=== PATIENT | male | born 1955 | race African-American/Black ===

== ENCOUNTER 2017-03-01 10:58 | Emergency (ER) | payer OTHER ==
[~2017-03-01] VITALS: Ht 185.4 cm; Wt 85.0 kg
[~2017-03-01 10:58] MED LIST: AMIT25 PO; ANAP550T PO; CEPH500C3 PO; HYDR-3533 PO; IBUP800T23 PO; INDO50CA PO; LANTUSP SQ; METF1000 PO; METH750T2 PO; NEUR600T PO; PRIN10TA PO; SIMV20TA PO; TRIA.1%T TOP
--- NOTE | 2017-03-01 11:48 | PD ---
HPI Chief Complaint: Psychiatric Symptoms Time Seen by Provider: 11:45 Travel History International Travel<30 days: No Contact w/Intl Traveler<30days: No History of Present Illness HPI 61-year-old male presents the emergency department via police for Butler act evaluation. Butler act states that patient has not been taking his medication for an extended amount of time. Patient states that he feels like he wants to hurt himself or someone else. Patient has no specific plan. Patient is a insulin dependent diabetic, and states he has not been taking his insulin today. He denies any other medical problems or issues at this time. He denies use of alcohol, but states he has used some illicit drugs. He has no known drug allergies. [facility] Past Medical History Cardiovascular Problems: Yes (htn) High Cholesterol: Yes Diabetes: Yes Diminished Hearing: No Hepatitis: No Hypertension: Yes Immunizations Current: Yes Past Surgical History Appendectomy: Yes Social History Alcohol Use: No Tobacco Use: No Substance Use: No Allergies-Medications (Allergen,Severity, Reaction): Coded Allergies: No Known Allergies (Verified , 03/01/17) Reported Meds & Prescriptions Reported Meds & Active Scripts Active Reported Zocor (Simvastatin) 20 Mg Tab 20 Mg PO HS Metformin (Metformin HCl) 1,000 Mg Tab 1,000 Mg PO BID With meals Lisinopril 20 Mg Tab 20 Mg PO HS Amlodipine (Amlodipine Besylate) 5 Mg Tab 5 Mg PO DAILY Aspir-81 (Aspirin) 81 Mg Tabdr 81 Mg PO DAILY Lantus Inj (Insulin Glargine) 1,000 Unit/10 Ml Vial 48 Units SQ HS Amitriptyline (Amitriptyline HCl) 25 Mg Tab 25 Mg PO HS Review of Systems ROS Limitations: Poor Historian Except as stated in HPI: all other systems reviewed are Neg General / Constitutional: No: Fever Eyes: No: Visual changes HENT: No: Headaches Cardiovascular: No: Chest Pain or Discomfort Respiratory: No: Shortness of Breath Gastrointestinal: No: Abdominal Pain Genitourinary: No: Dysuria Musculoskeletal: No: Pain Skin: No Rash Neurologic: No: Weakness Psychiatric: No: Depression Endocrine: No: Polydipsia Hematologic/Lymphatic: No: Easy Bruising Physical Exam Exam Limitations: Poor Historian Narrative GENERAL: Patient appears in no acute distress. SKIN: Warm and dry. Normal color. Normal turgor. HEAD: Atraumatic. Normocephalic. EYES: Pupils equal and round. No scleral icterus. No injection or drainage. ENT: No nasal bleeding or discharge. Mucous membranes pink and moist. Pharynx is clear. Airway is patent. NECK: Trachea midline. Supple nontender. CARDIOVASCULAR: Regular rate and rhythm. RESPIRATORY: No accessory muscle use. Clear to auscultation. Breath sounds equal bilaterally. MUSCULOSKELETAL: Extremities without clubbing, cyanosis, or edema. No obvious deformities. NEUROLOGICAL: Awake and alert. No obvious cranial nerve deficits. Motor grossly within normal limits. Five out of 5 muscle strength in the arms and legs. Normal speech. PSYCHIATRIC: Appropriate mood and affect; insight and judgment normal. Data Data Last Documented VS Vital Signs Date Time Temp Pulse Resp B/P Pulse Ox O2 Delivery O2 Flow Rate FiO2 03/01/17 12:14 98.3 56 16 142/79 97 Orders Complete Blood Count With Diff (03/01/17 11:43) Comprehensive Metabolic Panel (03/01/17 11:43) Psych Screen (03/01/17 11:43) Drug Screen, Random Urine (03/01/17 11:43) Diet Regular Basic (03/01/17 Dinner) Labs Laboratory Tests Test 03/01/17 03/01/17 11:50 13:30 White Blood Count 6.0 TH/MM3 Red Blood Count 4.02 MIL/MM3 Hemoglobin 12.8 GM/DL Hematocrit 37.2 % Mean Corpuscular Volume 92.5 FL Mean Corpuscular Hemoglobin 31.9 PG Mean Corpuscular Hemoglobin 34.4 % Concent Red Cell Distribution Width 13.0 % Platelet Count 244 TH/MM3 Mean Platelet Volume 8.6 FL Neutrophils (%) (Auto) 54.2 % Lymphocytes (%) (Auto) 36.9 % Monocytes (%) (Auto) 8.2 % Eosinophils (%) (Auto) 0.1 % Basophils (%) (Auto) 0.6 % Neutrophils # (Auto) 3.3 TH/MM3 Lymphocytes # (Auto) 2.2 TH/MM3 Monocytes # (Auto) 0.5 TH/MM3 Eosinophils # (Auto) 0.0 TH/MM3 Basophils # (Auto) 0.0 TH/MM3 CBC Comment DIFF FINAL Differential Comment Sodium Level 138 MEQ/L Potassium Level 4.0 MEQ/L Chloride Level 101 MEQ/L Carbon Dioxide Level 30.5 MEQ/L Anion Gap 7 MEQ/L Blood Urea Nitrogen 20 MG/DL Creatinine 1.34 MG/DL Estimat Glomerular Filtration 65 ML/MIN Rate Random Glucose 129 MG/DL Calcium Level 9.2 MG/DL Total Bilirubin 0.5 MG/DL Aspartate Amino Transf 26 U/L (AST/SGOT) Alanine Aminotransferase 22 U/L (ALT/SGPT) Alkaline Phosphatase 51 U/L Total Protein 8.8 GM/DL Albumin 4.3 GM/DL Urine Opiates Screen NEG Urine Barbiturates Screen NEG Urine Amphetamines Screen NEG Urine Benzodiazepines Screen NEG Urine Cocaine Screen POS Urine Cannabinoids Screen POS MDM Medical Decision Making Medical Screen Exam Complete: Yes Emergency Medical Condition: Yes Differential Diagnosis Butler act. Suicidal ideation. Homicidal ideation. Narrative Course Patient appears medically stable at time of exam. Psychiatric labs ordered per protocol. Glucose fingerstick is 130. CBC shows mild anemia, but no other acute findings. CMP shows slightly increased creatinine at 1.34. Urinalysis is pending. Patient is medically cleared. Diagnosis Primary Impression: Suicidal ideations Additional Impression: Medical clearance for psychiatric admission Condition: Stable Henry Sierra Mar 01, 2017 11:48
[2017-03-01 12:08] LABS: AUTOMATED NEUTROPHIL # 3.3 TH/MM3 (1.8-7.7); BASOPHIL % 0.6 % (0.0-2.0); EOSINOPHIL % 0.1 % (0.0-4.0); HEMATOCRIT 37.2 % (39.0-51.0); HEMO FLAGS DIFF FINAL; LYMPH % 36.9 % (9.0-44.0); LYMPHOCYTE # 2.2 TH/MM3 (1.0-4.8); MEAN CELL VOLUME 92.5 FL (80.0-100.0); MEAN CORPUSCULAR HEMOGLOBIN 31.9 PG (27.0-34.0); MEAN CORPUSCULAR HGB CONC 34.4 % (32.0-36.0); MONO % 8.2 % (0.0-8.0); NEUT % 54.2 % (16.0-70.0); PLATELET COUNT 244 TH/MM3 (150-450); RED BLOOD COUNT 4.02 MIL/MM3 (4.50-5.90)
[2017-03-01 12:14] VITALS: BP 142/79; PULSE 56; RESP 16; TEMP 98.3; O2SAT 97
[2017-03-01 12:33] LABS: ALT (GPT) 22 U/L (12-78); ANION GAP 7 MEQ/L (5-15); AST (GOT) 26 U/L (15-37); BICARBONATE 30.5 MEQ/L (21.0-32.0); BLOOD UREA NITROGEN 20 MG/DL (7-18); CHLORIDE 101 MEQ/L (98-107); GLOMERULAR FILTRATION RATE 65 ML/MIN (>89); SODIUM (NA) 138 MEQ/L (136-145)
[2017-03-01 12:35] LABS: ALKALINE PHOSPHATASE 51 U/L (45-117); TOTAL BILIRUBIN ADULT 0.5 MG/DL (0.2-1.0)
[2017-03-01 15:11] LABS: AMPHETAMINE, URINE NEG (NEG); BARBITURATES, URINE NEG (NEG); COCAINE, URINE POS (NEG)
[2017-03-01] MEDS ORDERED: AMIT25TA9 PO (17:14)
[2017-03-01] MEDS ORDERED: ASPI81TA81 PO (17:14)
[2017-03-01] MEDS ORDERED: METF1000 PO (17:14)
[2017-03-01] MEDS ORDERED: AMLO5TAB2 PO (17:14)
[2017-03-01] MEDS ORDERED: ZOCO20TA PO (17:14)
[2017-03-01] MEDS ORDERED: LISI-515 PO (17:14)
[2017-03-01] MEDS ORDERED: LANTUS2P SQ (17:14)
[2017-03-01] MEDS: metFORMIN HCL 500 MG TAB PO SCH (18:03)
[2017-03-01] MEDS: LISINOPRIL 20 MG TAB PO SCH (18:03)
[2017-03-01] MEDS: amLODIPine BESYLATE 5 MG TAB PO SCH (18:03)
[2017-03-01 18:30] VITALS: BP 128/68; PULSE 53; RESP 16; O2SAT 98
[2017-03-01] MEDS ORDERED: AMITRIPTYLINE HCL 25 MG TAB PO SCH (21:00)
[2017-03-01] MEDS: INSULIN NovoLIN REGULAR SUPPLEMENTAL SCALE SQ SCH (21:55)
[2017-03-01 22:00] VITALS: BP 119/70; PULSE 49; RESP 16; TEMP 96.9; O2SAT 100
[2017-03-02 02:00] VITALS: BP 133/68; PULSE 46; RESP 16; TEMP 98.5; O2SAT 100
[2017-03-02 06:02] VITALS: BP 148/75; PULSE 56; RESP 16; TEMP 98.7; O2SAT 100
[2017-03-02] MEDS: INSULIN NovoLIN REGULAR SUPPLEMENTAL SCALE SQ SCH (07:30)
[2017-03-02] MEDS: amLODIPine BESYLATE 5 MG TAB PO SCH (08:52)
[2017-03-02] MEDS: LISINOPRIL 20 MG TAB PO SCH (08:52)
[2017-03-02] MEDS: metFORMIN HCL 500 MG TAB PO SCH (08:53)
[2017-03-02 10:03] VITALS: BP 148/75; PULSE 56; RESP 16; O2SAT 100
--- NOTE | 2017-03-02 10:07 | PD ---
History of Present Illness Chief Complaint: Suicide Ideation/Attempt Time Seen by Provider: 09:30 Travel History International Travel<30 Days: No Contact w/Intl Traveler<30days: No Known affected area: No Legal Status Legal Status: Butler Act Butler Act Signed By: Mariana Hayden History of Present Illness: History of Present Illness HPI 61-year-old male with no previous psychiatric history and history of cocaine use presents the emergency department via police under a Butler act. As per the report states that patient" has not been taking his medication for an extended amount of time. Patient states that he feels like he wants to hurt himself or someone else. Patient has no specific plan." EMR is reviewed. No prior contact with [facility] psychiatry dept. The patient was seen on February in ED for complaints of foot pain. At that time he did not present any suicidal ideation. Current toxicology is positive for cocaine as well as cannabinoids. Patient monitored in J pod as well as in main ED with no behavioral concerns and no suicidality. Patient is alert and oriented male who appears older than stated age. he is dressed in [facility]. He is maintaining hygiene. Patient is calm. Speech is of low tone but it is clear and logical. No psychosis and no jennifer are observed . He remains vague regarding past psychiatric history and finally states that he has never received psychiatric care. It appears that the medication he was talking about was his insulin and not psychiatric medication. He admits to being in a park when he was placed under a BA having been using cocaine prior to BA . He also states " it was all a misunderstanding " when asked why he was in the hospital. He states that he would like to have treatment for his substance use but that ": I don't know how to do it on my own". Does not present any suicidal or homicidal ideation, intent or plan at this time. he is also requesting help with identifying resources for treatment of substance abuse. PFSH Past Medical History Cardiovascular Problems: Yes (htn) High Cholesterol: Yes Diabetes: Yes Patient Takes Glucophage: Yes (02-28-2017) Diminished Hearing: No Hepatitis: No Hypertension: Yes Immunizations Current: Yes Tetanus Vaccination: Unknown Past Surgical History Appendectomy: Yes Psychiatric History Psychiatric History Hx Psychiatric Treatment: DENIES any . Sheri is prescribed low doese of Elavil by his PCP History of Inpatient Treatment: No Guns or firearms in home: No Social History Single male. Live sin a boarding home. On disability for medical issues including diabetes Hx Alcohol Use: No Hx Tobacco Use: No Hx Substance Use: Yes (crack this am) Substance Use Type: Marijuana, Cocaine Hx of Substance Use Treatment: No Family Psychiatric History None reported Allergies-Medications (Allergen,Severity, Reaction): Coded Allergies: No Known Allergies (Verified , 03/01/17) Reported Meds & Prescriptions Reported Meds & Active Scripts Active Reported Zocor (Simvastatin) 20 Mg Tab 20 Mg PO HS Metformin (Metformin HCl) 1,000 Mg Tab 1,000 Mg PO BID With meals Lisinopril 20 Mg Tab 20 Mg PO HS Amlodipine (Amlodipine Besylate) 5 Mg Tab 5 Mg PO DAILY Aspir-81 (Aspirin) 81 Mg Tabdr 81 Mg PO DAILY Lantus Inj (Insulin Glargine) 1,000 Unit/10 Ml Vial 48 Units SQ HS Amitriptyline (Amitriptyline HCl) 25 Mg Tab 25 Mg PO HS Review of Systems Constitutional: DENIES: Diaphoretic episodes, Fatigue, Fever, Weight gain, Weight loss, Chills, Dizziness, Change in appetite, Night Sweats Endocrine: DENIES: Heat/cold intolerance, Polydipsia, Polyuria, Polyphagia Eyes: DENIES: Blurred vision, Diplopia, Eye inflammation, Eye pain, Vision loss , Photosensitivity, Double Vision Ears, nose, mouth, throat: DENIES: Tinnitus, Hearing loss, Vertigo, Nasal discharge, Oral lesions, Throat pain, Hoarseness, Ear Pain, Running Nose, Epistaxis, Sinus Pain, Toothache, Odynophagia Respiratory: DENIES: Apneas, Cough, Snoring, Wheezing, Hemoptysis, Sputum production, Shortness of breath Cardiovascular: DENIES: Chest pain, Palpitations, Syncope, Dyspnea on Exertion , PND, Lower Extremity Edema, Orthopnea, Claudication Gastrointestinal: DENIES: Abdominal pain, Black stools, Bloody stools, Constipation, Diarrhea, Nausea, Vomiting, Difficulty Swallowing, Anorexia Musculoskeletal: COMPLAINS OF: Joint pain Integumentary: DENIES: Abnormal pigmentation, Nail changes, Pruritus, Rash Hematologic/lymphatic: DENIES: Bruising, Lymphadenopathy Immunologic/allergic: DENIES: Eczema, Urticaria Neurologic: DENIES: Abnormal gait, Headache, Localized weakness, Paresthesias, Seizures, Speech Problems, Tremor, Poor Balance Psychiatric: DENIES: Anxiety, Confusion, Mood changes, Depression, Hallucinations, Agitation, Suicidal Ideation, Homicidal Ideation, Delusions Exam Alert: Yes Sawyer: Person (ox4) Mood: Calm Affect: Appropriate Speech: Clear Eye Contact: Indirect Memory Intact: Comment (not t etsed) Hallucinations: Other (negative) Delusions: No Suicidal: Ideation (Negative) Homicidal: Ideation (Negative) Insight/Judgement poor. not impaired. MDM Medical Decision Making Medical Record Reviewed: Yes Assessment/Plan 61 year old male with no hx of psychiatric treatment but hx of substance use disorder, mainly cocaine as well as marijuana, who presents under a BA. The patient at the time of BA positive for above substances. He was monitored in safe environment and presented no behavioral concerns and no suicidality. This morning he is denying any suicidal or homicidal ideation, intent or plan,. He is is willing to accept referrals as well as asking for such therefor implying that he is future oriented. At this time, patient is requesting treatment for his continued and chronic use of cocaine. he will be provided with resources in the community. Will lift BA. Discharge to follow up with outpatient treatment. Orders Complete Blood Count With Diff (03/01/17 11:43) Comprehensive Metabolic Panel (03/01/17 11:43) Psych Screen (03/01/17 11:43) Drug Screen, Random Urine (03/01/17 11:43) Diet Regular Basic (03/01/17 Dinner) Metformin (Glucophage) (03/01/17 18:03) Lisinopril (Prinivil) (03/01/17 18:03) Amlodipine (Norvasc) (03/01/17 18:03) Amitriptyline (Elavil) (03/01/17 21:00) Insulin Human Reg Supp Scale (Novolin R (03/01/17 21:00) Diet Diabetic (03/02/17 Breakfast) Diet Regular Basic (03/02/17 Lunch) Results Vital Signs Date Time Temp Pulse Resp B/P Pulse Ox O2 Delivery O2 Flow Rate FiO2 03/02/17 06:02 98.7 56 16 148/75 100 Room Air 03/02/17 02:00 98.5 46 16 133/68 100 Room Air 03/01/17 22:00 96.9 49 16 119/70 100 Room Air 03/01/17 18:30 53 16 128/68 98 Room Air 03/01/17 12:14 98.3 56 16 142/79 97 Laboratory Tests Test 03/01/17 03/01/17 11:50 13:30 White Blood Count 6.0 Red Blood Count 4.02 Hemoglobin 12.8 Hematocrit 37.2 Mean Corpuscular Volume 92.5 Mean Corpuscular Hemoglobin 31.9 Mean Corpuscular Hemoglobin 34.4 Concent Red Cell Distribution Width 13.0 Platelet Count 244 Mean Platelet Volume 8.6 Neutrophils (%) (Auto) 54.2 Lymphocytes (%) (Auto) 36.9 Monocytes (%) (Auto) 8.2 Eosinophils (%) (Auto) 0.1 Basophils (%) (Auto) 0.6 Neutrophils # (Auto) 3.3 Lymphocytes # (Auto) 2.2 Monocytes # (Auto) 0.5 Eosinophils # (Auto) 0.0 Basophils # (Auto) 0.0 CBC Comment DIFF FINAL Differential Comment Sodium Level 138 Potassium Level 4.0 Chloride Level 101 Carbon Dioxide Level 30.5 Anion Gap 7 Blood Urea Nitrogen 20 Creatinine 1.34 Estimat Glomerular Filtration 65 Rate Random Glucose 129 Calcium Level 9.2 Total Bilirubin 0.5 Aspartate Amino Transf 26 (AST/SGOT) Alanine Aminotransferase 22 (ALT/SGPT) Alkaline Phosphatase 51 Total Protein 8.8 Albumin 4.3 Urine Opiates Screen NEG Urine Barbiturates Screen NEG Urine Amphetamines Screen NEG Urine Benzodiazepines Screen NEG Urine Cocaine Screen POS Urine Cannabinoids Screen POS Diagnosis Primary Impression: Cocaine abuse Additional Impression: Substance induced mood disorder Ruled Out: Suicidal ideations Psychiatrically Cleared: Yes Med/ Other Pt Specific Info: No Change to Meds Disposition: 01 DISCHARGE HOME Condition: Stable Problem Qualifiers Antonia Jarquin Mar 02, 2017 10:07
== END 2017-03-02 10:49 | disposition home or self-care (01) ==
LOC: NEPD 10:58 → NEPJ 03-02 10:49
DX: F19.94 Other psychoactive substance use, unspecified with psychoactive substance-induced mood disorder (principal); E78.00 Pure hypercholesterolemia, unspecified; I10 Essential (primary) hypertension; E11.9 Type 2 diabetes mellitus without complications; Z79.4 Long term (current) use of insulin; F14.10 Cocaine abuse, uncomplicated
CPT/HCPCS: 80053; 80307; 85025; 99283

== ENCOUNTER 2017-03-10 13:54 | Inpatient (IN) | payer OTHER ==
[~2017-03-10] VITALS: Ht 188 cm; Wt 72.5 kg
[~2017-03-10 13:54] MED LIST changes: -AMIT25 PO; +AMIT25TA9 PO; +AMLO5TAB2 PO; -ANAP550T PO; +ASPI81TA81 PO; -CEPH500C3 PO; -HYDR-3533 PO; -IBUP800T23 PO; -INDO50CA PO; +LANTUS2P SQ; -LANTUSP SQ; +LISI-515 PO; -METH750T2 PO; -NEUR600T PO; -PRIN10TA PO; -SIMV20TA PO; -TRIA.1%T TOP; +ZOCO20TA PO
[2017-03-10 14:25] VITALS: BP 164/84; PULSE 50; RESP 20; TEMP 97.7; O2SAT 99
--- NOTE | 2017-03-10 14:42 | PD ---
HPI Chief Complaint: OD/ Ingestion Time Seen by Provider: 14:42 Travel History International Travel<30 days: No Contact w/Intl Traveler<30days: No Traveled to known affect area: No History of Present Illness HPI 61-year-old male presents to the ED via EMS under Butler act after intentional overdose. Patient states he took 500 mg acetaminophen 15 at approximately 10 AM in an attempt to end his life today. He states that he is "having a lot of stressors" but declines to enumerate them. He complains of chest discomfort but denies other physical complaints. Requests a meal. PFSH Past Medical History Cardiovascular Problems: Yes (htn) High Cholesterol: Yes Diabetes: Yes Patient Takes Glucophage: Yes (2 days ago) Diminished Hearing: No Hepatitis: No Hypertension: Yes Immunizations Current: Yes Past Surgical History Appendectomy: Yes Social History Alcohol Use: No Tobacco Use: No Substance Use: Yes (crack 2 days ago) Allergies-Medications (Allergen,Severity, Reaction): Coded Allergies: No Known Allergies (Verified , 03/01/17) Reported Meds & Prescriptions Reported Meds & Active Scripts Active Reported Zocor (Simvastatin) 20 Mg Tab 20 Mg PO HS Metformin (Metformin HCl) 1,000 Mg Tab 1,000 Mg PO BID With meals Lisinopril 20 Mg Tab 20 Mg PO HS Amlodipine (Amlodipine Besylate) 5 Mg Tab 5 Mg PO DAILY Aspir-81 (Aspirin) 81 Mg Tabdr 81 Mg PO DAILY Lantus Inj (Insulin Glargine) 1,000 Unit/10 Ml Vial 48 Units SQ HS Amitriptyline (Amitriptyline HCl) 25 Mg Tab 25 Mg PO HS Review of Systems Except as stated in HPI: all other systems reviewed are Neg Physical Exam Narrative GENERAL: Well-nourished, well-developed black male in no acute distress. SKIN: Focused skin assessment warm/dry. HEAD: Normocephalic. EYES: No scleral icterus. No injection or drainage. NECK: Supple, trachea midline. No JVD or lymphadenopathy. CARDIOVASCULAR: Regular rate and rhythm without murmurs, gallops, or rubs. RESPIRATORY: Breath sounds equal bilaterally. No accessory muscle use. GASTROINTESTINAL: Abdomen soft, non-tender, nondistended. MUSCULOSKELETAL: No cyanosis, or edema. BACK: Nontender without obvious deformity. No CVA tenderness. Data Data Last Documented VS Vital Signs Date Time Temp Pulse Resp B/P Pulse Ox O2 Delivery O2 Flow Rate FiO2 03/10/17 20:05 48 18 162/94 98 Room Air 03/10/17 14:25 97.7 Orders Complete Blood Count With Diff (03/10/17 14:42) Comprehensive Metabolic Panel (03/10/17 14:42) Psych Screen (03/10/17 14:42) Drug Screen, Random Urine (03/10/17 14:42) Alcohol (Ethanol) (03/10/17 14:42) Salicylates (Aspirin) (03/10/17 14:42) Tylenol (Acetaminophen) (03/10/17 14:42) Electrocardiogram (03/10/17 16:06) Tylenol (Acetaminophen) (03/10/17 18:45) Coag Profile (03/10/17 17:15) Lactic Acid (03/10/17 17:36) Hepatic Functional Panel (03/10/17 17:55) Diet Heart Healthy (03/11/17 Breakfast) Electrocardiogram (03/10/17 14:43) Labs Laboratory Tests Test 03/10/17 03/10/17 14:45 17:55 White Blood Count 5.7 TH/MM3 Red Blood Count 4.08 MIL/MM3 Hemoglobin 12.5 GM/DL Hematocrit 37.9 % Mean Corpuscular Volume 92.8 FL Mean Corpuscular Hemoglobin 30.6 PG Mean Corpuscular Hemoglobin 33.0 % Concent Red Cell Distribution Width 12.8 % Platelet Count 210 TH/MM3 Mean Platelet Volume 8.6 FL Neutrophils (%) (Auto) 49.6 % Lymphocytes (%) (Auto) 41.2 % Monocytes (%) (Auto) 8.8 % Eosinophils (%) (Auto) 0.1 % Basophils (%) (Auto) 0.3 % Neutrophils # (Auto) 2.8 TH/MM3 Lymphocytes # (Auto) 2.3 TH/MM3 Monocytes # (Auto) 0.5 TH/MM3 Eosinophils # (Auto) 0.0 TH/MM3 Basophils # (Auto) 0.0 TH/MM3 CBC Comment DIFF FINAL Differential Comment Sodium Level 140 MEQ/L Potassium Level 3.2 MEQ/L Chloride Level 105 MEQ/L Carbon Dioxide Level 27.4 MEQ/L Anion Gap 8 MEQ/L Blood Urea Nitrogen 13 MG/DL Creatinine 1.17 MG/DL Estimat Glomerular Filtration 77 ML/MIN Rate Random Glucose 122 MG/DL Calcium Level 9.0 MG/DL Total Bilirubin 0.4 MG/DL 0.5 MG/DL Aspartate Amino Transf 15 U/L 14 U/L (AST/SGOT) Alanine Aminotransferase 16 U/L 14 U/L (ALT/SGPT) Alkaline Phosphatase 54 U/L 52 U/L Total Protein 7.8 GM/DL 7.3 GM/DL Albumin 3.9 GM/DL 3.7 GM/DL Salicylates Level LESS THAN 1.7 MG/DL Urine Opiates Screen NEG Acetaminophen Level 54.7 MCG/ML 31.0 MCG/ML Urine Barbiturates Screen NEG Urine Amphetamines Screen NEG Urine Benzodiazepines Screen NEG Urine Cocaine Screen POS Urine Cannabinoids Screen POS Ethyl Alcohol Level LESS THAN 3 MG/DL Prothrombin Time 12.1 SEC Prothromb Time International 1.1 RATIO Ratio Activated Partial 25.8 SEC Thromboplast Time Lactic Acid Level 0.9 mmol/L Direct Bilirubin 0.1 MG/DL Indirect Bilirubin 0.4 MG/DL MDM Medical Decision Making Medical Screen Exam Complete: Yes Emergency Medical Condition: Yes Differential Diagnosis Intentional overdose versus arrhythmia versus Tylenol toxicity versus liver failure versus other Narrative Course 61-year-old male presents to the ED via EMS under Butler act after intentional overdose. Patient states he took 500 mg acetaminophen 15 at approximately 10 AM in an attempt to end his life today. He states that he is "having a lot of stressors" but declines to enumerate them. He complains of chest discomfort but denies other physical complaints. Requests a meal. Vitals reviewed. Heart rate in the low 50s mid 40s. BP 164/84. Physical exam unremarkable. 1500 I spoke with poison control who recommends supportive care at this time, repeat EKG in 1 hour. They said the amount of Tylenol was "just below the toxic level" but even one pill difference could require treatment with N- acetylcysteine. 1730 I spoke with poison control a second time and reported the results. They recommend recheck of the LFTs and drawing a lactic acid. 1443 EKG rate 47, sinus rhythm. Normal intervals. Normal axis. No ST elevations. Reviewed by Dr. Ca. 1705 EKG: Rate 46, sinus bradycardia, NJ interval 163, QRS 93, QT 479, QTc 439 ms[address] Normal axis. No ST changes. CBC: WBC 5.7, hemoglobin 12.5. CMP potassium 3.2, glucose 122. LFTs within normal limits INR 1.1. Lactic acid 0.9 Tox screen: Acetaminophen 54.7. Positive for cocaine and cannabinoids Redraw of the LFTs unremarkable. Redraw the acetaminophen 31.0. Patient is below toxicity levels according to the Amanuel Goodwin nomogram. Patient is medically cleared for psychiatric evaluation. Please see segments for disposition. Diagnosis Primary Impression: Intentional acetaminophen overdose Qualified Code: T39.1X2A - Intentional acetaminophen overdose, initial encounter Additional Impression: Medical clearance for psychiatric admission Linda Herrera Mar 10, 2017 14:42
[2017-03-10 15:32] VITALS: PULSE 46; RESP 16; O2SAT 98
[2017-03-10 15:45] LABS: AUTOMATED NEUTROPHIL # 2.8 TH/MM3 (1.8-7.7); BASOPHIL % 0.3 % (0.0-2.0); EOSINOPHIL % 0.1 % (0.0-4.0); HEMATOCRIT 37.9 % (39.0-51.0); HEMO FLAGS DIFF FINAL; LYMPH % 41.2 % (9.0-44.0); LYMPHOCYTE # 2.3 TH/MM3 (1.0-4.8); MEAN CELL VOLUME 92.8 FL (80.0-100.0); MEAN CORPUSCULAR HEMOGLOBIN 30.6 PG (27.0-34.0); MONO % 8.8 % (0.0-8.0); NEUT % 49.6 % (16.0-70.0); PLATELET COUNT 210 TH/MM3 (150-450); RED BLOOD COUNT 4.08 MIL/MM3 (4.50-5.90); RED CELL DISTRIBUTION WIDTH 12.8 % (11.6-17.2); WHITE BLOOD COUNT 5.7 TH/MM3 (4.0-11.0)
[2017-03-10 15:49] LABS: AMPHETAMINE, URINE NEG (NEG); BARBITURATES, URINE NEG (NEG); COCAINE, URINE POS (NEG)
[2017-03-10 16:01] LABS: ANION GAP 8 MEQ/L (5-15); AST (GOT) 15 U/L (15-37); BICARBONATE 27.4 MEQ/L (21.0-32.0); BLOOD UREA NITROGEN 13 MG/DL (7-18); CHLORIDE 105 MEQ/L (98-107); GLOMERULAR FILTRATION RATE 77 ML/MIN (>89); POTASSIUM 3.2 MEQ/L (3.5-5.1); SODIUM (NA) 140 MEQ/L (136-145)
[2017-03-10 16:02] LABS: ACETAMINOPHEN 54.7 MCG/ML (10.0-30.0); ALT (GPT) 16 U/L (12-78)
[2017-03-10 16:04] LABS: ALKALINE PHOSPHATASE 54 U/L (45-117); TOTAL BILIRUBIN ADULT 0.4 MG/DL (0.2-1.0)
[2017-03-10 18:36] LABS: APTT (PATIENT) 25.8 SEC (24.3-30.1); INTERNATIONAL NORMALIZED RATIO 1.1 RATIO; PROTHROMBIN TIME - PATIENT 12.1 SEC (9.8-11.6)
[2017-03-10 18:43] VITALS: PULSE 44; RESP 18; O2SAT 98
[2017-03-10 18:48] LABS: INDIRECT BILIRUBIN 0.4 MG/DL (0.0-0.8); TOTAL BILIRUBIN ADULT 0.5 MG/DL (0.2-1.0)
[2017-03-10 20:05] VITALS: BP 162/94; PULSE 48; RESP 18; O2SAT 98
[2017-03-10 22:18] VITALS: BP 160/77; PULSE 41; RESP 16; O2SAT 98
[2017-03-11 00:15] VITALS: BP 176/84; PULSE 47; RESP 18; TEMP 97.7; O2SAT 100
[2017-03-11 01:54] VITALS: BP 137/69; PULSE 54; RESP 18; TEMP 98.6; O2SAT 99
[2017-03-11 06:10] VITALS: BP 162/79; PULSE 50; RESP 18; O2SAT 99
[2017-03-11 14:38] VITALS: BP 167/77; PULSE 53; RESP 18; TEMP 98.1; O2SAT 100
--- NOTE | 2017-03-11 17:44 | EKG ---
Date Performed: 03/10/2017 Time Performed: 14:43:42 PTAGE: 61 years EKG: SINUS BRADYCARDIA BORDERLINE ECG NO PREVIOUS TRACING DOCTOR: Татьяна Bland Interpretating Date/Time 03/11/2017 17:37:40
[2017-03-11 17:56] VITALS: BP 160/83; PULSE 55; RESP 17; TEMP 98.5; O2SAT 100
[2017-03-11] MEDS ORDERED: metFORMIN HCL 500 MG TAB PO SCH (18:00)
[2017-03-11] MEDS: amLODIPine BESYLATE 5 MG TAB PO SCH (18:17)
--- NOTE | 2017-03-11 18:23 | EKG ---
Date Performed: 03/10/2017 Time Performed: 17:05:15 PTAGE: 61 years EKG: SINUS BRADYCARDIA BORDERLINE ECG PREVIOUS TRACING : 03/10/2017 14.43 Compared to prior tracing no significant change DOCTOR: Татьяна Bland Interpretating Date/Time 03/11/2017 18:22:19
[2017-03-11] MEDS ORDERED: diphenhydrAMINE HCL 50 MG CAP PO PRN (18:45)
[2017-03-11] MEDS ORDERED: ALUMINUM/MAGNESIUM/SIMETH 30 ML CUP PO PRN (18:45)
[2017-03-11] MEDS ORDERED: ACETAMINOPHEN 325 MG TAB PO PRN (18:45)
[2017-03-11] MEDS ORDERED: diphenhydrAMINE HCL 50 MG/ML VIAL IM PRN (18:45)
[2017-03-11] MEDS ORDERED: MAGNESIUM HYDROXIDE SUSP 30 ML CUP PO PRN (18:45)
[2017-03-11] MEDS ORDERED: diphenhydrAMINE HCL 50 MG CAP - HS PRN PO (18:45)
[2017-03-11] MEDS ORDERED: diphenhydrAMINE HCL 50 MG/ML VIAL - HS PRN IM (18:45)
[2017-03-11] MEDS: hydrOXYzine HCL 50 MG TAB PO PRN (18:48)
[2017-03-11] MEDS ORDERED: INSULIN DETEMIR 100 UNITS/ML VIAL SQ SCH (21:00)
[2017-03-11] MEDS: PRAVASTATIN SOD 40 MG TAB PO SCH (21:53)
[2017-03-12] MEDS ORDERED: DEXTROSE 50% IN WATER 50 ML VIAL(D50) IV PRN (03:45)
[2017-03-12] MEDS ORDERED: GLUCAGON 1 MG/ML VIAL OTHER PRN (03:45)
[2017-03-12 03:59] LABS: AUTOMATED NEUTROPHIL # 2.5 TH/MM3 (1.8-7.7); BASOPHIL % 0.3 % (0.0-2.0); EOSINOPHIL % 0.7 % (0.0-4.0); HEMATOCRIT 39.3 % (39.0-51.0); HEMO FLAGS DIFF FINAL; LYMPHOCYTE # 3.7 TH/MM3 (1.0-4.8); MEAN CELL VOLUME 92.7 FL (80.0-100.0); MEAN CORPUSCULAR HEMOGLOBIN 30.9 PG (27.0-34.0); MEAN CORPUSCULAR HGB CONC 33.4 % (32.0-36.0); MONO % 9.6 % (0.0-8.0); NEUT % 36.4 % (16.0-70.0); PLATELET COUNT 223 TH/MM3 (150-450); RED BLOOD COUNT 4.24 MIL/MM3 (4.50-5.90); RED CELL DISTRIBUTION WIDTH 12.7 % (11.6-17.2); WHITE BLOOD COUNT 6.9 TH/MM3 (4.0-11.0)
[2017-03-12 04:17] LABS: CREATINE KINASE 129 U/L (39-308)
[2017-03-12] MEDS ORDERED: POTASSIUM CHLORIDE 10 MEQ CONTROLLED RELEASE TAB PO ONE ×2 (05:00→14:00)
--- NOTE | 2017-03-12 05:01 | PD.CONS ---
[facility] Request[facility] By Dr. Ivey Reason for Consult Diabetes Primary Care Physician Vincent Arreguin MD Diagnoses: History of Present Illness Written by FRANCOIS Petit acting as scribe for [Petros] on 03/12/17 at 03: 19. 61 y/o male with a history of HTN, Hep C, and DM admitted to the psychiatry department for depression and intentional overdose. [facility] was consulted for medical management. Patient seen and examined while laying in bed. States he tried to hurt himself by taking multiple tylenol tablets, his then began to have abdominal pain and called evac. Patient states he has been having chest pain off and on for the past week, he does use cocaine and the last use was 2 days ago. He denies any sob, fever or chills. While examining patient he does seem to grimace a lot and states he has all over pain due to arthritis and sciatic nerve pain. Review of Systems Constitutional: DENIES: Fever, Chills Respiratory: DENIES: Cough, Shortness of breath Cardiovascular: COMPLAINS OF: Chest pain, DENIES: Lower Extremity Edema Gastrointestinal: DENIES: Nausea, Vomiting Genitourinary: DENIES: Hematuria, Dysuria Musculoskeletal: COMPLAINS OF: Back pain, DENIES: Neck pain Integumentary: DENIES: Rash Hematologic/lymphatic: DENIES: Lymphadenopathy Immunologic/allergic: DENIES: Urticaria Neurologic: DENIES: Headache Past Family Social History Allergies: Coded Allergies: No Known Allergies (Verified , 03/01/17) Past Medical History HTN DM Hep C Past Surgical History Appendectomy Hand surgery Reported Medications Reported Meds & Active Scripts Active Reported Zocor (Simvastatin) 20 Mg Tab 20 Mg PO HS Metformin (Metformin HCl) 1,000 Mg Tab 1,000 Mg PO BID With meals Lisinopril 20 Mg Tab 20 Mg PO HS Amlodipine (Amlodipine Besylate) 5 Mg Tab 5 Mg PO DAILY Aspir-81 (Aspirin) 81 Mg Tabdr 81 Mg PO DAILY Lantus Inj (Insulin Glargine) 1,000 Unit/10 Ml Vial 48 Units SQ HS Amitriptyline (Amitriptyline HCl) 25 Mg Tab 25 Mg PO HS Active Ordered Medications Current Medications Medications (Trade) Dose Ordered Sig/Fabi Route Start Time Stop Time Status Last Admin (Norvasc) 5 mg DAILY PO 03/11/17 16:15 03/11/17 18:17 (Glucophage) 1,000 mg BIDPC PO 03/11/17 18:00 Hold 03/11/17 18:17 (Ecotrin Ec) 81 mg DAILY PO 03/12/17 09:00 (Levemir Inj) 48 units HS SQ 03/11/17 21:00 Hold 03/11/17 22:08 (Pravachol) 40 mg HS PO 03/11/17 21:00 03/11/17 21:53 (Atarax) 50 mg Q6H PRN PO 03/11/17 18:45 03/11/17 18:48 (Benadryl) 50 mg Q6H PRN PO 03/11/17 18:45 03/11/17 21:53 (Benadryl Inj) 50 mg Q6H PRN IM 03/11/17 18:45 (Benadryl) 50 mg HS PRN PO 03/11/17 18:45 (Benadryl Inj) 50 mg HS PRN IM 03/11/17 18:45 (Tylenol) 650 mg Q4H PRN PO 03/11/17 18:45 (Milk Of Magnesia Liq) 30 ml DAILY PRN PO 03/11/17 18:45 (Mag-Al Plus Susp Liq) 30 ml Q6H PRN PO 03/11/17 18:45 (D50w (Vial) Inj) 50 ml UNSCH PRN IV 03/12/17 03:45 (Glucagon Inj) 1 mg UNSCH PRN OTHER 03/12/17 03:45 Family History Patient denies any family history Social History Tobacco use: Denies Alcohol use: Denies Illicit drug use: cocaine and marijuana Physical Exam Vital Signs Vital Signs Date Time Temp Pulse Resp B/P Pulse Ox O2 Delivery O2 Flow Rate FiO2 03/11/17 17:56 98.5 55 17 160/83 100 03/11/17 14:38 98.1 53 18 167/77 100 Room Air 03/11/17 06:10 50 18 162/79 99 Room Air Physical Exam GENERAL: This is a well-nourished, well-developed patient, who is grimacing at times. SKIN: No rashes, ecchymoses or lesions. Cool and dry. HEAD: Atraumatic. Normocephalic. EYES: Pupils equal round and reactive. Extraocular motions intact. ENT: Nose without bleeding, purulent drainage or septal hematoma. NECK: Trachea midline. No JVD or lymphadenopathy.. CARDIOVASCULAR: Regular rate and rhythm without murmurs, gallops, or rubs. RESPIRATORY: Clear to auscultation. Breath sounds equal bilaterally. No wheezes , rales, or rhonchi. GASTROINTESTINAL: Abdomen soft, non-tender, nondistended. No hepato-splenomegaly , or palpable masses. No guarding. MUSCULOSKELETAL: Extremities without clubbing, cyanosis, or edema. Lower back tenderness. No calf tenderness NEUROLOGICAL: Awake and alert. Motor and sensory grossly within normal limits Normal speech. Laboratory Laboratory Tests Test 03/12/17 03:54 White Blood Count 6.9 Red Blood Count 4.24 Hemoglobin 13.1 Hematocrit 39.3 Mean Corpuscular Volume 92.7 Mean Corpuscular Hemoglobin 30.9 Mean Corpuscular Hemoglobin 33.4 Concent Red Cell Distribution Width 12.7 Platelet Count 223 Mean Platelet Volume 8.2 Neutrophils (%) (Auto) 36.4 Lymphocytes (%) (Auto) 53.0 Monocytes (%) (Auto) 9.6 Eosinophils (%) (Auto) 0.7 Basophils (%) (Auto) 0.3 Neutrophils # (Auto) 2.5 Lymphocytes # (Auto) 3.7 Monocytes # (Auto) 0.7 Eosinophils # (Auto) 0.0 Basophils # (Auto) 0.0 CBC Comment DIFF FINAL Differential Comment Total Creatine Kinase 129 Troponin I LESS THAN 0.02 Result Diagram: 03/12/17 0354 03/10/17 1445 Assessment and Plan Problem List: (1) Depressive disorder ICD Code: F32.9 Status: Acute (2) HTN (hypertension) ICD Code: I10 Status: Acute (3) DM (diabetes mellitus) ICD Code: E11.9 Status: Acute (4) Illicit drug use ICD Code: F19.90 Status: Acute Assessment and Plan 61 y/o male with a history of HTN, Hep C, and DM admitted to the psychiatry department for depression and intentional overdose. [facility] was consulted for medical management. Depressive disorder, patient admitted for an intentional overdose with Tylenol, cleared by poison control -managed by psych Chest pain, likely due to cocaine use Troponin < .02 -Serial troponin and EKG HTN, chronic -Cont home medication Norvasc DM, chronic -hold Levemir, and metformin until patient is eating well -Accu checks with SSI Hypokalemia, potassium 3.2 -Supplement ordered -Check Mag and BMP in AM DVT prophylaxis: Encourage ambulation This note was transcribed by catinaibnohelia [Angelica Luu]. I, Dr. Shweta Morrell personally performed the history, physical exam, and medical decision making; and confirmed the accuracy of the information in the transcribed note. Authenticated by Dr. Shweta Morrell on 03/12/17 at 03:19. Discussed Condition With patient, his nurse Angelica Luu Mar 12, 2017 05:01 Shweta Morrell MD Mar 12, 2017 07:54
[2017-03-12 06:47] VITALS: BP 130/70; PULSE 51; RESP 16; TEMP 98.3; O2SAT 98
[2017-03-12] MEDS: INSULIN ASPART SUPPLEMENTAL SCALE SQ SCH ×4 (07:00→21:00)
[2017-03-12] MEDS: amLODIPine BESYLATE 5 MG TAB PO SCH (08:30)
[2017-03-12] MEDS: ASPIRIN EC 81 MG TABEC PO SCH (08:30)
[2017-03-12 10:05] LABS: ANION GAP 10 MEQ/L (5-15); BICARBONATE 28.3 MEQ/L (21.0-32.0); BLOOD UREA NITROGEN 14 MG/DL (7-18); CHLORIDE 105 MEQ/L (98-107); GLOMERULAR FILTRATION RATE 92 ML/MIN (>89); POTASSIUM 3.3 MEQ/L (3.5-5.1); SODIUM (NA) 143 MEQ/L (136-145)
[2017-03-12 10:08] LABS: HDL CHOLESTEROL 46.5 MG/DL (40.0-60.0); LDL CHOLESTEROL 101 MG/DL (0-99)
[2017-03-12 11:50] LABS: CREATINE KINASE 120 U/L (39-308)
--- NOTE | 2017-03-12 11:58 | HHI.PR ---
Subjective Remarks resting with no acute distress. has some epigastric pain. no chest pain or sob. noted hypoglycemic episode earlier today. d/w the RN and no other acute issues over night. Objective Vitals Vital Signs Date Time Temp Pulse Resp B/P Pulse Ox O2 Delivery O2 Flow Rate FiO2 03/12/17 06:47 98.3 51 16 130/70 98 03/11/17 17:56 98.5 55 17 160/83 100 03/11/17 14:38 98.1 53 18 167/77 100 Room Air Result Diagram: 03/12/17 0354 03/12/17 0721 Objective Remarks GENERAL: This is a well-nourished, well-developed patient, in no apparent distress. CARDIOVASCULAR: Regular rate and regular rhythm without murmurs, gallops, or rubs. RESPIRATORY: Clear to auscultation. Breath sounds equal bilaterally. No wheezes , rales, or rhonchi. GASTROINTESTINAL: Abdomen soft, non-tender, nondistended. Normal, active bowel sounds MUSCULOSKELETAL: Extremities without clubbing, cyanosis, or edema. NEURO: Alert & Oriented x4 to person, place, time, situation. Moves all ext x4 Medications and IVs Current Medications Amlodipine Besylate (Norvasc) 5 mg DAILY PO Last administered on 03/12/17 08:30 ; Start 03/11/17 at 16:15 Metformin HCl (Glucophage) 1,000 mg BIDPC PO Last administered on 03/11/17 18: 17; Start 03/11/17 at 18:00; Status Hold Aspirin (Ecotrin Ec) 81 mg DAILY PO Last administered on 03/12/17 08:30; Start 03/12/17 at 09:00 Insulin Detemir (Levemir Inj) 48 units HS SQ Last administered on 03/11/17 22: 08; Start 03/11/17 at 21:00; Status Hold Pravastatin Sodium (Pravachol) 40 mg HS PO CM Last administered on 03/11/17 21: 53; Start 03/11/17 at 21:00 Hydroxyzine HCl (Atarax) 50 mg Q6H PRN PO ANXIETY Last administered on 18:48; Start 03/11/17 at 18:45 Diphenhydramine HCl (Benadryl) 50 mg Q6H PRN PO MILD ANXIETY, EPS Last administered on 03/11/17 21:53; Start 03/11/17 at 18:45 Diphenhydramine HCl (Benadryl Inj) 50 mg Q6H PRN IM MILD ANXIETY, EPS; Start at 18:45 Diphenhydramine HCl (Benadryl) 50 mg HS PRN PO INSOMNIA; Start 03/11/17 at 18:45 Diphenhydramine HCl (Benadryl Inj) 50 mg HS PRN IM INSOMNIA; Start 03/11/17 at 18:45 Acetaminophen (Tylenol) 650 mg Q4H PRN PO Pain 1-5 or Temp >101F; Start at 18:45 Magnesium Hydroxide (Milk Of Magnesia Liq) 30 ml DAILY PRN PO CONSTIPATION; Start 03/11/17 at 18:45 Al Hydrox/Mg Hydrox/Simethicone (Mag-Al Plus Susp Liq) 30 ml Q6H PRN PO DYSPEPSIA; Start 03/11/17 at 18:45 Dextrose (D50w (Vial) Inj) 50 ml UNSCH PRN IV HYPOGLYCEMIA-SEE COMMENTS; Start 03/12/17 at 03:45 Glucagon (Glucagon Inj) 1 mg UNSCH PRN OTHER HYPOGLYCEMIA-SEE COMMENTS; Start 03/12/17 at 03:45 Insulin Aspart (NovoLOG SUPPLEMENTAL SCALE) 1 ACHS SLIDING SCALE SQ ; Start 03/12/17 at 07:00 Potassium Chloride (KCl) 30 meq ONCE ONCE PO Last administered on 03/12/17 05: 09; Start 03/12/17 at 05:00; Stop 03/12/17 at 05:01; Status DC A/P Assessment and Plan A/P Depressive disorder, patient admitted for an intentional overdose with Tylenol, cleared by poison control -managed by psych Chest pain, likely due to cocaine use serial troponins negative and no acute ST-T changes on EKG's. HTN, chronic -Cont home medication Norvasc DM, chronic with hypoglycemic episode this morning. -hold Levemir, and metformin until patient is eating well -Accu checks with SSI Hypokalemia -will replace. DVT prophylaxis: Encourage ambulation Herson Osman MD Mar 12, 2017 11:58
[2017-03-12] MEDS ORDERED: MAGNESIUM HYDROXIDE SUSP 30 ML CUP PO PRN (13:00)
[2017-03-12] MEDS ORDERED: ALUMINUM/MAGNESIUM/SIMETH 30 ML CUP PO PRN (13:00)
[2017-03-12] MEDS ORDERED: ACETAMINOPHEN 325 MG TAB PO PRN (13:00)
--- NOTE | 2017-03-12 13:17 | HHI.HP ---
Provisional Diagnosis Admission Date Mar 11, 2017 at 16:43 [place] I. Major depression single episode severe without psychotic features cocaine abuse , Tylenol overdose Certification of Person's Competence To Provide Express and Informed Consent I have personally examined Jose Luis Manley , a person being served at [facility] [place] on, Mar 12, 2017 13:03. Express and informed consent means consent voluntarily given in writing, by a competent person, after sufficient explanation and disclosure of the subject matter involved to enable the person to make a knowing and willful decision without any element of force, fraud, deceit, duress, or other form of constraint or coercion. This person is 18 years of age or older, is not now known to be incompetent to consent to treatment with a guardian advocate, and does not have a health care surrogate or proxy currently making medical treatment decisions. I have found this person to be one of the following: [] Competent to provide express and informed consent, as defined above, for voluntary admission to this facility and is competent to provide express and informed consent for treatment. He/she has the consistent capacity to make well reasoned, willful, and knowing decisions concerning his or her medical or mental health treatment. The person fully and consistently understands the purpose of the admission for examination/placement and is fully capable of personally exercising all rights assured [place] [] Incompetent to provide express and informed consent to voluntary admission, and this is incompetent to provide express and informed consent to treatment. The person must be transferred to involuntary status and a petition for a guardian advocate filed with the Circuit Court. []xxx Refusing to provide express and informed consent to voluntary admission but is competent to provide express and informed consent for treatment. The person must be discharged or transferred to involuntary status. Form shall be completed within 24 hours of a person's arrival at the receiving facility and filed in the clinical record of each person: 1. Admitted on a voluntary basis 2. Permitted to provide express and informed consent to his/her own treatment 3. Allowed to transfer from involuntary to voluntary status 4. Prior to permitting a person to consent to his or her own treatment after having been previously found incompetent to consent to treatment. History of Present Illness Capacity: Lacks Capacity (patient was capacity to sign for admission, has capacity sign for medication) HPI Patient is 61-year-old Afro-[place]ib[place] male who comes here under [place] act by the [place] [employer] dated 03/10/17 at 9:50 PM that document reviewed and essentially states Septra call 911 said he took 15 acetaminophen 500 mg in attempt to end his life cooperative but won't say why patient seen screened in the ED urine toxicology positive for cocaine and marijuana was elevated acetaminophen levels was treated by the emergency department staff medically cleared and transferred to the unit. At the present time patient laying f quietly in his bed. Laying very still flat on his back. Making no eye contact initially refusing to speak with me though after some coaxing states he is hopeless and helpless that nothing works for many morning as well be . He states he would take the suicide pill if offered to him. He does acknowledge a multiple year cocaine addiction, this led to multiple incarcerations both feel and in correction. He stating most of his adult life has been spent in correction or correction. He denies any prior psychiatric contact though he has been seen here also on March 01 of this year at bedtime positive for cocaine and marijuana in his urine. He says he is estranged from all his family though counselor appears with talk to the daughter of his. There is marked decreased range intensity was affect is quite blunted. At this time patient does meet criteria for inpatient psychiatric hospitalization under the [place] act. I'll do first opinion request second opinion I feel does have capacity to sign for his medication. If hospice consult willingness to rest medical issues his cardiac issues and diabetes some of which may be aggravated by his cocaine use. Will start the patient on Zoloft 25 mg daily. Will refrain from any benzodiazepines or opiates. We'll attempt to reach patient's daughter. Further information about this gentleman about possible placement issues Review of Systems Except as stated in HPI: all other systems reviewed are Neg Past Psych History Psychological trauma history Patient denies physical or sexual abuse though I question his accuracy Violence risk - others (6 mos) Low Violence risk - self (6 mos) Patient states would take suicide pill if offered Substance Abuse History Drugs/Alcohol past 12 months Patient asked for cocaine and marijuana abuser Past Family Social History Coded Allergies: No Known Allergies (Verified , 03/01/17) Past Medical History She hypertension cardiac disease diabetes Reported Medications Simvastatin (Zocor)20 Mg Tab20 Mg PO HS #30 TAB Ref 0 03/01/17 Metformin 1,000 Mg Tab1,000 Mg PO BID #60 TAB Ref 0 With meals 03/01/17 Lisinopril 20 Mg Tab20 Mg PO HS #30 TAB Ref 0 03/01/17 Amlodipine 5 Mg Tab5 Mg PO DAILY #30 TAB Ref 0 03/01/[address] (Aspir-81)81 Mg Tabdr81 Mg PO DAILY 03/01/17 Insulin Glargine Inj (Lantus Inj)1,000 Unit/10 Ml Vial48 Units SQ HS Ref 0 03/01/17 Amitriptyline 25 Mg Tab25 Mg PO HS 03/01/17 Current Medications Medications (Trade) Dose Ordered Sig/Fabi Route Start Time Stop Time Status Last Admin (Norvasc) 5 mg DAILY PO 03/11/17 16:15 03/12/17 08:30 (Glucophage) 1,000 mg BIDPC PO 03/11/17 18:00 Hold 03/11/17 18:17 (Ecotrin Ec) 81 mg DAILY PO 03/12/17 09:00 03/12/17 08:30 (Levemir Inj) 48 units HS SQ 03/11/17 21:00 Hold 03/11/17 22:08 (Pravachol) 40 mg HS PO 03/11/17 21:00 03/11/17 21:53 (Atarax) 50 mg Q6H PRN PO 03/11/17 18:45 03/11/17 18:48 (Benadryl) 50 mg Q6H PRN PO 03/11/17 18:45 03/11/17 21:53 (Benadryl Inj) 50 mg Q6H PRN IM 03/11/17 18:45 (Benadryl) 50 mg HS PRN PO 03/11/17 18:45 (Benadryl Inj) 50 mg HS PRN IM 03/11/17 18:45 (Tylenol) 650 mg Q4H PRN PO 03/11/17 18:45 (Milk Of Magnesia Liq) 30 ml DAILY PRN PO 03/11/17 18:45 (Mag-Al Plus Susp Liq) 30 ml Q6H PRN PO 03/11/17 18:45 (D50w (Vial) Inj) 50 ml UNSCH PRN IV 03/12/17 03:45 (Glucagon Inj) 1 mg UNSCH PRN OTHER 03/12/17 03:45 (KCl) 30 meq ONCE ONCE PO 03/12/17 12:00 03/12/17 12:01 UNV (Mag-Ox) 400 mg Q12HR PO 03/12/17 12:00 03/14/17 08:00 UNV Family History Patient denies mental illness or addictions and family Social History Patient states estranged from family has no support groups Patient's Strengths (min. 2) Patient verbal labile access healthcare Physical Exam Patient seen screened in ED exam reviewed and agreed with patient lying quite still in bed without movement. He is in no acute distress, no respiratory distress. Vital Signs Vital Signs Date Time Temp Pulse Resp B/P Pulse Ox O2 Delivery O2 Flow Rate FiO2 03/12/17 06:47 98.3 51 16 130/70 98 03/11/17 14:38 Room Air Mental Status Examination Patient alert Afro-D[place]ib[place] male laying quite still responses are brief slow and somewhat reluctant with very poor eye contact Appearance Somewhat disheveled Speech: Hesitant, Slow, Tangential, Other (somewhat disorganized and tangential ) Orientation: Person, Place, Time Memory: Unremarkable (fair) Thought Process: Linear Thought Content: Unremarkable, Depersonal (somewhat) Language Poor Fund of Knowledge Poor Hallucination Type: None (denies) Attention and Concentration: Other (poor) Suicidal Ideation: Yes (patient intake suicide pill) Previous Suicide Attempts: No (unknown at this time) Homicidal Ideation: No Previous Homicide Attempts: No Insight: Poor Judgment: Poor Affect: Other (decreased range and intensity) Mood: Sad, Other (restricted) Motor Activity: Normal gait (patient laying in bed in the to fully ascertain) Assessment & Plan Problem List: (1) Tylenol overdose ICD Code: T39.1X1A (2) Cocaine abuse ICD Code: F14.10 (3) Severe major depression, single episode, without psychotic features ICD Code: F32.2 Assessment & Plan Estimated LOS 7: days patient does meet criteria for involuntary psychiatric hospitalization I'll do first opinion request second opinion. He has multiple medical issues OBS addressed by the hospitalist. Will refrain from any benzodiazepines or opiates. Will offer Zoloft 25 mg in the a.m. The need to work with his daughter to talk well placement issues Discharge Planning To be determined Request HC Surrog/Guard Advoc?: No Esteban Ivey MD Mar 12, 2017 13:17
--- NOTE | 2017-03-12 13:37 | EKG ---
Date Performed: 03/12/2017 Time Performed: 08:38:40 PTAGE: 61 years EKG: SINUS BRADYCARDIA NONSPECIFIC ST ELEVATION BORDERLINE ECG Compared to prior tracing no sign ificant change PREVIOUS TRACING : 03/10/2017 17.05 DOCTOR: Gallito Middleton Interpretating Date/Time 03/12/2017 13:33:22
[2017-03-12] MEDS: MAGNESIUM OXIDE 400 MG TAB PO SCH ×2 (13:43→21:01)
[2017-03-12] MEDS: SERTRALINE HCL 50 MG TAB PO SCH (13:43)
[2017-03-12 15:02] LABS: HEMOGLOBIN A1a 0.9 %; HEMOGLOBIN A1b 1.5 %; HEMOGLOBIN Ao 85.9 %; HEMOGLOBIN LA1C 1.4 %; HEMOGLOBIN P3 3.2 %
[2017-03-12 17:41] VITALS: BP 132/62; PULSE 68; RESP 16; TEMP 98.2; O2SAT 95
[2017-03-12 18:35] LABS: CREATINE KINASE 116 U/L (39-308)
[2017-03-12] MEDS: hydrOXYzine HCL 50 MG TAB PO PRN (21:01)
[2017-03-12] MEDS: metFORMIN HCL 500 MG TAB PO SCH (21:01)
[2017-03-12] MEDS: PRAVASTATIN SOD 40 MG TAB PO SCH (21:01)
[2017-03-12] MEDS: LISINOPRIL 20 MG TAB PO SCH (21:01)
[2017-03-13] MEDS: hydrOXYzine HCL 50 MG TAB PO PRN ×2 (06:33→21:54)
[2017-03-13] MEDS: INSULIN ASPART SUPPLEMENTAL SCALE SQ SCH ×4 (06:33→21:00)
[2017-03-13 06:54] VITALS: BP 115/57; PULSE 47; RESP 16; TEMP 98; O2SAT 95
[2017-03-13] MEDS: metFORMIN HCL 500 MG TAB PO SCH ×2 (09:20→21:00)
[2017-03-13] MEDS: MAGNESIUM OXIDE 400 MG TAB PO SCH ×2 (09:20→21:55)
[2017-03-13] MEDS: ASPIRIN EC 81 MG TABEC PO SCH (09:20)
[2017-03-13] MEDS: SERTRALINE HCL 50 MG TAB PO SCH (09:21)
[2017-03-13] MEDS: amLODIPine BESYLATE 5 MG TAB PO SCH (09:21)
--- NOTE | 2017-03-13 11:15 | HHI.PR ---
Subjective Remarks resting comfortably with no distress. denies chest pain or sob. still with suicidal thoughts. d/w the RN and no acute issues over night. Objective Vitals Vital Signs Date Time Temp Pulse Resp B/P Pulse Ox O2 Delivery O2 Flow Rate FiO2 03/13/17 06:54 98.0 47 16 115/57 95 03/12/17 17:41 98.2 68 16 132/62 95 I/O 03/12/17 03/12/17 03/12/17 03/13/17 03/13/17 03/13/17 07:00 15:00 23:00 07:00 15:00 23:00 Intake Total 240 ml Balance 240 ml Intake Oral 240 ml Result Diagram: 03/12/17 0354 03/12/17 0721 Objective Remarks GENERAL: This is a well-nourished, well-developed patient, in no apparent distress. CARDIOVASCULAR: Regular rate and regular rhythm without murmurs, gallops, or rubs. RESPIRATORY: Clear to auscultation. Breath sounds equal bilaterally. No wheezes , rales, or rhonchi. GASTROINTESTINAL: Abdomen soft, non-tender, nondistended. Normal, active bowel sounds MUSCULOSKELETAL: Extremities without clubbing, cyanosis, or edema. NEURO: Alert & Oriented x4 to person, place, time, situation. Moves all ext x4 Medications and IVs Current Medications Amlodipine Besylate (Norvasc) 5 mg DAILY PO Last administered on 03/12/17 08:30 ; Start 03/11/17 at 16:15; Stop 03/12/17 at 13:21; Status DC Metformin HCl (Glucophage) 1,000 mg BIDPC PO Last administered on 03/11/17 18: 17; Start 03/11/17 at 18:00; Status Hold Aspirin (Ecotrin Ec) 81 mg DAILY PO Last administered on 03/13/17 09:20; Start 03/12/17 at 09:00 Insulin Detemir (Levemir Inj) 48 units HS SQ Last administered on 03/11/17 22: 08; Start 03/11/17 at 21:00; Status Hold Pravastatin Sodium (Pravachol) 40 mg HS PO CM Last administered on 03/12/17 21: 01; Start 03/11/17 at 21:00 Hydroxyzine HCl (Atarax) 50 mg Q6H PRN PO ANXIETY Last administered on 06:33; Start 03/11/17 at 18:45 Diphenhydramine HCl (Benadryl) 50 mg Q6H PRN PO MILD ANXIETY, EPS Last administered on 03/11/17 21:53; Start 03/11/17 at 18:45; Stop 03/12/17 at 13:04; Status DC Diphenhydramine HCl (Benadryl Inj) 50 mg Q6H PRN IM MILD ANXIETY, EPS; Start at 18:45; Stop 03/12/17 at 13:04; Status DC Diphenhydramine HCl (Benadryl) 50 mg HS PRN PO INSOMNIA; Start 03/11/17 at 18:45 ; Stop 03/12/17 at 13:04; Status DC Diphenhydramine HCl (Benadryl Inj) 50 mg HS PRN IM INSOMNIA; Start 03/11/17 at 18:45; Stop 03/12/17 at 13:04; Status DC Acetaminophen (Tylenol) 650 mg Q4H PRN PO Pain 1-5 or Temp >101F; Start at 18:45 Magnesium Hydroxide (Milk Of Magnesia Liq) 30 ml DAILY PRN PO CONSTIPATION; Start 03/11/17 at 18:45; Stop 03/12/17 at 13:24; Status DC Al Hydrox/Mg Hydrox/Simethicone (Mag-Al Plus Susp Liq) 30 ml Q6H PRN PO DYSPEPSIA; Start 03/11/17 at 18:45 Dextrose (D50w (Vial) Inj) 50 ml UNSCH PRN IV HYPOGLYCEMIA-SEE COMMENTS; Start 03/12/17 at 03:45 Glucagon (Glucagon Inj) 1 mg UNSCH PRN OTHER HYPOGLYCEMIA-SEE COMMENTS; Start 03/12/17 at 03:45 Insulin Aspart (NovoLOG SUPPLEMENTAL SCALE) 1 ACHS SLIDING SCALE SQ ; Start 03/12/17 at 07:00 Potassium Chloride (KCl) 30 meq ONCE ONCE PO Last administered on 03/12/17 05: 09; Start 03/12/17 at 05:00; Stop 03/12/17 at 05:01; Status DC Potassium Chloride (KCl) 30 meq ONCE ONCE PO Last administered on 03/12/17 13: 43; Start 03/12/17 at 14:00; Stop 03/12/17 at 14:01; Status DC Magnesium Oxide (Mag-Ox) 400 mg Q12HR PO Last administered on 03/13/17 09:20; Start 03/12/17 at 14:00; Stop 03/14/17 at 13:59 Sertraline HCl (Zoloft) 25 mg DAILY PO Last administered on 03/13/17 09:21; Start 03/12/17 at 14:00 Acetaminophen (Tylenol) 650 mg Q4H PRN PO Pain 1-5 or Temp >101F; Start at 13:00; Stop 03/12/17 at 13:20; Status DC Magnesium Hydroxide (Milk Of Magnesia Liq) 30 ml DAILY PRN PO MILD - MODERATE CONSTIPATION; Start 03/12/17 at 13:00 Al Hydrox/Mg Hydrox/Simethicone (Mag-Al Plus Susp Liq) 30 ml Q6H PRN PO DYSPEPSIA; Start 03/12/17 at 13:00; Stop 03/12/17 at 13:21; Status DC Amlodipine Besylate (Norvasc) 5 mg DAILY PO Last administered on 03/13/17 09:21 ; Start 03/13/17 at 09:00 Lisinopril (Prinivil) 20 mg HS PO Last administered on 03/12/17 21:01; Start at 21:00 Metformin HCl (Glucophage) 1,000 mg BID PO Last administered on 03/13/17 09:20 ; Start 03/12/17 at 21:00 A/P Assessment and Plan A/P Depressive disorder, patient admitted for an intentional overdose with Tylenol, cleared by poison control -managed by psych Chest pain, likely due to cocaine use- has resolved. serial troponins negative and no acute ST-T changes on EKG's. HTN, chronic -Cont home medication Norvasc DM, chronic with hypoglycemic episode -however with no recurrence. -continue metformin -hold long-acting insulin for now -Accu checks with SSI Hypokalemia -replaced. DVT prophylaxis: Encourage ambulation [facility] will sign off and see him as needed. d/w the Herson Christianson MD Mar 13, 2017 11:15
--- NOTE | 2017-03-13 15:55 | HHI.PYPN ---
Subjective Remarks Pt seen and discussed with staff. He remains severely depressed and hopeless.He continues to endorse SI. He remains isolative to his room. No HI. Objective Alert: Yes [place]: Person, Place, Date Mood: Depressed Affect: Blunted Memory Intact: Immediate, Recent, Remote Hallucinations: Other (none) Delusions: No Delusion Type: Other (none) Suicidal: Ideation Homicidal: Ideation (denies) Insight/Judgment poor Labs Test 03/12/17 17:37 Total Creatine Kinase 116 U/L Troponin I LESS THAN 0.02 NG/ML Vitals/IOs Vital Signs Date Time Temp Pulse Resp B/P Pulse Ox O2 Delivery O2 Flow Rate FiO2 03/13/17 06:54 98.0 47 16 115/57 95 03/11/17 14:38 Room Air Intake and Output 03/12/17 03/12/17 03/13/17 08:00 16:00 00:00 Intake Total 240 ml Balance 240 ml Assessment & Plan Problem List: (1) Severe major depression, single episode, without psychotic features ICD Code: F32.2 (2) Cocaine abuse ICD Code: F14.10 (3) Tylenol overdose ICD Code: T39.1X1A Assessment & Plan Continue current tx plan. Estimated LOS: days Justification for Cont. Inpt. impairments in safety Request HC Surrog/Guard Advoc?: No Sadie Thorne MD Mar 13, 2017 15:55
--- NOTE | 2017-03-13 16:43 | EKG ---
Date Performed: 03/12/2017 Time Performed: 14:43:38 PTAGE: 61 years EKG: SINUS BRADYCARDIA BORDERLINE ECG PREVIOUS TRACING : 03/12/2017 08.38 Compared to prior tracing no significant change DOCTOR: Reji Portillo Interpretating Date/Time 03/13/2017 16:41:37
[2017-03-13 18:00] VITALS: BP 120/79; PULSE 53; RESP 16; TEMP 98.4; O2SAT 97
[2017-03-13] MEDS: PRAVASTATIN SOD 40 MG TAB PO SCH (21:54)
[2017-03-13] MEDS: LISINOPRIL 20 MG TAB PO SCH (22:15)
[2017-03-14] MEDS: INSULIN ASPART SUPPLEMENTAL SCALE SQ SCH ×4 (05:53→21:00)
[2017-03-14 06:47] VITALS: BP 126/70; PULSE 50; RESP 18; TEMP 96.1; O2SAT 96
[2017-03-14] MEDS: MAGNESIUM OXIDE 400 MG TAB PO SCH (09:18)
[2017-03-14] MEDS: SERTRALINE HCL 50 MG TAB PO SCH (09:18)
[2017-03-14] MEDS: metFORMIN HCL 500 MG TAB PO SCH ×2 (09:18→21:00)
[2017-03-14] MEDS: amLODIPine BESYLATE 5 MG TAB PO SCH (09:18)
[2017-03-14] MEDS: ASPIRIN EC 81 MG TABEC PO SCH (09:19)
--- NOTE | 2017-03-14 16:37 | HHI.PYPN ---
Subjective Remarks Pt seen and discussed with staff. He is depressed and has not been eating. He has spent all day in his room, laying on bed crying. He reports SI with plan to overdose. He is irritable and difficult to engage. Objective Alert: Yes [place]: Person, Place, Date Mood: Depressed Affect: Tearful Memory Intact: Immediate, Recent, Remote Hallucinations: Other (none) Delusions: No Delusion Type: Other (none) Suicidal: Ideation Homicidal: Ideation (denies) Insight/Judgment poor Vitals/IOs Vital Signs Date Time Temp Pulse Resp B/P Pulse Ox O2 Delivery O2 Flow Rate FiO2 03/14/17 06:47 96.1 50 18 126/70 96 03/11/17 14:38 Room Air Assessment & Plan Problem List: (1) Severe major depression, single episode, without psychotic features ICD Code: F32.2 (2) Cocaine abuse ICD Code: F14.10 (3) Tylenol overdose ICD Code: T39.1X1A Assessment & Plan Titrate Sertraline. Continue hospitalization for safety Estimated LOS: days Justification for Cont. Inpt. impairments in safety Request HC Surrog/Guard Advoc?: Sadie Teixeira MD Mar 14, 2017 16:37
[2017-03-14 17:55] VITALS: BP 114/57; PULSE 50; RESP 18; TEMP 97.3; O2SAT 96
--- NOTE | 2017-03-14 19:51 | PD.PSY.CON ---
Provisional Diagnosis Admission Date Mar 11, 2017 at 16:43 [place]. Major depression single episode severe without psychotic features cocaine abuse , Tylenol overdose History of Present Illness Service Psychiatry Consult Requested By Psychiatry Reason for Consult 2nd opinion Primary Care Physician Vincent Arreguin MD HPI This consult note is for documentation of 2nd opinion. Pt is a 61 YOAAM admited to [facility] under a BA taken out by [employer] alleging that pt took 15 tylenol tablets in a suicide attempt. UDS was positive for cannabis and cocaine. Pt remains very depressed and appetite is very poor. He is isolative to his room and is not participating in ADLs. He continues to endorse suicidal ideations wth a plan to overdose again. Review of Systems Psychiatric: COMPLAINS OF: Depression Past Family Social History Coded Allergies: No Known Allergies (Verified , 03/01/17) Reported Medications Simvastatin (Zocor)20 Mg Tab20 Mg PO HS #30 TAB Ref 0 03/01/17 Metformin 1,000 Mg Tab1,000 Mg PO BID #60 TAB Ref 0 With meals 03/01/17 Lisinopril 20 Mg Tab20 Mg PO HS #30 TAB Ref 0 03/01/17 Amlodipine 5 Mg Tab5 Mg PO DAILY #30 TAB Ref 0 03/01/[address] (Aspir-81)81 Mg Tabdr81 Mg PO DAILY 03/01/17 Insulin Glargine Inj (Lantus Inj)1,000 Unit/10 Ml Vial48 Units SQ HS Ref 0 03/01/17 Amitriptyline 25 Mg Tab25 Mg PO HS 03/01/17 Current Medications Medications (Trade) Dose Ordered Sig/Fabi Route Start Time Stop Time Status Last Admin (Glucophage) 1,000 mg BIDPC PO 03/11/17 18:00 Hold 03/11/17 18:17 (Ecotrin Ec) 81 mg DAILY PO 03/12/17 09:00 03/14/17 09:19 (Levemir Inj) 48 units HS SQ 03/11/17 21:00 Hold 03/11/17 22:08 (Pravachol) 40 mg HS PO 03/11/17 21:00 03/13/17 21:54 (Atarax) 50 mg Q6H PRN PO 03/11/17 18:45 03/13/17 21:54 (Tylenol) 650 mg Q4H PRN PO 03/11/17 18:45 (Mag-Al Plus Susp Liq) 30 ml Q6H PRN PO 03/11/17 18:45 (D50w (Vial) Inj) 50 ml UNSCH PRN IV 03/12/17 03:45 (Glucagon Inj) 1 mg UNSCH PRN OTHER 03/12/17 03:45 (Milk Of Magnesia Liq) 30 ml DAILY PRN PO 03/12/17 13:00 (Norvasc) 5 mg DAILY PO 03/13/17 09:00 03/14/17 09:18 (Prinivil) 20 mg HS PO 03/12/17 21:00 03/13/17 22:15 (Glucophage) 1,000 mg BID PO 03/12/17 21:00 03/14/17 09:18 (Zoloft) 50 mg DAILY PO 03/15/17 09:00 Family History estranged from family Social History Hx of incarceration due to long time drug addiction. One adult daughter Patient's Strengths (min. 2) Patient verbal, has access healthcare Physical Exam Vital Signs Vital Signs Date Time Temp Pulse Resp B/P Pulse Ox O2 Delivery O2 Flow Rate FiO2 03/14/17 17:55 97.3 50 18 114/57 96 03/11/17 14:38 Room Air Mental Status Examination Speech: Hesitant, Slow Orientation: Person, Place, Time Memory: Unremarkable (fair) Thought Process: Linear Thought Content: Unremarkable Hallucination Type: None (denies) Attention and Concentration: Other (poor) Suicidal Ideation: Yes (plan to overdose) Previous Suicide Attempts: Yes Homicidal Ideation: No Previous Homicide Attempts: No Insight: Poor Judgment: Poor Affect: Other (tearful) Mood: Sad (dysphoric) Motor Activity: Normal gait (patient laying in bed in the to fully ascertain) Assessment & Plan Problem List: (1) Severe major depression, single episode, without psychotic features ICD Code: F32.2 (2) Cocaine abuse ICD Code: F14.10 (3) Tylenol overdose ICD Code: T39.1X1A Assessment & Plan I agree with involuntary hospitalization order. 2nd opinon paper work completedEstimated LOS: days Request HC Surrog/Guard Advoc?: Sadie Teixeira MD Mar 14, 2017 19:51
[2017-03-14] MEDS: LISINOPRIL 20 MG TAB PO SCH (22:27)
[2017-03-14] MEDS: PRAVASTATIN SOD 40 MG TAB PO SCH (22:27)
[2017-03-15 05:42] VITALS: BP 112/62; PULSE 56; RESP 19; TEMP 98.1; O2SAT 99
[2017-03-15] MEDS: INSULIN ASPART SUPPLEMENTAL SCALE SQ SCH ×4 (06:55→21:00)
[2017-03-15] MEDS: amLODIPine BESYLATE 5 MG TAB PO SCH (08:58)
[2017-03-15] MEDS: SERTRALINE HCL 50 MG TAB PO SCH (08:59)
[2017-03-15] MEDS: ASPIRIN EC 81 MG TABEC PO SCH (08:59)
[2017-03-15] MEDS: metFORMIN HCL 500 MG TAB PO SCH ×2 (09:00→21:28)
--- NOTE | 2017-03-15 12:25 | HHI.PYPN ---
Subjective Remarks He should discussed with treatment team. Patient seen in his room with nurse Toshia, chart review, patient compliant medications. Patient continues to isolate he did tell the staff earlier today that he thinks that he "smells" that is why he isolates. There is a delusional flavor to this. He continues to make very poor eye contact responses are slow and somewhat mumbled. For now will and Abilify 10 mg at at bedtime Review of Systems Except as stated in HPI: all other systems reviewed are Neg Objective Alert: Yes [place]: Person, Place, Date Mood: Depressed Affect: Tearful Memory Intact: Immediate, Recent, Remote Hallucinations: Other (none) Delusions: No Delusion Type: Other (none) Suicidal: Ideation Homicidal: Ideation (denies) Insight/Judgment Very poor Vitals/IOs Vital Signs Date Time Temp Pulse Resp B/P Pulse Ox O2 Delivery O2 Flow Rate FiO2 03/15/17 05:42 98.1 56 19 112/62 99 03/11/17 14:38 Room Air Assessment & Plan Problem List: (1) Severe major depression, single episode, without psychotic features ICD Code: F32.2 (2) Cocaine abuse ICD Code: F14.10 (3) Tylenol overdose ICD Code: T39.1X1A Assessment & Plan Estimated LOS: days patient continues depressed and isolating not appears to be showing some mild psychotic flavor to his presentation will add Abilify 10 mg at at bedtime Justification for Cont. Inpt. At this time patient will decompensate then placed in a lower level of care Discharge Planning To be determined Request HC Surrog/Guard Advoc?: No Esteban Ivey MD Mar 15, 2017 12:25
[2017-03-15 17:14] VITALS: BP 112/60; PULSE 62; RESP 18; TEMP 98.7; O2SAT 98
[2017-03-15] MEDS: PRAVASTATIN SOD 40 MG TAB PO SCH (21:27)
[2017-03-15] MEDS: ARIPiprazole 10 MG TAB PO SCH (21:27)
[2017-03-15] MEDS: LISINOPRIL 20 MG TAB PO SCH (21:27)
[2017-03-16 05:27] VITALS: BP 119/60; PULSE 50; RESP 18; TEMP 98.3; O2SAT 96
[2017-03-16] MEDS: INSULIN ASPART SUPPLEMENTAL SCALE SQ SCH ×4 (06:17→20:55)
[2017-03-16 06:33] VITALS: BP 119/60; PULSE 50; RESP 18; TEMP 98.3; O2SAT 96
[2017-03-16] MEDS: SERTRALINE HCL 50 MG TAB PO SCH (08:46)
[2017-03-16] MEDS: amLODIPine BESYLATE 5 MG TAB PO SCH (08:46)
[2017-03-16] MEDS: ASPIRIN EC 81 MG TABEC PO SCH (08:47)
[2017-03-16] MEDS: metFORMIN HCL 500 MG TAB PO SCH ×2 (08:56→21:51)
--- NOTE | 2017-03-16 12:24 | HHI.PYPN ---
Subjective Remarks Patient seen today in his room with nurse Toshia, chart reviewed, patient compliant medication. Patient still isolating, with poor eye contact, though we were able today to discuss several factors in this hospitalization, one may be his living arrangement that he hates feels is quite dangerous and there there is criminals and drug abusers present. We did discuss safe sober houses such as solutions by the [employer]. He appears willing to do this. At this time also feel patient has the capacity to sign voluntary thus I will lift the Butler act allow the patient to sign voluntary and continuous treatment Review of Systems Except as stated in HPI: all other systems reviewed are Neg Objective Alert: Yes [place]: Person, Place, Date Mood: Depressed Affect: Tearful Memory Intact: Immediate, Recent, Remote Hallucinations: Other (none) Delusions: No Delusion Type: Other (none) Suicidal: Ideation Homicidal: Ideation (denies) Insight/Judgment Poor Vitals/IOs Vital Signs Date Time Temp Pulse Resp B/P Pulse Ox O2 Delivery O2 Flow Rate FiO2 03/16/17 06:33 98.3 50 18 119/60 96 Assessment & Plan Problem List: (1) Severe major depression, single episode, without psychotic features ICD Code: F32.2 (2) Cocaine abuse ICD Code: F14.10 (3) Tylenol overdose ICD Code: T39.1X1A Assessment & Plan Estimated LOS: days patient continues depressed and isolating, the chair this is concerned spheres and anxiety about living situation and his finances once he is discharged. Continue medication no change at this time allow the patient sign voluntary will lift the Butler act Justification for Cont. Inpt. At this time patient will decompensate then placed in a lower level of care Discharge Planning To be determined Request HC Surrog/Guard Advoc?: Esteban Andrea MD Mar 16, 2017 12:24
[2017-03-16 15:37] VITALS: BP 104/55; PULSE 53; RESP 18; TEMP 97.7; O2SAT 96
[2017-03-16] MEDS: LISINOPRIL 20 MG TAB PO SCH (21:51)
[2017-03-16] MEDS: ARIPiprazole 10 MG TAB PO SCH (21:51)
[2017-03-16] MEDS: PRAVASTATIN SOD 40 MG TAB PO SCH (21:51)
[2017-03-17 05:49] VITALS: BP 113/67; PULSE 53; RESP 17; TEMP 98.1; O2SAT 96
[2017-03-17] MEDS: INSULIN ASPART SUPPLEMENTAL SCALE SQ SCH ×4 (06:12→21:00)
[2017-03-17] MEDS: SERTRALINE HCL 50 MG TAB PO SCH (08:51)
[2017-03-17] MEDS: ASPIRIN EC 81 MG TABEC PO SCH (08:52)
[2017-03-17] MEDS: amLODIPine BESYLATE 5 MG TAB PO SCH (08:52)
[2017-03-17] MEDS: metFORMIN HCL 500 MG TAB PO SCH ×2 (08:52→20:32)
--- NOTE | 2017-03-17 13:14 | HHI.PYPN ---
Subjective Remarks Patient seen in his room the floor staff, chart reviewed, patient compliant medications he also continues to isolate appearing depressed with little motivation. He does deny voices at the present time and denies suicidality. For now continue treatment Review of Systems Except as stated in HPI: all other systems reviewed are Neg Objective Alert: Yes [place]: Person, Place, Date Mood: Depressed Affect: Tearful Memory Intact: Immediate, Recent, Remote Hallucinations: Other (none) Delusions: No Delusion Type: Other (none) Suicidal: Ideation Homicidal: Ideation (denies) Insight/Judgment Poor Vitals/IOs Vital Signs Date Time Temp Pulse Resp B/P Pulse Ox O2 Delivery O2 Flow Rate FiO2 03/17/17 05:49 98.1 53 17 113/67 96 Assessment & Plan Problem List: (1) Severe major depression, single episode, without psychotic features ICD Code: F32.2 (2) Cocaine abuse ICD Code: F14.10 (3) Tylenol overdose ICD Code: T39.1X1A Assessment & Plan Estimated LOS: days patient continues depressed isolating the question the may be some degree of manipulation related to this we'll continue to work with placement issues at this time Justification for Cont. Inpt. At this time patient will decompensate if not placed an appropriate level of care Discharge Planning To be determined Request HC Surrog/Guard Advoc?: No Esteban Ivey MD Mar 17, 2017 13:14
[2017-03-17 18:17] VITALS: BP 112/62; PULSE 89; RESP 18; TEMP 98; O2SAT 97
[2017-03-17] MEDS: PRAVASTATIN SOD 40 MG TAB PO SCH (20:31)
[2017-03-17] MEDS: LISINOPRIL 20 MG TAB PO SCH (20:31)
[2017-03-17] MEDS: ARIPiprazole 10 MG TAB PO SCH (20:31)
[2017-03-17] MEDS: hydrOXYzine HCL 50 MG TAB PO PRN (20:38)
[2017-03-18 05:34] VITALS: BP 119/60; PULSE 51; RESP 18; TEMP 97.9; O2SAT 97
[2017-03-18] MEDS: INSULIN ASPART SUPPLEMENTAL SCALE SQ SCH ×2 (06:22→11:00)
[2017-03-18] MEDS: metFORMIN HCL 500 MG TAB PO SCH ×2 (09:00→21:29)
[2017-03-18] MEDS: ASPIRIN EC 81 MG TABEC PO SCH (09:00)
[2017-03-18] MEDS: amLODIPine BESYLATE 5 MG TAB PO SCH (09:00)
[2017-03-18] MEDS: SERTRALINE HCL 50 MG TAB PO SCH (09:00)
--- NOTE | 2017-03-18 11:38 | HHI.PYPN ---
Subjective Remarks Patient seen in his room with nurse Serge, chart reviewed, patient continues to isolate in his room no significant effort to work with staff related to placement brother issues there is grieve entitlement with them and perhaps manipulation. Today patient denies suicidality homicidality voices or visions. At this time consider discharge tomorrow Review of Systems Except as stated in HPI: all other systems reviewed are Neg Objective Alert: Yes [place]: Person, Place, Date Mood: Depressed Affect: Tearful Memory Intact: Immediate, Recent, Remote Hallucinations: Other (none) Delusions: No Delusion Type: Other (none) Suicidal: Ideation Homicidal: Ideation (denies) Insight/Judgment Poor Vitals/IOs Vital Signs Date Time Temp Pulse Resp B/P Pulse Ox O2 Delivery O2 Flow Rate FiO2 03/18/17 05:34 97.9 51 18 119/60 97 Assessment & Plan Problem List: (1) Severe major depression, single episode, without psychotic features ICD Code: F32.2 (2) Cocaine abuse ICD Code: F14.10 (3) Tylenol overdose ICD Code: T39.1X1A Assessment & Plan Patient appears to be reaching baseline still showing little effort request related to placement issues. Consider discharge tomorrow Justification for Cont. Inpt. At this time patient will possibly decompensate if not placed in appropriate level of care Discharge Planning To be determined Request HC Surrog/Guard Advoc?: No Esteban Ivey MD Mar 18, 2017 11:38
[2017-03-18 18:00] VITALS: BP 122/58; PULSE 51; RESP 19; TEMP 98.4; O2SAT 98
[2017-03-18] MEDS: PRAVASTATIN SOD 40 MG TAB PO SCH (21:29)
[2017-03-18] MEDS: hydrOXYzine HCL 50 MG TAB PO PRN (21:29)
[2017-03-18] MEDS: LISINOPRIL 20 MG TAB PO SCH (21:29)
[2017-03-18] MEDS: ARIPiprazole 10 MG TAB PO SCH (21:29)
[2017-03-19 05:41] VITALS: BP 105/56; PULSE 55; RESP 16; TEMP 99; O2SAT 98
[2017-03-19] MEDS ORDERED: INSULIN ASPART SUPPLEMENTAL SCALE SQ SCH (06:00)
[2017-03-19] MEDS ORDERED: PRAV40TA PO (08:34)
[2017-03-19] MEDS ORDERED: ZOLO50TA PO (08:34)
[2017-03-19] MEDS ORDERED: AMLO5 PO (08:34)
[2017-03-19] MEDS ORDERED: LISI-515 PO (08:34)
[2017-03-19] MEDS ORDERED: LEVEMIR SQ (08:34)
[2017-03-19] MEDS ORDERED: METF500 PO (08:34)
[2017-03-19] MEDS ORDERED: ASPI-99 PO (08:34)
[2017-03-19] MEDS ORDERED: ARIP1TAB12 PO (08:34)
--- NOTE | 2017-03-19 08:49 | HHI.DS ---
Psychiatry Discharge Summary Inpatient Psychiatric care?: Yes Advance Directive: No Reason Not Provided: patient wants to think about it Mental Health AdvanceDirective: No Health Care Proxy: No Admission Admission Date Mar 11, 2017 at 16:43 Admission Diagnosis: (1) Severe major depression, single episode, without psychotic features ICD Code: F32.2 (2) Cocaine abuse ICD Code: F14.10 (3) Marijuana abuse ICD Code: F12.10 (4) Tylenol overdose ICD Code: T39.1X1A Brief History This consult note is for documentation of 2nd opinion. Pt is a 61 YOAAM admited to [facility] under a BA taken out by [facility] alleging that pt took 15 tylenol tablets in a suicide attempt. UDS was positive for cannabis and cocaine. Pt remains very depressed and appetite is very poor. He is isolative to his room and is not participating in ADLs. He continues to endorse suicidal ideations wth a plan to overdose again. Tobacco Use In Past 30 Days: No Tobacco Past 30 Days Alcohol Use: Never Hospital Course Patient's hospital course was eventful it is much as patient showed very little initiative into working with staff related to his mood boys need for placement. He showed essentially no participation of the milieu or groups. Multiple efforts by the treatment team as part to engage him further. He also showed no insight into addressing his substance abuse issues related to his use of cocaine and marijuana while he did overdose on Tylenol levels did not reach significance he did not need specific treatment for the Tylenol overdose He had minimal response to that. Is some I feel he has met maximum benefit of this hospitalization. There appears to be a degree of manipulation with him. Thus patient will be discharged today Rx 2 weeks referral to [facility], also referral to [facility], mary Farris, and we'll see if we can assist with getting an ID. of interest is also effort to find this patient placement he was accepted at [facility]. He refused to go there stating he would rather be on the streets Results Blood Pressure 105 / 56 Vital Signs Date Time Temp Pulse Resp B/P Pulse Ox O2 Delivery O2 Flow Rate FiO2 03/19/17 05:41 99.0 55 16 105/56 98 Urine toxicology positive for cocaine and marijuana Summary of Procedures None done Pending results at discharge: No Medications # of Antipsychotic meds at D/C: 1 Approp Antipsych med options 1 - Minimum of three failed multiple trials of monotherapy. 2 - Documented plan to taper to monotherapy due to previous use of multiple meds OR cross-taper in progress at D/C. 3 - Documentation of augmentation of Clozapine. 4 - Justification other than those listed in allowable values 1-3, document here : Discharge Discharge Date: Mar 19, 2017 Discharge Diagnosis: (1) Marijuana abuse Diagnosis: Secondary ICD Code: F12.10 (2) Tylenol overdose Diagnosis: Secondary ICD Code: T39.1X1A (3) Cocaine abuse Diagnosis: Secondary ICD Code: F14.10 (4) Severe major depression, single episode, without psychotic features Diagnosis: Principal ICD Code: F32.2 Mental Status Exam at Disch Alert oriented call slender Afro-Northern [place] male somewhat irritable and uncooperative, he is normal active, his mood is euthymic to somewhat restricted , and irritable, affect should decreased range intensity speech rate and rhythm are slow goal oriented though no formal thought disorders, no auditory or visual hallucinations, no delusions, insight and judgment is poor, cognition grossly intact Pt Condition on Discharge: Stable Discharge Disposition: Discharge Home Discharge Instructions Diet Instructions: As Tolerated, No Restrictions Activities you can perform: Regular-No Restrictions Scheduled Appointment: Lee [facility]ney Discharge Time > 30 minutes (refer also to NA) Discharge/Advance Care Plan Health Problems: (1) Severe major depression, single episode, without psychotic features (2) Cocaine abuse (3) Tylenol overdose Goals to promote your health * To prevent worsening of your condition and complications * To maintain your health at the optimal level Directions to meet your goals Take your medications as prescribed Follow your dietary instruction Follow activity as directed Keep your appointments as scheduled Take your immunizations and boosters as scheduled If your symptoms worsen call your PCP, if no PCP go to Urgent Care Center or Emergency Room For 24/ questions related to your inpatient stay or results of tests pending at discharge, please contact Dr. Esteban Ivey at Smoking is Dangerous to Your Health. Avoid second hand smoking Esteban Ivey MD Mar 19, 2017 08:49
[2017-03-19] MEDS: metFORMIN HCL 500 MG TAB PO SCH (09:00)
[2017-03-19] MEDS: ASPIRIN EC 81 MG TABEC PO SCH (09:00)
[2017-03-19] MEDS: SERTRALINE HCL 50 MG TAB PO SCH (09:00)
[2017-03-19] MEDS: amLODIPine BESYLATE 5 MG TAB PO SCH (09:00)
== END 2017-03-19 12:30 | disposition home or self-care (01) | DRG 885 ==
LOC: NEPE 13:54 → NEDA 03-11 16:43 → H260 03-11 17:00
PROVIDERS: ADMIT Psychiatry & Neurology Psychiatry; ATTEND Psychiatry & Neurology Psychiatry
DX: F32.3 Major depressive disorder, single episode, severe with psychotic features (principal); E11.649 Type 2 diabetes mellitus with hypoglycemia without coma; T39.1X2A Poisoning by 4-Aminophenol derivatives, intentional self-harm, initial encounter; I10 Essential (primary) hypertension; F12.10 Cannabis abuse, uncomplicated; F14.10 Cocaine abuse, uncomplicated; M19.90 Unspecified osteoarthritis, unspecified site; E87.6 Hypokalemia; E78.00 Pure hypercholesterolemia, unspecified; R07.9 Chest pain, unspecified; Z79.4 Long term (current) use of insulin; Z79.84 Long term (current) use of oral hypoglycemic drugs; Z59.0 Homelessness
CPT/HCPCS: 80048; 80053; 80061; 80076; 80307; 82550; 82948; 83036; 83605; 83735; 84484; 85025; 85610; 85730; 93005; J1815; Q0163

== ENCOUNTER 2017-05-20 18:34 | Emergency (ER) | payer OTHER ==
[~2017-05-20] VITALS: Ht 188 cm; Wt 80.0 kg
[~2017-05-20 18:34] MED LIST changes: +AMLO5 PO; -AMLO5TAB2 PO; +ARIP1TAB12 PO; +ASPI-99 PO; -ASPI81TA81 PO; -LANTUS2P SQ; +LEVEMIR SQ; +METF500 PO; +PRAV40TA PO; -ZOCO20TA PO; +ZOLO50TA PO
[2017-05-20 18:42] VITALS: BP 142/80; PULSE 78; RESP 20; TEMP 97.7; O2SAT 100
== END 2017-05-20 19:35 | disposition left against medical advice (07) ==
LOC: NETRI 18:34
DX: R10.9 Unspecified abdominal pain (principal); Z53.21 Procedure and treatment not carried out due to patient leaving prior to being seen by health care provider
CPT/HCPCS: 99281

== ENCOUNTER 2017-05-23 11:38 | Inpatient (IN) | payer OTHER ==
[2017-05-23] VITALS (8 sets, daily range): BP systolic 122–150; BP diastolic 72–78; PULSE 44–69; RESP 16–20; TEMP 97.1–98.4; O2SAT 96–99
[~2017-05-23] VITALS: Ht 188 cm; Wt 73.0 kg
[2017-05-23] MEDS ORDERED: SODIUM CHLORIDE 0.9% FLUSH 10 ML FLUSH IVF PRN (12:15)
--- NOTE | 2017-05-23 12:23 | PD ---
HPI Chief Complaint: Psychiatric Symptoms Time Seen by Provider: 11:58 Travel History International Travel<30 days: No Contact w/Intl Traveler<30days: No Traveled to known affect area: No History of Present Illness HPI 61-year-old male presents to the emergency Department voluntarily for psychiatric evaluation, midsternal chest pain. Patient states he has been feeling depressed and suicidal for the past 2-3 days. The patient states that he is "tired" and "wants to end alcohol. Patient will not tell me a plan. He is tearful my exam. Patient does report being homeless. He denies any alcohol , tobacco, illicit drug use to me. Patient states that he has history of hypertension, type 2 diabetes, depression, but is not currently taking any medications. He cannot tell me last time he took his medications. Patient denies any attempt at this time to hurt himself. He states the last time he overdosed on Tylenol, but states he did not have access to Tylenol this time. The patient does also report some midsternal chest pain. He states it is intermittent in and started recently. He does state that he has had this pain before. However, he has never been evaluated for it. Patient denies ever having a stress test or cardiac catheterization. He denies any nausea, vomiting , diarrhea. No fevers or chills. Patient denies a recent surgery or travel. No history DVT or PE. No hemoptysis. No leg edema on exam. PFSH Past Medical History Arthritis: No Asthma: No Cancer: No Cardiovascular Problems: No High Cholesterol: Yes Chemotherapy: No COPD: No Cerebrovascular Accident: No Diabetes: Yes Diminished Hearing: No GERD: No Genitourinary: No Hepatitis: No Hiatal Hernia: No Hypertension: Yes Kidney Stones: No Musculoskeletal: No Neurologic: No Psychiatric: No Respiratory: No Immunizations Current: Yes Migraines: No Radiation Therapy: No Renal Failure: No Seizures: No Sickle Cell Disease: No Sleep Apnea: No Ulcer: No Past Surgical History Abdominal Surgery: No AICD: No Appendectomy: Yes Arteriovenous Shunt: No Cardiac Surgery: No Ear Surgery: No Endocrine Surgery: No Eye Surgery: No Genitourinary Surgery: No Gynecologic Surgery: No Insulin Pump: No Joint Replacement: No Oral Surgery: No Pacemaker: No Thoracic Surgery: No Social History Alcohol Use: No Tobacco Use: No Substance Use: Yes (cocaine and marijuana) Allergies-Medications (Allergen,Severity, Reaction): Coded Allergies: No Known Allergies (Verified , 03/01/17) Reported Meds & Prescriptions Reported Meds & Active Scripts Active Review of Systems Except as stated in HPI: all other systems reviewed are Neg Physical Exam Narrative GENERAL: Well-nourished, well-developed male patient, afebrile. SKIN: Focused skin assessment warm/dry. HEAD: Normocephalic. Atraumatic. EYES: No scleral icterus. No injection or drainage. NECK: Supple, trachea midline. No JVD or lymphadenopathy. CARDIOVASCULAR: Regular rate and rhythm without murmurs, gallops, or rubs. RESPIRATORY: Breath sounds equal bilaterally. No accessory muscle use. Lungs sounds are clear to auscultation. GASTROINTESTINAL: Abdomen soft, non-tender, nondistended. MUSCULOSKELETAL: No cyanosis, or edema. Midsternal chest pain is able to be reproduced with palpation. BACK: Nontender without obvious deformity. No CVA tenderness. Data Data Last Documented VS Vital Signs Date Time Temp Pulse Resp B/P (MAP) Pulse Ox O2 Delivery O2 Flow Rate FiO2 05/23/17 13:05 18 05/23/17 12:24 97 Nasal Cannula 2.00 05/23/17 12:24 05/23/17 11:41 97.8 60 Orders Orders Complete Blood Count With Diff (05/23/17 12:10) Comprehensive Metabolic Panel (05/23/17 12:10) Electrocardiogram (05/23/17 12:10) Oximetry (05/23/17 12:10) Iv Access Insert/Monitor (05/23/17 12:10) Ecg Monitoring (05/23/17 12:10) Oxygen Administration (05/23/17 12:10) Psych Screen (05/23/17 12:10) Drug Screen, Random Urine (05/23/17 12:10) Alcohol (Ethanol) (05/23/17 12:10) Salicylates (Aspirin) (05/23/17 12:10) Tylenol (Acetaminophen) (05/23/17 12:10) Ckmb (Isoenzyme) Profile (05/23/17 12:10) Magnesium (Mg) (05/23/17 12:10) Troponin I (05/23/17 12:10) Chest, Single Ap (05/23/17 12:10) Bilateral Bp Monitoring (05/23/17 12:10) Sodium Chloride 0.9% Flush (Ns Flush) (05/23/17 12:15) Aspirin Chew (Aspirin Chew) (05/23/17 13:30) Diet Heart Healthy (05/23/17 Lunch) CKMB (05/23/17 12:35) CKMB% (05/23/17 12:35) Admit Order (Ed Use Only) (05/23/17 14:00) Labs Laboratory Tests Test 05/23/17 12:35 White Blood Count 7.2 TH/MM3 Red Blood Count 4.02 MIL/MM3 Hemoglobin 12.2 GM/DL Hematocrit 37.1 % Mean Corpuscular Volume 92.2 FL Mean Corpuscular Hemoglobin 30.3 PG Mean Corpuscular Hemoglobin Concent 32.8 % Red Cell Distribution Width 13.3 % Platelet Count 271 TH/MM3 Mean Platelet Volume 8.0 FL Neutrophils (%) (Auto) 57.6 % Lymphocytes (%) (Auto) 30.3 % Monocytes (%) (Auto) 10.5 % Eosinophils (%) (Auto) 1.2 % Basophils (%) (Auto) 0.4 % Neutrophils # (Auto) 4.2 TH/MM3 Lymphocytes # (Auto) 2.2 TH/MM3 Monocytes # (Auto) 0.8 TH/MM3 Eosinophils # (Auto) 0.1 TH/MM3 Basophils # (Auto) 0.0 TH/MM3 CBC Comment DIFF FINAL Differential Comment Blood Urea Nitrogen 16 MG/DL Creatinine 1.08 MG/DL Random Glucose 126 MG/DL Total Protein 7.7 GM/DL Albumin 3.6 GM/DL Calcium Level 9.0 MG/DL Magnesium Level 1.7 MG/DL Alkaline Phosphatase 67 U/L Aspartate Amino Transf (AST/SGOT) 16 U/L Alanine Aminotransferase (ALT/SGPT) 18 U/L Total Bilirubin 0.4 MG/DL Sodium Level 138 MEQ/L Potassium Level 3.6 MEQ/L Chloride Level 104 MEQ/L Carbon Dioxide Level 26.7 MEQ/L Anion Gap 7 MEQ/L Estimat Glomerular Filtration Rate 84 ML/MIN Total Creatine Kinase 157 U/L Creatine Kinase MB 2.1 NG/ML Troponin I LESS THAN 0.02 NG/ML Salicylates Level LESS THAN 1.7 MG/DL Acetaminophen Level LESS THAN 2.0 MCG/ML Ethyl Alcohol Level LESS THAN 3 MG/DL MDM Medical Decision Making Medical Screen Exam Complete: Yes Emergency Medical Condition: Yes Medical Record Reviewed: Yes Interpretation(s) chest x-ray = CONCLUSION: 1. Metallic density projecting over the medial right lower chest. 2. The lungs are clear. Differential Diagnosis depression versus anxiety versus substance abuse versus psychosis versus suicidal ideation versus ACS versus chest wall pain versus pneumonia versus pneumothorax Narrative Course 61-year-old male presents to the emergency department voluntarily for psychiatric evaluation as well as midsternal chest pain. The patient was admitted back in March for Tylenol overdose, as suicide attempt. He denies any attempt at this time to hurt himself. He also complains of midsternal chest pain that he has never been evaluated for in the past. EKG, CBC, CMP, CK, troponin, magnesium, salicylate level, Tylenol level, urine drug screen, alcohol level are ordered and pending. EKG shows sinus bradycardia, HR 48, no acute ST changes. CBC shows no acute abnormality. CMP shows no acute abnormality. CK is 157. Troponin is less than 0.02. Magnesium is 1.7. Salicylate level is less than 1.7. Tylenol level is less than 2.0. UDS is pending. Alcohol level is less than 3. Chest x -ray shows Metallic density projecting over the medial right lower chest; 2. The lungs are clear. Patient is given aspirin 162 mg by mouth for chest pain. The patient will be admitted for observation for repeat cardiac enzymes, psychiatric consult. Dr. Lopez, resident, accepted admission. Diagnosis Primary Impression: Chest pain Qualified Codes: R07.9 - Chest pain, unspecified Additional Impression: Severe major depression, single episode, without psychotic features Admitting Information Admitting Physician Requests: Observation Samantha Wells May 23, 2017 12:23
[2017-05-23 12:53] LABS: AUTOMATED NEUTROPHIL # 4.2 TH/MM3 (1.8-7.7); BASOPHIL % 0.4 % (0.0-2.0); EOSINOPHIL # 0.1 TH/MM3 (0-0.4); EOSINOPHIL % 1.2 % (0.0-4.0); HEMATOCRIT 37.1 % (39.0-51.0); HEMO FLAGS DIFF FINAL; LYMPH % 30.3 % (9.0-44.0); LYMPHOCYTE # 2.2 TH/MM3 (1.0-4.8); MEAN CELL VOLUME 92.2 FL (80.0-100.0); MEAN CORPUSCULAR HEMOGLOBIN 30.3 PG (27.0-34.0); MEAN CORPUSCULAR HGB CONC 32.8 % (32.0-36.0); MONO % 10.5 % (0.0-8.0); NEUT % 57.6 % (16.0-70.0); PLATELET COUNT 271 TH/MM3 (150-450); RED BLOOD COUNT 4.02 MIL/MM3 (4.50-5.90); RED CELL DISTRIBUTION WIDTH 13.3 % (11.6-17.2); WHITE BLOOD COUNT 7.2 TH/MM3 (4.0-11.0)
--- NOTE | 2017-05-23 13:11 | RADRPT ---
EXAM DATE/TIME: 05/23/2017 12:38 [facility] COMPARISON: No previous studies available for comparison. INDICATIONS : Chest pain. MEDICAL HISTORY : None. SURGICAL HISTORY : None. ENCOUNTER: Initial ACUITY: 1 day PAIN SCORE: 6/10 LOCATION: Bilateral chest FINDINGS: The heart size is normal. The lungs are clear. No effusion is seen. There is a 1.0 x 0.6 cm metallic density projecting over the medial right lower chest. CONCLUSION: 1. Metallic density projecting over the medial right lower chest. 2. The lungs are clear. Esteban Lazaro MD on May 23, 2017 at 13:09 Board Certified Radiologist. This report was verified electronically.
[2017-05-23 13:19] LABS: ALT (GPT) 18 U/L (12-78); ANION GAP 7 MEQ/L (5-15); AST (GOT) 16 U/L (15-37); BICARBONATE 26.7 MEQ/L (21.0-32.0); BLOOD UREA NITROGEN 16 MG/DL (7-18); CHLORIDE 104 MEQ/L (98-107); GLOMERULAR FILTRATION RATE 84 ML/MIN (>89); MAGNESIUM 1.7 MG/DL (1.5-2.5); POTASSIUM 3.6 MEQ/L (3.5-5.1); SODIUM (NA) 138 MEQ/L (136-145)
[2017-05-23 13:22] LABS: ALKALINE PHOSPHATASE 67 U/L (45-117); CREATINE KINASE 157 U/L (39-308); TOTAL BILIRUBIN ADULT 0.4 MG/DL (0.2-1.0)
[2017-05-23 13:28] LABS: ALCOHOL LESS THAN 3 MG/DL (0-5)
[2017-05-23 13:29] LABS: ACETAMINOPHEN LESS THAN 2.0 MCG/ML (10.0-30.0)
[2017-05-23] MEDS ORDERED: ASPIRIN 81 MG CHEW TAB CHEW ONE (13:30)
[2017-05-23 13:40] LABS: CKMB 2.1 NG/ML (0.5-3.6)
[2017-05-23] MEDS ORDERED: SODIUM CHLORIDE 0.9% FLUSH 10 ML FLUSH IV FLUSH PRN (14:15)
[2017-05-23] MEDS ORDERED: ACETAMINOPHEN 325 MG TAB PO PRN ×2 (14:15→20:15)
[2017-05-23] MEDS ORDERED: NITROGLYCERIN 0.4 MG SL 25 TABS/BTL SL PRN (14:15)
[2017-05-23] MEDS ORDERED: ALPRAZolam 0.25 MG TAB PO PRN (14:15)
[2017-05-23] MEDS ORDERED: MORPHINE SULFATE 4 MG/ML INJ IV PUSH PRN ×2 (14:15→20:15)
[2017-05-23] MEDS ORDERED: DOCUSATE SODIUM 100 MG CAP PO PRN (14:15)
[2017-05-23] MEDS ORDERED: ONDANSETRON HCL 4 MG/2 ML VIAL IV PUSH PRN (14:15)
[2017-05-23] MEDS: ENOXAPARIN SODIUM 40 MG/0.4 ML SYRINGE SQ SCH (14:54)
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
--- NOTE | 2017-05-23 19:17 | EKG ---
Date Performed: 05/23/2017 Time Performed: 12:26:45 PTAGE: 61 years EKG: SINUS BRADYCARDIA BORDERLINE ECG PREVIOUS TRACING : 03/12/2017 14.43 No significant change from previous tracing noted. DOCTOR: Justin Ching Interpretating Date/Time 05/23/2017 19:16:47
[2017-05-23] MEDS: SODIUM CHLOR 0.9% 1000 ML INJ 1,000 ML IV SCH (20:00)
[2017-05-23] MEDS ORDERED: ACETAMINOPHEN/HYDROcodone 325 MG/10 MG TAB PO PRN (20:15)
[2017-05-23] MEDS ORDERED: ACETAMINOPHEN/HYDROcodone 325 MG/5 MG TAB PO PRN (20:15)
[2017-05-23] MEDS ORDERED: NALOXONE HCL 0.4 MG/ML AMP IV PUSH PRN (20:15)
[2017-05-23] MEDS: SODIUM CHLORIDE 0.9% FLUSH 10 ML FLUSH IV FLUSH SCH (21:00)
--- NOTE | 2017-05-23 21:44 | EKG ---
Date Performed: 05/23/2017 Time Performed: 18:30:00 PTAGE: 61 years EKG: SINUS BRADYCARDIA BORDERLINE ECG PREVIOUS TRACING : 05/23/2017 12.26 No significant change from previous tracing noted. DOCTOR: Justin Ching Interpretating Date/Time 05/23/2017 21:42:45
[2017-05-24] VITALS (7 sets, daily range): BP systolic 126–153; BP diastolic 62–81; PULSE 47–56; RESP 16–18; TEMP 96.7–98.7; O2SAT 97–100
[2017-05-24] MEDS: SODIUM CHLOR 0.9% 1000 ML INJ 1,000 ML IV SCH ×3 (04:48→17:57)
[2017-05-24 08:48] LABS: AUTOMATED NEUTROPHIL # 2.5 TH/MM3 (1.8-7.7); BASOPHIL % 0.5 % (0.0-2.0); EOSINOPHIL # 0.1 TH/MM3 (0-0.4); EOSINOPHIL % 1.9 % (0.0-4.0); HEMATOCRIT 34.6 % (39.0-51.0); HEMO FLAGS DIFF FINAL; LYMPH % 35.1 % (9.0-44.0); LYMPHOCYTE # 1.8 TH/MM3 (1.0-4.8); MEAN CELL VOLUME 91.1 FL (80.0-100.0); MEAN CORPUSCULAR HEMOGLOBIN 30.5 PG (27.0-34.0); MEAN CORPUSCULAR HGB CONC 33.5 % (32.0-36.0); MONO % 12.7 % (0.0-8.0); NEUT % 49.8 % (16.0-70.0); PLATELET COUNT 250 TH/MM3 (150-450); RED CELL DISTRIBUTION WIDTH 13.6 % (11.6-17.2)
[2017-05-24] MEDS: SODIUM CHLORIDE 0.9% FLUSH 10 ML FLUSH IV FLUSH SCH ×2 (09:00→21:00)
[2017-05-24 09:18] LABS: ANION GAP 7 MEQ/L (5-15); BICARBONATE 26.8 MEQ/L (21.0-32.0); BLOOD UREA NITROGEN 14 MG/DL (7-18); CHLORIDE 106 MEQ/L (98-107); GLOMERULAR FILTRATION RATE 96 ML/MIN (>89); POTASSIUM 3.7 MEQ/L (3.5-5.1); SODIUM (NA) 140 MEQ/L (136-145)
[2017-05-24] MEDS ORDERED: CARBIDOPA/LEVODOPA 10 MG/100 MG TAB PO ONE (11:45)
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
--- NOTE | 2017-05-24 14:19 | EKG ---
Date Performed: 05/24/2017 Time Performed: 01:51:32 PTAGE: 61 years EKG: Sinus bradycardia Short WV interval Borderline ECG NO PREVIOUS TRACING DOCTOR: Justin Ching Interpretating Date/Time 05/24/2017 14:18:05
[2017-05-24] MEDS: CARBIDOPA/LEVODOPA 10 MG/100 MG TAB PO SCH ×2 (14:46→21:30)
--- NOTE | 2017-05-24 14:55 | PD.PSY.CON ---
Provisional Diagnosis Admission Date May 23, 2017 at 14:07 [place] I. Major depressive disorder, recurrent, [place] II. Deferred History of Present Illness Service Psychiatry Consult Requested By Reason for Consult Depression and suicidal ideation Primary Care Physician No Primary Care Physician HPI The patient is a 61-year-old man, homeless, unemployed, single, with psychiatric history of depression, cocaine use disorder, recently hospitalizing [facility] under the care of Dr. Ivey after a suicidal attempt by overdosing with Tylenol, medical history of a history of diabetes, hypertension, who presented with chest pain and suicidal ideation.He reports that his chest pain is located substernally but behind the inferior part of his sternum. His chest pain is exacerbated by walking and breathing. He has tried nothing to help this chest pain. He reports that the chest pain comes and goes. He describes the pain as achy and sharp, nonradiating, 8-9 out of 10 severity. He reports that he has felt pain like this before. He reports that it feels like gas pain. He also complains of cold symptoms including runny nose and sinus pressure. He reports that he stopped taking his diabetes and hypertension medications days to weeks ago.Patient has been Bulter Acted for suicidal ideation in the emergency department. He reports that he has tried to kill himself multiple times in the past. He reports that he has tried to kill himself by taking a lot of Tylenol (and was seen here at [facility] for that during his last admission). At the present time patient laying quietly in his bed in medical floor. Laying very still flat on his back. Making no eye contact initially refusing to speak with me though after some coaxing states he is hopeless and helpless that nothing works for many morning as well be . He states he would take the suicide pill if offered to him or he would jump in front of a train. As per previous Dr. Ivey's note, patient has history of a multiple year cocaine addiction, this led to multiple incarcerations both feel and in custodial. He stating most of his adult life has been spent in retirement or custodial. He denies any prior psychiatric contact though he has been seen here also on March 01 of this year at bedtime positive for cocaine and marijuana in his urine. He says he is estranged from all his family though counselor appears with talk to the daughter of his. There is marked decreased range intensity was affect is quite blunted. Review of Systems Constitutional: DENIES: Diaphoretic episodes, Fatigue, Fever, Weight gain, Weight loss, Chills, Dizziness, Change in appetite, Night Sweats Endocrine: DENIES: Heat/cold intolerance, Polydipsia, Polyuria, Polyphagia Eyes: DENIES: Blurred vision, Diplopia, Eye inflammation, Eye pain, Vision loss , Photosensitivity, Double Vision Ears, nose, mouth, throat: DENIES: Tinnitus, Hearing loss, Vertigo, Nasal discharge, Oral lesions, Throat pain, Hoarseness, Ear Pain, Running Nose, Epistaxis, Sinus Pain, Toothache, Odynophagia Respiratory: DENIES: Apneas, Cough, Snoring, Wheezing, Hemoptysis, Sputum production, Shortness of breath Cardiovascular: DENIES: Chest pain, Palpitations, Syncope, Dyspnea on Exertion , PND, Lower Extremity Edema, Orthopnea, Claudication Gastrointestinal: DENIES: Abdominal pain, Black stools, Bloody stools, Constipation, Diarrhea, Nausea, Vomiting, Difficulty Swallowing, Anorexia Musculoskeletal: DENIES: Joint pain, Muscle aches, Stiffness, Joint Swelling, Back pain, Neck pain Integumentary: DENIES: Abnormal pigmentation, Nail changes, Pruritus, Rash Hematologic/lymphatic: DENIES: Bruising, Lymphadenopathy Immunologic/allergic: DENIES: Eczema, Urticaria Neurologic: DENIES: Abnormal gait, Headache, Localized weakness, Paresthesias, Seizures, Speech Problems, Tremor, Poor Balance Psychiatric: COMPLAINS OF: Depression, Suicidal Ideation Past Family Social History Coded Allergies: No Known Allergies (Verified , 03/01/17) Discontinued Reported Medications Metformin (Metformin) 1,000 Mg Tab, 1000 MG PO BID for Blood Sugar Management, # 60 TAB 0 Refills With meals 03/01/17 Amitriptyline (Amitriptyline) 25 Mg Tab, 25 MG PO HS, TAB 03/01/17 Discontinued Scripts Sertraline (Zoloft) 50 Mg Tab, 50 MG PO DAILY for health, #15 TAB 0 Refills Prov:Esteban Ivey MD 03/19/17 Pravastatin (Pravachol) 40 Mg Tab, 40 MG PO HS for health, #15 TAB 0 Refills Prov:Esteban Ivey MD 03/19/17 Metformin (Glucophage) 500 Mg Tab, 1000 MG PO BIDPC for health, #60 TAB 0 Refills Prov:Esteban Ivey MD 03/19/17 Lisinopril (Lisinopril) 20 Mg Tab, 20 MG PO HS for health, #15 TAB 0 Refills Prov:Esteban Ivey MD 03/19/17 Insulin Detemir Inj (Levemir Inj) 1,000 unit/ 10 ML Vial, 48 UNITS SQ HS for health, #1 VIAL 0 Refills Prov:Esteban Ivey MD 03/19/[address] (Adult Aspirin EC Low Strength) 81 Mg Tabec, 81 MG PO DAILY for health, #15 TAB 0 Refills Prov:Esteban Ivey MD 03/19/17 Aripiprazole (Aripiprazole) 10 Mg Tab, 10 MG PO HS for health, #15 TAB 0 Refills Prov:Esteban Ivey MD 03/19/17 Amlodipine (Norvasc) 5 Mg Tab, 5 MG PO DAILY for health, #15 TAB 0 Refills Prov:Esteban Ivey MD 03/19/17 Current Medications Medications (Trade) Dose Ordered Sig/Fabi Route Start Time Stop Time Status Last Admin (NS Flush) 2 ml BID IV FLUSH 05/23/17 21:00 05/23/17 21:00 (NS Flush) 2 ml UNSCH PRN IV FLUSH 05/23/17 14:15 (Nitrostat Sl) 0.4 mg Q5M PRN SL 05/23/17 14:15 (Morphine Inj) 2 mg Q30M PRN IV PUSH 05/23/17 14:15 (Tylenol) 650 mg Q6H PRN PO 05/23/17 14:15 (Colace) 100 mg BID PRN PO 05/23/17 14:15 (Xanax) 0.25 mg Q8H PRN PO 05/23/17 14:15 (Zofran Inj) 4 mg Q6H PRN IV PUSH 05/23/17 14:15 (Lovenox Inj) 40 mg Q24H SQ 05/23/17 15:00 05/23/17 14:54 Sodium Chloride 1,000 ml @ 125 mls/hr Q8H IV 05/23/17 20:00 05/24/17 04:48 (Tylenol) 650 mg Q6H PRN PO 05/23/17 20:15 (Nulato 5-325 Mg) 1 tab Q4H PRN PO 05/23/17 20:15 (Nulato 10-325 Mg) 1 tab Q4H PRN PO 05/23/17 20:15 (Morphine Inj) 4 mg Q3H PRN IV PUSH 05/23/17 20:15 (Narcan Inj) 0.4 mg UNSCH PRN IV PUSH 05/23/17 20:15 (Sinemet 10-100 Mg) 1 tab Q8HR PO 05/24/17 14:00 Physical Exam Patient has active psychomotor retardation, with mild hand tremors, no pupillaries changes, no gait disturbances Vital Signs Vital Signs Date Time Temp Pulse Resp B/P (MAP) Pulse Ox O2 Delivery O2 Flow Rate FiO2 05/24/17 08:00 98.7 50 18 136/72 (93) 99 05/24/17 04:00 Room Air 05/23/17 17:11 2.00 I/O 05/24/17 05/24/17 05/25/17 08:00 16:00 00:00 Intake Total 913 ml Balance 913 ml Lab Results Test 05/23/17 18:34 05/23/17 23:38 05/24/17 08:17 Troponin I LESS THAN 0.02 NG/ML LESS THAN 0.02 NG/ML LESS THAN 0.02 NG/ML White Blood Count 5.0 TH/MM3 Red Blood Count 3.80 MIL/MM3 Hemoglobin 11.6 GM/DL Hematocrit 34.6 % Mean Corpuscular Volume 91.1 FL Mean Corpuscular Hemoglobin 30.5 PG Mean Corpuscular Hemoglobin Concent 33.5 % Red Cell Distribution Width 13.6 % Platelet Count 250 TH/MM3 Mean Platelet Volume 8.2 FL Neutrophils (%) (Auto) 49.8 % Lymphocytes (%) (Auto) 35.1 % Monocytes (%) (Auto) 12.7 % Eosinophils (%) (Auto) 1.9 % Basophils (%) (Auto) 0.5 % Neutrophils # (Auto) 2.5 TH/MM3 Lymphocytes # (Auto) 1.8 TH/MM3 Monocytes # (Auto) 0.6 TH/MM3 Eosinophils # (Auto) 0.1 TH/MM3 Basophils # (Auto) 0.0 TH/MM3 CBC Comment DIFF FINAL Differential Comment Blood Urea Nitrogen 14 MG/DL Creatinine 0.96 MG/DL Random Glucose 108 MG/DL Calcium Level 8.3 MG/DL Sodium Level 140 MEQ/L Potassium Level 3.7 MEQ/L Chloride Level 106 MEQ/L Carbon Dioxide Level 26.8 MEQ/L Anion Gap 7 MEQ/L Estimat Glomerular Filtration Rate 96 ML/MIN Mental Status Examination Appearance man, [facility], poorly cooperative, with marked psychomotor retardation Speech: Hesitant Orientation: Person Memory: Unremarkable Thought Process: Thought Blocking Thought Content: Unremarkable Hallucination Type: None Previous Suicide Attempts: Yes Homicidal Ideation: Yes Previous Homicide Attempts: Yes Judgment: Poor Affect: Sad Affect if Inappropriate: Flat Mood: Sad Motor Activity: Normal gait Assessment & Plan Problem List: (1) Major depressive disorder, recurrent ICD Codes: F33.9 - Major depressive disorder, recurrent, unspecified Assessment & Plan: On psychiatric evaluation today the patient presents with symptoms of depression, active suicidal ideation, no plan. Patient is electively mute, just answering a few questions, however he seems to be fragile , vulnerable, distant, hypoactive, with marked psychomotor retardation. He does not express the circumstances and stressors of his depression, but he does repeatedly say that he wants to and there is no reason for him to be in this world. Patient reports suicidal ideation, no specific plan. Does not contract for safety in the hospital. Patient should remained with a sitter in the medical floor. He needs psychiatric admission for stabilization. He could be a good candidate for med psych unit. We'll start Zoloft 25 mg daily for depression. We'll follow-up. Assessment & Plan Estimated LOS: Oscar Arambula MD May 24, 2017 14:55
[2017-05-24] MEDS ORDERED: PILL SPLITTER OTHER PRN (15:00)
[2017-05-24] MEDS: ENOXAPARIN SODIUM 40 MG/0.4 ML SYRINGE SQ SCH (15:06)
[2017-05-25] VITALS: BP 130/69; PULSE 51; RESP 19; TEMP 98.3; O2SAT 99
[2017-05-25] MEDS: SODIUM CHLOR 0.9% 1000 ML INJ 1,000 ML IV SCH (03:29)
[2017-05-25 04:00] VITALS: BP 135/73; PULSE 49; RESP 16; TEMP 97.9; O2SAT 99
[2017-05-25] MEDS: CARBIDOPA/LEVODOPA 10 MG/100 MG TAB PO SCH (06:00)
[2017-05-25 08:00] VITALS: BP 143/77; PULSE 47; RESP 18; TEMP 98.3; O2SAT 100
[2017-05-25] MEDS: GABAPENTIN 300 MG CAP PO SCH ×2 (08:55→11:37)
[2017-05-25] MEDS ORDERED: SERTRALINE HCL 50 MG TAB PO SCH (09:00)
[2017-05-25] MEDS: SODIUM CHLORIDE 0.9% FLUSH 10 ML FLUSH IV FLUSH SCH (09:00)
[2017-05-25] MEDS ORDERED: metFORMIN HCL 500 MG TAB PO SCH (09:00)
[2017-05-25] MEDS ORDERED: FAMOTIDINE 20 MG TAB PO PRN (11:45)
[2017-05-25 12:00] VITALS: BP 129/64; PULSE 50; RESP 18; TEMP 98.6; O2SAT 98
[2017-05-25] MEDS ORDERED: METF500 PO (12:23)
[2017-05-25] MEDS ORDERED: SINE10100 PO (12:23)
[2017-05-25] MEDS ORDERED: NEUR300C PO (12:23)
[2017-05-25] MEDS ORDERED: ALPR.25 PO (12:23)
[2017-05-25] MEDS ORDERED: FAMO20TA2 PO (12:23)
[2017-05-25] MEDS ORDERED: ZOLO50TA PO (12:23)
--- NOTE | 2017-05-25 12:24 | HHI.DS ---
Discharge Summary Admission Date May 23, 2017 at 14:07 Admitting Diagnosis chest pain, depression, suicidal ideation (1) Chest pain Diagnosis: Secondary Plan: -Admit -ACS rule out with every 6 hours EKG and troponin -BMP, CBC -Maintenance IV fluids -Patient received aspirin in emergency department -Pain and anxiety medications as needed including morphine and nitroglycerin as needed for chest pain -Medications as needed for constipation -Oxygen as needed -monitoring tech/telemetry -Monitor vital signs -Smoking cessation counseling can discuss again with pt if he has typical or atypical chest pain. He was so depressed he would not answer questions easily or readily. ICD Codes: R07.9 - Chest pain, unspecified Status: Acute (2) Suicidal ideations Diagnosis: Principal Plan: -Butler act in emergency department -Admit to inpatient -Psychiatry consult -Sitter ICD Codes: R45.851 - Suicidal ideations Status: Acute (3) Homeless Diagnosis: Principal Plan: -Case management consult pt agrees to mobile sales consultant care facility so hopefully his Insurance can be converted so he can have this. he is 61 years old and having more and more medical problems so he could use a mobile sales consultant stable environment whether this could happen soon or if he gets this changed, he could hopefully have this in the future ICD Codes: Z59.0 - Homelessness (4) No contraindication to deep vein thrombosis (DVT) prophylaxis Diagnosis: Secondary Plan: -Lovenox daily ICD Codes: Z78.9 - Other specified health status (5) Nutrition, metabolism, and development symptoms Diagnosis: Principal Plan: Fluids: Maintenance IV fluids with normal saline IV at 125 mL per hour for now, can heplock if he eats well Electrolytes: Monitor and replete Nutrition: Heart healthy diet ICD Codes: R63.8 - Other symptoms and signs concerning food and fluid intake Brief History Mr Manley is a 61-year-old man with a history of diabetes, hypertension, depression, suicide attempts who presented with chest pain and suicidal ideation. He reports that his chest pain is located substernally but behind the inferior part of his sternum. His chest pain is exacerbated by walking and breathing. He has tried nothing to help this chest pain. He reports that the chest pain comes and goes. He describes the pain as achy and sharp, nonradiating, 8-9 out of 10 severity. He reports that he has felt pain like this before. He reports that it feels like gas pain. He also complains of cold symptoms including runny nose and sinus pressure. He reports that he stopped taking his diabetes and hypertension medications days to weeks ago. Patient has been Butler Acted for suicidal ideation in the emergency department. He reports that he has tried to kill himself multiple times in the past. He reports that he has tried to kill himself by taking a lot of Tylenol (and was seen here at [facility] for that during his last admission). He denies any homicidal ideation. He is homeless. He is unwilling to tell us what has happened recently. He is unwilling to talk about any plans he may have to hurt himself. He was asked if he would agree with go to a SNF for mobile sales consultant care. He agreed to that. He will be seen by Psychiatry and he may need Psychiatric hospitalization CBC/BMP: 05/24/17 0817 05/24/17 0817 Significant Findings Laboratory Tests Test 05/23/17 12:35 05/23/17 14:38 05/23/17 18:34 05/23/17 23:38 Red Blood Count 4.02 MIL/MM3 (4.50-5.90) Hemoglobin 12.2 GM/DL (13.0-17.0) Hematocrit 37.1 % (39.0-51.0) Monocytes (%) (Auto) 10.5 % (0.0-8.0) Random Glucose 126 MG/DL (74-106) Estimat Glomerular Filtration Rate 84 ML/MIN (>89) Troponin I LESS THAN 0.02 NG/ML LESS THAN 0.02 NG/ML LESS THAN 0.02 NG/ML Salicylates Level LESS THAN 1.7 MG/DL Acetaminophen Level LESS THAN 2.0 MCG/ML Test 05/24/17 08:17 Red Blood Count 3.80 MIL/MM3 (4.50-5.90) Hemoglobin 11.6 GM/DL (13.0-17.0) Hematocrit 34.6 % (39.0-51.0) Monocytes (%) (Auto) 12.7 % (0.0-8.0) Random Glucose 108 MG/DL (74-106) Calcium Level 8.3 MG/DL (8.5-10.1) Troponin I LESS THAN 0.02 NG/ML Pt Condition on Discharge: Stable Discharge Disposition: Disc to Psych Care Fac Discharge Instructions DIET: Follow Instructions for: As Tolerated, No Restrictions Additional Diet Instructions: double portions with boost supplement Activities you can perform: Regular-No Restrictions Other Activity Instructions: per PT with sitter due to suicidal ideation Dutch Diaz MD R1 May 25, 2017 12:24
--- NOTE | 2017-05-25 12:25 | HHI.DCPOC ---
Discharge Care Plan Diagnosis: (1) Chest pain (2) Suicidal ideations Goals to Promote Your Health * To prevent worsening of your condition and complications take medications as prescribed * To maintain your health at the optimal level do not try to harm yourself Directions to Meet Your Goals Take your medications as prescribed Follow your dietary instruction Follow activity as directed Keep your appointments as scheduled Take your immunizations and boosters as scheduled If your symptoms worsen call your PCP, if no PCP go to Urgent Care Center or Emergency Room Smoking is Dangerous to Your Health. Avoid second hand smoke Call the 24-hour hour crisis hotline for domestic abuse at Dutch Diaz MD R1 May 25, 2017 12:25
--- NOTE | 2017-05-25 15:49 | HHI.FPPN ---
Subjective Remarks Mr Manley had no acute events overnight. Patient still with some suicidal ideation however does not appear to have a plan. Patient seems acutely depressed and sad over losing all of his belongings. Patient appears to have a good appetite and states he had some diarrhea this morning. Denies CP, SOB, N/V , and DVT pain, but complains his feet are "as cold as ice." (Dutch Diaz MD R1) Objective Vitals Vital Signs Date Time Temp Pulse Resp B/P (MAP) Pulse Ox O2 Delivery O2 Flow Rate FiO2 05/25/17 12:00 98.6 50 18 129/64 (85) 98 05/25/17 08:00 98.3 47 18 143/77 (99) 100 05/25/17 08:00 Room Air 2.00 05/25/17 04:00 Room Air 05/25/17 04:00 97.9 49 16 135/73 (93) 99 05/25/17 00:00 98.3 51 19 130/69 (89) 99 05/25/17 00:00 Room Air 05/24/17 20:22 47 05/24/17 20:00 Room Air 05/24/17 20:00 98.2 48 16 129/62 (84) 100 05/24/17 16:00 96.7 56 17 126/66 (86) 98 I/O 05/24/17 05/24/17 05/24/17 05/25/17 05/25/17 05/25/17 06:59 14:59 22:59 06:59 14:59 22:59 Intake Total 913 ml 720 ml 120 ml 1736 ml Output Total 400 ml Balance 913 ml 720 ml 120 ml 1736 ml -400 ml Intake Oral 720 ml 120 ml 240 ml IV Total 913 ml 1496 ml Output Urine Total 400 ml # Voids 3 1 2 # Bowel Movements 1 0 0 (Dutch Diaz MD R1) Result Diagram: 05/24/17 0817 05/24/17 0817 Imaging Last Impressions Chest X-Ray 05/23/17 1210 Signed Impressions: Service Date/Time: Tuesday, May 23, 2017 12:38 - CONCLUSION: 1. Metallic density projecting over the medial right lower chest. 2. The lungs are clear. Esteban Lazaro MD Objective Remarks GENERAL: This is a thin, elderly, malnourished male, in no apparent distress. Lying in bed and sad, left hand tremor still mildly present. SKIN: No rashes, ecchymoses or lesions. Cool and dry. HEAD: Atraumatic. Normocephalic. EYES: Pupils equal round and reactive. Extraocular motions intact. No scleral icterus. No injection or drainage. ENT: Nose without bleeding, purulent drainage or septal hematoma. Dry MM. Airway patent. NECK: Trachea midline. No lymphadenopathy. Supple, nontender, no meningeal signs. CARDIOVASCULAR: Regular rate and rhythm without murmurs, gallops, or rubs. RESPIRATORY: Clear to auscultation. Breath sounds equal bilaterally. No wheezes , rales, or rhonchi. GASTROINTESTINAL: Abdomen soft, non-tender, nondistended. No hepato-splenomegaly , or palpable masses. No guarding. MUSCULOSKELETAL: Extremities without clubbing, cyanosis, or edema. No joint tenderness, effusion, or edema noted. No calf tenderness. NEUROLOGICAL: Awake and alert. Cranial nerves II through XII grossly intact. Motor and sensory grossly within normal limits. Normal speech. PSYCH: Flat affect. Withdrawn. Word sparing. Medications and IVs Reported Meds & Active Scripts Active Glucophage (Metformin HCl) 500 Mg Tab 500 Mg PO BIDPC 30 Days Famotidine 20 Mg Tab 20 Mg PO DAILY PRN 30 Days Sinemet (Carbidopa/Levodopa) 10-100 Mg Tab 1 Tab PO Q8HR 30 Days Zoloft (Sertraline HCl) 50 Mg Tab 25 Mg PO DAILY 30 Days Neurontin (Gabapentin) 300 Mg Cap 300 Mg PO TID 30 Days (Dutch Diaz MD R1) Urinary Catheter: No (Dutch Diaz MD R1) Vascular Central Line Catheter: No (Dutch Diaz MD R1) A/P Assessment and Plan Patient is a 61-year-old man with a history of diabetes, hypertension, depression, acid reflux and previous suicide attempts who presents with chest pain and suicidal ideation. DM type 2 with A1C 6.6 on 03/12/17 (Dutch Diaz MD R1) Attending Attestation Patient seen and examined. Case reviewed and discussed with the resident team. Agree with plan of care as discussed with me and documented in the resident note. Mr Manley is very depressed. appreciate Psychiatry (Angelica Oconnell MD) Problem List: (1) Suicidal ideations ICD Codes: R45.851 - Suicidal ideations Status: Acute Plan: -Butler act in emergency department; still has SI thoughts but no plan -Transfer to med-psych -Psychiatry consult -Sitter (2) Major depressive disorder, recurrent ICD Codes: F33.9 - Major depressive disorder, recurrent, unspecified Status: Chronic Plan: Admitted with depression and SI with previous suicidal attempts -Psych consult and transfer to med-psych inpatient -Started Sertraline 25 mg/day -Started Xanax 0.25 mg PO q8h PRN for anxiety (3) DM (diabetes mellitus) ICD Codes: E11.9 - Type 2 diabetes mellitus without complications Status: Acute Plan: Past Hx DM with A1C on 03/12/17 of 6.6; plus, pt's feet feel "cold as ice" ; Pt states he has been noncompliant with medications for some time -Start Metformin 500 mg BID -Start gabapentin 300 mg TID (4) Parkinsonian features ICD Codes: R25.9 - Unspecified abnormal involuntary movements Status: Acute Plan: Pt with noted tremors in bed, some rigidity noted on exam on 05/24, sitter reports shuffling gait -Start trial of Sinemet 10-100 mg PO q8h (5) Acid reflux ICD Codes: K21.9 - Gastro-esophageal reflux disease without esophagitis Status: Chronic Plan: Pt reports having a Hx of acid reflux -Pepcid 20 mg daily PRN (6) Homeless ICD Codes: Z59.0 - Homelessness Status: Chronic Plan: -Case management consult pt agrees to [facility] facility so hopefully his Insurance can be converted so he can have this. he is 61 years old and having more and more medical problems so he could use a [facility] stable environment whether this could happen soon or if he gets this changed, he could hopefully have this in the future (7) HTN (hypertension) ICD Codes: I10 - Essential (primary) hypertension Status: Chronic Plan: Takes no HTN medications and BP is normotensive -Monitor (8) Chest pain ICD Codes: R07.9 - Chest pain, unspecified Status: Resolved Plan: -Admit -ACS rule out with every 6 hours EKG and troponin -BMP, CBC -Maintenance IV fluids -Patient received aspirin in emergency department -Pain and anxiety medications as needed including morphine and nitroglycerin as needed for chest pain -Medications as needed for constipation -Oxygen as needed -nurse monitoring/telemetry -Monitor vital signs -Smoking cessation counseling can discuss again with pt if he has typical or atypical chest pain. He was so depressed he would not answer questions easily or readily. Serial troponins: <0.02 EKG: Bradycardia and borderline ECG (9) No contraindication to deep vein thrombosis (DVT) prophylaxis ICD Codes: Z78.9 - Other specified health status Plan: -Lovenox daily (10) Nutrition, metabolism, and development symptoms ICD Codes: R63.8 - Other symptoms and signs concerning food and fluid intake Plan: Fluids: D/c IVF Electrolytes: Monitor and replete PRN Nutrition: Regular diet with extra portions and boost supplement PPx: Lovenox as above (Dutch Diaz MD R1) Problem Qualifiers (1) HTN (hypertension): Qualified Codes: I10 - Essential (primary) hypertension (2) Chest pain: Qualified Codes: R07.9 - Chest pain, unspecified Dutch Diaz MD R1 May 25, 2017 15:49 Angelica Oconnell MD May 28, 2017 13:53
== END 2017-05-25 14:00 | DRG 313 ==
LOC: NEPC 11:38 → NEDH 14:01 → OBSVTOIN 14:07 → N04B 19:00
PROVIDERS: ADMIT Family Medicine; ATTEND Family Medicine
DX: R07.89 Other chest pain (principal); R45.851 Suicidal ideations; F33.9 Major depressive disorder, recurrent, unspecified; I10 Essential (primary) hypertension; E11.9 Type 2 diabetes mellitus without complications; K21.9 Gastro-esophageal reflux disease without esophagitis; R25.9 Unspecified abnormal involuntary movements; Z59.0 Homelessness
CPT/HCPCS: 71010; 80048; 80053; 80307; 82550; 82552; 82948; 83735; 84484; 85025; 93005; 99285; J1650; J7030

== ENCOUNTER 2017-05-25 13:53 | Inpatient (IN) | payer OTHER ==
[~2017-05-25 13:53] MED LIST changes: +ALPR.25 PO; -AMIT25TA9 PO; -AMLO5 PO; -ARIP1TAB12 PO; -ASPI-99 PO; +FAMO20TA2 PO; -LEVEMIR SQ; -LISI-515 PO; -METF1000 PO; +NEUR300C PO; -PRAV40TA PO; +SINE10100 PO
[2017-05-25] MEDS ORDERED: MAGNESIUM HYDROXIDE SUSP 30 ML CUP PO PRN (14:30)
[2017-05-25] MEDS ORDERED: FAMOTIDINE 20 MG TAB PO PRN (14:30)
[2017-05-25] MEDS ORDERED: LORazepam 2 MG/ML VIAL IM PRN ×2 (14:30)
[2017-05-25] MEDS ORDERED: LORazepam 0.5 MG TAB PO PRN (14:30)
[2017-05-25] MEDS ORDERED: ALUMINUM/MAGNESIUM/SIMETH 30 ML CUP PO PRN (14:30)
[2017-05-25] MEDS ORDERED: NICOTINE 21 MG/24 HR PATCH T-DERMAL SCH (14:30)
[2017-05-25] MEDS ORDERED: LORazepam 1 MG TAB PO PRN (14:30)
[2017-05-25] MEDS ORDERED: ACETAMINOPHEN 325 MG TAB PO PRN (14:30)
[2017-05-25] MEDS ORDERED: SERTRALINE HCL 50 MG TAB PO SCH (15:00)
[2017-05-25 15:12] VITALS: BP 124/62; PULSE 50; RESP 17; TEMP 98.8; O2SAT 98
[2017-05-25] MEDS: GABAPENTIN 300 MG CAP PO SCH (17:26)
[2017-05-25] MEDS: CARBIDOPA/LEVODOPA 10 MG/100 MG TAB PO SCH ×2 (17:26→20:20)
[2017-05-25] MEDS: metFORMIN HCL 500 MG TAB PO SCH (17:28)
[2017-05-25] MEDS ORDERED: GLUCAGON 1 MG/ML VIAL OTHER PRN (18:00)
[2017-05-25] MEDS ORDERED: DEXTROSE 50% IN WATER 50 ML VIAL(D50) IV PUSH PRN (18:00)
[2017-05-25 18:32] VITALS: BP 122/62; PULSE 49; RESP 17; TEMP 98.7; O2SAT 100
[2017-05-25] MEDS: LOW DOSE INSULIN NOVOLOG SUPPLEMENTAL SCALE SQ SCH (21:00)
[2017-05-26 05:11] VITALS: BP 111/55; PULSE 61; RESP 17; O2SAT 95
[2017-05-26] MEDS: CARBIDOPA/LEVODOPA 10 MG/100 MG TAB PO SCH ×3 (05:38→21:28)
[2017-05-26] MEDS: LOW DOSE INSULIN NOVOLOG SUPPLEMENTAL SCALE SQ SCH ×4 (07:34→21:00)
[2017-05-26 08:36] LABS: ANION GAP 6 MEQ/L (5-15); BICARBONATE 28.5 MEQ/L (21.0-32.0); BLOOD UREA NITROGEN 11 MG/DL (7-18); CHLORIDE 106 MEQ/L (98-107); GLOMERULAR FILTRATION RATE 101 ML/MIN (>89); POTASSIUM 3.4 MEQ/L (3.5-5.1); SODIUM (NA) 140 MEQ/L (136-145)
[2017-05-26 08:38] LABS: HDL CHOLESTEROL 41.9 MG/DL (40.0-60.0); LDL CHOLESTEROL 90 MG/DL (0-99)
[2017-05-26] MEDS ORDERED: SERTRALINE HCL 50 MG TAB PO SCH (09:00)
[2017-05-26] MEDS: metFORMIN HCL 500 MG TAB PO SCH ×2 (09:51→18:00)
[2017-05-26] MEDS: GABAPENTIN 300 MG CAP PO SCH ×3 (09:51→18:00)
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
--- NOTE | 2017-05-26 11:59 | HHI.HP ---
Provisional Diagnosis Admission Date May 25, 2017 at 14:09 [place]ge[place] I. Major depressive disorder, recurrent, severe with psychotic features Mcgehee II. Deferred Certification of Person's Competence To Provide Express and Informed Consent I have personally examined Jose Luis Manley , a person being served at [facility] on, May 26, 2017 11:47. Express and informed consent means consent voluntarily given in writing, by a competent person, after sufficient explanation and disclosure of the subject matter involved to enable the person to make a knowing and willful decision without any element of force, fraud, deceit, duress, or other form of constraint or coercion. This person is 18 years of age or older, is not now known to be incompetent to consent to treatment with a guardian advocate, and does not have a health care surrogate or proxy currently making medical treatment decisions. I have found this person to be one of the following: [] Competent to provide express and informed consent, as defined above, for voluntary admission to this facility and is competent to provide express and informed consent for treatment. He/she has the consistent capacity to make well reasoned, willful, and knowing decisions concerning his or her medical or mental health treatment. The person fully and consistently understands the purpose of the admission for examination/placement and is fully capable of personally exercising all rights assured [place] [] Incompetent to provide express and informed consent to voluntary admission, and this is incompetent to provide express and informed consent to treatment. The person must be transferred to involuntary status and a petition for a guardian advocate filed with the Circuit Court. [X] Refusing to provide express and informed consent to voluntary admission but is competent to provide express and informed consent for treatment. The person must be discharged or transferred to involuntary status. Form shall be completed within 24 hours of a person's arrival at the receiving facility and filed in the clinical record of each person: 1. Admitted on a voluntary basis 2. Permitted to provide express and informed consent to his/her own treatment 3. Allowed to transfer from involuntary to voluntary status 4. Prior to permitting a person to consent to his or her own treatment after having been previously found incompetent to consent to treatment. History of Present Illness Capacity: Has Capacity HPI As per my initial assessment in the medical floor : The patient is a 61-year- old man, homeless, unemployed, single, with psychiatric history of depression, cocaine use disorder, recently hospitalizing [place] under the care of Dr. Ivey after a suicidal attempt by overdosing with Tylenol, medical history of a history of diabetes, hypertension, who presented with chest pain and suicidal ideation. He reports that his chest pain is located substernally but behind the inferior part of his sternum. His chest pain is exacerbated by walking and breathing. He has tried nothing to help this chest pain. He reports that the chest pain comes and goes. He describes the pain as achy and sharp, non -radiating, 8-9 out of 10 severity. He reports that he has felt pain like this before. He reports that it feels like gas pain. He also complains of cold symptoms including runny nose and sinus pressure. He reports that he stopped taking his diabetes and hypertension medications days to weeks ago.Patient has been Butler Acted for suicidal ideation in the emergency department. He reports that he has tried to kill himself multiple times in the past. He reports that he has tried to kill himself by taking a lot of Tylenol (and was seen here at [place] [facility] for that during his last admission). At the present time patient laying quietly in his bed in medical floor. Laying very still flat on his back. Making no eye contact initially refusing to speak with me though after some coaxing states he is hopeless and helpless that nothing works for many morning as well be . He states he would take the suicide pill if offered to him or he would jump in front of a train. As per previous Dr. Ivey's note, patient has history of a multiple year cocaine addiction, this led to multiple incarcerations both feel and in shelter. He stating most of his adult life has been spent in longterm or shelter. He denies any prior psychiatric contact though he has been seen here also on March 01 of this year at bedtime positive for cocaine and marijuana in his urine. He says he is estranged from all his family though counselor appears with talk to the daughter of his. There is marked decreased range intensity was affect is quite blunted. On psychiatric evaluation today in the med psych unit, patient remains isolated , poorly cooperative, guarded, avoidant with very poor eye contact. He repeatedly says that nobody would be able to help him. He says to giving a pill to kill himself. Patient says that he doesn't want to live anymore, there is no reason for him to continue in this life. Patient refused to provide information about the circumstances of his emotions. He does say that he was just released from longterm and "I am done". As per nurse report patient has not been getting up his bed, but he has been taking his medications and eating. No agitation or aggressive behavior reported. Review of Systems Constitutional: DENIES: Diaphoretic episodes, Fatigue, Fever, Weight gain, Weight loss, Chills, Dizziness, Change in appetite, Night Sweats Eyes: DENIES: Blurred vision, Diplopia, Eye inflammation, Eye pain, Vision loss , Photosensitivity, Double Vision Ears, nose, mouth, throat: DENIES: Tinnitus, Hearing loss, Vertigo, Nasal discharge, Oral lesions, Throat pain, Hoarseness, Ear Pain, Running Nose, Epistaxis, Sinus Pain, Toothache, Odynophagia Respiratory: DENIES: Apneas, Cough, Snoring, Wheezing, Hemoptysis, Sputum production, Shortness of breath Cardiovascular: DENIES: Chest pain, Palpitations, Syncope, Dyspnea on Exertion , PND, Lower Extremity Edema, Orthopnea, Claudication Musculoskeletal: DENIES: Joint pain, Muscle aches, Stiffness, Joint Swelling, Back pain, Neck pain Integumentary: DENIES: Abnormal pigmentation, Nail changes, Pruritus, Rash Hematologic/lymphatic: DENIES: Bruising, Lymphadenopathy Immunologic/allergic: DENIES: Eczema, Urticaria Neurologic: DENIES: Abnormal gait, Headache, Localized weakness, Paresthesias, Seizures, Speech Problems, Tremor, Poor Balance Psychiatric: COMPLAINS OF: Depression, Suicidal Ideation Past Psych History Violence risk - self (6 mos) Increased Past Family Social History Coded Allergies: No Known Allergies (Verified , 03/01/17) Active Scripts Metformin (Glucophage) 500 Mg Tab, 500 MG PO BIDPC for 30 Days, TAB Prov:Dutch Diaz MD R1 05/25/17 Famotidine (Famotidine) 20 Mg Tab, 20 MG PO DAILY Y for REFLUX for 30 Days, #30 TAB Prov:Dutch Diaz MD R1 05/25/17 Carbidopa-Levodopa (Sinemet) 10-100 Mg Tab, 1 TAB PO Q8HR for 30 Days, TAB Prov:Dutch Diaz MD R1 05/25/17 Sertraline (Zoloft) 50 Mg Tab, 25 MG PO DAILY for 30 Days, #15 TAB Prov:Dutch Diaz MD R1 05/25/17 Gabapentin (Neurontin) 300 Mg Cap, 300 MG PO TID for 30 Days, CAP Prov:Dutch Diaz MD R1 05/25/17 Discontinued Reported Medications Metformin (Metformin) 1,000 Mg Tab, 1000 MG PO BID for Blood Sugar Management, # 60 TAB 0 Refills With meals 03/01/17 Amitriptyline (Amitriptyline) 25 Mg Tab, 25 MG PO HS, TAB 03/01/17 Discontinued Scripts Sertraline (Zoloft) 50 Mg Tab, 50 MG PO DAILY for health, #15 TAB 0 Refills Prov:Esteban Ivey MD 03/19/17 Pravastatin (Pravachol) 40 Mg Tab, 40 MG PO HS for health, #15 TAB 0 Refills Prov:Esteban Ivey MD 03/19/17 Metformin (Glucophage) 500 Mg Tab, 1000 MG PO BIDPC for health, #60 TAB 0 Refills Prov:Esteban Ivey MD 03/19/17 Lisinopril (Lisinopril) 20 Mg Tab, 20 MG PO HS for health, #15 TAB 0 Refills Prov:Esteban Ivey MD 03/19/17 Insulin Detemir Inj (Levemir Inj) 1,000 unit/ 10 ML Vial, 48 UNITS SQ HS for health, #1 VIAL 0 Refills Prov:Esteban Ivey MD 03/19/[address] (Adult Aspirin EC Low Strength) 81 Mg Tabec, 81 MG PO DAILY for health, #15 TAB 0 Refills Prov:Esteban Ivey MD 03/19/17 Aripiprazole (Aripiprazole) 10 Mg Tab, 10 MG PO HS for health, #15 TAB 0 Refills Prov:Esteban Ivey MD 03/19/17 Amlodipine (Norvasc) 5 Mg Tab, 5 MG PO DAILY for health, #15 TAB 0 Refills Prov:Esteban Ivey MD 03/19/17 Current Medications Medications (Trade) Dose Ordered Sig/Fabi Route Start Time Stop Time Status Last Admin (Ativan) 1 mg Q6H PRN PO 05/25/17 14:30 (Ativan Inj) 1 mg Q6H PRN IM 05/25/17 14:30 (Tylenol) 650 mg Q4H PRN PO 05/25/17 14:30 (Milk Of Magnesia Liq) 30 ml DAILY PRN PO 05/25/17 14:30 (Mag-Al Plus Susp Liq) 30 ml Q6H PRN PO 05/25/17 14:30 (Sinemet 10-100 Mg) 1 tab Q8HR PO 05/25/17 14:30 05/26/17 05:38 (Pepcid) 20 mg DAILY PRN PO 05/25/17 14:30 (Neurontin) 300 mg TID PO 05/25/17 18:00 05/26/17 09:51 (Glucophage) 500 mg BIDPC PO 05/25/17 18:00 05/26/17 09:51 (D50w (Vial) Inj) 50 ml UNSCH PRN IV PUSH 05/25/17 18:00 (Glucagon Inj) 1 mg UNSCH PRN OTHER 05/25/17 18:00 (NovoLOG SUPPLEMENTAL SCALE) 1 ACHS SLIDING SCALE SQ 05/25/17 21:00 05/25/17 21:00 (Zoloft) 50 mg DAILY PO 05/27/17 09:00 UNV (Abilify) 2 mg DAILY PO 05/27/17 09:00 UNV Physical Exam Vital Signs Vital Signs Date Time Temp Pulse Resp B/P (MAP) Pulse Ox O2 Delivery O2 Flow Rate FiO2 05/26/17 05:11 61 17 111/55 (73) 95 05/25/17 18:32 98.7 I/O 05/26/17 05/26/17 05/27/17 08:00 16:00 00:00 Intake Total 120 ml Balance 120 ml Lab Results Test 05/26/17 07:58 Blood Urea Nitrogen 11 MG/DL Creatinine 0.92 MG/DL Random Glucose 98 MG/DL Calcium Level 8.3 MG/DL Sodium Level 140 MEQ/L Potassium Level 3.4 MEQ/L Chloride Level 106 MEQ/L Carbon Dioxide Level 28.5 MEQ/L Anion Gap 6 MEQ/L Estimat Glomerular Filtration Rate 101 ML/MIN Triglycerides Level 39 MG/DL Cholesterol Level 140 MG/DL LDL Cholesterol 90 MG/DL HDL Cholesterol 41.9 MG/DL Cholesterol/HDL Ratio 3.34 RATIO Mental Status Examination Appearance man, fair hygiene, no cooperative, oppositional, irritable, poor eye contact Speech: Hesitant Orientation: x3 Memory: Unremarkable Thought Process: Logical Thought Content: Unremarkable Hallucination Type: None Suicidal Ideation: Yes (no specific plan) Previous Suicide Attempts: Yes Previous Homicide Attempts: Yes Insight: Poor Judgment: Poor Affect: Irritable, Sad Motor Activity: Normal gait Assessment & Plan Problem List: (1) Major depressive disorder, recurrent ICD Codes: F33.9 - Major depressive disorder, recurrent, unspecified Status: Chronic Assessment & Plan: On psychiatric evaluation today the patient presents with symptoms of depression, active suicidal ideation, no plan. Patient is electively mute, just answering a few questions, however he seems to be fragile , vulnerable, distant, hypoactive, with marked psychomotor retardation. He does not express the circumstances and stressors of his depression, but he does repeatedly say that he wants to and there is no reason for him to be in this world. Patient reports suicidal ideation, no specific plan. Does not contract for safety in the hospital. Patient should remained with a sitter in the medical floor. He needs psychiatric admission for stabilization. We'll increase Zoloft to 50 mg daily for depression. Will add Abilify 2 mg daily for potential underlying psychotic delusions and to help with mood. Will consult psychiatry for second opinion. Would consider hospitalist to continue medical care. trailhead maintenance worker intervention for psychosocial assessment, collateral information, individual and group therapy, to coordinating a safe discharge plan. Extensive support, motivation psycho education provided. Assessment & Plan Estimated LOS: Oscar Arambula MD May 26, 2017 11:59
--- NOTE | 2017-05-26 16:10 | HHI.PYPN ---
Subjective Remarks Evaluation for second opinion: Patient is a 61 y/o man, single, unemployed, homeless, with a past psychiatric history of depression, cocaine use disorder, previous psychiatric hospitalization here at [place], previous suicide attempt via overdose, was put under Butler act for suicidal ideations during his medical admission for evaluation of chest pain. Patient is seen today for evaluation for second opinion. Patient found lying in hospital bed, noted to be selectively mute, guarded, superficially cooperative with poor eye contact. Patient was later able to engage minimally and provide short answers. Patient was able to express having had suicidal ideation stating Im going to make it and when asked to elaborate just continue to stay the same. Patient states that he was hospitalized previously here at [place] for recent suicide attempt couple of months ago via overdose. Patient states that during this admission he does not try to kill himself but was having suicidal ideations. Patient states that he has no social support at this time and admits to being homeless. Patient states that one of his current stressors include homelessness was unable to continue to elaborate. Patient at this time continues to endorse wanting to end his life with no specific plan or method at this time. Patient endorses multiple depressive symptoms such as decreased sleep, energy, appetite , feeling helpless and hopeless and having suicidal ideations actively. Patient refused to continue to engage in further interview. Review of Systems Except as stated in HPI: all other systems reviewed are Neg Objective Alert: Yes [place]: Person Mood: Depressed Affect: Restricted Memory Intact: Comment (intact) Hallucinations: Other (denies) Delusions: No Delusion Type: Other (denies) Suicidal: Ideation (currently endorses but with no method, plan or intent at this time) Homicidal: Ideation (denies) Insight/Judgment Poor insight, limited impulse control, poor judgment Labs Labs reviewed. Test 05/26/17 07:58 Blood Urea Nitrogen 11 MG/DL Creatinine 0.92 MG/DL Random Glucose 98 MG/DL Calcium Level 8.3 MG/DL Sodium Level 140 MEQ/L Potassium Level 3.4 MEQ/L Chloride Level 106 MEQ/L Carbon Dioxide Level 28.5 MEQ/L Anion Gap 6 MEQ/L Estimat Glomerular Filtration Rate 101 ML/MIN Triglycerides Level 39 MG/DL Cholesterol Level 140 MG/DL LDL Cholesterol 90 MG/DL HDL Cholesterol 41.9 MG/DL Cholesterol/HDL Ratio 3.34 RATIO Vitals/IOs Vital Signs Date Time Temp Pulse Resp B/P (MAP) Pulse Ox O2 Delivery O2 Flow Rate FiO2 05/26/17 05:11 61 17 111/55 (73) 95 05/25/17 18:32 98.7 Intake and Output 05/26/17 05/26/17 05/27/17 08:00 16:00 00:00 Intake Total 120 ml 120 ml Balance 120 ml 120 ml Assessment & Plan Problem List: (1) Major depressive disorder, recurrent ICD Codes: F33.9 - Major depressive disorder, recurrent, unspecified Status: Chronic Assessment & Plan I have seen and examined this patient, reviewed the documentation, discussed personally with Dr. Bueno, and I agree and concur with his assessment and plan. Justification for Cont. Inpt. Patient at risk for further decompensation if at a lower level of care Jose Valle MD May 26, 2017 16:10
[2017-05-26 16:26] LABS: HEMOGLOBIN A1b 1.6 %; HEMOGLOBIN LA1C 1.8 %; HEMOGLOBIN P3 3.5 %
[2017-05-26 18:00] VITALS: BP 116/62; PULSE 51; RESP 16; TEMP 98.5; O2SAT 96
[2017-05-27 05:40] VITALS: BP 133/79; PULSE 46; RESP 16; TEMP 98; O2SAT 99
[2017-05-27] MEDS: CARBIDOPA/LEVODOPA 10 MG/100 MG TAB PO SCH ×3 (06:09→21:58)
[2017-05-27] MEDS: LOW DOSE INSULIN NOVOLOG SUPPLEMENTAL SCALE SQ SCH ×4 (08:00→21:00)
[2017-05-27] MEDS ORDERED: SERTRALINE HCL 50 MG TAB PO SCH (09:00)
[2017-05-27] MEDS: GABAPENTIN 300 MG CAP PO SCH (10:08)
[2017-05-27] MEDS: metFORMIN HCL 500 MG TAB PO SCH ×2 (10:08→17:18)
[2017-05-27] MEDS: ARIPiprazole 2 MG TAB PO SCH (10:09)
--- NOTE | 2017-05-27 11:09 | HHI.FPPN ---
Subjective Remarks No acute events overnight. Afebrile and vital signs stable overnight. Blood glucose stable overnight. Patient reports that his depression and suicidal ideation or baseline. He otherwise denies any medical complaints including chest pain, shortness of breath. He nods his head to say that he is eating, drinking, going to the bathroom, ambulating without difficulty. He does continue to report that his feet feel cold and numb. Discussed plan to increase gabapentin. Per nurse report, patient did not eat much today. She is trying to convince him to go outside, but he has declined so far. (Luis Daniel Lopez MD R2) Objective Vitals Vital Signs Date Time Temp Pulse Resp B/P (MAP) Pulse Ox O2 Delivery O2 Flow Rate FiO2 05/27/17 05:40 98.0 46 16 133/79 (97) 99 05/26/17 18:00 98.5 51 16 116/62 (80) 96 I/O 05/26/17 05/26/17 05/26/17 05/27/17 05/27/17 05/27/17 07:00 15:00 23:00 07:00 15:00 23:00 Intake Total 0 ml 240 ml 120 ml 60 ml Balance 0 ml 240 ml 120 ml 60 ml Intake Oral 0 ml 240 ml 120 ml 60 ml # Voids 0 1 0 1 (Luis Daniel Lopez MD R2) Result Diagram: 05/26/17 0758 Objective Remarks GENERAL: Well-nourished, well-developed patient lying in bed with his eyes closed. He nods or shakes his head in response to my questions, using limited words only when necessary. SKIN: Warm and dry. HEAD: Normocephalic. EYES: No scleral icterus. No injection or drainage. NECK: Supple, trachea midline. No JVD or lymphadenopathy. CARDIOVASCULAR: Regular rate and rhythm without murmurs, gallops, or rubs. RESPIRATORY: Breath sounds equal bilaterally. No accessory muscle use. GASTROINTESTINAL: Abdomen soft, non-tender, nondistended. EXTREMITIES: No cyanosis, or edema. NEUROLOGICAL: Awake, alert, and oriented x 3. Non-focal. No tremor on exam today. PSYCH: Flat affect. Withdrawn. Word sparing. (Luis Daniel Lopez MD R2) A/P Assessment and Plan Patient is a 61-year-old man with a history of diabetes, hypertension, depression, and previous suicide attempts who presented with chest pain and suicidal ideation. Chest pain work up negative for ACS. Patient transferred to med psych unit for psychiatric care. Discharge Planning Patient will likely be discharged to a care facility upon discharge from psychiatry (Luis Daniel Lopez MD R2) Attending Attestation Patient seen and examined. Case reviewed and discussed with the resident team. Agree with plan of care as discussed with me and documented in the resident note. he was so miserable yesterday and was literally beating his own legs with his fists. He was very lethargic today (Angelica Oconnell MD) Problem List: (1) Suicidal ideations ICD Codes: R45.851 - Suicidal ideations Status: Acute Plan: Butler act in emergency department; still has SI thoughts but no plan -Per Psychiatry (2) Depressive disorder ICD Codes: F32.9 - Major depressive disorder, single episode, unspecified Status: Acute Plan: Admitted with depression and SI with previous suicidal attempts -Per Psychiatry -Sertraline increased to 50 mg/day -Added Abilify 2 mg daily for potential underlying psychotic delusions and to help with mood. -Ativan PRN for anxiety (3) Diabetic neuropathy ICD Codes: E11.40 - Type 2 diabetes mellitus with diabetic neuropathy, unspecified Plan: Patient continues to complain that his feet feel numb and cold. -Gabapentin increased from 3 mg by mouth 3 times a day to 400 mg by mouth 3 times a day (4) DM (diabetes mellitus) ICD Codes: E11.9 - Type 2 diabetes mellitus without complications Status: Acute Plan: Past Hx DM with A1C on 03/12/17 of 6.6. Pt states he has been noncompliant with medications for some time. -Metformin 500 mg BID (5) Parkinsonian features ICD Codes: R25.9 - Unspecified abnormal involuntary movements Status: Acute Plan: Pt with noted tremors in bed, some rigidity noted on exam on 05/24, sitter reported shuffling gait. No tremor on exam today (05/27). -Trial of Sinemet 10-100 mg PO [id number] metformin 500 mg by mouth twice a day (6) Homeless ICD Codes: Z59.0 - Homelessness Status: Chronic Plan: -Case management consult Pt agreed to rat exterminator care facility so hopefully his insurance can be converted so he can have this. He is 61 years old and having more and more medical problems, so he could use a rat exterminator stable environment. Whether this could happen soon or if he gets this changed, he could hopefully have this in the future. (7) Acid reflux ICD Codes: K21.9 - Gastro-esophageal reflux disease without esophagitis Status: Chronic Plan: Pt reports having a Hx of acid reflux -Pepcid 20 mg daily PRN (8) HTN (hypertension) ICD Codes: I10 - Essential (primary) hypertension Status: Chronic Plan: Takes no HTN medications and BP is normotensive -Continue to Monitor (9) Hypokalemia ICD Codes: E87.6 - Hypokalemia Plan: Patient with hypokalemia of 3.4. -40 mEq potassium by mouth 1 -Repeat potassium lab tomorrow (10) No contraindication to deep vein thrombosis (DVT) prophylaxis ICD Codes: Z78.9 - Other specified health status Plan: -Lovenox daily (11) Nutrition, metabolism, and development symptoms ICD Codes: R63.8 - Other symptoms and signs concerning food and fluid intake Plan: Fluids: Will consider adding IV fluids patient continues not to tolerate by mouth Electrolytes: Monitor and replete PRN Nutrition: Regular diet with extra portions and boost supplement DVT PPx: Lovenox as above GI ppx: pepcid as above (Luis Daniel Lopez MD R2) Luis Daniel Lopez MD R2 May 27, 2017 10:48 Angelica Oconnell MD May 28, 2017 13:56
[2017-05-27] MEDS: GABAPENTIN 400 MG CAP PO SCH ×2 (13:39→17:18)
--- NOTE | 2017-05-27 16:05 | HHI.PYPN ---
Subjective Remarks Patient is seen today for psychiatric reevaluation, patient continues to be minimally responsive, oppositional, resistant and guarded. Patient has remained in his bed, isolated, no interacting with peers or staff. He looks objectively depressed, with low energy, melancholic. Patient says that he is depressed, but he doesn't want to live anymore, he says that there is no reason for him to live anymore, continuously is states that he wants a pill to . Patient has been taking his medications, eating his food partially. Review of Systems Other No somatic complaints Objective Alert: Yes [place]: Person Mood: Depressed Affect: Restricted Memory Intact: Comment (intact) Hallucinations: Other (denies) Delusions: No Delusion Type: Other (denies) Suicidal: Ideation (currently endorses but with no method, plan or intent at this time) Homicidal: Ideation (denies) Insight/Judgment Poor Vitals/IOs Vital Signs Date Time Temp Pulse Resp B/P (MAP) Pulse Ox O2 Delivery O2 Flow Rate FiO2 05/27/17 05:40 98.0 46 16 133/79 (97) 99 Intake and Output 05/27/17 05/27/17 05/28/17 08:00 16:00 00:00 Intake Total 60 ml Balance 60 ml Assessment & Plan Problem List: (1) Major depressive disorder, recurrent ICD Codes: F33.9 - Major depressive disorder, recurrent, unspecified Status: Chronic Assessment & Plan: We will increase Zoloft to 100 mg daily for depression. Brief supportive psychotherapy, psychoeducation provided. Assessment & Plan Estimated LOS: days Justification for Cont. Inpt. Patient is acutely depressed, with suicidal ideation, needs to continue psychiatric hospitalization for stabilization. Oscar Bueno MD May 27, 2017 16:05
[2017-05-27 18:38] VITALS: BP_SYST 119; BP_SYST 97; BP_DIAS 54; BP_DIAS 65; PULSE 52; RESP 16; TEMP 98.7; O2SAT 97
[2017-05-27] MEDS ORDERED: POTASSIUM CHLORIDE 10 MEQ CONTROLLED RELEASE TAB PO ONE (19:30)
[2017-05-28] MEDS: CARBIDOPA/LEVODOPA 10 MG/100 MG TAB PO SCH ×3 (06:00→20:54)
[2017-05-28 06:19] VITALS: BP 145/69; PULSE 52; RESP 16; TEMP 97.8; O2SAT 98
[2017-05-28] MEDS: LOW DOSE INSULIN NOVOLOG SUPPLEMENTAL SCALE SQ SCH ×4 (08:00→20:55)
[2017-05-28] MEDS: SERTRALINE HCL 50 MG TAB PO SCH (08:14)
[2017-05-28] MEDS: GABAPENTIN 400 MG CAP PO SCH ×3 (08:14→16:58)
[2017-05-28] MEDS: ARIPiprazole 2 MG TAB PO SCH (08:14)
[2017-05-28] MEDS: metFORMIN HCL 500 MG TAB PO SCH ×2 (08:14→16:58)
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
--- NOTE | 2017-05-28 15:20 | HHI.PYPN ---
Subjective Remarks Patient seen today for psychiatric reevaluation along with nursing charge, home health care social worker and medical student Rehana. Patient today shows a brighter affect, he is finally communicative, even smiling at times, he reports feeling better today, patient says that he has been having a very difficult rough times in the last weeks. He had been wanting to , but today feels better. Patient ate his breakfast completely. He is fully oriented 3, no attention deficit or fluctuation of consciousness present. Patient is compliant with his medications, no significant side effects. Review of Systems Other No somatic complaints Objective Alert: Yes [place]: Person Mood: Depressed Affect: Appropriate Memory Intact: Immediate, Recent, Comment (intact) Hallucinations: Other (denies) Delusions: No Delusion Type: Other (denies) Suicidal: Ideation (patient denies HI) Homicidal: Ideation (denies) Insight/Judgment fair Labs Test 05/28/17 07:37 Potassium Level 3.8 MEQ/L Vitals/IOs Vital Signs Date Time Temp Pulse Resp B/P (MAP) Pulse Ox O2 Delivery O2 Flow Rate FiO2 05/28/17 06:19 97.8 52 16 145/69 (94) 98 Intake and Output 05/28/17 05/28/17 05/29/17 08:00 16:00 00:00 Intake Total 160 ml 720 ml Balance 160 ml 720 ml Assessment & Plan Problem List: (1) Major depressive disorder, recurrent ICD Codes: F33.9 - Major depressive disorder, recurrent, unspecified Status: Chronic Assessment & Plan: Patient seems to be responding appropriately to psychotropics and individual supportive psychotherapy and group activities. We' ll continue current psychotropics today. Extensive support, motivation and psychoeducation provided. Assessment & Plan Estimated LOS: days Justification for Cont. Inpt. Patient has an elevated risk to decompensate at a lower level of care. Oscar Bueno MD May 28, 2017 15:20
[2017-05-28 19:08] VITALS: BP 116/57; PULSE 53; RESP 16; TEMP 98.7; O2SAT 97
[2017-05-28] MEDS: ENOXAPARIN SODIUM 40 MG/0.4 ML SYRINGE SQ SCH (20:56)
[2017-05-29 05:52] VITALS: BP 140/79; PULSE 50; RESP 20; TEMP 98.2; O2SAT 98
[2017-05-29] MEDS: CARBIDOPA/LEVODOPA 10 MG/100 MG TAB PO SCH ×3 (06:00→22:00)
[2017-05-29] MEDS: LOW DOSE INSULIN NOVOLOG SUPPLEMENTAL SCALE SQ SCH ×4 (08:00→21:00)
[2017-05-29] MEDS: metFORMIN HCL 500 MG TAB PO SCH ×2 (08:31→17:48)
[2017-05-29] MEDS: GABAPENTIN 400 MG CAP PO SCH ×3 (08:31→17:48)
[2017-05-29] MEDS: SERTRALINE HCL 50 MG TAB PO SCH (08:31)
[2017-05-29] MEDS: ARIPiprazole 2 MG TAB PO SCH (08:31)
[2017-05-29 10:13] LABS: BICARBONATE 31.7 MEQ/L (21.0-32.0); POTASSIUM 3.6 MEQ/L (3.5-5.1)
--- NOTE | 2017-05-29 12:01 | HHI.FPPN ---
Subjective Remarks No acute events overnight. Afebrile and vital signs stable overnight. Patient is lying in bed with his eyes closed. He briefly opens them when we entered the room. He answers her questions with nods and few words. Patient reports persistently cold and numb feet. Otherwise, patient denies any complaints. (Luis Daniel Lopez MD R2) Objective Vitals Vital Signs Date Time Temp Pulse Resp B/P (MAP) Pulse Ox O2 Delivery O2 Flow Rate FiO2 05/29/17 05:52 98.2 50 20 140/79 (99) 98 05/28/17 19:08 98.7 53 16 116/57 (76) 97 I/O 05/28/17 05/28/17 05/28/17 05/29/17 05/29/17 05/29/17 07:00 15:00 23:00 07:00 15:00 23:00 Intake Total 160 ml 720 ml 240 ml 600 ml 120 ml Balance 160 ml 720 ml 240 ml 600 ml 120 ml Intake Oral 160 ml 720 ml 240 ml 600 ml 120 ml # Voids 1 2 3 (Luis Daniel Lopez MD R2) Result Diagram: 05/29/17 0933 Objective Remarks GENERAL: Well-nourished, well-developed patient lying in bed with his eyes closed. He nods or shakes his head in response to my questions, using limited words only when necessary. SKIN: Warm and dry NECK: Supple, trachea midline. No JVD or lymphadenopathy. CARDIOVASCULAR: Regular rate and rhythm without murmurs. Normal peripheral perfusion. No LE edema RESPIRATORY: Breath sounds equal bilaterally. No accessory muscle use. GASTROINTESTINAL: Abdomen soft, non-tender, nondistended. EXTREMITIES: Gait/ROM not assessed. NEUROLOGICAL: Awake, alert, and oriented x 3. Grossly normal CN; grossly normal peripheral motor/sensory function. Some muscle fasciculation of the muscles of the hand; unclear if tremor on exam today because patient is uncooperative and keeps his hands in his axillae. PSYCH: Flat affect, withdrawn, few words (Luis Daniel Lopez MD R2) A/P Assessment and Plan Patient is a 61-year-old man with a history of diabetes, hypertension, depression, and previous suicide attempts who presented with chest pain and suicidal ideation. Chest pain work up negative for ACS. Patient transferred to [facility] psych unit for psychiatric care. Our team is medical consult. Discharge Planning Patient will likely be discharged to a care facility upon discharge from psychiatry (Luis Daniel Lopez MD R2) Attending Attestation Patient seen and examined. Case reviewed and discussed with the resident team. Agree with plan of care as discussed with me and documented in the resident note. spoke to case management yesterday and hope for getting his debit card back and hopefully to a SNF (Angelica Oconnell MD) Problem List: (1) Suicidal ideations ICD Codes: R45.851 - Suicidal ideations Status: Acute Plan: Butler act in emergency department; still has SI thoughts but no plan -Per Psychiatry -Zoloft increased to 100mg daily -Brief psychotherapy, psychoeducation provided (2) Depressive disorder ICD Codes: F32.9 - Major depressive disorder, single episode, unspecified Status: Acute Plan: Admitted with depression and SI with previous suicidal attempts -Per Psychiatry -Zoloft increased to 100 mg/day -Continue Abilify 2 mg daily for potential underlying psychotic delusions and to help with mood. -Ativan PRN for anxiety (3) Diabetic neuropathy ICD Codes: E11.40 - Type 2 diabetes mellitus with diabetic neuropathy, unspecified Plan: Patient continues to complain that his feet feel numb and cold. -Gabapentin 400 mg by mouth 3 times a day (4) DM (diabetes mellitus) ICD Codes: E11.9 - Type 2 diabetes mellitus without complications Status: Acute Plan: Past Hx DM with A1C on 03/12/17 of 6.6. Pt states he has been noncompliant with medications for some time. -Metformin 500 mg BID (5) Parkinsonian features ICD Codes: R25.9 - Unspecified abnormal involuntary movements Status: Acute Plan: Pt with noted tremors in bed, some rigidity noted on exam on 05/24, sitter reported shuffling gait. No tremor on exam today (05/27). -Trial of Sinemet 10-100 mg PO q8h (6) Homeless ICD Codes: Z59.0 - Homelessness Status: Chronic Plan: Impression: Pt agreed to [facility] care facility so hopefully his insurance can be converted so he can have this. He is 61 years old and having more and more medical problems, so he could use a retirement stable environment. Whether this could happen soon or if he gets this changed, he could hopefully have this in the future -Case management consult (7) Acid reflux ICD Codes: K21.9 - Gastro-esophageal reflux disease without esophagitis Status: Chronic Plan: Pt reports having a Hx of acid reflux -Pepcid 20 mg daily PRN (8) HTN (hypertension) ICD Codes: I10 - Essential (primary) hypertension Status: Chronic Plan: Takes no HTN medications and BP is normotensive -Continue to Monitor (9) Hypokalemia ICD Codes: E87.6 - Hypokalemia Status: Resolved Plan: Hypokalemia; K 3.4 05/26. S/P 40mEq KCL 05/28 -normal on 05/28, and again on 05/29 (10) No contraindication to deep vein thrombosis (DVT) prophylaxis ICD Codes: Z78.9 - Other specified health status Plan: -Lovenox daily (11) Nutrition, metabolism, and development symptoms ICD Codes: R63.8 - Other symptoms and signs concerning food and fluid intake Plan: Fluids: Will consider adding IV fluids patient does not to tolerate by mouth Electrolytes: Monitor and replete PRN Nutrition: Regular diet with extra portions and boost supplement DVT PPx: Lovenox as above GI ppx: pepcid as above (Luis Daniel Lopez MD R2) Luis Daniel Lopez MD R2 May 29, 2017 12:01 Angelica Oconnell MD May 29, 2017 13:37
--- NOTE | 2017-05-29 12:37 | HHI.PYPN ---
Subjective Remarks Patient seen and case discussed with nurse. Patient remains depressed with minimal verbal output. Lack of energy and motivation. Review of Systems Except as stated in HPI: all other systems reviewed are Neg Objective Alert: Yes [place]: Person Mood: Depressed Affect: Appropriate Memory Intact: Immediate, Recent, Comment (intact) Hallucinations: Other (denies) Delusions: No Delusion Type: Other (denies) Suicidal: Ideation (patient denies HI) Homicidal: Ideation (denies) Insight/Judgment Impaired Labs Test 05/29/17 09:33 Blood Urea Nitrogen 13 MG/DL Creatinine 0.94 MG/DL Random Glucose 124 MG/DL Calcium Level 8.4 MG/DL Sodium Level 139 MEQ/L Potassium Level 3.6 MEQ/L Chloride Level 103 MEQ/L Carbon Dioxide Level 31.7 MEQ/L Anion Gap 4 MEQ/L Estimat Glomerular Filtration Rate 99 ML/MIN Vitals/IOs Vital Signs Date Time Temp Pulse Resp B/P (MAP) Pulse Ox O2 Delivery O2 Flow Rate FiO2 05/29/17 05:52 98.2 50 20 140/79 (99) 98 Intake and Output 05/29/17 05/29/17 05/30/17 08:00 16:00 00:00 Intake Total 720 ml Balance 720 ml Assessment & Plan Problem List: (1) Major depressive disorder, recurrent ICD Codes: F33.9 - Major depressive disorder, recurrent, unspecified Status: Chronic Assessment & Plan Estimated LOS: days continue current antidepressant regimen and evaluate for efficacy and tolerability. Justification for Cont. Inpt. Likely to decompensate at lower level of care. Ru Ruano MD May 29, 2017 12:37
[2017-05-29 19:44] VITALS: BP 122/66; PULSE 48; RESP 16; TEMP 98.4; O2SAT 99
[2017-05-29] MEDS: ENOXAPARIN SODIUM 40 MG/0.4 ML SYRINGE SQ SCH (21:00)
[2017-05-30] MEDS: CARBIDOPA/LEVODOPA 10 MG/100 MG TAB PO SCH ×3 (05:59→20:06)
[2017-05-30 06:22] VITALS: BP 140/74; PULSE 47; RESP 16; TEMP 97.8; O2SAT 98
[2017-05-30] MEDS: LOW DOSE INSULIN NOVOLOG SUPPLEMENTAL SCALE SQ SCH ×3 (07:43→16:38)
[2017-05-30] MEDS: SERTRALINE HCL 50 MG TAB PO SCH (08:05)
[2017-05-30] MEDS: ARIPiprazole 2 MG TAB PO SCH (08:05)
[2017-05-30] MEDS: metFORMIN HCL 500 MG TAB PO SCH ×2 (08:05→17:08)
[2017-05-30] MEDS: GABAPENTIN 400 MG CAP PO SCH ×3 (08:05→17:08)
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
[2017-05-30 17:50] VITALS: BP 105/55; PULSE 54; RESP 18; TEMP 98.3; O2SAT 98
--- NOTE | 2017-05-30 18:40 | HHI.PYPN ---
Subjective Remarks Patient seen, chart reviewed and case discussed with nurse. Patient remains significantly depressed. Remains reclusive and mostly nonverbal. Review of Systems Except as stated in HPI: all other systems reviewed are Neg Objective Alert: Yes [place]: Person Mood: Depressed Affect: Appropriate Memory Intact: Immediate, Recent, Comment (intact) Hallucinations: Other (denies) Delusions: No Delusion Type: Other (denies) Suicidal: Ideation (patient denies HI) Homicidal: Ideation (denies) Insight/Judgment Impaired Vitals/IOs Vital Signs Date Time Temp Pulse Resp B/P (MAP) Pulse Ox O2 Delivery O2 Flow Rate FiO2 05/30/17 17:50 98.3 54 18 105/55 (72) 98 Intake and Output 05/30/17 05/30/17 05/31/17 08:00 16:00 00:00 Intake Total 960 ml 360 ml Output Total 2 ml Balance 958 ml 360 ml Assessment & Plan Problem List: (1) Major depressive disorder, recurrent ICD Codes: F33.9 - Major depressive disorder, recurrent, unspecified Status: Chronic Assessment & Plan Estimated LOS: days continue current treatment plan. Justification for Cont. Inpt. Likely to decompensate at lower level of care. Ru Ruano MD May 30, 2017 18:40
[2017-05-30] MEDS: ENOXAPARIN SODIUM 40 MG/0.4 ML SYRINGE SQ SCH (21:00)
[2017-05-31 06:23] VITALS: BP 108/58; PULSE 47; RESP 16; TEMP 97.1; O2SAT 97
[2017-05-31] MEDS: ARIPiprazole 2 MG TAB PO SCH (08:59)
[2017-05-31] MEDS: GABAPENTIN 400 MG CAP PO SCH ×3 (09:00→17:11)
[2017-05-31] MEDS: CARBIDOPA/LEVODOPA 10 MG/100 MG TAB PO SCH ×3 (09:00→21:20)
[2017-05-31] MEDS: SERTRALINE HCL 50 MG TAB PO SCH (09:00)
[2017-05-31] MEDS: metFORMIN HCL 500 MG TAB PO SCH ×2 (09:00→17:12)
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
--- NOTE | 2017-05-31 09:31 | HHI.PYPN ---
Subjective Remarks Patient was seen today for psychiatric reevaluation along with nurse in charge Elena. Patient was found sitting in his bed, he was calm, cooperative, smiling sometimes. Patient says that he feels better today, but minimally verbal, with poverty of speech and can of oppositional and resistant. However he reports that his kind of motivated to continue his medication and get better , at this moment patient was able to denying visual and auditory hallucinations , but patient refused to answer questions about suicidality. As per nursing report patient during the weekend was engageable on and off, he isolated in his bed, eating small portion of his food, notably depressed. In a few occasions patient expressed that he just wanted to . Review of Systems Other No somatic complaints Objective Alert: Yes [place]: Person Mood: Depressed Affect: Appropriate Memory Intact: Immediate, Recent, Comment (intact) Hallucinations: Other (denies) Delusions: No Delusion Type: Other (denies) Suicidal: Ideation (patient denies HI) Homicidal: Ideation (denies) Insight/Judgment Poor Vitals/IOs Vital Signs Date Time Temp Pulse Resp B/P (MAP) Pulse Ox O2 Delivery O2 Flow Rate FiO2 05/31/17 06:23 97.1 47 16 108/58 (75) 97 Intake and Output 05/31/17 05/31/17 06/01/17 08:00 16:00 00:00 Intake Total 120 ml Balance 120 ml Assessment & Plan Problem List: (1) Major depressive disorder, recurrent ICD Codes: F33.9 - Major depressive disorder, recurrent, unspecified Status: Chronic Assessment & Plan: Patient continues to be severely depressed, was a modest response to psychotropics, will increase Zoloft to 150 mg and also will increase Abilify to 5 mg for depression and mood stabilization. Extensive support, hope, motivation provided. Assessment & Plan Estimated LOS: days Justification for Cont. Inpt. Patient continues to be severely depressed, with suicidal ideation, needs to continue his hospitalization for stabilization. Oscar Bueno MD May 31, 2017 09:31
[2017-05-31 17:54] VITALS: BP 101/53; PULSE 54; RESP 15; TEMP 98.4; O2SAT 98
[2017-05-31] MEDS: ENOXAPARIN SODIUM 40 MG/0.4 ML SYRINGE SQ SCH (21:00)
[2017-06-01 05:05] VITALS: BP 120/60; PULSE 49; RESP 16; TEMP 97.7; O2SAT 99
[2017-06-01] MEDS: CARBIDOPA/LEVODOPA 10 MG/100 MG TAB PO SCH ×3 (06:23→20:26)
[2017-06-01] MEDS ORDERED: ARIPiprazole 2 MG TAB PO SCH (09:00)
[2017-06-01] MEDS: ARIPiprazole 5 MG TAB PO SCH (10:28)
[2017-06-01] MEDS: metFORMIN HCL 500 MG TAB PO SCH ×2 (10:28→17:20)
[2017-06-01] MEDS: GABAPENTIN 400 MG CAP PO SCH ×3 (10:28→17:19)
[2017-06-01] MEDS: SERTRALINE HCL 50 MG TAB PO SCH (10:29)
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
[2017-06-01] MEDS ORDERED: MAGNESIUM HYDROXIDE SUSP 30 ML CUP PO PRN (13:30)
[2017-06-01] MEDS ORDERED: LACTULOSE SYRUP 20 GM/30 ML CUP PO PRN (13:30)
[2017-06-01] MEDS ORDERED: BISACODYL 10 MG SUPP RECTAL PRN (13:30)
[2017-06-01] MEDS ORDERED: SENNOSIDES 8.6 MG TAB PO PRN (13:30)
[2017-06-01] MEDS: DOCUSATE SODIUM 50 MG/SENNA 8.6 MG TAB PO SCH ×2 (14:12→20:11)
--- NOTE | 2017-06-01 15:20 | HHI.PYPN ---
Subjective Remarks Patient is seen today for psychiatric reevaluation, patient is calm, superficially cooperative, more alert than just today. Patient reports improved mood, but still with low energy, poor concentration, no enjoying activities. She also reports suicidal thoughts, but he doesn't have any specific plan to commit suicide at this moment. He is oriented 3, compliant with his medications, nose and medical side effects. Patient hasn't present any agitation, aggressive behavior, hostility. As per nurses patient has been more active in the last 2 days. Review of Systems Other No somatic complaint Objective Alert: Yes [place]: Person Mood: Depressed Affect: Appropriate Memory Intact: Immediate, Recent, Comment (intact) Hallucinations: Other (denies) Delusions: No Delusion Type: Other (denies) Suicidal: Ideation (patient denies HI) Homicidal: Ideation (denies) Insight/Judgment Poor Vitals/IOs Vital Signs Date Time Temp Pulse Resp B/P (MAP) Pulse Ox O2 Delivery O2 Flow Rate FiO2 06/01/17 05:05 97.7 49 16 120/60 (80) 99 Intake and Output 06/01/17 06/01/17 06/01/17 07:59 15:59 23:59 Intake Total 720 ml Balance 720 ml Assessment & Plan Problem List: (1) Major depressive disorder, recurrent ICD Codes: F33.9 - Major depressive disorder, recurrent, unspecified Status: Chronic Assessment & Plan: Zoloft and Abilify for possible increased yesterday, today we'll observe and monitor mood and behavior. Support, hope, and psychoeducation provided Assessment & Plan Estimated LOS: days Justification for Cont. Inpt. Patient has an increased risk of suicidality and depression at a lower level of care. Oscar Bueno MD Jun 01, 2017 15:20
[2017-06-01 18:03] VITALS: BP 115/64; PULSE 55; RESP 16; TEMP 98.5; O2SAT 98
[2017-06-01] MEDS: ENOXAPARIN SODIUM 40 MG/0.4 ML SYRINGE SQ SCH (20:12)
[2017-06-02 06:17] VITALS: BP 128/75; PULSE 51; RESP 19; TEMP 97.6; O2SAT 99
[2017-06-02 09:46] LABS: HEMATOCRIT 35.8 % (39.0-51.0); MEAN CELL VOLUME 91.8 FL (80.0-100.0); MEAN CORPUSCULAR HEMOGLOBIN 30.9 PG (27.0-34.0); MEAN CORPUSCULAR HGB CONC 33.7 % (32.0-36.0); PLATELET COUNT 245 TH/MM3 (150-450); RED CELL DISTRIBUTION WIDTH 13.7 % (11.6-17.2); REVIEW FLAG FINAL; WHITE BLOOD COUNT 5.5 TH/MM3 (4.0-11.0)
[2017-06-02 10:40] LABS: BICARBONATE 27.1 MEQ/L (21.0-32.0); POTASSIUM 3.8 MEQ/L (3.5-5.1)
[2017-06-02] MEDS: CARBIDOPA/LEVODOPA 10 MG/100 MG TAB PO SCH ×2 (11:06→14:00)
[2017-06-02] MEDS: ARIPiprazole 5 MG TAB PO SCH (11:06)
[2017-06-02] MEDS: SERTRALINE HCL 50 MG TAB PO SCH (11:06)
[2017-06-02] MEDS: DOCUSATE SODIUM 50 MG/SENNA 8.6 MG TAB PO SCH (11:06)
[2017-06-02] MEDS: GABAPENTIN 400 MG CAP PO SCH ×2 (11:07→13:00)
[2017-06-02] MEDS: metFORMIN HCL 500 MG TAB PO SCH (11:07)
[2017-06-02] MEDS ORDERED: NEUR300C PO (14:09)
[2017-06-02] MEDS ORDERED: ZOLO50TA PO (14:09)
[2017-06-02] MEDS ORDERED: SINE10100 PO (14:09)
[2017-06-02] MEDS ORDERED: METF500 PO (14:09)
--- NOTE | 2017-06-02 14:10 | HHI.DS ---
Psychiatry Discharge Summary Inpatient Psychiatric care?: Yes Advance Directive: No Reason Not Provided: Due to Patient Condition Mental Health AdvanceDirective: Yes Health Care Proxy: No Admission Admission Date May 25, 2017 at 14:09 Admission Diagnosis: (1) Depressive disorder ICD Code: F32.9 - Major depressive disorder, single episode, unspecified Brief History As per my initial assessment in the medical floor : The patient is a 61-year- old man, homeless, unemployed, single, with psychiatric history of depression, cocaine use disorder, recently hospitalizing [facility] under the care of Dr. Ivey after a suicidal attempt by overdosing with Tylenol, medical history of a history of diabetes, hypertension, who presented with chest pain and suicidal ideation. He reports that his chest pain is located substernally but behind the inferior part of his sternum. His chest pain is exacerbated by walking and breathing. He has tried nothing to help this chest pain. He reports that the chest pain comes and goes. He describes the pain as achy and sharp, non -radiating, 8-9 out of 10 severity. He reports that he has felt pain like this before. He reports that it feels like gas pain. He also complains of cold symptoms including runny nose and sinus pressure. He reports that he stopped taking his diabetes and hypertension medications days to weeks ago.Patient has been Butler Acted for suicidal ideation in the emergency department. He reports that he has tried to kill himself multiple times in the past. He reports that he has tried to kill himself by taking a lot of Tylenol (and was seen here at [facility] for that during his last admission). At the present time patient laying quietly in his bed in medical floor. Laying very still flat on his back. Making no eye contact initially refusing to speak with me though after some coaxing states he is hopeless and helpless that nothing works for many morning as well be . He states he would take the suicide pill if offered to him or he would jump in front of a train. As per previous Dr. Ivey's note, patient has history of a multiple year cocaine addiction, this led to multiple incarcerations both feel and in detention. He stating most of his adult life has been spent in care home or detention. He denies any prior psychiatric contact though he has been seen here also on March 01 of this year at bedtime positive for cocaine and marijuana in his urine. He says he is estranged from all his family though counselor appears with talk to the daughter of his. There is marked decreased range intensity was affect is quite blunted. On psychiatric evaluation today in the [facility] psych unit, patient remains isolated , poorly cooperative, guarded, avoidant with very poor eye contact. He repeatedly says that nobody would be able to help him. He says to giving a pill to kill himself. Patient says that he doesn't want to live anymore, there is no reason for him to continue in this life. Patient refused to provide information about the circumstances of his emotions. He does say that he was just released from care home and "I am done". As per nurse report patient has not been getting up his bed, but he has been taking his medications and eating. No agitation or aggressive behavior reported. Tobacco Use In Past 30 Days: No Tobacco Past 30 Days Alcohol Use: Never Hospital Course Patient was admitted to the hospital due to suicidal ideation and depression. Safety measures taken. Psychosocial and psychiatric assessment performed. Patient was restarted in psychotropics for depression, he was also started in individual and group psychotherapy. Patient did not provide any information about collateral. Patient at the beginning was depressed, mute, not talking very oppositional. But, with the days became more open, showed good response psychotropics and therapy. As per longitudinal observation, nursing reports, and daily reevaluation, was noted that isolation and depressive symptoms of the patient had a strong behavioral component. Patient was offered to be discharged to an [facility], the patient refuses. He does not qualify for senior care. At the moment of discharge patient seems to be a baseline. Results Blood Pressure 128 / 75 Vital Signs Date Time Temp Pulse Resp B/P (MAP) Pulse Ox O2 Delivery O2 Flow Rate FiO2 06/02/17 06:17 97.6 51 19 128/75 (92) 99 Laboratory Tests Test 06/02/17 08:20 Red Blood Count 3.90 MIL/MM3 (4.50-5.90) Hemoglobin 12.1 GM/DL (13.0-17.0) Hematocrit 35.8 % (39.0-51.0) Random Glucose 127 MG/DL (74-106) Laboratory Results Test 05/26/17 07:58 Cholesterol Level 140 MG/DL (120-200) HDL Cholesterol 41.9 MG/DL (40.0-60.0) Hemoglobin A1c 6.6 % (4.3-6.0) LDL Cholesterol 90 MG/DL (0-99) Triglycerides Level 39 MG/DL (42-150) Summary of Procedures Procedures done Pending results at discharge: No Medications # of Antipsychotic meds at D/C: 1 Approp Antipsych med options 1 - Minimum of three failed multiple trials of monotherapy. 2 - Documented plan to taper to monotherapy due to previous use of multiple meds OR cross-taper in progress at D/C. 3 - Documentation of augmentation of Clozapine. 4 - Justification other than those listed in allowable values 1-3, document here : Discharge Discharge Date: Jun 02, 2017 Discharge Diagnosis: (1) Severe major depression, single episode, with psychotic features ICD Code: F32.3 - Major depressive disorder, single episode, severe with psychotic features Status: Acute Mental Status Exam at Disch man, age appearing, for hygiene, calm, cooperative. Mood is okay, affect is dysthymic. Speech is hesitant. No process logical and coherent. Thought content devoid of SI, HI, visual and auditory hallucinations. No paranoia, delusions, no obsessions present. Insight, impulse control, judgment are fair. Cognition is intact. Pt Condition on Discharge: Fair Discharge Disposition: Discharge Home Discharge Instructions Diet Instructions: Heart Healthy Diet Activities you can perform: Weight Bearing as Jaci Scheduled Appointment: [facility] Appointment Date: Jun 03, 2017 Appointment Time: 7:30 a.m. Discharge Time > 30 minutes Discharge/Advance Care Plan Health Problems: (1) Major depressive disorder, recurrent Goals to promote your health * To prevent worsening of your condition and complications * To maintain your health at the optimal level Directions to meet your goals Take your medications as prescribed Follow your dietary instruction Follow activity as directed Keep your appointments as scheduled Take your immunizations and boosters as scheduled If your symptoms worsen call your PCP, if no PCP go to Urgent Care Center or Emergency Room For 29/03 questions related to your inpatient stay or results of tests pending at discharge, please contact Dr. Oscar Bueno at Smoking is Dangerous to Your Health. Avoid second hand smoking Oscar Bueno MD Jun 02, 2017 14:10
[2017-06-02] MEDS ORDERED: ARIP1TAB11 PO (14:11)
== END 2017-06-02 17:35 | disposition home or self-care (01) | DRG 885 ==
LOC: H4EA 14:09 → H260 06-01 21:05
PROVIDERS: ADMIT Psychiatry & Neurology Psychiatry; ATTEND Psychiatry & Neurology Psychiatry
DX: F33.3 Major depressive disorder, recurrent, severe with psychotic symptoms (principal); E11.42 Type 2 diabetes mellitus with diabetic polyneuropathy; R45.851 Suicidal ideations; Z91.14 Patient's other noncompliance with medication regimen; I10 Essential (primary) hypertension; Z91.5 Personal history of self-harm; Z59.0 Homelessness; R07.9 Chest pain, unspecified; M54.9 Dorsalgia, unspecified; M54.30 Sciatica, unspecified side; Z63.8 Other specified problems related to primary support group; R25.9 Unspecified abnormal involuntary movements; K21.9 Gastro-esophageal reflux disease without esophagitis
CPT/HCPCS: 80048; 80061; 82948; 83036; 84132; 85027; J1815

== ENCOUNTER 2017-08-24 17:38 | Inpatient (IN) | payer OTHER ==
[~2017-08-24] VITALS: Ht 188 cm; Wt 86.5 kg
[~2017-08-24 17:38] MED LIST changes: -ALPR.25 PO; +ARIP1TAB11 PO
[2017-08-24 17:53] VITALS: BP 147/83; PULSE 58; RESP 18; TEMP 98.4; O2SAT 97
[2017-08-24] MEDS ORDERED: OLAN10TA PO (18:10)
[2017-08-24] MEDS ORDERED: FLUO40CA PO (18:10)
[2017-08-24] MEDS ORDERED: TRAZ1TAB14 PO (18:10)
[2017-08-24] MEDS ORDERED: GABA300C5 PO (18:10)
[2017-08-24 18:15] VITALS: O2SAT 96
[2017-08-24] MEDS ORDERED: SODIUM CHLORIDE 0.9% FLUSH 10 ML FLUSH IVF PRN (18:15)
[2017-08-24] MEDS ORDERED: ASPIRIN 325 MG TAB PO ONE (18:15)
[2017-08-24] MEDS ORDERED: NITROGLYCERIN 0.4 MG SL 25 TABS/BTL SL ONE (18:15)
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
[2017-08-24 18:36] LABS: AUTOMATED NEUTROPHIL # 2.8 TH/MM3 (1.8-7.7); BASOPHIL % 0.4 % (0.0-2.0); EOSINOPHIL # 0.1 TH/MM3 (0-0.4); HEMATOCRIT 35.3 % (39.0-51.0); HEMO FLAGS DIFF FINAL; LYMPH % 37.1 % (9.0-44.0); LYMPHOCYTE # 2.1 TH/MM3 (1.0-4.8); MEAN CELL VOLUME 91.1 FL (80.0-100.0); MEAN CORPUSCULAR HEMOGLOBIN 29.9 PG (27.0-34.0); MEAN CORPUSCULAR HGB CONC 32.8 % (32.0-36.0); MONO % 12.6 % (0.0-8.0); NEUT % 48.9 % (16.0-70.0); PLATELET COUNT 202 TH/MM3 (150-450); RED BLOOD COUNT 3.88 MIL/MM3 (4.50-5.90); RED CELL DISTRIBUTION WIDTH 13.1 % (11.6-17.2); WHITE BLOOD COUNT 5.7 TH/MM3 (4.0-11.0)
[2017-08-24 18:49] LABS: CHLORIDE 103 MEQ/L (98-107); POTASSIUM 3.7 MEQ/L (3.5-5.1); SODIUM (NA) 140 MEQ/L (136-145)
[2017-08-24 18:53] LABS: APTT (PATIENT) 23.8 SEC (24.3-30.1); PROTHROMBIN TIME - PATIENT 10.4 SEC (9.8-11.6)
[2017-08-24 18:53] LABS: BLOOD, URINE TRACE (NEG); GLUCOSE,URINE 100 mg/dL (NEG); KETONE, URINE NEG (NEG); NITRITE,URINE NEG (NEG)
[2017-08-24 18:55] LABS: ANION GAP 9 MEQ/L (5-15); BICARBONATE 28.3 MEQ/L (21.0-32.0); BLOOD UREA NITROGEN 13 MG/DL (7-18); MAGNESIUM 1.3 MG/DL (1.5-2.5)
[2017-08-24 18:58] LABS: ALT (GPT) 29 U/L (12-78); AST (GOT) 22 U/L (15-37); GLOMERULAR FILTRATION RATE 74 ML/MIN (>89)
[2017-08-24 19:00] LABS: TOTAL BILIRUBIN ADULT 0.2 MG/DL (0.2-1.0)
[2017-08-24 19:01] LABS: ALKALINE PHOSPHATASE 71 U/L (45-117); CREATINE KINASE 356 U/L (39-308)
[2017-08-24 19:07] VITALS: BP 132/74; PULSE 57; RESP 16; O2SAT 97
[2017-08-24 19:11] LABS: URINE COLOR YELLOW (YELLW/STRAW)
[2017-08-24 19:12] LABS: COMMENT (UR) CULTURE INDICATED; CULTURE IF INDICATED CULTURE INDICATED
[2017-08-24 19:13] LABS: CKMB 4.1 NG/ML (0.5-3.6)
--- NOTE | 2017-08-24 19:13 | PD ---
Physical Exam Date Seen by Provider: Aug 24, 2017 Time Seen by Provider: 19:12 Narrative Accepted in transfer of care from Dr. Bai Data Data Last Documented VS Vital Signs Date Time Temp Pulse Resp B/P (MAP) Pulse Ox O2 Delivery O2 Flow Rate FiO2 08/24/17 19:07 57 16 132/74 (93) 97 Room Air 08/24/17 17:53 98.4 Orders Orders Electrocardiogram (08/24/17 17:45) B-Type Natriuretic Peptide (08/24/17 18:12) Ckmb (Isoenzyme) Profile (08/24/17 18:12) Complete Blood Count With Diff (08/24/17 18:12) Comprehensive Metabolic Panel (08/24/17 18:12) Magnesium (Mg) (08/24/17 18:12) Prothrombin Time / Inr (Pt) (08/24/17 18:12) Act Partial Throm Time (Ptt) (08/24/17 18:12) Troponin I (08/24/17 18:12) Lipase (08/24/17 18:12) Chest, Single Ap (08/24/17 18:12) Ecg Monitoring (08/24/17 18:12) Bilateral Bp Monitoring (08/24/17 18:12) Iv Access Insert/Monitor (08/24/17 18:12) Oximetry (08/24/17 18:12) Aspirin (Aspirin) (08/24/17 18:15) Sodium Chloride 0.9% Flush (Ns Flush) (08/24/17 18:15) Nitroglycerin Sl (Nitrostat Sl) (08/24/17 18:15) Urinalysis - C+S If Indicated (08/24/17 18:12) Ct Abd/Pel W Iv Contrast(Rout) (08/24/17 ) Drug Screen, Random Urine (08/24/17 18:23) CKMB (08/24/17 18:02) CKMB% (08/24/17 18:02) Urine Culture (08/24/17 18:46) Iohexol 350 Inj (Omnipaque 350 Inj) (08/24/17 20:08) Ceftriaxone Inj (Rocephin Inj) (08/24/17 20:45) Ondansetron Inj (Zofran Inj) (08/24/17 20:45) Morphine Inj (Morphine Inj) (08/24/17 20:45) Labs Laboratory Tests Test 08/24/17 18:02 08/24/17 18:46 White Blood Count 5.7 TH/MM3 Red Blood Count 3.88 MIL/MM3 Hemoglobin 11.6 GM/DL Hematocrit 35.3 % Mean Corpuscular Volume 91.1 FL Mean Corpuscular Hemoglobin 29.9 PG Mean Corpuscular Hemoglobin Concent 32.8 % Red Cell Distribution Width 13.1 % Platelet Count 202 TH/MM3 Mean Platelet Volume 8.2 FL Neutrophils (%) (Auto) 48.9 % Lymphocytes (%) (Auto) 37.1 % Monocytes (%) (Auto) 12.6 % Eosinophils (%) (Auto) 1.0 % Basophils (%) (Auto) 0.4 % Neutrophils # (Auto) 2.8 TH/MM3 Lymphocytes # (Auto) 2.1 TH/MM3 Monocytes # (Auto) 0.7 TH/MM3 Eosinophils # (Auto) 0.1 TH/MM3 Basophils # (Auto) 0.0 TH/MM3 CBC Comment DIFF FINAL Differential Comment Prothrombin Time 10.4 SEC Prothromb Time International Ratio 1.0 RATIO Activated Partial Thromboplast Time 23.8 SEC Blood Urea Nitrogen 13 MG/DL Creatinine 1.20 MG/DL Random Glucose 227 MG/DL Total Protein 7.7 GM/DL Albumin 3.4 GM/DL Calcium Level 8.5 MG/DL Magnesium Level 1.3 MG/DL Alkaline Phosphatase 71 U/L Aspartate Amino Transf (AST/SGOT) 22 U/L Alanine Aminotransferase (ALT/SGPT) 29 U/L Total Bilirubin 0.2 MG/DL Sodium Level 140 MEQ/L Potassium Level 3.7 MEQ/L Chloride Level 103 MEQ/L Carbon Dioxide Level 28.3 MEQ/L Anion Gap 9 MEQ/L Estimat Glomerular Filtration Rate 74 ML/MIN Total Creatine Kinase 356 U/L Creatine Kinase MB 4.1 NG/ML Creatine Kinase MB % 1.2 % Troponin I LESS THAN 0.02 NG/ML B-Type Natriuretic Peptide 107 PG/ML Lipase 235 U/L Urine Color YELLOW Urine Turbidity CLEAR Urine pH 6.0 Urine Specific [place] 1.011 Urine Protein NEG mg/dL Urine Glucose (UA) 100 mg/dL Urine Ketones NEG mg/dL Urine Occult Blood TRACE Urine Nitrite NEG Urine Bilirubin NEG Urine Leukocyte Esterase SMALL Urine WBC 20-24 /hpf Urine WBC Clumps FEW Urine Squamous Epithelial Cells 6-8 /hpf Microscopic Urinalysis Comment CULTURE INDICATED Urine Opiates Screen NEG Urine Barbiturates Screen NEG Urine Amphetamines Screen NEG Urine Benzodiazepines Screen NEG Urine Cocaine Screen NEG Urine Cannabinoids Screen NEG MDM Medical Record Reviewed: Yes Supervised Visit with LORELEI: No Interpretation(s) CBC & BMP Diagram 08/24/17 18:02 Total Protein 7.7, Albumin 3.4, Calcium Level 8.5, Magnesium Level 1.3 L, Alkaline Phosphatase 71, Aspartate Amino Transf (AST/SGOT) 22, Alanine Aminotransferase (ALT/SGPT) 29, Total Bilirubin 0.2 Vital Signs Date Time Temp Pulse Resp B/P (MAP) Pulse Ox O2 Delivery O2 Flow Rate FiO2 08/24/17 19:07 57 16 132/74 (93) 97 Room Air 08/24/17 18:15 96 Room Air 08/24/17 17:57 58 08/24/17 17:53 98.4 58 18 147/83 (104) 97 Differential Diagnosis Accepted in transfer of care from Dr. Bai; please refer to her dictation Narrative Course Accepted in transfer of care from Dr. Bai; follow up pending diagnostics with plan for obs [facility] admission CP risk: male age 62 DM and HTN CT shows severe hydronephrosis of the right kidney and hydroureter due to a mid ureter obstructing 1.78 cm x 1 cm ureterolithiasis. Physician Communication Physician Communication discussed with Dr Laboy --complete cp w/u then consult to urology re: hydroureter and hydronephrosis; requests [facility] --discussed with [facility] service for OBS to [facility] service CP w/u and urology consult admit OBS to Dr Norwood to [facility] Diagnosis Primary Impression: Chest pain Additional Impression: Hydronephrosis due to obstruction of ureter Admitting Information Admitting Physician Requests: Observation Zabrina Kaplan MD Aug 24, 2017 19:13
--- NOTE | 2017-08-24 19:32 | RADRPT ---
EXAM DATE/TIME: 08/24/2017 18:54 [facility] COMPARISON: CHEST SINGLE AP, May 23, 2017, 12:38. INDICATIONS : Chest pain for several days. MEDICAL HISTORY : Hypertension. SURGICAL HISTORY : Hernia repair. ENCOUNTER: Initial ACUITY: 3 days PAIN SCORE: 4/10 LOCATION: Bilateral chest FINDINGS: A single view of the chest demonstrates the lungs to be symmetrically aerated without evidence of mas s, infiltrate or effusion. The cardiomediastinal contours are unremarkable. Osseous structures are intact. 6 mm metallic density projecting in the medial right chest, unchanged from prior chest x-ray . CONCLUSION: The lungs are clear. Rodríguez Sims MD on August 24, 2017 at 19:29 Board Certified Radiologist. This report was verified electronically.
[2017-08-24] MEDS ORDERED: IOHEXOL 350 MG/ML 10 ML VIAL (for RAD DIAG) IVCONTRAST ONE (20:08)
--- NOTE | 2017-08-24 20:29 | RADRPT ---
EXAM DATE/TIME: 08/24/2017 19:30 [facility] COMPARISON: No previous studies available for comparison. INDICATIONS : Upper quadrant pain. IV CONTRAST: 100 cc Omnipaque 350 (iohexol) IV ORAL CONTRAST: No oral contrast ingested. RADIATION DOSE: 15.65 CTDIvol (mGy) MEDICAL HISTORY : Hypertension. Diabetes. SURGICAL HISTORY : Appendectomy. Orthopedic surgery. ENCOUNTER: Initial ACUITY: 2 days PAIN SCALE: 5/10 LOCATION: upper quadrant TECHNIQUE: Volumetric scanning of the abdomen and pelvis was performed. Using automated exposure control and ad justment of the mA and/or kV according to patient size, radiation dose was kept as low as reasonably achievable to obtain optimal diagnostic quality images. DICOM format image data is available electro nically for review and comparison. FINDINGS: LOWER LUNGS: The visualized lower lungs are clear. LIVER: Homogeneous density without lesion. There is no dilation of the biliary tree. No calcified gallston es in a contracted gallbladder. SPLEEN: Normal size without lesion. PANCREAS: Within normal limits. KIDNEYS: Severe right-sided hydronephrosis and dilation of the proximal right ureter where there is a 1.7 x 1. 0 cm calcified stone causing obstruction. There is one other calcification in the lower pole collect ing system of the right kidney measuring 7 mm. No evidence of hydronephrosis on the left side and no calcified stones on the left side. ADRENAL GLANDS: Within normal limits. VASCULAR: There is no aortic aneurysm. BOWEL/MESENTERY: No dilated loops of small or large bowel. ABDOMINAL WALL: Within normal limits. RETROPERITONEUM: There is no lymphadenopathy. BLADDER: Mild diffuse bladder wall thickening. No calcifications within the lumen. REPRODUCTIVE: Within normal limits. INGUINAL: There is no lymphadenopathy or hernia. MUSCULOSKELETAL: Mild degenerative changes in the lower lumbar spine with vacuum phenomenon in the L4-5 and L5-S1 disc s. Oval sclerotic lesion in the posterior medial left ilium measuring 12 mm, possibly representing a bone island. CONCLUSION: 1. 12 mm mid right ureteric stone causing severe right hydronephrosis. 2. 12 mm sclerotic lesion in the medial left iliac bone. Rodríguez Sims MD on August 24, 2017 at 20:22 Board Certified Radiologist. This report was verified electronically.
[2017-08-24] MEDS ORDERED: cefTRIAXone INJ 1,000 MG in SODIUM CHLORIDE 0.9% INJ 100 ML IV ONE (20:45)
[2017-08-24] MEDS ORDERED: ONDANSETRON HCL 4 MG/2 ML VIAL IV PUSH ONE (20:45)
[2017-08-24] MEDS ORDERED: MORPHINE SULFATE 4 MG/ML INJ IV PUSH ONE (20:45)
--- NOTE | 2017-08-24 20:48 | EKG ---
Date Performed: 08/24/2017 Time Performed: 17:51:19 PTAGE: 62 years EKG: SINUS BRADYCARDIA BORDERLINE ECG Compared to prior electrocardiogram, rate has increased PREVIOUS TRACING : 05/24/2017 01.51 DOCTOR: Mariano Garcia Interpretating Date/Time 08/24/2017 20:46:09
[2017-08-24] MEDS ORDERED: ONDANSETRON HCL 4 MG/2 ML VIAL IVP PRN (21:15)
[2017-08-24] MEDS ORDERED: ACETAMINOPHEN 325 MG TAB PO PRN (21:15)
[2017-08-24] MEDS ORDERED: NALOXONE HCL 0.4 MG/ML AMP IV PUSH PRN (21:15)
[2017-08-24] MEDS ORDERED: SODIUM CHLORIDE 0.9% FLUSH 10 ML FLUSH IV FLUSH PRN (21:15)
[2017-08-24 21:45] VITALS: BP 140/84; PULSE 61; RESP 16; O2SAT 98
[2017-08-24 23:40] VITALS: BP 137/67; PULSE 59; RESP 18; TEMP 97.6; O2SAT 96
[2017-08-25] VITALS (11 sets, daily range): BP systolic 122–156; BP diastolic 68–84; PULSE 46–79; RESP 16–48; TEMP 94.4–98.2; O2SAT 96–98
[2017-08-25 01:26] LABS: CREATINE KINASE 297 U/L (39-308)
[2017-08-25] MEDS ORDERED: DEXTROSE 50% IN WATER 50 ML VIAL(D50) IV PUSH PRN (07:45)
[2017-08-25] MEDS ORDERED: GLUCAGON 1 MG/ML VIAL OTHER PRN (07:45)
--- NOTE | 2017-08-25 07:56 | HHI.HP ---
[facility] Service [facility] Primary Care Physician Ana Middleton MD Admission Diagnosis chest pain; severe hydronephrosis; h/o DM Diagnoses: (1) Chest pain Diagnosis: Principal (2) Hydronephrosis due to obstruction of ureter Diagnosis: Principal Chief Complaint: chest pain Travel History International Travel<30 Days: No Contact w/Intl Traveler <30 Da: No Traveled to Known Affected Are: No History of Present Illness patient is a 62 y/o male with history of hypertension and diabetes who presented to ER with chest pain. he says that the pain started two days ago. pain is midsternal with no radiation and no association with nausea, vomiting, sob or dizziness. he says that the pain is worse with inspiration. he denies any fever,chills, flank pain, dysuria or gross hematuria. he was pain free at the time of my evaluation.he says that he stopped taking his medications a while ago. Review of Systems Constitutional: DENIES: Fever, Weight loss, Chills, Night Sweats Eyes: DENIES: Blurred vision, Diplopia, Vision loss, Double Vision Ears, nose, mouth, throat: DENIES: Tinnitus, Vertigo, Throat pain, Epistaxis Respiratory: DENIES: Apneas, Cough, Snoring, Wheezing, Hemoptysis, Sputum production, Shortness of breath Cardiovascular: COMPLAINS OF: Chest pain, DENIES: Palpitations, Syncope, Dyspnea on Exertion, PND, Lower Extremity Edema, Orthopnea, Claudication Gastrointestinal: DENIES: Abdominal pain, Black stools, Bloody stools, Constipation, Diarrhea, Nausea, Vomiting, Difficulty Swallowing, Anorexia Genitourinary: DENIES: Urinary frequency, Urgency, Hematuria, Dysuria Musculoskeletal: DENIES: Joint pain, Muscle aches, Stiffness, Joint Swelling Integumentary: DENIES: Rash Neurologic: DENIES: Abnormal gait, Headache, Localized weakness, Paresthesias, Seizures, Speech Problems, Tremor, Poor Balance Psychiatric: DENIES: Anxiety, Confusion, Mood changes, Depression, Hallucinations, Agitation, Suicidal Ideation, Homicidal Ideation, Delusions Past Family Social History Past Medical History hypertension diabetes depression Past Surgical History none reported. Reported Medications Trazodone (Trazodone HCl) 150 Mg Tablet 150 Mg PO HS Fluoxetine (Fluoxetine HCl) 40 Mg Cap 40 Cap PO DAILY Gabapentin 300 Mg Cap 300 Mg PO HS Olanzapine 10 Mg Tab 10 Mg PO HS Allergies: Coded Allergies: No Known Allergies (Verified Allergy, Unknown, 08/24/17) Active Ordered Medications Inpatient Medications Acetaminophen (Tylenol) 650 mg Q4H PRN PO TEMP > 100.4; Start 08/24/17 at 21: 15 Aspirin (Aspirin) 325 mg ONCE ONCE PO Last administered on 08/24/17 18:19; Start 08/24/17 at 18:15; Stop 08/24/17 at 18:16; Status DC Ceftriaxone Sodium 1000 mg/ Sodium Chloride 100 ml @ 200 mls/hr ONCE ONCE IV Last administered on 08/24/17 21:33; Start 08/24/17 at 20:45; Stop 08/24/17 at 21:14; Status DC Morphine Sulfate (Morphine Inj) 2 mg ONCE ONCE IV PUSH Last administered on 21:33; Start 08/24/17 at 20:45; Stop 08/24/17 at 20:46; Status DC Naloxone HCl (Narcan Inj) 0.4 mg UNSCH PRN IV PUSH SEE LABEL COMMENTS; Start 08/24/17 at 21:15 Nitroglycerin (Nitrostat Sl) 0.4 mg ONCE ONCE SL Last administered on 18:20; Start 08/24/17 at 18:15; Stop 08/24/17 at 18:16; Status DC Ondansetron HCl (Zofran Inj) 4 mg Q6H PRN IVP NAUSEA OR VOMITING; Start at 21:15 Sodium Chloride (NS Flush) 2 ml BID IV FLUSH ; Start 08/25/17 at 09:00 Family History no history of heart disease in the family. Social History doesn't smoke cigarettes- doesn't drink. uses cocaine- last time was last month. Physical Exam Vital Signs Vital Signs Date Time Temp Pulse Resp B/P (MAP) Pulse Ox O2 Delivery O2 Flow Rate FiO2 08/25/17 04:00 47 08/25/17 03:48 97.8 46 16 135/74 (94) 96 08/24/17 23:40 97.6 59 18 137/67 (90) 96 08/24/17 21:45 61 16 140/84 (102) 98 Room Air 08/24/17 19:07 57 16 132/74 (93) 97 Room Air 08/24/17 18:15 96 Room Air 08/24/17 17:57 58 08/24/17 17:53 98.4 58 18 147/83 (104) 97 Physical Exam GENERAL: This is a well-nourished, well-developed patient, in no apparent distress. SKIN: No rashes, ecchymoses or lesions. Cool and dry. HEAD: Atraumatic. Normocephalic. No temporal or scalp tenderness. EYES: Pupils equal round and reactive. Extraocular motions intact. No scleral icterus. No injection or drainage. ENT: Nose without bleeding, purulent drainage or septal hematoma. Throat without erythema, tonsillar hypertrophy or exudate. Uvula midline. Airway patent. NECK: Trachea midline. No JVD or lymphadenopathy. Supple, nontender, no meningeal signs. CARDIOVASCULAR: Regular rate and rhythm without murmurs, gallops, or rubs. RESPIRATORY: Clear to auscultation. Breath sounds equal bilaterally. No wheezes , rales, or rhonchi. chest is tender to touch. GASTROINTESTINAL: Abdomen soft, non-tender, nondistended. No hepato-splenomegaly , or palpable masses. No guarding. MUSCULOSKELETAL: Extremities without clubbing, cyanosis, or edema. No joint tenderness, effusion, or edema noted. No calf tenderness. Negative Homans sign bilaterally. NEUROLOGICAL: Awake and alert. Cranial nerves II through XII intact. Motor and sensory grossly within normal limits. Five out of 5 muscle strength in all muscle groups. Normal speech. Laboratory Laboratory Tests Test 08/24/17 18:02 08/24/17 18:46 08/25/17 00:54 White Blood Count 5.7 Red Blood Count 3.88 Hemoglobin 11.6 Hematocrit 35.3 Mean Corpuscular Volume 91.1 Mean Corpuscular Hemoglobin 29.9 Mean Corpuscular Hemoglobin Concent 32.8 Red Cell Distribution Width 13.1 Platelet Count 202 Mean Platelet Volume 8.2 Neutrophils (%) (Auto) 48.9 Lymphocytes (%) (Auto) 37.1 Monocytes (%) (Auto) 12.6 Eosinophils (%) (Auto) 1.0 Basophils (%) (Auto) 0.4 Neutrophils # (Auto) 2.8 Lymphocytes # (Auto) 2.1 Monocytes # (Auto) 0.7 Eosinophils # (Auto) 0.1 Basophils # (Auto) 0.0 CBC Comment DIFF FINAL Differential Comment Prothrombin Time 10.4 Prothromb Time International Ratio 1.0 Activated Partial Thromboplast Time 23.8 Blood Urea Nitrogen 13 Creatinine 1.20 Random Glucose 227 Total Protein 7.7 Albumin 3.4 Calcium Level 8.5 Magnesium Level 1.3 Alkaline Phosphatase 71 Aspartate Amino Transf (AST/SGOT) 22 Alanine Aminotransferase (ALT/SGPT) 29 Total Bilirubin 0.2 Sodium Level 140 Potassium Level 3.7 Chloride Level 103 Carbon Dioxide Level 28.3 Anion Gap 9 Estimat Glomerular Filtration Rate 74 Total Creatine Kinase 356 297 Creatine Kinase MB 4.1 Creatine Kinase MB % 1.2 Troponin I LESS THAN 0.02 LESS THAN 0.02 B-Type Natriuretic Peptide 107 Lipase 235 Urine Color YELLOW Urine Turbidity CLEAR Urine pH 6.0 Urine Specific [place] 1.011 Urine Protein NEG Urine Glucose (UA) 100 Urine Ketones NEG Urine Occult Blood TRACE Urine Nitrite NEG Urine Bilirubin NEG Urine Leukocyte Esterase SMALL Urine WBC 20-24 Urine WBC Clumps FEW Urine Squamous Epithelial Cells 6-8 Microscopic Urinalysis Comment CULTURE INDICATED Urine Opiates Screen NEG Urine Barbiturates Screen NEG Urine Amphetamines Screen NEG Urine Benzodiazepines Screen NEG Urine Cocaine Screen NEG Urine Cannabinoids Screen NEG Date/Time Source Procedure Growth Status 08/24/17 18:46 Urine Clean Catch Urine Culture Pending Received Result Diagram: 08/24/17 1802 08/24/17 1802 Imaging Last Impressions Chest X-Ray 08/24/17 1812 Signed Impressions: Service Date/Time: Thursday, August 24, 2017 18:54 - CONCLUSION: The lungs are clear. Rodríguez Sims MD Abdomen/Pelvis CT 08/24/17 0000 Signed Impressions: Service Date/Time: Thursday, August 24, 2017 19:30 - CONCLUSION: 1. 12 mm mid right ureteric stone causing severe right hydronephrosis. 2. 12 mm sclerotic lesion in the medial left iliac bone. Rodríguez Sims MD EKG; sinus bradycardia with no acute ST-T changes. Caprini VTE Risk Assessment Caprini VTE Risk Assessment: Mod/High Risk (score >= 2) Caprini Risk Assessment Model Point Value = 1 Point Value = 2 Point Value = 3 Point Value = 5 Age 41-60 Minor surgery BMI > 25 kg/m2 Swollen legs Varicose veins or History of unexplained or recurrent spontaneous Oral contraceptives or hormone replacement Sepsis (< 1 month) Serious lung disease, including pneumonia (< 1 month) Abnormal pulmonary function Acute myocardial infarction Congestive heart failure (< 1 month) History of inflammatory bowel disease Medical patient at bed rest Age 61-74 Arthroscopic surgery Major open surgery (> 45 min) Laparoscopic surgery (> 45 min) Malignancy Confined to bed (> 72 hours) Immobilizing plaster cast Central venous access Age >= 75 History of VTE Family history of VTE Factor V Leiden Prothrombin [id number] Lupus anticoagulant Anticardiolipin antibodies Elevated serum homocysteine Heparin-induced thrombocytopenia Other congenital or acquired thrombophilia Stroke (< 1 month) Elective arthroplasty Hip, pelvis, or leg fracture Acute spinal cord injury (< 1 month) Prophylaxis Regimen Total Risk Factor Score Risk Level Prophylaxis Regimen 0-1 Low Early ambulation 2 Moderate Order ONE of the following: *Sequential Compression Device (SCD) *Heparin 5000 units SQ BID 3-4 Higher Order ONE of the following medications: *Heparin 5000 units SQ TID *Enoxaparin/Lovenox 40 mg SQ daily (WT < 150 kg, CrCl > 30 mL/min) *Enoxaparin/Lovenox 30 mg SQ daily (WT < 150 kg, CrCl > 10-29 mL/min) *Enoxaparin/Lovenox 30 mg SQ BID (WT < 150 kg, CrCl > 30 mL/min) AND/OR *Sequential Compression Device (SCD) 5 or more Highest Order ONE of the following medications: *Heparin 5000 units SQ TID (Preferred with Epidurals) *Enoxaparin/Lovenox 40 mg SQ daily (WT < 150 kg, CrCl > 30 mL/min) *Enoxaparin/Lovenox 30 mg SQ daily (WT < 150 kg, CrCl > 10-29 mL/min) *Enoxaparin/Lovenox 30 mg SQ BID (WT < 150 kg, CrCl > 30 mL/min) AND *Sequential Compression Device (SCD) Assessment and Plan Assessment and Plan A/P - chest pain- atypical received aspirin in ER- cardiac enzymes and EKG so far negative- continue to trend the cardiac enzymes. -right ureteral stone with severe right hydronephrosis with abnormal UA; possible UTI continue with IV antibiotic- follow the UC- urology consulted. -hypertension; non-compliant- BP controlled- vasotec prn for now -diabetes mellitus- noncompliant; A1c ( 05/23; 6.6)- accu-check with SSI -depression; resume home meds -DVT prophylaxis; pending urology evaluation Discussed Condition With the patient. Problem Qualifiers (1) Chest pain: Qualified Codes: R07.9 - Chest pain, unspecified Herson Osman MD Aug 25, 2017 07:56
[2017-08-25] MEDS: SODIUM CHLORIDE 0.9% FLUSH 10 ML FLUSH IV FLUSH SCH ×2 (08:08→20:53)
[2017-08-25] MEDS ORDERED: FLUoxetine HCL 20 MG CAP PO SCH (09:00)
[2017-08-25 09:07] LABS: AUTOMATED NEUTROPHIL # 2.7 TH/MM3 (1.8-7.7); BASOPHIL % 0.3 % (0.0-2.0); EOSINOPHIL # 0.1 TH/MM3 (0-0.4); EOSINOPHIL % 1.2 % (0.0-4.0); HEMATOCRIT 34.4 % (39.0-51.0); HEMO FLAGS DIFF FINAL; LYMPH % 35.8 % (9.0-44.0); LYMPHOCYTE # 1.9 TH/MM3 (1.0-4.8); MEAN CELL VOLUME 92.6 FL (80.0-100.0); MEAN CORPUSCULAR HEMOGLOBIN 31.7 PG (27.0-34.0); MEAN CORPUSCULAR HGB CONC 34.2 % (32.0-36.0); MONO % 12.3 % (0.0-8.0); NEUT % 50.4 % (16.0-70.0); PLATELET COUNT 190 TH/MM3 (150-450); RED BLOOD COUNT 3.72 MIL/MM3 (4.50-5.90); RED CELL DISTRIBUTION WIDTH 13.7 % (11.6-17.2); WHITE BLOOD COUNT 5.3 TH/MM3 (4.0-11.0)
[2017-08-25 09:39] LABS: ANION GAP 7 MEQ/L (5-15); BICARBONATE 31.1 MEQ/L (21.0-32.0); BLOOD UREA NITROGEN 15 MG/DL (7-18); CHLORIDE 101 MEQ/L (98-107); GLOMERULAR FILTRATION RATE 68 ML/MIN (>89); POTASSIUM 3.6 MEQ/L (3.5-5.1); SODIUM (NA) 139 MEQ/L (136-145)
[2017-08-25 09:44] LABS: CREATINE KINASE 288 U/L (39-308)
[2017-08-25] MEDS: INSULIN ASPART SUPPLEMENTAL SCALE SQ SCH ×4 (10:00→20:52)
[2017-08-25] MEDS: FLUoxetine HCL 20 MG CAP PO SCH (13:01)
--- NOTE | 2017-08-25 13:17 | PD.CONS ---
[facility] Service Urology Consult Requested By Dr. Ely Primary Care Physician Ana Middleton MD Diagnosis: (1) Chest pain ICD Code: R07.9 - Chest pain, unspecified (2) Hydronephrosis due to obstruction of ureter ICD Code: N13.2 - Hydronephrosis with renal and ureteral calculous obstruction History of Present Illness 62 year-old gentleman with no prior history urologic disease who presented to the emergency room with a 2 day history of chest pain as well as complaining of a a sensation involving his right flank. Preliminary workup in addition to his cardiac evaluation included a CT scan of the abdomen and pelvis that demonstrated a 12 mm right mid ureteral calculus with resultant right hydronephrosis. A urology consult was placed regarding these abnormal findings. Patient denies gross hematuria or dysuria. He denies a prior history of nephrolithiasis. Has been afebrile. I reviewed the actual CT scan images and concur with the radiologist impression. Review of Systems Constitutional: DENIES: Fever, Chills Cardiovascular: COMPLAINS OF: Chest pain Gastrointestinal: DENIES: Abdominal pain Musculoskeletal: COMPLAINS OF: Back pain (right flank) Except as stated in HPI: all other systems reviewed are Neg Past Family Social History Past Medical History Diabetes mellitus Hypertension Depression Past Surgical History Denies major surgery Reported Medications Refer to EMR Allergies: Coded Allergies: No Known Allergies (Verified Allergy, Unknown, 08/24/17) Active Ordered Medications Refer to EMR Family History Reviewed and noncontributory Social History Denies tobacco or alcohol use Uses cocaine Physical Exam Vital Signs Date Time Temp Pulse Resp B/P (MAP) Pulse Ox O2 Delivery O2 Flow Rate FiO2 08/25/17 08:00 98.1 48 48 135/70 (91) 98 08/25/17 04:00 47 08/25/17 03:48 97.8 46 16 135/74 (94) 96 08/24/17 23:40 97.6 59 18 137/67 (90) 96 08/24/17 21:45 61 16 140/84 (102) 98 Room Air 08/24/17 19:07 57 16 132/74 (93) 97 Room Air 08/24/17 18:15 96 Room Air 08/24/17 17:57 58 08/24/17 17:53 98.4 58 18 147/83 (104) 97 Physical Exam GENERAL: This is a well-nourished, well-developed patient, in no apparent distress. SKIN: No rashes, ecchymoses or lesions. Cool and dry. HEAD: Atraumatic. Normocephalic. No temporal or scalp tenderness. EYES: Pupils equal round and reactive. Extraocular motions intact. No scleral icterus. No injection or drainage. ENT: Nose without bleeding, purulent drainage or septal hematoma. Throat without erythema, tonsillar hypertrophy or exudate. Uvula midline. Airway patent. NECK: Trachea midline. No JVD or lymphadenopathy. Supple, nontender, no meningeal signs. CARDIOVASCULAR: Regular rate and rhythm without murmurs, gallops, or rubs. RESPIRATORY: Clear to auscultation. Breath sounds equal bilaterally. No wheezes , rales, or rhonchi. GASTROINTESTINAL: Abdomen soft, non-tender, nondistended. No hepato-splenomegaly , or palpable masses. No guarding. GENITOURINARY: MUSCULOSKELETAL: Extremities without clubbing, cyanosis, or edema. No joint tenderness, effusion, or edema noted. No calf tenderness. Negative Homans sign bilaterally. NEUROLOGICAL: Awake and alert. Cranial nerves II through XII intact. Motor and sensory grossly within normal limits. Five out of 5 muscle strength in all muscle groups. Normal speech. Lab results reviewed: Yes Laboratory Tests Test 08/24/17 18:02 08/24/17 18:46 08/25/17 00:54 08/25/17 08:04 White Blood Count 5.7 5.3 Red Blood Count 3.88 3.72 Hemoglobin 11.6 11.8 Hematocrit 35.3 34.4 Mean Corpuscular Volume 91.1 92.6 Mean Corpuscular Hemoglobin 29.9 31.7 Mean Corpuscular Hemoglobin Concent 32.8 34.2 Red Cell Distribution Width 13.1 13.7 Platelet Count 202 190 Mean Platelet Volume 8.2 8.4 Neutrophils (%) (Auto) 48.9 50.4 Lymphocytes (%) (Auto) 37.1 35.8 Monocytes (%) (Auto) 12.6 12.3 Eosinophils (%) (Auto) 1.0 1.2 Basophils (%) (Auto) 0.4 0.3 Neutrophils # (Auto) 2.8 2.7 Lymphocytes # (Auto) 2.1 1.9 Monocytes # (Auto) 0.7 0.7 Eosinophils # (Auto) 0.1 0.1 Basophils # (Auto) 0.0 0.0 CBC Comment DIFF FINAL DIFF FINAL Differential Comment Prothrombin Time 10.4 Prothromb Time International Ratio 1.0 Activated Partial Thromboplast Time 23.8 Blood Urea Nitrogen 13 15 Creatinine 1.20 1.29 Random Glucose 227 164 Total Protein 7.7 Albumin 3.4 Calcium Level 8.5 8.2 Magnesium Level 1.3 Alkaline Phosphatase 71 Aspartate Amino Transf (AST/SGOT) 22 Alanine Aminotransferase (ALT/SGPT) 29 Total Bilirubin 0.2 Sodium Level 140 139 Potassium Level 3.7 3.6 Chloride Level 103 101 Carbon Dioxide Level 28.3 31.1 Anion Gap 9 7 Estimat Glomerular Filtration Rate 74 68 Total Creatine Kinase 356 297 288 Creatine Kinase MB 4.1 Creatine Kinase MB % 1.2 Troponin I LESS THAN 0.02 LESS THAN 0.02 LESS THAN 0.02 B-Type Natriuretic Peptide 107 Lipase 235 Urine Color YELLOW Urine Turbidity CLEAR Urine pH 6.0 Urine Specific [place] 1.011 Urine Protein NEG Urine Glucose (UA) 100 Urine Ketones NEG Urine Occult Blood TRACE Urine Nitrite NEG Urine Bilirubin NEG Urine Leukocyte Esterase SMALL Urine WBC 20-24 Urine WBC Clumps FEW Urine Squamous Epithelial Cells 6-8 Microscopic Urinalysis Comment CULTURE INDICATED Urine Opiates Screen NEG Urine Barbiturates Screen NEG Urine Amphetamines Screen NEG Urine Benzodiazepines Screen NEG Urine Cocaine Screen NEG Urine Cannabinoids Screen NEG Date/Time Source Procedure Growth Status 08/24/17 18:46 Urine Clean Catch Urine Culture Pending Received Result Diagram: 08/25/17 0804 08/25/17 0804 Personally reviewed images: Yes Imaging Last Impressions Chest X-Ray 08/24/17 1812 Signed Impressions: Service Date/Time: Thursday, August 24, 2017 18:54 - CONCLUSION: The lungs are clear. Rodríguez Sims MD Abdomen/Pelvis CT 08/24/17 0000 Signed Impressions: Service Date/Time: Thursday, August 24, 2017 19:30 - CONCLUSION: 1. 12 mm mid right ureteric stone causing severe right hydronephrosis. 2. 12 mm sclerotic lesion in the medial left iliac bone. Rodríguez Sims MD Assessment and Plan Assessment and Plan Urologic impression: #1 right hydronephrosis #2 12 mm obstructing right midureteral calculus Recommendations: #1 analgesic support #2 will tentatively schedule the patient for cystoscopy, right retrograde pyelogram and right ureteral stent placement later this week after workup for chest pain completed and patient deemed medically stable. #3 risks and benefits discussed with patient Problem Qualifiers (1) Chest pain: Qualified Codes: R07.9 - Chest pain, unspecified ScagliaGopal MD Aug 25, 2017 13:17
--- NOTE | 2017-08-25 14:53 | EKG ---
Date Performed: 08/25/2017 Time Performed: 00:28:16 PTAGE: 62 years EKG: Sinus bradycardia Prolonged QT interval Borderline ECG No significant change from prior kimberly ctrocardiogram. PREVIOUS TRACING : 08/24/2017 17.51 DOCTOR: Mariano Garcia Interpretating Date/Time 08/25/2017 14:52:15
--- NOTE | 2017-08-25 14:53 | EKG ---
Date Performed: 08/25/2017 Time Performed: 05:46:10 PTAGE: 62 years EKG: Sinus bradycardia Short PA interval Prolonged QT interval Borderline ECG No significant rebel nge from prior electrocardiogram. PREVIOUS TRACING : 08/25/2017 00.28 DOCTOR: Mariano Garcia Interpretating Date/Time 08/25/2017 14:51:53
[2017-08-25] MEDS: OLANZapine 10 MG TAB PO SCH (20:53)
[2017-08-25] MEDS: cefTRIAXone INJ 1,000 MG in SODIUM CHLORIDE 0.9% INJ 100 ML IV SCH (20:53)
[2017-08-25] MEDS: traZODone HCL 50 MG TAB PO SCH (20:53)
[2017-08-25] MEDS ORDERED: GABAPENTIN 300 MG CAP PO SCH (21:00)
[2017-08-26] VITALS (9 sets, daily range): BP systolic 135–145; BP diastolic 63–78; PULSE 42–57; RESP 16–18; TEMP 97.6–98.3; O2SAT 96–98
[2017-08-26] MEDS: INSULIN ASPART SUPPLEMENTAL SCALE SQ SCH ×4 (08:00→20:42)
--- NOTE | 2017-08-26 09:39 | HHI.PR ---
Subjective Remarks in no acute distress. no chest pain today. complaining of his worsening neuropathy. Objective Vitals Vital Signs Date Time Temp Pulse Resp B/P (MAP) Pulse Ox O2 Delivery O2 Flow Rate FiO2 08/26/17 03:52 97.6 47 18 136/63 (87) 96 08/25/17 23:50 98.2 52 18 156/78 (104) 97 08/25/17 21:00 94.4 51 18 153/84 (107) 97 08/25/17 20:00 51 08/25/17 20:00 48 08/25/17 16:01 55 08/25/17 16:00 97.6 79 18 122/68 (86) 96 08/25/17 12:00 97.8 49 17 149/74 (99) 97 08/25/17 11:40 48 I/O 08/25/17 08/25/17 08/25/17 08/26/17 08/26/17 08/26/17 06:59 14:59 22:59 06:59 14:59 22:59 Intake Total 0 ml 820 ml 240 ml Output Total 450 ml 1100 ml 600 ml Balance -450 ml -280 ml -360 ml Intake Oral 0 ml 720 ml 240 ml IV Total 100 ml Output Urine Total 450 ml 1100 ml 600 ml # Bowel Movements 0 0 Result Diagram: 08/25/17 0804 08/25/17 0804 Imaging Last Impressions Chest X-Ray 08/24/17 1812 Signed Impressions: Service Date/Time: Thursday, August 24, 2017 18:54 - CONCLUSION: The lungs are clear. Rodríguez Sims MD Abdomen/Pelvis CT 08/24/17 0000 Signed Impressions: Service Date/Time: Thursday, August 24, 2017 19:30 - CONCLUSION: 1. 12 mm mid right ureteric stone causing severe right hydronephrosis. 2. 12 mm sclerotic lesion in the medial left iliac bone. Rodríguez Sims MD Objective Remarks GENERAL: This is a well-nourished, well-developed patient, in no apparent distress. CARDIOVASCULAR: Regular rate and regular rhythm without murmurs, gallops, or rubs. RESPIRATORY: Clear to auscultation. Breath sounds equal bilaterally. No wheezes , rales, or rhonchi. GASTROINTESTINAL: Abdomen soft, non-tender, nondistended. Normal, active bowel sounds MUSCULOSKELETAL: Extremities without clubbing, cyanosis, or edema. NEURO: Alert & Oriented x4 to person, place, time, situation. Moves all ext x4 Medications and IVs Inpatient Medications Acetaminophen (Tylenol) 650 mg Q4H PRN PO TEMP > 100.4; Start 08/24/17 at 21: 15 Aspirin (Aspirin) 325 mg ONCE ONCE PO Last administered on 08/24/17 18:19; Start 08/24/17 at 18:15; Stop 08/24/17 at 18:16; Status DC Ceftriaxone Sodium 1000 mg/ Sodium Chloride 100 ml @ 200 mls/hr Q24H IV Last administered on 08/25/17 20:53; Start 08/25/17 at 20:00 Dextrose (D50w (Vial) Inj) 50 ml UNSCH PRN IV PUSH HYPOGLYCEMIA-SEE COMMENTS; Start 08/25/17 at 07:45 Fluoxetine HCl (PROzac) 40 mg DAILY PO Last administered on 08/25/17 13:01; Start 08/25/17 at 11:45 Gabapentin (Neurontin) 300 mg HS PO Last administered on 08/25/17 20:52; Start 08/25/17 at 21:00 Glucagon (Glucagon Inj) 1 mg UNSCH PRN OTHER HYPOGLYCEMIA-SEE COMMENTS; Start 08/25/17 at 07:45 Insulin Aspart (NovoLOG SUPPLEMENTAL SCALE) 1 ACHS SLIDING SCALE SQ Last administered on 08/25/17 20:52; Start 08/25/17 at 08:00 Morphine Sulfate (Morphine Inj) 2 mg ONCE ONCE IV PUSH Last administered on 21:33; Start 08/24/17 at 20:45; Stop 08/24/17 at 20:46; Status DC Naloxone HCl (Narcan Inj) 0.4 mg UNSCH PRN IV PUSH SEE LABEL COMMENTS; Start 08/24/17 at 21:15 Nitroglycerin (Nitrostat Sl) 0.4 mg ONCE ONCE SL Last administered on 18:20; Start 08/24/17 at 18:15; Stop 08/24/17 at 18:16; Status DC Olanzapine (ZyPREXA) 10 mg HS PO Last administered on 08/25/17 20:53; Start 08/25/17 at 21:00 Ondansetron HCl (Zofran Inj) 4 mg Q6H PRN IVP NAUSEA OR VOMITING; Start at 21:15 Sodium Chloride (NS Flush) 2 ml BID IV FLUSH Last administered on 08/25/17 20 :53; Start 08/25/17 at 09:00 Trazodone HCl (Desyrel) 150 mg HS PO Last administered on 08/25/17 20:53; Start 08/25/17 at 21:00 A/P Problem List: (1) Chest pain ICD Code: R07.9 - Chest pain, unspecified Status: Acute (2) Hydronephrosis due to obstruction of ureter ICD Code: N13.2 - Hydronephrosis with renal and ureteral calculous obstruction Status: Acute Assessment and Plan - chest pain- atypical - cardiac enzymes and EKG negative- stress test today. -right ureteral stone with severe right hydronephrosis with abnormal UA; possible UTI continue with IV antibiotic- follow the UC- urology consult appreciated and plan for cystoscopy and stent placement. -hypertension; non-compliant- BP controlled- vasotec prn for now -diabetes mellitus- noncompliant; A1c ( 05/23; 6.6)- accu-check with SSI -depression; resumed home meds -neuropathy; will increase neurontin and continue to monitor. -DVT prophylaxis; pending urology intervention. Problem Qualifiers (1) Chest pain: Qualified Codes: R07.9 - Chest pain, unspecified Herson Osman MD Aug 26, 2017 09:39
[2017-08-26] MEDS: FLUoxetine HCL 20 MG CAP PO SCH (10:09)
[2017-08-26] MEDS: SODIUM CHLORIDE 0.9% FLUSH 10 ML FLUSH IV FLUSH SCH ×2 (10:09→20:41)
[2017-08-26] MEDS: GABAPENTIN 100 MG CAP PO SCH ×2 (13:13→18:10)
[2017-08-26] MEDS: cefTRIAXone INJ 1,000 MG in SODIUM CHLORIDE 0.9% INJ 100 ML IV SCH (20:41)
[2017-08-26] MEDS: OLANZapine 10 MG TAB PO SCH (20:41)
[2017-08-26] MEDS: traZODone HCL 50 MG TAB PO SCH (20:41)
[2017-08-27] VITALS (11 sets, daily range): BP systolic 119–144; BP diastolic 60–77; PULSE 48–66; RESP 18–20; TEMP 97.3–98.7; O2SAT 95–98
[2017-08-27] MEDS ORDERED: METOPROLOL TARTRATE 25 MG TAB PO PRN (07:30)
[2017-08-27] MEDS ORDERED: SODIUM CHLORID 0.9% 500 ML IV PRN (07:30)
[2017-08-27] MEDS ORDERED: CHLORHEXIDINE GLUCONATE 2 % 1 PACK (2 CLOTHS) TOPICAL PRN (07:30)
[2017-08-27] MEDS ORDERED: LACTATED RINGER'S 1000 ML IV PRN (07:30)
[2017-08-27] MEDS ORDERED: POVIDONE IODINE 5% (ANTISEPSIS KIT) 4 APPLICATIONS EACH NARE PRN (07:30)
[2017-08-27] MEDS: INSULIN ASPART SUPPLEMENTAL SCALE SQ SCH ×4 (08:00→20:00)
[2017-08-27] MEDS: FLUoxetine HCL 20 MG CAP PO SCH (08:46)
[2017-08-27] MEDS: GABAPENTIN 100 MG CAP PO SCH ×3 (08:46→17:49)
[2017-08-27] MEDS: SODIUM CHLORIDE 0.9% FLUSH 10 ML FLUSH IV FLUSH SCH ×2 (08:49→20:00)
[2017-08-27] MEDS ORDERED: REGADENOSON INJ 0.4 MG/5 ML SYR ONE (10:06)
--- NOTE | 2017-08-27 10:08 | HHI.PR ---
Subjective Remarks in no acute distress. no chest pain or sob. has some pain to both legs. Objective Vitals Vital Signs Date Time Temp Pulse Resp B/P (MAP) Pulse Ox O2 Delivery O2 Flow Rate FiO2 08/27/17 08:03 97.9 48 20 120/60 (80) 97 08/27/17 04:00 51 08/27/17 03:55 97.9 52 18 144/77 (99) 95 08/27/17 00:10 98.2 58 18 119/61 (80) 96 08/27/17 00:00 58 08/26/17 20:50 98.3 57 18 135/78 (97) 97 08/26/17 20:00 54 08/26/17 20:00 51 08/26/17 16:05 52 08/26/17 16:00 98.0 56 16 145/76 (99) 98 08/26/17 12:05 52 08/26/17 12:00 98.1 52 16 145/73 (97) 96 I/O 08/26/17 08/26/17 08/26/17 08/27/17 08/27/17 08/27/17 07:00 15:00 23:00 07:00 15:00 23:00 Intake Total 240 ml 640 ml 360 ml Output Total 600 ml 300 ml Balance -360 ml 340 ml 360 ml Intake Oral 240 ml 540 ml 360 ml IV Total 100 ml Output Urine Total 600 ml 300 ml # Voids 3 # Bowel Movements 0 1 0 Result Diagram: 08/25/17 0804 08/25/17 0804 Imaging Last Impressions Chest X-Ray 08/24/17 1812 Signed Impressions: Service Date/Time: Thursday, August 24, 2017 18:54 - CONCLUSION: The lungs are clear. Rodríguez Sims MD Abdomen/Pelvis CT 08/24/17 0000 Signed Impressions: Service Date/Time: Thursday, August 24, 2017 19:30 - CONCLUSION: 1. 12 mm mid right ureteric stone causing severe right hydronephrosis. 2. 12 mm sclerotic lesion in the medial left iliac bone. Rodríguez Sims MD Objective Remarks GENERAL: This is a well-nourished, well-developed patient, in no apparent distress. CARDIOVASCULAR: Regular rate and regular rhythm without murmurs, gallops, or rubs. RESPIRATORY: Clear to auscultation. Breath sounds equal bilaterally. No wheezes , rales, or rhonchi. GASTROINTESTINAL: Abdomen soft, non-tender, nondistended. Normal, active bowel sounds MUSCULOSKELETAL: Extremities without clubbing, cyanosis, or edema. NEURO: Alert & Oriented x4 to person, place, time, situation. Moves all ext x4 Medications and IVs Inpatient Medications Acetaminophen (Tylenol) 650 mg Q4H PRN PO TEMP > 100.4; Start 08/24/17 at 21: 15 Aspirin (Aspirin) 325 mg ONCE ONCE PO Last administered on 08/24/17 18:19; Start 08/24/17 at 18:15; Stop 08/24/17 at 18:16; Status DC Ceftriaxone Sodium 1000 mg/ Sodium Chloride 100 ml @ 200 mls/hr Q24H IV Last administered on 08/26/17 20:41; Start 08/25/17 at 20:00 Chlorhexidine Gluconate (Chlorhexidine 2% Cloth) 3 pack CARGO MATE PRN TOPICAL SEE LABEL COMMENTS; Start 08/27/17 at 07:30; Stop 08/30/17 at 07:29 Dextrose (D50w (Vial) Inj) 50 ml UNSCH PRN IV PUSH HYPOGLYCEMIA-SEE COMMENTS; Start 08/25/17 at 07:45 Fluoxetine HCl (PROzac) 40 mg DAILY PO Last administered on 08/27/17 08:46; Start 08/25/17 at 11:45 Gabapentin (Neurontin) 200 mg TID PO Last administered on 08/27/17 08:46; Start 08/26/17 at 13:00 Glucagon (Glucagon Inj) 1 mg UNSCH PRN OTHER HYPOGLYCEMIA-SEE COMMENTS; Start 08/25/17 at 07:45 Insulin Aspart (NovoLOG SUPPLEMENTAL SCALE) 1 ACHS SLIDING SCALE SQ Last administered on 08/26/17 20:42; Start 08/25/17 at 08:00 Lactated Ringer's 1,000 ml @ 30 mls/hr Q24H PRN IV SEE LABEL COMMENTS; Start 08/27/17 at 07:30; Stop 08/30/17 at 07:29 Metoprolol Tartrate (Lopressor) 25 mg CARGO MATE PRN PO SEE LABEL COMMENTS; Start 08/27/17 at 07:30; Stop 08/30/17 at 07:29 Morphine Sulfate (Morphine Inj) 2 mg ONCE ONCE IV PUSH Last administered on 21:33; Start 08/24/17 at 20:45; Stop 08/24/17 at 20:46; Status DC Naloxone HCl (Narcan Inj) 0.4 mg UNSCH PRN IV PUSH SEE LABEL COMMENTS; Start 08/24/17 at 21:15 Nitroglycerin (Nitrostat Sl) 0.4 mg ONCE ONCE SL Last administered on 18:20; Start 08/24/17 at 18:15; Stop 08/24/17 at 18:16; Status DC Olanzapine (ZyPREXA) 10 mg HS PO Last administered on 08/26/17 20:41; Start 08/25/17 at 21:00 Ondansetron HCl (Zofran Inj) 4 mg Q6H PRN IVP NAUSEA OR VOMITING; Start at 21:15 Povidone Iodine (Betadine 5% Antisepsis Kit) 1 applic CARGO MATE PRN EACH NARE SEE LABEL COMMENTS; Start 08/27/17 at 07:30; Stop 08/30/17 at 07:29 Sodium Chloride 500 ml @ 30 mls/hr [id number] PRN IV SEE LABEL COMMENTS; Start at 07:30; Stop 08/30/17 at 07:29 Sodium Chloride (NS Flush) 2 ml BID IV FLUSH Last administered on 08/27/17 08 :49; Start 08/25/17 at 09:00 Trazodone HCl (Desyrel) 150 mg HS PO Last administered on 08/26/17 20:41; Start 08/25/17 at 21:00 A/P Problem List: (1) Chest pain ICD Code: R07.9 - Chest pain, unspecified Status: Acute (2) Hydronephrosis due to obstruction of ureter ICD Code: N13.2 - Hydronephrosis with renal and ureteral calculous obstruction Status: Acute Assessment and Plan - chest pain- atypical - cardiac enzymes and EKG negative- stress test pending. -right ureteral stone with severe right hydronephrosis with abnormal UA; possible UTI continue with IV antibiotic- UC negative so far- urology consult appreciated and plan for cystoscopy and stent placement. -hypertension; non-compliant- BP controlled- vasotec prn for now -diabetes mellitus- noncompliant; A1c ( 05/23; 6.6)- accu-check with SSI -depression; resumed home meds -neuropathy; continue neurontin and continue to monitor. -DVT prophylaxis; pending urology intervention. Discharge Planning dc home - when cleared by urology- pending the stress test. Problem Qualifiers (1) Chest pain: Qualified Codes: R07.9 - Chest pain, unspecified Herson Osman MD Aug 27, 2017 10:08
--- NOTE | 2017-08-27 11:22 | RADRPT ---
EXAM DATE/TIME: 08/26/2017 13:46 [place] COMPARISON: No previous studies available for comparison. INDICATIONS : Chest pain. Angina. DOSE: 30.1 mCi Tc99m Myoview at stress. 30.1 mCi Tc99m Myoview at rest. 0.4 mg Lexiscan STRESS SYMPTOMS: Dyspnea. EJECTION FRACTION: 56% MEDICAL HISTORY : Hypertension. Diabetes mellitus type 2. SURGICAL HISTORY : None. ENCOUNTER: Initial ACUITY: 2 days PAIN SCALE: 3/10 LOCATION: Bilateral chest TECHNIQUE: The patient underwent pharmacologic stress with infusion of prescribed dose. Continuous ECG tracing was monitored during stress. Gated SPECT imaging was performed after stress and conventional SPECT i maging was performed at rest. The examination was performed on a SPECT/CT scanner, both attenuation and non-corrected datasets were reviewed. FINDINGS: The best perfused wall at stress is the septum. There is redistribution in the high anterior wall to wards the base. Gut activity does obscure the inferior wall. The ejection fraction is 56% with mild inferior wall hypokinesis. CONCLUSION: Stress-induced ischemia anterior inferior myocardium towards the base. RISK CATEGORY: Low Chele Yin MD FACR on August 27, 2017 at 11:16 Board Certified Radiologist. This report was verified electronically.
[2017-08-27] MEDS ORDERED: PROPOFOL 200 MG/20 ML AMP IV ONE (12:00)
[2017-08-27] MEDS ORDERED: LIDOCAINE HCL 1% PF 5 ML SYRINGE OTHER ONE (12:00)
[2017-08-27] MEDS ORDERED: ePHEDrine/NS 25 MG/5 ML SYRINGE IV ONE (12:00)
[2017-08-27] MEDS ORDERED: ONDANSETRON HCL 4 MG/2 ML VIAL IV PUSH ONE (12:00)
[2017-08-27] MEDS ORDERED: PHENYLEPH/NS 1000 MCG/10 ML SYR IV ONE (12:00)
--- NOTE | 2017-08-27 12:39 | HHI.PR ---
Subjective Patient symptoms today Denies complaints Objective Vital Signs Vital Signs Date Time Temp Pulse Resp B/P (MAP) Pulse Ox O2 Delivery O2 Flow Rate FiO2 08/27/17 11:15 97.0 50 20 147/81 (103) 99 08/27/17 08:03 97.9 48 20 120/60 (80) 97 08/27/17 08:00 49 08/27/17 04:00 51 08/27/17 03:55 97.9 52 18 144/77 (99) 95 08/27/17 00:10 98.2 58 18 119/61 (80) 96 08/27/17 00:00 58 08/26/17 20:50 98.3 57 18 135/78 (97) 97 08/26/17 20:00 54 08/26/17 20:00 51 08/26/17 16:05 52 08/26/17 16:00 98.0 56 16 145/76 (99) 98 Intake & Output 08/27/17 08/27/17 07:00 19:00 Intake Total 460 ml Balance 460 ml Intake Oral 360 ml IV Total 100 ml # Voids 3 # Bowel Movements 0 Result Diagram: 08/25/17 0804 08/25/17 0804 Objective Remarks No CVA tenderness. Abdomen soft, nondistended nontender Extremities well-perfused, nontender Medications and IVs Current Medications Medications (Trade) Dose Ordered Sig/Fabi Route Start Time Stop Time Status Last Admin (NS Flush) 2 ml UNSCH PRN IV FLUSH 08/24/17 21:15 (NS Flush) 2 ml BID IV FLUSH 08/25/17 09:00 08/27/17 08:49 (Tylenol) 650 mg Q4H PRN PO 08/24/17 21:15 (Zofran Inj) 4 mg Q6H PRN IVP 08/24/17 21:15 (Narcan Inj) 0.4 mg UNSCH PRN IV PUSH 08/24/17 21:15 (D50w (Vial) Inj) 50 ml UNSCH PRN IV PUSH 08/25/17 07:45 (Glucagon Inj) 1 mg UNSCH PRN OTHER 08/25/17 07:45 (NovoLOG SUPPLEMENTAL SCALE) 1 ACHS SLIDING SCALE SQ 08/25/17 08:00 08/26/17 20:42 Ceftriaxone Sodium 1000 mg/ Sodium Chloride 100 ml @ 200 mls/hr Q24H IV 08/25/17 20:00 08/26/17 20:41 (ZyPREXA) 10 mg HS PO 08/25/17 21:00 08/26/17 20:41 (Desyrel) 150 mg HS PO 08/25/17 21:00 08/26/17 20:41 (PROzac) 40 mg DAILY PO 08/25/17 11:45 08/27/17 08:46 (Neurontin) 200 mg TID PO 08/26/17 13:00 08/27/17 08:46 Lactated Ringer's 1,000 ml @ 30 mls/hr Q24H PRN IV 08/27/17 07:30 08/30/17 07:29 08/27/17 11:15 Sodium Chloride 500 ml @ 30 mls/hr [id number] PRN IV 08/27/17 07:30 08/30/17 07:29 (Lopressor) 25 mg MOBILE DEVELOPER PRN PO 08/27/17 07:30 08/30/17 07:29 (Betadine 5% Antisepsis Kit) 1 applic MOBILE DEVELOPER PRN EACH NARE 08/27/17 07:30 08/30/17 07:29 (Chlorhexidine 2% Cloth) 3 pack MOBILE DEVELOPER PRN TOPICAL 08/27/17 07:30 08/30/17 07:29 Assessment and Plan Assessment and Plan Urologic impression: #1 right hydronephrosis #2 12 mm obstructing right midureteral calculus Recommendations: #1 keep nothing by mouth #2 proceed with cystoscopy, right retrograde pyelogram and right ureteral stent placement today. #3 risks and benefits discussed with patient Gopal Laboy MD Aug 27, 2017 12:39
--- NOTE | 2017-08-27 12:45 | PD.OP ---
Operative Report Date of Surgery: Aug 27, 2017 Preoperative Diagnosis: (1) Ureteral calculus, right Postoperative Diagnosis: (1) Ureteral calculus, right Procedure: Cystoscopy, right retrograde pyelogram and right ureteral stent placement Surgeon: Gopal Laboy Billing And Insurance Coordinator(s): None Operation and Findings: Indication for procedure: Case of a pleasant 62-year-old gentleman who was recently discovered to have an obstructing right midureteral calculus measuring approximately 12 mm. Patient presents now for cystoscopy, right retrograde pyelogram and right ureteral stent placement. Operative procedure in detail: Patient was brought to the operating room suite and placed supine on the OR table. He was then placed under general anesthesia. He was then repositioned in the dorsal lithotomy position and prepped and draped in normal sterile fashion. After an appropriate timeout was undertaken I proceeded with cystoscopic evaluation utilizing the rigid cystoscope with the 30 lens and 20 [place]ian sheath. The urethra was patent without stricture formation. The prostatic urethra was nonobstructing. Further passive cystoscope within the urinary bladder revealed both right and left ureteral orifices to be in correct anatomic position. It was clear efflux noted from the left orifice and no efflux noted on the right. I then passed a sensor 0.035 wire up the patient's right ureter under fluoroscopic guidance and was able to advance the wire around the stone and further advance the wire into the right renal pelvis. I then advanced a 6 [place]ian open-ended catheter over the guidewire up to the point of the obstructing stone and gently try to manipulate the stone in a cephalad direction. The stone was quite impacted and would not move. I was unable to advance the open ended catheter beyond the stone. The guidewire was removed and a retrograde pyelogram study performed to outline the collecting system. The guidewire was then reintroduced and once again advanced into the right renal pelvis and the open-ended catheter was exchanged for a [place] 6 [place]ian 26 cm double-J stent. I was able to advance a stent beyond the stone with the proximal coil in the right renal pelvis and the distal coil confirmed cystoscopically in the urinary bladder. Once his that was improper position of the trailing string was removed along with the guidewire. A 16 [place]ian 5 cc [place] catheter was placed and connected to gravity drainage. The patient tolerated the procedures without complications and was transferred to the PACU in satisfactory condition. Gopal Laboy MD Aug 27, 2017 12:44
[2017-08-27] MEDS ORDERED: DO NOT ADM ANY ANTICOAGULANT DRUGS PRN (12:48)
--- NOTE | 2017-08-27 17:24 | MB ---
cc: ALISSA LU MD DATE OF CONSULTATION 08/27/17 HISTORY OF PRESENT ILLNESS A 61-year-old black male with history of hypertension, diabetes mellitus who presented with sharp substernal chest discomfort which is worse with inspiration. He has not had any nausea, vomiting, shortness of breath or dizziness. He was found to have right ureteral stone with severe hydronephrosis and is undergoing evaluation for this. His chest pain is now resolved. He underwent nuclear myocardial perfusion study which was abnormal but low risk. PAST MEDICAL HISTORY 1. Hypertension 2. Diabetes mellitus. 3. Depression MEDICATIONS 1. Olanzapine 2. Gabapentin 3. Fluoxetine 4. Trazodone The patient has been noncompliant with his medical therapy. ALLERGIES None. SOCIAL HISTORY The patient does not smoke, does not drink alcohol. He uses cocaine. FAMILY HISTORY Negative for heart disease. REVIEW OF SYSTEMS Otherwise negative. PHYSICAL EXAMINATION VITAL SIGNS: Blood pressure 144/81 pulse 50 and regular. HEENT: Negative. 2+ carotid upstrokes. No bruits. LUNGS: Clear. HEART: Regular with no murmur, gallop or rub. ABDOMEN: Soft. No bruits. EXTREMITIES: No edema. 2+ distal pulses NEUROLOGIC: Grossly nonfocal. CARDIOLOGY STUDIES EKG was reviewed and showed sinus bradycardia, normal axis and intervals, no acute changes. LABORATORY DATA Hemoglobin 11.8, potassium 3.6, creatinine 1.29, CK 356, 297, 288. Troponin negative x3. BNP 107 DIAGNOSES 1. Atypical chest pain. 2. Low risk nuclear myocardial perfusion study. 3. Right ureteral stone with severe right hydronephrosis 4. Mild renal insufficiency. 5. Hypertension 6. Diabetes mellitus. 7. Depression 8. Cocaine use. DISPOSITION Mr. Manley has not had any recurrent chest discomfort. His myocardial perfusion study was a low risk study. I recommend to continue medical therapy including aggressive modification of his cardiac risk factors including therapy for hypertension and diabetes mellitus. He can also benefit from lipid-lowering therapy with a statin. I also recommend to start baby aspirin when it is approved by urology. I will follow him for cardiology during his hospitalization. Alissa Lu MD [place]ia/ /1:48 PM /4:56 PM [place]
[2017-08-27] MEDS: cefTRIAXone INJ 1,000 MG in SODIUM CHLORIDE 0.9% INJ 100 ML IV SCH (19:59)
[2017-08-27] MEDS: traZODone HCL 50 MG TAB PO SCH (19:59)
[2017-08-27] MEDS: OLANZapine 10 MG TAB PO SCH (20:00)
[2017-08-28] VITALS: BP 124/73; PULSE 67; RESP 18; TEMP 98.6; O2SAT 96
[2017-08-28 04:00] VITALS: BP 133/81; PULSE 65; PULSE 67; RESP 16; TEMP 98.5; O2SAT 97
[2017-08-28 08:00] VITALS: PULSE 63
[2017-08-28 08:12] VITALS: BP 141/77; PULSE 63; RESP 20; TEMP 97.3; O2SAT 97
[2017-08-28] MEDS: INSULIN ASPART SUPPLEMENTAL SCALE SQ SCH ×2 (08:26→11:59)
[2017-08-28] MEDS: GABAPENTIN 100 MG CAP PO SCH ×2 (08:27→12:00)
[2017-08-28] MEDS: FLUoxetine HCL 20 MG CAP PO SCH (08:27)
[2017-08-28] MEDS: SODIUM CHLORIDE 0.9% FLUSH 10 ML FLUSH IV FLUSH SCH (08:28)
--- NOTE | 2017-08-28 09:01 | HHI.PR ---
Subjective Remarks in no acute distress. denies chest pain or sob. no fever. d/w the RN. Objective Vitals Vital Signs Date Time Temp Pulse Resp B/P (MAP) Pulse Ox O2 Delivery O2 Flow Rate FiO2 08/28/17 04:00 98.5 67 16 133/81 (98) 97 08/28/17 04:00 65 08/28/17 00:00 98.6 67 18 124/73 (90) 96 08/27/17 20:00 98.7 64 18 125/74 (91) 96 08/27/17 20:00 61 08/27/17 16:10 57 08/27/17 16:03 97.3 60 20 126/77 (93) 98 08/27/17 13:55 97.5 66 20 135/75 (95) 98 08/27/17 13:26 97.6 64 18 135/74 (94) 99 Room Air 08/27/17 13:15 66 15 128/72 (90) 98 Room Air 08/27/17 13:00 62 14 133/75 (94) 100 Nasal Cannula 2 08/27/17 12:49 98.0 68 13 128/69 (88) 100 Nasal Cannula 3 08/27/17 12:00 58 08/27/17 11:15 97.0 50 20 147/81 (103) 99 I/O 08/27/17 08/27/17 08/27/17 08/28/17 08/28/17 08/28/17 07:00 15:00 23:00 07:00 15:00 23:00 Intake Total 360 ml 800 ml 240 ml Output Total 205 ml 1025 ml 1400 ml Balance 360 ml 595 ml -785 ml -1400 ml Intake Oral 360 ml 0 ml 240 ml IV Total 0 ml Other 800 ml Output Urine Total 200 ml 1025 ml 1400 ml Estimated Blood Loss 5 ml # Voids 3 # Bowel Movements 0 0 Result Diagram: 08/25/17 0804 08/25/17 0804 Imaging Last Impressions Myocardial Perfusion Scan Nuc Med 08/26/17 0000 Signed Impressions: Service Date/Time: August 13:46 - CONCLUSION: Stress-induced ischemia anterior inferior myocardium towards the base. RISK CATEGORY: Low Chele Yin MD FACR Chest X-Ray 08/24/[id number] Signed Impressions: Service Date/Time: Thursday, August 24, 2017 18:54 - CONCLUSION: The lungs are clear. Rodríguez Sims MD Abdomen/Pelvis CT 08/24/17 0000 Signed Impressions: Service Date/Time: Thursday, August 24, 2017 19:30 - CONCLUSION: 1. 12 mm mid right ureteric stone causing severe right hydronephrosis. 2. 12 mm sclerotic lesion in the medial left iliac bone. Rodríguez Sims MD Objective Remarks GENERAL: This is a well-nourished, well-developed patient, in no apparent distress. CARDIOVASCULAR: Regular rate and regular rhythm without murmurs, gallops, or rubs. RESPIRATORY: Clear to auscultation. Breath sounds equal bilaterally. No wheezes , rales, or rhonchi. GASTROINTESTINAL: Abdomen soft, non-tender, nondistended. Normal, active bowel sounds MUSCULOSKELETAL: Extremities without clubbing, cyanosis, or edema. NEURO: Alert & Oriented x4 to person, place, time, situation. Moves all ext x4 Procedures Cystoscopy, right retrograde pyelogram and right ureteral stent placement Medications and IVs Inpatient Medications Acetaminophen (Tylenol) 650 mg Q4H PRN PO TEMP > 100.4 Last administered on 08:28; Start 08/24/17 at 21:15 Aspirin (Aspirin) 325 mg ONCE ONCE PO Last administered on 08/24/17 18:19; Start 08/24/17 at 18:15; Stop 08/24/17 at 18:16; Status DC Ceftriaxone Sodium 1000 mg/ Sodium Chloride 100 ml @ 200 mls/hr Q24H IV Last administered on 08/27/17 19:59; Start 08/25/17 at 20:00 Chlorhexidine Gluconate (Chlorhexidine 2% Cloth) 3 pack BUILDING CONSTRUCTION SUPERVISOR PRN TOPICAL SEE LABEL COMMENTS; Start 08/27/17 at 07:30; Stop 08/30/17 at 07:29 Dextrose (D50w (Vial) Inj) 50 ml UNSCH PRN IV PUSH HYPOGLYCEMIA-SEE COMMENTS; Start 08/25/17 at 07:45 Fluoxetine HCl (PROzac) 40 mg DAILY PO Last administered on 08/28/17 08:27; Start 08/25/17 at 11:45 Gabapentin (Neurontin) 200 mg TID PO Last administered on 08/28/17 08:27; Start 08/26/17 at 13:00 Glucagon (Glucagon Inj) 1 mg UNSCH PRN OTHER HYPOGLYCEMIA-SEE COMMENTS; Start 08/25/17 at 07:45 Insulin Aspart (NovoLOG SUPPLEMENTAL SCALE) 1 ACHS SLIDING SCALE SQ Last administered on 08/28/17 08:26; Start 08/25/17 at 08:00 Lactated Ringer's 1,000 ml @ 30 mls/hr Q24H PRN IV SEE LABEL COMMENTS Last administered on 08/27/17 11:15; Start 08/27/17 at 07:30; Stop 08/30/17 at 07 :29 Metoprolol Tartrate (Lopressor) 25 mg BUILDING CONSTRUCTION SUPERVISOR PRN PO SEE LABEL COMMENTS; Start 08/27/17 at 07:30; Stop 08/30/17 at 07:29 Miscellaneous Information ALL NURSING DEPARTME... UNSCH PRN .XX SEE LABEL COMMENTS; Start 08/27/17 at 12:48; Stop 08/28/17 at 12:47 Morphine Sulfate (Morphine Inj) 2 mg ONCE ONCE IV PUSH Last administered on 21:33; Start 08/24/17 at 20:45; Stop 08/24/17 at 20:46; Status DC Naloxone HCl (Narcan Inj) 0.4 mg UNSCH PRN IV PUSH SEE LABEL COMMENTS; Start 08/24/17 at 21:15 Nitroglycerin (Nitrostat Sl) 0.4 mg ONCE ONCE SL Last administered on 18:20; Start 08/24/17 at 18:15; Stop 08/24/17 at 18:16; Status DC Olanzapine (ZyPREXA) 10 mg HS PO Last administered on 08/27/17 20:00; Start 08/25/17 at 21:00 Ondansetron HCl (Zofran Inj) 4 mg Q6H PRN IVP NAUSEA OR VOMITING; Start at 21:15 Povidone Iodine (Betadine 5% Antisepsis Kit) 1 applic BUILDING CONSTRUCTION SUPERVISOR PRN EACH NARE SEE LABEL COMMENTS; Start 08/27/17 at 07:30; Stop 08/30/17 at 07:29 Sodium Chloride 500 ml @ 30 mls/hr [id number] PRN IV SEE LABEL COMMENTS; Start at 07:30; Stop 08/30/17 at 07:29 Sodium Chloride (NS Flush) 2 ml BID IV FLUSH Last administered on 08/28/17 08 :28; Start 08/25/17 at 09:00 Trazodone HCl (Desyrel) 150 mg HS PO Last administered on 08/27/17 19:59; Start 08/25/17 at 21:00 A/P Problem List: (1) Chest pain ICD Code: R07.9 - Chest pain, unspecified Status: Acute (2) Hydronephrosis due to obstruction of ureter ICD Code: N13.2 - Hydronephrosis with renal and ureteral calculous obstruction Status: Acute Assessment and Plan - chest pain- atypical cardiac enzymes and EKG negative- stress test with stress-induced ischemia in anterior inferior myocardium. cardiology consult appreciated and recommended medical treatment. -right ureteral stone with severe right hydronephrosis s/p Cystoscopy, right retrograde pyelogram and right ureteral stent placement awaiting urology f/u and recommendations. -hypertension; non-compliant- BP controlled- vasotec prn for now will resume lisinopril at his home dosage upon discharge. -diabetes mellitus- noncompliant; A1c ( 05/23; 6.6)- accu-check with SSI will resume his metformin upon discharge. -depression; resumed home meds -neuropathy; continue neurontin and continue to monitor. -DVT prophylaxis; pending urology intervention. Discharge Planning dc home - when cleared by urology. see med list. f/u; pcp,urology and cardiology. d/w the patient and RN. Problem Qualifiers (1) Chest pain: Qualified Codes: R07.9 - Chest pain, unspecified Herson Osman MD Aug 28, 2017 09:01
--- NOTE | 2017-08-28 09:08 | HHI.DS ---
Discharge Summary Admission Date Aug 27, 2017 at 12:42 Discharge Date: Aug 28, 2017 Admitting Diagnosis chest pain; severe hydronephrosis; h/o DM (1) Chest pain ICD Code: R07.9 - Chest pain, unspecified Diagnosis: Principal Status: Acute (2) Hydronephrosis due to obstruction of ureter ICD Code: N13.2 - Hydronephrosis with renal and ureteral calculous obstruction Diagnosis: Principal Status: Acute Procedures Cystoscopy, right retrograde pyelogram and right ureteral stent placement Brief History - From Admission patient is a 62 y/o male with history of hypertension and diabetes who presented to ER with chest pain. he says that the pain started two days ago. pain is midsternal with no radiation and no association with nausea, vomiting, sob or dizziness. he says that the pain is worse with inspiration. he denies any fever,chills, flank pain, dysuria or gross hematuria. he was pain free at the time of my evaluation.he says that he stopped taking his medications a while ago. CBC/BMP: 08/25/17 0804 08/25/17 0804 Imaging Last Impressions Myocardial Perfusion Scan Nuc Med 08/26/17 0000 Signed Impressions: Service Date/Time: August 13:46 - CONCLUSION: Stress-induced ischemia anterior inferior myocardium towards the base. RISK CATEGORY: Low Chele Yin MD FACR Chest X-Ray [id number]/24/[id number] Signed Impressions: Service Date/Time: Thursday, August 24, 2017 18:54 - CONCLUSION: The lungs are clear. Rodríguez Sims MD Abdomen/Pelvis CT 08/24/17 0000 Signed Impressions: Service Date/Time: Thursday, August 24, 2017 19:30 - CONCLUSION: 1. 12 mm mid right ureteric stone causing severe right hydronephrosis. 2. 12 mm sclerotic lesion in the medial left iliac bone. Rodríguez Sims MD PE at Discharge GENERAL: This is a well-nourished, well-developed patient, in no apparent distress. CARDIOVASCULAR: Regular rate and regular rhythm without murmurs, gallops, or rubs. RESPIRATORY: Clear to auscultation. Breath sounds equal bilaterally. No wheezes , rales, or rhonchi. GASTROINTESTINAL: Abdomen soft, non-tender, nondistended. Normal, active bowel sounds MUSCULOSKELETAL: Extremities without clubbing, cyanosis, or edema. NEURO: Alert & Oriented x4 to person, place, time, situation. Moves all ext x4 Hospital Course patient was admitted with right ureteral stone and hydronephrosis. urology was consulted and he underwent Cystoscopy, right retrograde pyelogram and right ureteral stent placement. he had stress test for his chest pain which showed stress-induced ischemia in anterior-inferior myocardium. cardiology was consulted and recommended medical treatment. Pt Condition on Discharge: Fair Discharge Disposition: Discharge Home Discharge Time: <= 30 minutes Discharge Instructions DIET: Follow Instructions for: Heart Healthy Diet Activities you can perform: Regular-No Restrictions Follow up Referrals: Cardiology PCP Follow-up Urology New Medications: Aspirin DR (Aspirin EC) 81 Mg Tabdr 81 MG PO DAILY for cad for 30 Days, #30 TAB 0 Refills Atorvastatin (Lipitor) 10 Mg Tab 10 MG PO HS for Cholesterol Management, #30 TAB 0 Refills Continued Medications: Fluoxetine (Fluoxetine) 40 Mg Cap 40 CAP PO DAILY, #30 CAP 0 Refills Gabapentin (Gabapentin) 300 Mg Cap 300 MG PO HS, #30 CAP 0 Refills Olanzapine (Olanzapine) 10 Mg Tab 10 MG PO HS, #30 TAB 0 Refills Trazodone (Trazodone) 150 Mg Tablet 150 MG PO HS for Control Depression, #30 TAB 0 Refills Herson Osman MD Aug 28, 2017 09:08
[2017-08-28] MEDS ORDERED: ASPI81TA23 PO (09:48)
[2017-08-28 11:01] LABS: HDL CHOLESTEROL 56.6 MG/DL (40.0-60.0)
[2017-08-28] MEDS ORDERED: LIPI10TA PO (11:36)
== END 2017-08-28 13:50 | disposition home or self-care (01) | DRG 694 ==
LOC: PHED 17:38 → PHEDA 21:04 → N04B 23:26 → OBSVTOIN 08-27 12:42
PROVIDERS: ADMIT Internal Medicine; ATTEND Internal Medicine
PROC: BT1D1ZZ Fluoroscopy of Right Kidney, Ureter and Bladder using Low Osmolar Contrast (ICD-10-PCS; 2017-08-27)
PROC: 0T768DZ Dilation of Right Ureter with Intraluminal Device, Via Natural or Artificial Opening Endoscopic (ICD-10-PCS; principal; 2017-08-27 11:41)
DX: N13.2 Hydronephrosis with renal and ureteral calculous obstruction (principal); E11.42 Type 2 diabetes mellitus with diabetic polyneuropathy; I10 Essential (primary) hypertension; R07.89 Other chest pain; F41.9 Anxiety disorder, unspecified; F32.9 Major depressive disorder, single episode, unspecified; Z91.14 Patient's other noncompliance with medication regimen
CPT/HCPCS: 71010; 74177; 78452; 80048; 80053; 80061; 80307; 81001; 82550; 82552; 82948; 83690; 83735; 83880; 84484; 85025; 85610; 85730; 87086; 93005; 93017; A9502; J0696; J1815; J2270; J2370; J2405; J2785; J7120; Q9967

== ENCOUNTER 2017-09-12 08:26 | Emergency (ER) | payer OTHER ==
[~2017-09-12] VITALS: Ht 188 cm; Wt 87.0 kg
[~2017-09-12 08:26] MED LIST changes: -ARIP1TAB11 PO; +ASPI81TA23 PO; +BLOOD GLUCOSE M1 KIT; +BLOOD GLUCOSE T1 TES; +BREX1TAB3 PO; +DOXE10CA PO; -FAMO20TA2 PO; +FLUO40CA PO; +GABA300C5 PO; +INSU-91; +LANCETS1 MI1; +LANTUS2P SQ; +LIPI10TA PO; +LISI-515 PO; +METF1000 PO; -METF500 PO; -NEUR300C PO; -SINE10100 PO; -ZOLO50TA PO
[2017-09-12 08:38] VITALS: TEMP 97.8
[2017-09-12 08:42] VITALS: BP 118/74; PULSE 57; RESP 17; TEMP 97.8; O2SAT 97
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
--- NOTE | 2017-09-12 08:51 | RADRPT ---
EXAM DATE/TIME: 09/12/2017 08:40 [facility] COMPARISON: CHEST SINGLE AP, August 24, 2017, 18:54. INDICATIONS : Chest pain MEDICAL HISTORY : Hypertension. Diabetes mellitus type 2. SURGICAL HISTORY : None. ENCOUNTER: Initial ACUITY: 1 day PAIN SCORE: 4/10 LOCATION: Bilateral chest FINDINGS: A single view of the chest demonstrates the lungs to be symmetrically aerated without evidence of mas s, infiltrate or effusion. The cardiomediastinal contours are unremarkable. Osseous structures are intact. CONCLUSION: No acute disease. Romulo Gerard MD on September 12, 2017 at 8:49 Board Certified Radiologist. This report was verified electronically.
[2017-09-12 09:04] LABS: AUTOMATED NEUTROPHIL # 3.9 TH/MM3 (1.8-7.7); BASOPHIL % 0.4 % (0.0-2.0); EOSINOPHIL # 0.1 TH/MM3 (0-0.4); HEMATOCRIT 34.5 % (39.0-51.0); HEMOGLOBIN 11.7 GM/DL (13.0-17.0); LYMPH % 35.4 % (9.0-44.0); LYMPHOCYTE # 2.6 TH/MM3 (1.0-4.8); MEAN CELL VOLUME 91.9 FL (80.0-100.0); MEAN CORPUSCULAR HEMOGLOBIN 31.2 PG (27.0-34.0); MONO % 9.4 % (0.0-8.0); MONOCYTE # 0.7 TH/MM3 (0-0.9); NEUT % 53.8 % (16.0-70.0); PLATELET COUNT 215 TH/MM3 (150-450); RED BLOOD COUNT 3.75 MIL/MM3 (4.50-5.90); RED CELL DISTRIBUTION WIDTH 13.5 % (11.6-17.2); WHITE BLOOD COUNT 7.3 TH/MM3 (4.0-11.0)
[2017-09-12 09:12] LABS: INTERNATIONAL NORMALIZED RATIO 1.1 RATIO; PROTHROMBIN TIME - PATIENT 10.7 SEC (9.8-11.6)
[2017-09-12 09:46] LABS: ALBUMIN 2.8 GM/DL (3.4-5.0); ALKALINE PHOSPHATASE 52 U/L (45-117); ALT (GPT) 15 U/L (12-78); AST (GOT) 13 U/L (15-37); BLOOD UREA NITROGEN 17 MG/DL (7-18); CALCIUM 6.9 MG/DL (8.5-10.1); CHLORIDE 111 MEQ/L (98-107); CREATININE 0.85 MG/DL (0.60-1.30); GLOMERULAR FILTRATION RATE 110 ML/MIN (>89); GLUCOSE,RANDOM 118 MG/DL (74-106); LIPASE 216 U/L (73-393); SODIUM (NA) 143 MEQ/L (136-145); TOTAL BILIRUBIN ADULT 0.3 MG/DL (0.2-1.0); TOTAL PROTEIN 6.2 GM/DL (6.4-8.2); TROPONIN I LESS THAN 0.02 NG/ML (0.02-0.05)
[2017-09-12 09:50] LABS: CALCIUM-PROTEIN CORRECTED 7.4 MG/DL (8.5-10.1)
[2017-09-12] MEDS ORDERED: CALCIUM GLUCONATE 10% 1 GM/10 ML VIAL IV PUSH ONE (10:45)
[2017-09-12] MEDS ORDERED: POTASSIUM CHLORIDE 20 MEQ CONTROLLED RELEASE TAB PO ONE (10:45)
[2017-09-12 11:04] VITALS: BP 125/80; PULSE 55; RESP 16; O2SAT 98
[2017-09-12 12:24] VITALS: BP 128/80
--- NOTE | 2017-09-12 14:07 | EKG ---
Date Performed: 09/12/2017 Time Performed: 08:40:01 PTAGE: 62 years EKG: SINUS BRADYCARDIA WITH SINUS ARRHYTHMIA BORDERLINE ECG Since PREVIOUS TRACING , no significant change noted PREVIOUS TRACIN08/25/2017 05.46 DOCTOR: Ru Naidu Interpretating Date/Time 09/12/2017 14:07:05
[2017-09-17] MEDS ORDERED: GABA600T PO (14:22)
[2017-09-17] MEDS ORDERED: TRIA40P I-ARTICULR (16:16)
[2017-09-21] MEDS ORDERED: LIPI10TA PO (12:27)
[2017-09-21] MEDS ORDERED: ASPI81TA23 PO (12:27)
== END 2017-09-12 12:35 | disposition home or self-care (01) ==
LOC: NEPE 08:26
DX: R07.89 Other chest pain (principal); E87.6 Hypokalemia; E83.51 Hypocalcemia; R00.1 Bradycardia, unspecified; I49.9 Cardiac arrhythmia, unspecified; I10 Essential (primary) hypertension; E11.9 Type 2 diabetes mellitus without complications; F32.9 Major depressive disorder, single episode, unspecified; F41.9 Anxiety disorder, unspecified
CPT/HCPCS: 71045; 80053; 82550; 82552; 83690; 84484; 85025; 85610; 85730; 93005; 96374; 99285; J0610

== ENCOUNTER → 2017-09-13 | Outpatient (CLI) | payer OTHER ==
[~2017-09-13] MED LIST changes: +GABA600T PO; +TRIA40P I-ARTICULR
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
== END ==
LOC: HRAD 14:07
PROVIDERS: ATTEND Family Medicine
DX: M25.511 Pain in right shoulder (principal)
CPT/HCPCS: 73030

== ENCOUNTER → 2017-10-20 | Day surgery (SDC) | payer OTHER ==
[~2017-10-20] VITALS: Ht 188 cm; Wt 95.7 kg
[~2017-10-20] MED LIST changes: -BREX1TAB3 PO; +BREX1TAB4 PO; +CHLORHEXIDINE GLUCONATE 2 % 1 PACK (2 CLOTHS) TOPICAL PRN; +DO NOT ADM ANY ANTICOAGULANT DRUGS PRN; -DOXE10CA PO; -GABA600T PO; +INSULIN HUMAN REGULAR 1,000 UNITS/10 ML VIAL ONE; +LACTATED RINGER'S 1000 ML IV PRN; +METOPROLOL TARTRATE 25 MG TAB PO PRN; +MIDAZOLAM HCL 2 MG/2 ML VIAL ONE; +ONDANSETRON HCL 4 MG/2 ML VIAL IV PUSH PRN; +PERC5TAB12 PO; +POVIDONE IODINE 5% (ANTISEPSIS KIT) 4 APPLICATIONS EACH NARE PRN; +SODIUM CHLORID 0.9% 500 ML IV PRN; +TRAZ50TA12 PO; -TRIA40P I-ARTICULR; +oxyCODONE/ACETAMINOPHEN 5 MG/325 MG TAB PO PRN
--- NOTE | 2017-10-20 07:45 | RADRPT ---
EXAM DATE/TIME: 10/20/2017 07:19 [facility] COMPARISON: CT ABDOMEN & PELVIS W CONTRAST, August 24, 2017, 19:30. INDICATIONS : Stones MEDICAL HISTORY : Stones SURGICAL HISTORY : Right side stent ENCOUNTER: Initial ACUITY: 1 day PAIN SCORE: 0/10 LOCATION: Abdomen FINDINGS: Interval placement of right double-J ureteral stents. There is a 1.7 cm proximal right ureteral calcu samira similar to prior CT exam. A 7 mm calyceal calcification in the inferior right renal pole is not w ell-demonstrated. No additional new calcifications are noted along the course of the kidneys and uret ers. There is a nonobstructive bowel gas pattern. Mild degenerative spondylosis of the lower lumbar s pine. CONCLUSION: 1. Right double-J ureteral stent with stable 1.7 cm proximal right ureteral calculus. 2. 7 mm calyceal calculus in the inferior pole of the right kidney is not well-demonstrated. 3. No additional new radiopaque renal calculi. Kendall Olivo MD on October 20, 2017 at 7:38 Board Certified Radiologist. This report was verified electronically.
[2017-10-20 08:10] LABS: AUTOMATED NEUTROPHIL # 2.8 TH/MM3 (1.8-7.7); BASOPHIL % 0.2 % (0.0-2.0); EOSINOPHIL % 0.6 % (0.0-4.0); HEMATOCRIT 34.2 % (39.0-51.0); HEMOGLOBIN 11.7 GM/DL (13.0-17.0); LYMPH % 38.8 % (9.0-44.0); LYMPHOCYTE # 2.3 TH/MM3 (1.0-4.8); MEAN CELL VOLUME 90.4 FL (80.0-100.0); MEAN CORPUSCULAR HGB CONC 34.3 % (32.0-36.0); MEAN PLATELET VOLUME 7.8 FL (7.0-11.0); MONO % 12.6 % (0.0-8.0); MONOCYTE # 0.7 TH/MM3 (0-0.9); NEUT % 47.8 % (16.0-70.0); PLATELET COUNT 226 TH/MM3 (150-450); RED BLOOD COUNT 3.78 MIL/MM3 (4.50-5.90); RED CELL DISTRIBUTION WIDTH 13.5 % (11.6-17.2); WHITE BLOOD COUNT 5.8 TH/MM3 (4.0-11.0)
--- NOTE | 2017-10-20 10:19 | PD.OP ---
Operative Report Date of Surgery: Oct 20, 2017 Preoperative Diagnosis: (1) Ureteral calculus, right Postoperative Diagnosis: (1) Ureteral calculus, right Procedure: Extracorporeal shockwave lithotripsy of right mid ureteral calculus Anesthesia: General Surgeon: Gopal Laboy Bobcat Driver/Labor(s): None Operation and Findings: Indication for procedure: Case of a pleasant 62-year-old gentleman with a history of a 12 mm obstructing right midureteral calculus status post right stent placement in August 2018. Patient presents today to undergo extracorporeal shockwave lithotripsy of this calculus. Operative procedure in detail: Patient was brought to the operating room suite and placed supine on the lithotripsy table. He was then placed under general anesthesia. After an appropriate timeout was undertaken I proceeded with localizing the patient's right mid ureteral calculus with fluoroscopy. He subsequently received extracorporeal shockwave lithotripsy utilizing the Dornier mobile lithotripsy device. The patient received a total of 3000 shocks with a maximum power level setting of 6. At the conclusion of the procedure the stone was significantly spread out and elongated consistent with fragmentation. He tolerated the procedure without complications and was transferred to the PACU in satisfactory condition. Gopal Laboy MD Oct 20, 2017 10:19
[2017-10-20 11:55] VITALS: BP 128/71; PULSE 59; RESP 16; TEMP 97.5; O2SAT 99
== END | disposition home or self-care (01) ==
LOC: HSDC 07:01
PROVIDERS: ATTEND Urology
DX: N20.1 Calculus of ureter (principal); I10 Essential (primary) hypertension; E11.9 Type 2 diabetes mellitus without complications; Z79.84 Long term (current) use of oral hypoglycemic drugs
CPT/HCPCS: 00873; 50590; 74018; 82948; 85025; J1815; J2250; J7120

== ENCOUNTER 2017-11-11 12:43 | Emergency (ER) | payer OTHER ==
[~2017-11-11 12:43] MED LIST changes: -CHLORHEXIDINE GLUCONATE 2 % 1 PACK (2 CLOTHS) TOPICAL PRN; -DO NOT ADM ANY ANTICOAGULANT DRUGS PRN; -INSULIN HUMAN REGULAR 1,000 UNITS/10 ML VIAL ONE; -LACTATED RINGER'S 1000 ML IV PRN; -METOPROLOL TARTRATE 25 MG TAB PO PRN; -MIDAZOLAM HCL 2 MG/2 ML VIAL ONE; -ONDANSETRON HCL 4 MG/2 ML VIAL IV PUSH PRN; -POVIDONE IODINE 5% (ANTISEPSIS KIT) 4 APPLICATIONS EACH NARE PRN; -SODIUM CHLORID 0.9% 500 ML IV PRN; -oxyCODONE/ACETAMINOPHEN 5 MG/325 MG TAB PO PRN
[2017-11-11 13:18] VITALS: BP 179/73; PULSE 72; RESP 16; O2SAT 100
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
[2017-11-11 15:39] LABS: AUTOMATED NEUTROPHIL # 3.8 TH/MM3 (1.8-7.7); BASOPHIL % 0.3 % (0.0-2.0); EOSINOPHIL % 0.1 % (0.0-4.0); HEMATOCRIT 35.9 % (39.0-51.0); HEMOGLOBIN 12.3 GM/DL (13.0-17.0); MEAN CELL VOLUME 91.6 FL (80.0-100.0); MEAN CORPUSCULAR HEMOGLOBIN 31.3 PG (27.0-34.0); MEAN CORPUSCULAR HGB CONC 34.2 % (32.0-36.0); MEAN PLATELET VOLUME 7.9 FL (7.0-11.0); MONO % 9.6 % (0.0-8.0); MONOCYTE # 0.6 TH/MM3 (0-0.9); PLATELET COUNT 270 TH/MM3 (150-450); RED BLOOD COUNT 3.93 MIL/MM3 (4.50-5.90); RED CELL DISTRIBUTION WIDTH 13.7 % (11.6-17.2); WHITE BLOOD COUNT 6.5 TH/MM3 (4.0-11.0)
[2017-11-11 15:50] LABS: ALBUMIN 3.8 GM/DL (3.4-5.0); ALT (GPT) 27 U/L (12-78); AST (GOT) 24 U/L (15-37); BICARBONATE 29.4 MEQ/L (21.0-32.0); BLOOD UREA NITROGEN 18 MG/DL (7-18); CALCIUM 8.6 MG/DL (8.5-10.1); CHLORIDE 101 MEQ/L (98-107); CREATININE 1.42 MG/DL (0.60-1.30); GLOMERULAR FILTRATION RATE 61 ML/MIN (>89); GLUCOSE,RANDOM 293 MG/DL (74-106); SODIUM (NA) 137 MEQ/L (136-145)
[2017-11-11 15:52] LABS: ALKALINE PHOSPHATASE 78 U/L (45-117); TOTAL BILIRUBIN ADULT 0.5 MG/DL (0.2-1.0); TOTAL PROTEIN 8.6 GM/DL (6.4-8.2)
[2017-11-11] MEDS ORDERED: INSULIN HUMAN REGULAR 1,000 UNITS/10 ML VIAL SQ ONE (16:00)
== END 2017-11-11 17:03 | disposition home or self-care (01) ==
LOC: NEPD 12:43
DX: E11.65 Type 2 diabetes mellitus with hyperglycemia (principal); F03.90 Unspecified dementia, unspecified severity, without behavioral disturbance, psychotic disturbance, mood disturbance, and anxiety; F41.9 Anxiety disorder, unspecified; F31.9 Bipolar disorder, unspecified; I10 Essential (primary) hypertension; G62.9 Polyneuropathy, unspecified; Z91.19 Patient's noncompliance with other medical treatment and regimen
CPT/HCPCS: 80053; 85025; 96372; 99283; J1815

== ENCOUNTER → 2017-11-16 | Outpatient (CLI) | payer OTHER ==
--- NOTE | 2017-11-16 10:47 | RADRPT ---
EXAM DATE/TIME: 11/16/2017 09:52 [facility] COMPARISON: ABDOMEN KUB ONLY, October 20, 2017, 7:19. INDICATIONS : Right renal calculi. MEDICAL HISTORY : Renal calculi. SURGICAL HISTORY : Right ureteral stent. ENCOUNTER: Subsequent ACUITY: 1 month PAIN SCORE: 3/10 LOCATION: Right abdomen FINDINGS: There is a 2.0 cm stone within the right proximal ureter adjacent to the internal ureteral stent. A 0 .6 cm stone is also within the right lower pole of the right kidney. Degenerative changes and scolios is of the thoracolumbar spine are noted. No bowel obstruction or ileus is noted. CONCLUSION: 1. 2.0 cm stone within the right proximal ureter adjacent to the internal ureteral stent and 0.6 cm s tone within the lower pole of the right kidney. 2. Degenerative changes and scoliosis of the thoracolumbar spine. Romulo Gerard MD on November 16, 2017 at 10:43 Board Certified Radiologist. This report was verified electronically.
== END ==
LOC: HRAD 09:31
PROVIDERS: ATTEND Urology
DX: N20.0 Calculus of kidney (principal)
CPT/HCPCS: 74018

== ENCOUNTER → 2017-12-22 | Day surgery (SDC) | payer OTHER ==
[~2017-12-22] VITALS: Ht 188 cm; Wt 94.2 kg
[~2017-12-22] MED LIST changes: +CHLORHEXIDINE GLUCONATE 2 % 1 PACK (2 CLOTHS) TOPICAL PRN; +LACTATED RINGER'S 1000 ML IV PRN; +LIDOCAINE HCL 1% PF 5 ML SYRINGE OTHER ONE; +METOPROLOL TARTRATE 25 MG TAB PO PRN; -PERC5TAB12 PO; +POVIDONE IODINE 5% (ANTISEPSIS KIT) 4 APPLICATIONS EACH NARE PRN; +PROPOFOL 200 MG/20 ML AMP IV ONE; +SODIUM CHLORID 0.9% 500 ML IV PRN; +ceFAZolin 1,000 MG/NS 100 ML IV SCH
--- NOTE | 2017-12-22 06:46 | RADRPT ---
EXAM DATE/TIME: 12/22/2017 06:22 [facility] COMPARISON: ABDOMEN KUB ONLY, November 16, 2017, 9:52. INDICATIONS : Pre op for lithotripsy. MEDICAL HISTORY : Renal calculi. SURGICAL HISTORY : Right ureteral stent. ENCOUNTER: Initial ACUITY: 1 day PAIN SCORE: 5/10 LOCATION: Right abdomen FINDINGS: Stone in the proximal right ureter at the level of L3 again noted and estimated at approximately 7 x 15 mm in size. A right ureteral stent is present and appears appropriately positioned. There is an ap proximately 8mm irregular marginated stone of the right lower pole. No perceptible stones on the left. Nonobstructive bowel gas pattern. CONCLUSION: 1. 7 x 15 mm stone in the proximal right ureter. 2. 8 mm stone of the right lower pole. 3. Right ureteral stent present. 4. No perceptible stone on the left. Esteban Briceno MD on December 22, 2017 at 6:43 Board Certified Radiologist. This report was verified electronically.
[2017-12-22 07:08] LABS: AUTOMATED NEUTROPHIL # 2.5 TH/MM3 (1.8-7.7); BASOPHIL # 0.1 TH/MM3 (0-0.2); EOSINOPHIL # 0.1 TH/MM3 (0-0.4); EOSINOPHIL % 2.4 % (0.0-4.0); HEMATOCRIT 32.7 % (39.0-51.0); HEMOGLOBIN 11.4 GM/DL (13.0-17.0); LYMPH % 38.7 % (9.0-44.0); LYMPHOCYTE # 2.1 TH/MM3 (1.0-4.8); MEAN CELL VOLUME 90.4 FL (80.0-100.0); MEAN CORPUSCULAR HEMOGLOBIN 31.5 PG (27.0-34.0); MEAN CORPUSCULAR HGB CONC 34.8 % (32.0-36.0); MEAN PLATELET VOLUME 8.7 FL (7.0-11.0); MONO % 11.2 % (0.0-8.0); MONOCYTE # 0.6 TH/MM3 (0-0.9); NEUT % 46.7 % (16.0-70.0); PLATELET COUNT 227 TH/MM3 (150-450); RED BLOOD COUNT 3.61 MIL/MM3 (4.50-5.90); RED CELL DISTRIBUTION WIDTH 14.2 % (11.6-17.2); WHITE BLOOD COUNT 5.4 TH/MM3 (4.0-11.0)
--- NOTE | 2017-12-22 08:34 | PD.OP ---
Operative Report Date of Surgery: Dec 22, 2017 Preoperative Diagnosis: 1 cm right ureteral calculus Postoperative Diagnosis: Same Procedure: Right extracorporeal shockwave lithotripsy Anesthesia: MAC Surgeon: Salomon Arreguin Genetics Nurse(s): None Resident Surgeon: None Operation and Findings: 62-year-old male presents with a history of a 1 cm right ureteral calculus. Patient underwent cystoscopy/right double-J stent insertion followed by right extracorporeal shockwave lithotripsy in the past. The stone did not completely fragment on the first treatment and has here today to undergo repeat right extracorporeal shockwave lithotripsy. Risk and benefits were discussed preoperatively and the patient was willing to proceed. Patient was brought to the operating room and identified by myself is Jose Luis Manley. He was placed on the operating table in supine position, received preprocedure antibiotics and MAC anesthesia was administered. Under fluoroscopic imaging guidance the stone was visualized in the proximal right ureter along the stent. ESWL wall therapy then commenced with the patient receiving a total of 3000 shocks with good fragmentation of the stone visualized on fluoroscopic imaging. He tolerated the procedure well and was awoken and transferred recovery in stable condition. He will follow-up in the office in 2 weeks and obtain a KUB x-ray prior to determine if his stone burden has resolved. Salomon Arreguin DO Dec 22, 2017 08:33
[2017-12-22 09:00] VITALS: BP 120/73; PULSE 50; RESP 20; TEMP 98; O2SAT 100
== END | disposition home or self-care (01) ==
LOC: HSDC 05:25
PROVIDERS: ATTEND Urology
DX: N20.1 Calculus of ureter (principal)
CPT/HCPCS: 00873; 50590; 74018; 85025; J0690; J7120

== ENCOUNTER → 2018-01-04 | Outpatient (CLI) | payer OTHER ==
[~2018-01-04] MED LIST changes: -CHLORHEXIDINE GLUCONATE 2 % 1 PACK (2 CLOTHS) TOPICAL PRN; -LACTATED RINGER'S 1000 ML IV PRN; -LIDOCAINE HCL 1% PF 5 ML SYRINGE OTHER ONE; -METOPROLOL TARTRATE 25 MG TAB PO PRN; -POVIDONE IODINE 5% (ANTISEPSIS KIT) 4 APPLICATIONS EACH NARE PRN; -PROPOFOL 200 MG/20 ML AMP IV ONE; -SODIUM CHLORID 0.9% 500 ML IV PRN; -ceFAZolin 1,000 MG/NS 100 ML IV SCH
--- NOTE | 2018-01-04 08:43 | RADRPT ---
EXAM DATE/TIME: 01/04/2018 08:29 [facility] COMPARISON: ABDOMEN KUB ONLY, December 22, 2017, 6:22. INDICATIONS : Post op ESWL. Evaluate right side renal calculi. MEDICAL HISTORY : Renal calculi. SURGICAL HISTORY : Right ureteral stent. ENCOUNTER: Initial ACUITY: 1 day PAIN SCORE: 6/10 LOCATION: Right Abdomen FINDINGS: Supine view of the abdomen was performed. There is a right ureteral stent in place. There is a 1.8 c m stone seen at the proximal right ureter adjacent to the stent. There is a calcification seen over t he inferior right collecting system. The abdominal bowel gas pattern is normal. No abnormal masses o r organomegaly is seen. There is degenerative change in the lumbar spine. CONCLUSION: Right ureteral stent with a 1.8 cm calcification at the proximal right ureter adjacent to the stent a nd stones seen over the inferior right collecting system. Esteban Lazaro MD on January 04, 2018 at 8:40 Board Certified Radiologist. This report was verified electronically.
== END ==
LOC: HRAD 08:12
PROVIDERS: ATTEND Urology
DX: N20.0 Calculus of kidney (principal)
CPT/HCPCS: 74018

== ENCOUNTER → 2018-01-21 | Outpatient (CLI) | DX: N20.0 Calculus of kidney (principal) ==

== ENCOUNTER 2018-02-23 12:57 | Observation (INO) | payer OTHER ==
[~2018-02-23] VITALS: Ht 188 cm; Wt 97.0 kg
[2018-02-23] VITALS (9 sets, daily range): BP systolic 109–133; BP diastolic 66–85; PULSE 51–68; RESP 16–18; TEMP 97.9–98.8; O2SAT 95–100
[~2018-02-23 12:57] MED LIST changes: -ASPI81TA23 PO; -BLOOD GLUCOSE M1 KIT; -BLOOD GLUCOSE T1 TES; -INSU-91; -LANCETS1 MI1
[2018-02-23] MEDS ORDERED: IOHEXOL 350 MG/ML 10 ML VIAL (for RAD DIAG) IVCONTRAST ONE (12:58)
[2018-02-23] MEDS ORDERED: SODIUM CHLORIDE 0.9% FLUSH 10 ML FLUSH IVF PRN (13:30)
[2018-02-23] MEDS ORDERED: ASPIRIN 325 MG TAB PO ONE (13:30)
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
[2018-02-23 13:52] LABS: AUTOMATED NEUTROPHIL # 4.9 TH/MM3 (1.8-7.7); BASOPHIL % 0.2 % (0.0-2.0); EOSINOPHIL # 0.1 TH/MM3 (0-0.4); HEMATOCRIT 34.7 % (39.0-51.0); HEMOGLOBIN 11.5 GM/DL (13.0-17.0); LYMPHOCYTE # 2.2 TH/MM3 (1.0-4.8); MEAN CELL VOLUME 93.2 FL (80.0-100.0); MEAN CORPUSCULAR HEMOGLOBIN 30.9 PG (27.0-34.0); MEAN CORPUSCULAR HGB CONC 33.1 % (32.0-36.0); MEAN PLATELET VOLUME 8.2 FL (7.0-11.0); MONO % 7.5 % (0.0-8.0); MONOCYTE # 0.6 TH/MM3 (0-0.9); NEUT % 63.3 % (16.0-70.0); PLATELET COUNT 185 TH/MM3 (150-450); RED BLOOD COUNT 3.72 MIL/MM3 (4.50-5.90); RED CELL DISTRIBUTION WIDTH 12.9 % (11.6-17.2); WHITE BLOOD COUNT 7.7 TH/MM3 (4.0-11.0)
[2018-02-23 14:04] LABS: INTERNATIONAL NORMALIZED RATIO 1.1 RATIO; PROTHROMBIN TIME - PATIENT 10.9 SEC (9.8-11.6)
[2018-02-23 14:05] LABS: D-DIMER 0.73 MG/L FEU (0.00-0.50)
[2018-02-23 14:06] LABS: ALBUMIN 3.3 GM/DL (3.4-5.0); ALT (GPT) 17 U/L (12-78); AST (GOT) 18 U/L (15-37); BICARBONATE 25.4 MEQ/L (21.0-32.0); BLOOD UREA NITROGEN 15 MG/DL (7-18); CALCIUM 7.9 MG/DL (8.5-10.1); CHLORIDE 106 MEQ/L (98-107); CREATININE 1.27 MG/DL (0.60-1.30); GLOMERULAR FILTRATION RATE 69 ML/MIN (>89); GLUCOSE,RANDOM 171 MG/DL (74-106); MAGNESIUM 1.3 MG/DL (1.5-2.5); SODIUM (NA) 142 MEQ/L (136-145)
[2018-02-23 14:10] LABS: ALKALINE PHOSPHATASE 57 U/L (45-117); TOTAL BILIRUBIN ADULT 0.2 MG/DL (0.2-1.0); TROPONIN I LESS THAN 0.02 NG/ML (0.02-0.05)
[2018-02-23] MEDS ORDERED: SODIUM CHLOR 0.9% 250 ML INJ 250 ML IV ONE (14:15)
--- NOTE | 2018-02-23 14:16 | RADRPT ---
EXAM DATE: 02/23/2018 2:01 PM EDT AGE/SEX: 62 years / Male INDICATIONS: Chest pain today. CLINICAL DATA: This is the patient's initial encounter. Patient reports that signs and symptoms have been present for 1 day and indicates a pain score of 6/10. MEDICAL/SURGICAL HISTORY: Hypertension. Diabetes. Appendectomy. COMPARISON: [facility] [place], CHEST SINGLE AP, 09/12/2017. . FINDINGS: A single AP view of the chest demonstrates the lungs to be symmetrically aerated without evidence of mass, infiltrate or effusion. The cardiomediastinal contours are unremarkable. Osseous structures a re intact. CONCLUSION: No acute cardiopulmonary process. Electronically signed by: Esteban Lazaro MD 02/23/2018 2:14 PM EDT
[2018-02-23] MEDS ORDERED: GABA400C5 PO (14:19)
[2018-02-23] MEDS ORDERED: ASPI-516 CHEW (14:19)
[2018-02-23] MEDS ORDERED: BENZ0.5T PO (14:19)
[2018-02-23] MEDS ORDERED: MAGNESIUM SULFATE 1 GM PREMIX 100 ML IV ONE ×2 (14:30)
[2018-02-23] MEDS ORDERED: MORPHINE SULFATE 2 MG/ML SYRINGE IV PUSH ONE ×2 (14:30→15:30)
[2018-02-23] MEDS ORDERED: MORPHINE SULFATE 4 MG/ML INJ IV PUSH ONE ×2 (14:45→15:30)
--- NOTE | 2018-02-23 15:25 | ECHRPT ---
Indication: chest pain CONCLUSIONS The left ventricular systolic function is hyperdynamic with an estimated ejection fraction in the ra nge of 65- 70%. Normal left ventricular size. Wall thickness is measured at the upper limits of normal. No regional wall motion abnormalities are present. Trace mitral valve regurgitation. Aortic valve sclerosis is present. There is trace tricuspid valve regurgitation. The estimated pulmonary arterial pressure is 27 mmHg. BP: / HR: Rhythm: Sinus MEASUREMENTS (Male / Female) Normal Values Technical Quality:Fair 2D ECHO LV Diastolic Diameter PLAX 4.6 cm 4.2 - 5.9 / 3.9 - 5.3 cm LV Systolic Diameter PLAX 3.1 cm IVS Diastolic Thickness 1.2 cm 0.6 - 1.0 / 0.6 - 0.9 cm LVPW Diastolic Thickness 1.2 cm 0.6 - 1.0 / 0.6 - 0.9 cm LV Relative Wall Thickness 0.5 RV Internal Dim ED PLAX 2.8 cm LVOT Diameter 2.0 cm M-MODE Aortic Root Diameter MM 1.9 cm LA Systolic Diameter MM 3.3 cm LA Ao Ratio MM 1.7 AV Cusp Separation MM 2.0 cm DOPPLER AV Peak Velocity 160.0 cm/s AV Peak Gradient 10.2 mmHg AV Mean Gradient 5.0 mmHg AV Velocity Time Integral 34.1 cm LVOT Peak Velocity 81.2 cm/s LVOT Peak Gradient 2.6 mmHg LVOT Velocity Time Integral 18.3 cm AV Area Cont Eq vti 1.7 cm AV Area Cont Eq pk 1.6 cm MV Area PHT 3.4 cm Mitral E Point Velocity 67.1 cm/s Mitral A Point Velocity 72.6 cm/s Mitral E to A Ratio 0.9 LV E' Lateral Velocity 9.3 cm/s Mitral E to LV E' Lateral Ratio 7.2 LV E' Septal Velocity 5.3 cm/s Mitral E to LV E' Septal Ratio 12.5 TR Peak Velocity 204.0 cm/s TR Peak Gradient 16.6 mmHg Right Atrial Pressure 10.0 mmHg Pulmonary Artery Systolic Pressu 26.6 mmHg Right Ventricular Systolic Press 26.6 mmHg PV Peak Velocity 90.9 cm/s PV Peak Gradient 3.3 mmHg FINDINGS LEFT VENTRICLE The left ventricular systolic function is hyperdynamic with an estimated ejection fraction in the ra nge of 65- 70%. Normal left ventricular size. Wall thickness is measured at the upper limits of normal. No regional wall motion abnormalities are present. RIGHT VENTRICLE Normal right ventricular size and systolic function. LEFT ATRIUM The left atrial size is normal. RIGHT ATRIUM The right atrial size is normal. ATRIAL SEPTUM Normal atrial septal thickness without atrial level shunting by limited color doppler interrogation. AORTA The aortic root and proximal ascending aorta are normal in size on limited imaging. MITRAL VALVE Structurally normal mitral valve. Trace mitral valve regurgitation. AORTIC VALVE Trileaflet aortic valve. Aortic valve sclerosis is present. TRICUSPID VALVE Structurally normal tricuspid valve. There is trace tricuspid valve regurgitation. The estimated pulmonary arterial pressure is 26.6 mmHg. PULMONARY VALVE No pulmonary valve regurgitation or stenosis. VESSELS The inferior vena cava was not well visualized. PERICARDIUM No pericardial effusion. Alissa Caraballo MD, FACC (Electronically Signed) Final Date:23 February 2018 15:24
--- NOTE | 2018-02-23 15:42 | RADRPT ---
EXAM DATE: 02/23/2018 3:25 PM EDT AGE/SEX: 62 years / Male INDICATIONS: RIGHT SIDE CHEST PAIN CLINICAL DATA: This is the patient's initial encounter. Patient reports that signs and symptoms have been present for 1 day and indicates a pain score of 5/10. MEDICAL/SURGICAL HISTORY: Hypertension. Diabetes. Appendectomy. RADIATION DOSE: 23.58 CTDI (mGy) [place] [facility] [place]AST[place]/23/2018. . TECHNIQUE: Volumetric scanning was performed using a multi-row detector CT scanner during bolus infu michelle of 70 ml Omnipaque 350 (iohexol) nonionic water-soluble contrast as a single exam dose. The marshall a was post processed with a variety of visualization algorithms including full volume maximum intensi ty projection and sliding thin slab reformation. Using automated exposure control and adjustment of the mA and/or kV according to patient size, radiation dose was kept as low as reasonably achievable t o obtain optimal diagnostic quality images. DICOM format image data is available electronically for review and comparison. FINDINGS: The examination is of good diagnostic quality. No pulmonary embolus is identified. The heart is normal in size. There is no significant hilar or mediastinal adenopathy evident. No axil ben adenopathy is identified. The pulmonary parenchyma is clear. There are mild degenerative changes throughout the thoracic spine. The limited portions of upper abdomen visualized demonstrate hydronephrotic changes within the right kidney only the upper pole the right kidney is visualized. CONCLUSION: 1. No pulmonary embolus identified. 2. Mild hydronephrotic changes of the right kidney. Electronically signed by: Akbar Yin MD 02/23/2018 3:41 PM EDT
--- NOTE | 2018-02-23 15:50 | RADRPT ---
EXAM DATE: 02/23/2018 3:14 PM EDT AGE/SEX: 62 years / Male INDICATIONS: HISTORY OF STONES CLINICAL DATA: This is the patient's initial encounter. Patient reports that signs and symptoms have been present for 1 day and indicates a pain score of 5/10. MEDICAL/SURGICAL HISTORY: Hypertension. Diabetes. Appendectomy. RADIATION DOSE: 12.48 CTDI (mGy) COMPARISON: No prior exams available for comparison. TECHNIQUE: Multiple contiguous axial images were obtained through the abdomen. Images were obtained using multiple row detector helical technique. Using automated exposure control and adjustment of the mA and/or kV according to patient size, radiation dose was kept as low as reasonably achievable to o btain optimal diagnostic quality images. DICOM format image data is available electronically for rev iew and comparison. FINDINGS: The examination demonstrates COPD changes through the lung bases. The appearance of the liver, spleen, pancreas and adrenal glands is within normal limits. The examination demonstrates mild hydronephrotic changes in the right kidney. There is a ureteral joann nt in place. The examination does demonstrate a 9 mm stone in the proximal right ureter and a [address] one within the lower aspect of the right ureter. The left kidney is normal in appearance. No free air free fluid is seen. The visualized loops of small and large bowel demonstrate a moderate amount of stool within the colon suggesting constipation. The anterior abdominal wall is intact. There is no free fluid within the pelvis. No iliac or inguinal adenopathy is present. The visualized bony structures demonstrate degenerative changes in the spine but are otherwise intact . CONCLUSION: 1. Ureteral stent in place on the right. There are 2 stones evident in the right ureter. The first m easures 9 mm. The second is somewhat more distal and measures 3 mm. There are mild hydronephrotic rebel nges in the right kidney. 2. Moderate amount of stool within the colon suggesting possible constipation. Electronically signed by: Akbar Yin MD 02/23/2018 3:48 PM EDT
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
[2018-02-23 16:16] LABS: BACTERIA, URINE RARE /hpf; BILIRUBIN, URINE NEG (NEG); BLOOD, URINE NEG (NEG); GLUCOSE,URINE NEG (NEG); KETONE, URINE NEG (NEG); NITRITE,URINE NEG (NEG); URINE COLOR YELLOW (YELLW/STRAW); URINE LEUKOCYTE ESTERASE SMALL (NEG)
--- NOTE | 2018-02-23 16:41 | HHI.HP ---
[facility] Service Family Medicine Primary Care Physician Ana Middleton MD Admission Diagnosis chest pain, hypomagnesemia Diagnoses: International Travel<30 Days: No Contact w/Intl Traveler<30days: No Known Affected Area: No History of Present Illness Patient is a 62 year old male who presents to the [facility] ED for evaluation of chest pain. He reports sudden onset sharp pain over left side of chest, which started at 6 a.m. this morning. He further describes the pain as constant, non- radiating. He has experienced some lightheadedness but denies diaphoresis, shortness of breath, nausea and vomiting. He reports increased pain when walking /moving around and with deep breaths. Laying still alleviates some pain. He denies a fall or trauma to the chest. He does report walking a lot more than usual yesterday. He denies fever, chills. He denies cough. He denies lower extremity edema. Of note, patient was brought in by EMS. He had one nitroglycerin spray and his blood pressure dropped from 122/70 to 100/60. He refused aspirin by EMS; he has surgery to remove kidney stones scheduled for March 13 and was told to stop aspirin. He did receive aspirin 325mg x1 in ED. (Claudia Vazquez MD R1) Review of Systems Constitutional: COMPLAINS OF: Fatigue, Weight gain, Dizziness, Change in appetite (decreased ), DENIES: Diaphoretic episodes, Fever, Chills Eyes: DENIES: Blurred vision, Diplopia, Vision loss, Double Vision Ears, nose, mouth, throat: DENIES: Tinnitus, Nasal discharge, Throat pain, Ear Pain, Running Nose, Sinus Pain Respiratory: DENIES: Cough, Sputum production, Shortness of breath Cardiovascular: COMPLAINS OF: Chest pain, DENIES: Palpitations, Syncope, Lower Extremity Edema Gastrointestinal: COMPLAINS OF: Constipation, DENIES: Abdominal pain, Black stools, Bloody stools, Diarrhea, Nausea, Vomiting Genitourinary: COMPLAINS OF: Urinary incontinence, DENIES: Hematuria Musculoskeletal: COMPLAINS OF: Back pain (baseline ) Integumentary: DENIES: Rash Neurologic: DENIES: Abnormal gait, Headache, Localized weakness Psychiatric: COMPLAINS OF: Depression, DENIES: Anxiety, Confusion, Suicidal Ideation, Homicidal Ideation (Claudia Vazquez MD R1) Past Family Social History Past Medical History Anxiety Chronic low back pain Depression DM Type II HTN Kidney stones Neuropathy (feet) Suicide attempts - last attempt: 8-9 months, pills. Past Surgical History Appendectomy Hand surgery Reported Medications Metformin (Metformin HCl) 1,000 Mg Tab 1,000 Mg PO BIDPC Lisinopril 20 Mg Tab 20 Mg PO DAILY Lipitor (Atorvastatin Calcium) 10 Mg Tab 10 Mg PO HS Aspirin 81 Mg Chew 81 Mg CHEW DAILY Benztropine (Benztropine Mesylate) 0.5 Mg Tab 1 Mg PO BID Gabapentin 400 Mg Cap 400 Cap PO TID Lantus Inj (Insulin Glargine) 1,000 Unit/10 Ml Vial 12 Units SQ HS Trazodone (Trazodone HCl) 150 Mg Tab 150 Mg PO HS Rexulti (Brexpiprazole) 2 Mg Tab 2 Mg PO HS Fluoxetine (Fluoxetine HCl) 40 Mg Cap 40 Cap PO DAILY (LaBelClaudia daily MD R1) Allergies: Coded Allergies: No Known Allergies (Verified Allergy, Unknown, 12/21/17) Active Ordered Medications Current Medications Medications (Trade) Dose Ordered Sig/Fabi Route Start Time Stop Time Status Last Admin (NS Flush) 2 ml UNSCH PRN IVF 02/23/18 13:30 (Narcan Inj) 0.4 mg UNSCH PRN IV PUSH 02/23/18 16:45 (Heidy-Colace) 1 tab BID PO 02/23/18 21:00 (Milk Of Magnesia Liq) 30 ml Q12H PRN PO 02/23/18 16:45 (Senokot) 17.2 mg Q12H PRN PO 02/23/18 16:45 (Lipitor) 10 mg HS PO 02/23/18 21:00 (Cogentin) 1 mg BID PO 02/23/18 21:00 (PROzac) 40 mg DAILY PO 02/23/18 17:00 02/23/18 18:08 (Neurontin) 400 mg TID PO 02/23/18 18:00 02/23/18 18:08 (Levemir Inj) 12 units HS SQ 02/23/18 21:00 (Prinivil) 20 mg DAILY PO 02/24/18 09:00 (Desyrel) 50 mg HS PO 02/23/18 21:00 Patient Own Medication PT OWN MED: (Brexpiprazole (Rexulti... HS PO 02/23/18 21:00 Future Hold (Zofran Inj) 4 mg Q6H PRN IVP 02/23/18 18:45 UNV (Nitroglycerin 2% Oint) 0.5 inch Q6HR PRN TOP 02/23/18 18:45 UNV (Morphine Inj) 2 mg Q30M PRN IV PUSH 02/23/18 18:45 UNV (Tylenol) 650 mg Q6H PRN PO 02/23/18 18:45 UNV (NovoLOG SUPPLEMENTAL SCALE) 1 ACHS SLIDING SCALE SQ 02/23/18 21:00 UNV Family History No cardiac family history. Social History Lives in a long-term. Alcohol: denies. Tobacco: denies. Substance use: denies. History of cocaine, marijuana. (Claudia Vazquez MD R1) Physical Exam Vital Signs Vital Signs Date Time Temp Pulse Resp B/P (MAP) Pulse Ox O2 Delivery O2 Flow Rate FiO2 02/23/18 15:24 55 18 129/73 (91) 100 Room Air 02/23/18 14:52 18 02/23/18 14:22 59 18 129/73 (91) 99 Room Air 02/23/18 13:52 18 95 Room Air 02/23/18 13:14 97.9 65 18 109/66 (80) 96 Room Air 02/23/18 13:14 64 18 95 Room Air 02/23/18 13:09 97.9 68 18 109/66 (80) 95 Physical Exam GENERAL: This is a well-nourished, well-developed patient, in some distress. SKIN: No rashes, ecchymoses or lesions. Cool and dry. HEAD: Atraumatic. Normocephalic. No temporal or scalp tenderness. EYES: Pupils equal round and reactive. Extraocular motions intact. No scleral icterus. No injection or drainage. ENT: Nose without bleeding, purulent drainage or septal hematoma. Throat without erythema, tonsillar hypertrophy or exudate. Uvula midline. Airway patent. NECK: Trachea midline. No JVD or lymphadenopathy. Supple, nontender, no meningeal signs. CARDIOVASCULAR: Regular rate and rhythm without murmurs, gallops, or rubs. CHEST: No tenderness upon palpation. RESPIRATORY: Clear to auscultation. Breath sounds equal bilaterally. No wheezes , rales, or rhonchi. GASTROINTESTINAL: Abdomen soft, non-tender, nondistended. No hepato-splenomegaly , or palpable masses. No guarding. MUSCULOSKELETAL: Extremities without clubbing, cyanosis, or edema. No joint tenderness, effusion, or edema noted. No calf tenderness. NEUROLOGICAL: Awake and alert. Cranial nerves II through XII intact. Motor and sensory grossly within normal limits. Five out of 5 muscle strength in all muscle groups. Normal speech. Laboratory Laboratory Tests Test 02/23/18 13:30 02/23/18 15:57 White Blood Count 7.7 Red Blood Count 3.72 Hemoglobin 11.5 Hematocrit 34.7 Mean Corpuscular Volume 93.2 Mean Corpuscular Hemoglobin 30.9 Mean Corpuscular Hemoglobin Concent 33.1 Red Cell Distribution Width 12.9 Platelet Count 185 Mean Platelet Volume 8.2 Neutrophils (%) (Auto) 63.3 Lymphocytes (%) (Auto) 28.0 Monocytes (%) (Auto) 7.5 Eosinophils (%) (Auto) 1.0 Basophils (%) (Auto) 0.2 Neutrophils # (Auto) 4.9 Lymphocytes # (Auto) 2.2 Monocytes # (Auto) 0.6 Eosinophils # (Auto) 0.1 Basophils # (Auto) 0.0 CBC Comment DIFF FINAL Differential Comment Prothrombin Time 10.9 Prothromb Time International Ratio 1.1 Activated Partial Thromboplast Time 24.0 D-Dimer Quantitative (PE/DVT) 0.73 Blood Urea Nitrogen 15 Creatinine 1.27 Random Glucose 171 Total Protein 7.0 Albumin 3.3 Calcium Level 7.9 Magnesium Level 1.3 Alkaline Phosphatase 57 Aspartate Amino Transf (AST/SGOT) 18 Alanine Aminotransferase (ALT/SGPT) 17 Total Bilirubin 0.2 Sodium Level 142 Potassium Level 4.0 Chloride Level 106 Carbon Dioxide Level 25.4 Anion Gap 11 Estimat Glomerular Filtration Rate 69 Total Creatine Kinase 344 Creatine Kinase MB 5.2 Creatine Kinase MB % 1.5 Troponin I LESS THAN 0.02 B-Type Natriuretic Peptide 36 Urine Color YELLOW Urine Turbidity CLEAR Urine pH 7.0 Urine Specific [place] 1.016 Urine Protein NEG Urine Glucose (UA) NEG Urine Ketones NEG Urine Occult Blood NEG Urine Nitrite NEG Urine Bilirubin NEG Urine Urobilinogen 2.0 Urine Leukocyte Esterase SMALL Urine RBC 1 Urine WBC 4 Urine Bacteria RARE Microscopic Urinalysis Comment CULT NOT INDICATED (Claudia Vazquez MD R1) Result Diagram: 6/20/18 1330 02/23/18 1330 Imaging Last Impressions Abdomen/Pelvis CT 02/23/18 1500 Signed Impressions: CONCLUSION: 1. Ureteral stent in place on the right. There are 2 stones evident in the rig ht ureter. The first measures 9 mm. The second is somewhat more distal and dominique ures 3 mm. There are mild hydronephrotic changes in the right kidney. 2. Moderate amount of stool within the colon suggesting possible constipation. CT Angiography 02/23/18 1407 Signed Impressions: CONCLUSION: 1. No pulmonary embolus identified. 2. Mild hydronephrotic changes of the right kidney. Chest X-Ray 02/23/18 1325 Signed Impressions: CONCLUSION: No acute cardiopulmonary process. (Claudia Vazquez MD R1) Caprini VTE Risk Assessment Caprini VTE Risk Assessment: Mod/High Risk (score >= 2) VTE Pharm Contraindication: Possible procedure Caprini Risk Assessment Model Point Value = 1 Point Value = 2 Point Value = 3 Point Value = 5 Age 41-60 Minor surgery BMI > 25 kg/m2 Swollen legs Varicose veins or History of unexplained or recurrent spontaneous Oral contraceptives or hormone replacement Sepsis (< 1 month) Serious lung disease, including pneumonia (< 1 month) Abnormal pulmonary function Acute myocardial infarction Congestive heart failure (< 1 month) History of inflammatory bowel disease Medical patient at bed rest Age 61-74 Arthroscopic surgery Major open surgery (> 45 min) Laparoscopic surgery (> 45 min) Malignancy Confined to bed (> 72 hours) Immobilizing plaster cast Central venous access Age >= 75 History of VTE Family history of VTE Factor V Leiden Prothrombin [id number] Lupus anticoagulant Anticardiolipin antibodies Elevated serum homocysteine Heparin-induced thrombocytopenia Other congenital or acquired thrombophilia Stroke (< 1 month) Elective arthroplasty Hip, pelvis, or leg fracture Acute spinal cord injury (< 1 month) Prophylaxis Regimen Total Risk Factor Score Risk Level Prophylaxis Regimen 0-1 Low Early ambulation 2 Moderate Order ONE of the following: *Sequential Compression Device (SCD) *Heparin 5000 units SQ BID 3-4 Higher Order ONE of the following medications: *Heparin 5000 units SQ TID *Enoxaparin/Lovenox 40 mg SQ daily (WT < 150 kg, CrCl > 30 mL/min) *Enoxaparin/Lovenox 30 mg SQ daily (WT < 150 kg, CrCl > 10-29 mL/min) *Enoxaparin/Lovenox 30 mg SQ BID (WT < 150 kg, CrCl > 30 mL/min) AND/OR *Sequential Compression Device (SCD) 5 or more Highest Order ONE of the following medications: *Heparin 5000 units SQ TID (Preferred with Epidurals) *Enoxaparin/Lovenox 40 mg SQ daily (WT < 150 kg, CrCl > 30 mL/min) *Enoxaparin/Lovenox 30 mg SQ daily (WT < 150 kg, CrCl > 10-29 mL/min) *Enoxaparin/Lovenox 30 mg SQ BID (WT < 150 kg, CrCl > 30 mL/min) AND *Sequential Compression Device (SCD) (Claudia Vazquez MD R1) Assessment and Plan Assessment and Plan Patient is a 62 year old male who presents to the [facility] ED for evaluation of chest pain. Code Status Full code. Discussed Condition With Dr. Lagos, ED physician. Drs. Snider and Lit. (Claudia Vazquez MD R1) Problem List: (1) Chest pain ICD Codes: R07.9 - Chest pain, unspecified Status: Acute Plan: Patient with chest pain x1 day. Pain described as sudden onset, constant , sharp, left-sided chest pain. Patient reports worsening pain with positional changes/movement and deep breaths. Pain alleviated when laying still. Patient reports lightheadedness. Patient denies cough, shortness of breath, diaphoresis. Patient denies fever, chills. Patient with history of cocaine use. Admission Labs: * WBC 7.7, Hgb 11.6, Hct 34.7, Plt Count 185. * Na 142, K 4, Cl 106, Mg 1.3, Cr 1.27, BUN 15. * Glucose 171. * CK, total 344. * CK-MB 5.2. Serial CK-MB q6hrs. * Troponin x2 negative. Serial Troponin q6hrs. * BNP 36. * D-dimer 0.73. * Lipase pending. * Lipid profile pending. * UDS pending. * Tylenol level. Imaging: * CXR 02/23: No acute cardiopulmonary process. * CT Angiogram 02/23: No pulmonary embolus identified. Mild hydronephrotic changes of the right kidney. Studies: * EKG: EKG was reviewed by Dr. Caraballo, cardiology, and showed normal sinus rhythm and mild diffuse ST elevation with no reciprocal changes. * ECHO: The left ventricular systolic function is hyperdynamic with an estimated ejection fraction in the range of 65-70%. Normal left ventricular size. Wall thickness is measured at the upper limits of normal. No regional wall motion abnormalities are present. Trace mitral valve regurgitation. Aortic valve sclerosis is present. There is trace tricuspid valve regurgitation. The estimated pulmonary arterial pressure is 27 mmHg. Consults: * Cardiology: Mr. Manley presented with atypical chest discomfort of pleuritic character. He will be monitored on telemetry with serial enzymes and EKGs. I recommend to control his pain with analgesics. We will obtain echocardiogram to evaluate his LV function and also for evidence of pericarditis including pericardial effusion. We will obtain adenosine myocardial perfusion study tomorrow to evaluate for ischemia. I will follow him for Cardiology during his hospitalization. * PT/OT Request for Service. Awaiting recommendations. Orders: * Telemetry. Medications: * Morphine 2mg IV Push q30min PRN Chest Pain. * Nitroglycerin 2% Ointment 0.5in top q6hr PRN Chest Pain. * Zofran 4mg IV q6hr PRN Nausea and Vomiting. (2) DM (diabetes mellitus) ICD Codes: E11.9 - Type 2 diabetes mellitus without complications Status: Chronic Plan: Patient with history of DM Type II. On Metformin 1,000mg PO BIDPC and Lantus 12 units SQ HS at home. Hemoglobin A1c as of 09/14/17: 8.6 On admission: * Glucose: 171. Medications: * Levemir 12 units SQ HS. * NovoLOG Low Supplemental Scale. (3) Kidney stone on right side ICD Codes: N20.0 - Calculus of kidney Status: Chronic Plan: Patient with kidney stone on right. Recent stent placement and surgery to remove stones scheduled for March 13. Patient without CVA tenderness on admission. Patient denies hematuria on admission. Imaging: * CT Abdomen/Pelvis 02/23: Ureteral stent in place on the right. There are 2 stones evident in the right ureter. The first measures 9 mm. The second is somewhat more distal and measures 3 mm. There are mild hydronephrotic changes in the right kidney. Moderate amount of stool within the colon suggesting possible constipation. (4) Constipation ICD Codes: K59.00 - Constipation, unspecified Status: Chronic Plan: Patient with history of constipation. Imaging: * CT Abdomen/Pelvis 02/23: Ureteral stent in place on the right. There are 2 stones evident in the right ureter. The first measures 9 mm. The second is somewhat more distal and measures 3 mm. There are mild hydronephrotic changes in the right kidney. Moderate amount of stool within the colon suggesting possible constipation. Medications: * Constipation protocol. (5) Anemia ICD Codes: D64.9 - Anemia, unspecified Status: Chronic Plan: Patient with chronic anemia. On admission: * Hgb 11.5. On chart review, patient anemic since 2017 with baseline hemoglobin between 11- 12. (6) HTN (hypertension) ICD Codes: I10 - Essential (primary) hypertension Status: Chronic Plan: Patient with history of hypertension. Medications: * Continue home lisinopril. (7) Depressive disorder ICD Codes: F32.9 - Major depressive disorder, single episode, unspecified Status: Chronic Plan: Patient with history of depressive disorder. Patient with suicide attempt 8-9 months ago. Patient denies suicidal and homicidal ideations on admission. Medications: * Continue home fluoxetine and trazodone. * Continue home benztropine. * Brexpiprazole is not on hospital formulary. Patient is unable to supply own medication. Pharmacy contacted. Pharmacy to order medication. Medication to be available tomorrow. Half-life of brexpiprazole 91 hours; withdrawal after one missed dose less likely. (8) Diabetic neuropathy ICD Codes: E11.40 - Type 2 diabetes mellitus with diabetic neuropathy, unspecified Status: Chronic Plan: Patient with history of diabetic neuropathy. Medications: * Continue home gabapentin. (9) Fluid, Electrolyte, Nutrition, and Prophylaxis Status: Acute Plan: Fluid: * Tolerates PO. Electrolyte: * Monitor and replete as necessary. Nutrition: * Diet Heart Healthy for dinner. * NPO after midnight for breakfast in anticipation of adenosine myocardial perfusion study tomorrow. Prophylaxis: * SCDs. (Claudia Vazquez MD R1) Problem List: (1) Chest pain ICD Codes: R07.9 - Chest pain, unspecified Status: Acute Plan: Patient with chest pain x1 day. Pain described as sudden onset, constant , sharp, left-sided chest pain. Patient reports worsening pain with positional changes/movement and deep breaths. Pain alleviated when laying still. Patient reports lightheadedness. Patient denies cough, shortness of breath, diaphoresis. Patient denies fever, chills. Patient with history of cocaine use. Admission Labs: * WBC 7.7, Hgb 11.6, Hct 34.7, Plt Count 185. * Na 142, K 4, Cl 106, Mg 1.3, Cr 1.27, BUN 15. * Glucose 171. * CK, total 344. * CK-MB 5.2. Serial CK-MB q6hrs. * Troponin x2 negative. Serial Troponin q6hrs. * BNP 36. * D-dimer 0.73. * Lipase pending. * Lipid profile pending. * UDS pending. * Tylenol level. Imaging: * CXR 02/23: No acute cardiopulmonary process. * CT Angiogram 02/23: No pulmonary embolus identified. Mild hydronephrotic changes of the right kidney. Studies: * EKG: EKG was reviewed by Dr. Caraballo, cardiology, and showed normal sinus rhythm and mild diffuse ST elevation with no reciprocal changes. * ECHO: The left ventricular systolic function is hyperdynamic with an estimated ejection fraction in the range of 65-70%. Normal left ventricular size. Wall thickness is measured at the upper limits of normal. No regional wall motion abnormalities are present. Trace mitral valve regurgitation. Aortic valve sclerosis is present. There is trace tricuspid valve regurgitation. The estimated pulmonary arterial pressure is 27 mmHg. Consults: * Cardiology: Mr. Manley presented with atypical chest discomfort of pleuritic character. He will be monitored on telemetry with serial enzymes and EKGs. I recommend to control his pain with analgesics. We will obtain echocardiogram to evaluate his LV function and also for evidence of pericarditis including pericardial effusion. We will obtain adenosine myocardial perfusion study tomorrow to evaluate for ischemia. I will follow him for Cardiology during his hospitalization. * PT/OT Request for Service. Awaiting recommendations. Orders: * Telemetry. Medications: * Morphine 2mg IV Push q30min PRN Chest Pain. * Nitroglycerin 2% Ointment 0.5in top q6hr PRN Chest Pain. * Zofran 4mg IV q6hr PRN Nausea and Vomiting. (2) DM (diabetes mellitus) ICD Codes: E11.9 - Type 2 diabetes mellitus without complications Status: Chronic Plan: Patient with history of DM Type II. On Metformin 1,000mg PO BIDPC and Lantus 12 units SQ HS at home. Hemoglobin A1c as of 09/14/17: 8.6 On admission: * Glucose: 171. Medications: * Levemir 12 units SQ HS. * NovoLOG Low Supplemental Scale. (3) Kidney stone on right side ICD Codes: N20.0 - Calculus of kidney Status: Chronic Plan: Patient with kidney stone on right. Recent stent placement and surgery to remove stones scheduled for March 13. Patient without CVA tenderness on admission. Patient denies hematuria on admission. Imaging: * CT Abdomen/Pelvis 02/23: Ureteral stent in place on the right. There are 2 stones evident in the right ureter. The first measures 9 mm. The second is somewhat more distal and measures 3 mm. There are mild hydronephrotic changes in the right kidney. Moderate amount of stool within the colon suggesting possible constipation. (4) Constipation ICD Codes: K59.00 - Constipation, unspecified Status: Chronic Plan: Patient with history of constipation. Imaging: * CT Abdomen/Pelvis 02/23: Ureteral stent in place on the right. There are 2 stones evident in the right ureter. The first measures 9 mm. The second is somewhat more distal and measures 3 mm. There are mild hydronephrotic changes in the right kidney. Moderate amount of stool within the colon suggesting possible constipation. Medications: * Constipation protocol. (5) Anemia ICD Codes: D64.9 - Anemia, unspecified Status: Chronic Plan: Patient with chronic anemia. On admission: * Hgb 11.5. On chart review, patient anemic since 2017 with baseline hemoglobin between 11- 12. (6) HTN (hypertension) ICD Codes: I10 - Essential (primary) hypertension Status: Chronic Plan: Patient with history of hypertension. Medications: * Continue home lisinopril. (7) Depressive disorder ICD Codes: F32.9 - Major depressive disorder, single episode, unspecified Status: Chronic Plan: Patient with history of depressive disorder. Patient with suicide attempt 8-9 months ago. Patient denies suicidal and homicidal ideations on admission. Medications: * Continue home fluoxetine and trazodone. * Continue home benztropine. * Brexpiprazole is not on hospital formulary. Patient is unable to supply own medication. Pharmacy contacted. Pharmacy to order medication. Medication to be available tomorrow. Half-life of brexpiprazole 91 hours; withdrawal after one missed dose less likely. (8) Diabetic neuropathy ICD Codes: E11.40 - Type 2 diabetes mellitus with diabetic neuropathy, unspecified Status: Chronic Plan: Patient with history of diabetic neuropathy. Medications: * Continue home gabapentin. (9) Fluid, Electrolyte, Nutrition, and Prophylaxis Status: Acute Plan: Fluid: * Tolerates PO. Electrolyte: * Monitor and replete as necessary. Nutrition: * Diet Heart Healthy for dinner. * NPO after midnight for breakfast in anticipation of adenosine myocardial perfusion study tomorrow. Prophylaxis: * SCDs. * See the residents documentation for details. I saw and evaluated the patient regarding the bahena portions of this evaluation and agree with the residents findings and plans as written. Parts of this note were created using [employer] voice recognition software program. While efforts were made to correct any mistakes made by this software, some mistakes, errors, and omissions may remain in the final note that were not caught when the note was originally created. Plan of care was discussed and agreed upon with the patient as specifically documented in the above note. An opportunity to ask questions with explanation was provided. Patient voiced understanding on all information reviewed and discussed. (Faustino Snider MD) Problem Qualifiers (1) Chest pain: Qualified Codes: R07.9 - Chest pain, unspecified Claudia Vazquez MD R1 Feb 23, 2018 16:41 Faustino Snider MD Feb 24, 2018 10:46
[2018-02-23] MEDS ORDERED: NALOXONE HCL 0.4 MG/ML AMP IV PUSH PRN (16:45)
[2018-02-23] MEDS ORDERED: MAGNESIUM HYDROXIDE SUSP 30 ML CUP PO PRN (16:45)
[2018-02-23] MEDS ORDERED: SENNOSIDES 8.6 MG TAB PO PRN (16:45)
[2018-02-23] MEDS: FLUoxetine HCL 20 MG CAP PO SCH (18:08)
[2018-02-23] MEDS: GABAPENTIN 400 MG CAP PO SCH (18:08)
[2018-02-23] MEDS ORDERED: ACETAMINOPHEN 325 MG TAB PO PRN (18:45)
[2018-02-23] MEDS ORDERED: MORPHINE SULFATE 4 MG/ML INJ IV PUSH PRN (18:45)
[2018-02-23] MEDS ORDERED: NITROGLYCERIN 2% OINT 1 GM PACKET TOP PRN (18:45)
[2018-02-23] MEDS ORDERED: ONDANSETRON HCL 4 MG/2 ML VIAL IVP PRN (18:45)
[2018-02-23] MEDS ORDERED: GLUCAGON 1 MG/ML VIAL OTHER PRN (19:15)
[2018-02-23] MEDS ORDERED: DEXTROSE 50% IN WATER 50 ML VIAL(D50) IV PUSH PRN (19:15)
[2018-02-23] MEDS ORDERED: TRAZ1TAB14 PO (19:54)
[2018-02-23] MEDS: INSULIN ASPART SUPPLEMENTAL SCALE SQ SCH (21:00)
[2018-02-23] MEDS ORDERED: BREXPIPRAZOLE 2 MG PO SCH (21:00)
[2018-02-23] MEDS ORDERED: INSULIN DETEMIR 100 UNITS/ML VIAL SQ SCH (21:00)
[2018-02-23] MEDS ORDERED: ATORVASTATIN 10 MG TAB PO SCH (21:00)
[2018-02-23] MEDS ORDERED: traZODone HCL 50 MG TAB PO SCH ×2 (21:00)
[2018-02-23 23:57] LABS: ACETAMINOPHEN LESS THAN 2.0 MCG/ML (10.0-30.0)
[2018-02-23 23:59] LABS: TROPONIN I LESS THAN 0.02 NG/ML (0.02-0.05)
[2018-02-24] VITALS (8 sets, daily range): BP systolic 132–164; BP diastolic 80–100; PULSE 48–60; RESP 16–18; TEMP 97.6–98.3; O2SAT 95–100
[2018-02-24] MEDS: DOCUSATE SODIUM 50 MG/SENNA 8.6 MG TAB PO SCH ×2 (00:16→08:56)
[2018-02-24] MEDS: BENZTROPINE MESYLATE 1 MG TAB PO SCH ×2 (00:16→08:56)
[2018-02-24 05:48] LABS: HEMATOCRIT 35.7 % (39.0-51.0); HEMOGLOBIN 11.8 GM/DL (13.0-17.0); MEAN CELL VOLUME 91.5 FL (80.0-100.0); MEAN CORPUSCULAR HEMOGLOBIN 30.3 PG (27.0-34.0); MEAN CORPUSCULAR HGB CONC 33.1 % (32.0-36.0); PLATELET COUNT 186 TH/MM3 (150-450); RED CELL DISTRIBUTION WIDTH 13.3 % (11.6-17.2); WHITE BLOOD COUNT 5.9 TH/MM3 (4.0-11.0)
[2018-02-24 06:18] LABS: ALBUMIN 3.3 GM/DL (3.4-5.0); ALT (GPT) 18 U/L (12-78); AST (GOT) 11 U/L (15-37); BICARBONATE 29.8 MEQ/L (21.0-32.0); BLOOD UREA NITROGEN 14 MG/DL (7-18); CALCIUM 8.5 MG/DL (8.5-10.1); CHLORIDE 106 MEQ/L (98-107); CHOLESTEROL 115 MG/DL (120-200); CREATININE 1.17 MG/DL (0.60-1.30); GLOMERULAR FILTRATION RATE 76 ML/MIN (>89); GLUCOSE,RANDOM 83 MG/DL (74-106); SODIUM (NA) 143 MEQ/L (136-145)
[2018-02-24 06:20] LABS: ALKALINE PHOSPHATASE 58 U/L (45-117); CHOLESTEROL/ HDL RATIO 3.57 RATIO; HDL CHOLESTEROL 32.2 MG/DL (40.0-60.0); LDL CHOLESTEROL 69 MG/DL (0-99); TOTAL BILIRUBIN ADULT 0.4 MG/DL (0.2-1.0); TOTAL PROTEIN 7.3 GM/DL (6.4-8.2); TRIGLYCERIDES 69 MG/DL (42-150)
[2018-02-24] MEDS: INSULIN ASPART SUPPLEMENTAL SCALE SQ SCH ×3 (08:51→17:10)
[2018-02-24] MEDS: FLUoxetine HCL 20 MG CAP PO SCH (08:56)
[2018-02-24] MEDS: GABAPENTIN 400 MG CAP PO SCH ×3 (08:56→18:42)
[2018-02-24] MEDS ORDERED: LISINOPRIL 20 MG TAB PO SCH (09:00)
--- NOTE | 2018-02-24 12:54 | HHI.FPPN ---
Subjective Remarks Patient was seen and evaluated this morning. He feels better than yesterday. He continues to experience chest pain but today notes that it is reproducible with deep palpation of sternum and ribs. Patient denies heart palpitations, shortness of breath, nausea/vomiting, diarrhea and constipation. All questions were answered. (Claudia Vazquez MD R1) Objective Vitals Vital Signs Date Time Temp Pulse Resp B/P (MAP) Pulse Ox O2 Delivery O2 Flow Rate FiO2 02/24/18 10:05 60 164/93 (116) 95 02/24/18 10:00 52 158/85 (109) 98 02/24/18 09:54 48 160/82 (108) 97 02/24/18 04:27 98.3 51 16 132/84 (100) 100 02/24/18 00:25 97.8 50 16 134/80 (98) 97 02/23/18 19:54 97.9 52 16 133/77 (95) 96 02/23/18 19:47 97 21 02/23/18 17:38 98.8 54 18 131/85 (100) 97 02/23/18 16:41 51 16 125/73 (90) 98 Room Air 02/23/18 15:24 55 18 129/73 (91) 100 Room Air 02/23/18 14:52 18 02/23/18 14:22 59 18 129/73 (91) 99 Room Air 02/23/18 13:52 18 95 Room Air 02/23/18 13:14 97.9 65 18 109/66 (80) 96 Room Air 02/23/18 13:14 64 18 95 Room Air 02/23/18 13:09 97.9 68 18 109/66 (80) 95 I/O 02/23/18 02/23/18 02/23/18 02/24/18 02/24/18 02/24/18 07:00 15:00 23:00 07:00 15:00 23:00 Intake Total 250 ml 240 ml Balance 250 ml 240 ml Intake Oral 240 ml IV Total 250 ml # Voids 1 2 (Claudia Vazquez MD R1) Result Diagram: 02/24/18 0522 02/24/18 0522 Imaging Last Impressions Abdomen/Pelvis CT 02/23/18 1500 Signed Impressions: CONCLUSION: 1. Ureteral stent in place on the right. There are 2 stones evident in the rig ht ureter. The first measures 9 mm. The second is somewhat more distal and dominique ures 3 mm. There are mild hydronephrotic changes in the right kidney. 2. Moderate amount of stool within the colon suggesting possible constipation. CT Angiography 02/23/18 1407 Signed Impressions: CONCLUSION: 1. No pulmonary embolus identified. 2. Mild hydronephrotic changes of the right kidney. Chest X-Ray 02/23/18 1325 Signed Impressions: CONCLUSION: No acute cardiopulmonary process. Objective Remarks GENERAL: This is a well-nourished, well-developed patient, in no apparent distress. SKIN: No rashes, ecchymoses or lesions. Cool and dry. HEAD: Atraumatic. Normocephalic. No temporal or scalp tenderness. EYES: Pupils equal round. Extraocular motions intact. No scleral icterus. No injection or drainage. ENT: Nose without bleeding, purulent drainage or septal hematoma. Airway patent. NECK: Trachea midline. No JVD or lymphadenopathy. Supple, nontender, no meningeal signs. CARDIOVASCULAR: Regular rate and rhythm without murmurs, gallops, or rubs. CHEST: Tenderness upon palpation over distal portion of sternum and lower rib cage on left side. RESPIRATORY: Clear to auscultation. Breath sounds equal bilaterally. No wheezes , rales, or rhonchi. GASTROINTESTINAL: Abdomen soft, non-tender, nondistended. No hepato-splenomegaly , or palpable masses. No guarding. MUSCULOSKELETAL: Extremities without clubbing, cyanosis, or edema. No joint tenderness, effusion, or edema noted. No calf tenderness. NEUROLOGICAL: Awake and alert. Cranial nerves II through XII intact. Motor and sensory grossly within normal limits. Five out of 5 muscle strength in all muscle groups. Normal speech. Medications and IVs Current Medications Medications (Trade) Dose Ordered Sig/Fabi Route Start Time Stop Time Status Last Admin (NS Flush) 2 ml UNSCH PRN IVF 02/23/18 13:30 (Narcan Inj) 0.4 mg UNSCH PRN IV PUSH 02/23/18 16:45 (Heidy-Colace) 1 tab BID PO 02/23/18 21:00 02/24/18 08:56 (Milk Of Magnesia Liq) 30 ml Q12H PRN PO 02/23/18 16:45 (Senokot) 17.2 mg Q12H PRN PO 02/23/18 16:45 (Lipitor) 10 mg HS PO 02/23/18 21:00 02/24/18 00:15 (Cogentin) 1 mg BID PO 02/23/18 21:00 02/24/18 08:56 (PROzac) 40 mg DAILY PO 02/23/18 17:00 02/24/18 08:56 (Neurontin) 400 mg TID PO 02/23/18 18:00 02/24/18 08:56 (Levemir Inj) 12 units HS SQ 02/23/18 21:00 02/24/18 00:15 (Prinivil) 20 mg DAILY PO 02/24/18 09:00 02/24/18 08:56 Patient Own Medication PT OWN MED: (Brexpiprazole (Rexulti... HS PO 02/23/18 21:00 Future Hold (Zofran Inj) 4 mg Q6H PRN IVP 02/23/18 18:45 (Nitroglycerin 2% Oint) 0.5 inch Q6HR PRN TOP 02/23/18 18:45 (Morphine Inj) 2 mg Q30M PRN IV PUSH 02/23/18 18:45 (Tylenol) 650 mg Q6H PRN PO 02/23/18 18:45 (NovoLOG SUPPLEMENTAL SCALE) 1 ACHS SLIDING SCALE SQ 02/23/18 21:00 (D50w (Vial) Inj) 25 ml UNSCH PRN IV PUSH 02/23/18 19:15 (Glucagon Inj) 1 mg UNSCH PRN OTHER 02/23/18 19:15 (Desyrel) 150 mg HS PO 02/23/18 21:00 02/24/18 00:16 (Claudia Vazquez MD R1) Urinary Catheter: No (Claudia Vazquez MD R1) Vascular Central Line Catheter: No (Claudia Vazquez MD R1) A/P Assessment and Plan Patient is a 62 year old male who presents to the [place] ED for evaluation of chest pain. Discharge Planning Pending cardiology clearance. (Claudia Vazquez MD R1) Problem List: (1) Chest pain ICD Codes: R07.9 - Chest pain, unspecified Status: Acute Plan: Patient with chest pain x1 day. Pain described as sudden onset, constant , sharp, left-sided chest pain. Patient reports worsening pain with positional changes/movement and deep breaths. Pain alleviated when laying still. Patient reports lightheadedness. Patient denies cough, shortness of breath, diaphoresis. Patient denies fever, chills. Patient with history of cocaine use. 02/24: Patient with improved chest pain. Pain reproducible on exam. Admission Labs: * WBC 7.7, Hgb 11.6, Hct 34.7, Plt Count 185. * Na 142, K 4, Cl 106, Mg 1.3, Cr 1.27, BUN 15. * Glucose 171. * CK, total 344. * CK-MB 5.2 -> 5.1 -> 4.6 -> 4.4. * Troponin x3 negative. * BNP 36. * D-dimer 0.73. * Lipase 84. * Triglycerides 69, Cholesterol 115, LDL 69, HDL 32.2. * UDS negative. * Tylenol level less than 2.0. Labs 02/24: * WBC 5.9, Hgb 11.8, Hct 35.7, Plt Count 186. * Na 143, K 4.2, Cl 106, Cr 1.17, BUN 14. * Glucose 83. Imaging: * CXR 02/23: No acute cardiopulmonary process. * CT Angiogram 02/23: No pulmonary embolus identified. Mild hydronephrotic changes of the right kidney. Studies: * EKG: EKG was reviewed by Dr. Caraballo, cardiology, and showed normal sinus rhythm and mild diffuse ST elevation with no reciprocal changes. * ECHO: The left ventricular systolic function is hyperdynamic with an estimated ejection fraction in the range of 65-70%. Normal left ventricular size. Wall thickness is measured at the upper limits of normal. No regional wall motion abnormalities are present. Trace mitral valve regurgitation. Aortic valve sclerosis is present. There is trace tricuspid valve regurgitation. The estimated pulmonary arterial pressure is 27 mmHg. Consults: * Cardiology: Mr. Manley presented with atypical chest discomfort of pleuritic character. He will be monitored on telemetry with serial enzymes and EKGs. I recommend to control his pain with analgesics. We will obtain echocardiogram to evaluate his LV function and also for evidence of pericarditis including pericardial effusion. We will obtain adenosine myocardial perfusion study 02/24 to evaluate for ischemia. I will follow him for Cardiology during his hospitalization. * PT/OT Request for Service. Awaiting recommendations. Orders: * Telemetry. Medications: * Morphine 2mg IV Push q30min PRN Chest Pain. * Nitroglycerin 2% Ointment 0.5in top q6hr PRN Chest Pain. * Zofran 4mg IV q6hr PRN Nausea and Vomiting. (2) DM (diabetes mellitus) ICD Codes: E11.9 - Type 2 diabetes mellitus without complications Status: Chronic Plan: Patient with history of DM Type II. On Metformin 1,000mg PO BIDPC and Lantus 12 units SQ HS at home. Hemoglobin A1c as of 09/14/17: 8.6 On admission: * Glucose: 171. Labs 02/24: * Glucose 83. Medications: * Levemir 12 units SQ HS. * NovoLOG Low Supplemental Scale. (3) Kidney stone on right side ICD Codes: N20.0 - Calculus of kidney Status: Chronic Plan: Patient with kidney stone on right. Recent stent placement and surgery to remove stones scheduled for March 13. Patient without CVA tenderness on admission. Patient denies hematuria on admission. Imaging: * CT Abdomen/Pelvis 02/23: Ureteral stent in place on the right. There are 2 stones evident in the right ureter. The first measures 9 mm. The second is somewhat more distal and measures 3 mm. There are mild hydronephrotic changes in the right kidney. Moderate amount of stool within the colon suggesting possible constipation. (4) Constipation ICD Codes: K59.00 - Constipation, unspecified Status: Chronic Plan: Patient with history of constipation. Imaging: * CT Abdomen/Pelvis 02/23: Ureteral stent in place on the right. There are 2 stones evident in the right ureter. The first measures 9 mm. The second is somewhat more distal and measures 3 mm. There are mild hydronephrotic changes in the right kidney. Moderate amount of stool within the colon suggesting possible constipation. Medications: * Constipation protocol. (5) Anemia ICD Codes: D64.9 - Anemia, unspecified Status: Chronic Plan: Patient with chronic anemia. Stable. On admission: * Hgb 11.5. On chart review, patient anemic since 2017 with baseline hemoglobin between 11- 12. (6) HTN (hypertension) ICD Codes: I10 - Essential (primary) hypertension Status: Chronic Plan: Patient with history of hypertension. Medications: * Continue home lisinopril. (7) Depressive disorder ICD Codes: F32.9 - Major depressive disorder, single episode, unspecified Status: Chronic Plan: Patient with history of depressive disorder. Patient with suicide attempt 8-9 months ago. Patient denies suicidal and homicidal ideations on admission. Medications: * Continue home fluoxetine and trazodone. * Continue home benztropine. * Brexpiprazole is not on hospital formulary. Patient is unable to supply own medication. Pharmacy contacted. Medication too expensive to be supplied by hospital. Half-life of brexpiprazole is 91 hours. May need to switch to alternative if patient remains hospitalized. Will also attempt to contact home for patient's own medication. (8) Diabetic neuropathy ICD Codes: E11.40 - Type 2 diabetes mellitus with diabetic neuropathy, unspecified Status: Chronic Plan: Patient with history of diabetic neuropathy. Medications: * Continue home gabapentin. (9) Fluid, Electrolyte, Nutrition, and Prophylaxis Status: Acute Plan: Fluid: * Tolerates PO. Electrolyte: * Monitor and replete as necessary. Nutrition: * NPO pending adenosine myocardial perfusion study. Prophylaxis: * SCDs. (Claudia Vazquez MD R1) Problem List: (1) Chest pain ICD Codes: R07.9 - Chest pain, unspecified Status: Acute Plan: Patient with chest pain x1 day. Pain described as sudden onset, constant , sharp, left-sided chest pain. Patient reports worsening pain with positional changes/movement and deep breaths. Pain alleviated when laying still. Patient reports lightheadedness. Patient denies cough, shortness of breath, diaphoresis. Patient denies fever, chills. Patient with history of cocaine use. 02/24: Patient with improved chest pain. Pain reproducible on exam. Admission Labs: * WBC 7.7, Hgb 11.6, Hct 34.7, Plt Count 185. * Na 142, K 4, Cl 106, Mg 1.3, Cr 1.27, BUN 15. * Glucose 171. * CK, total 344. * CK-MB 5.2 -> 5.1 -> 4.6 -> 4.4. * Troponin x3 negative. * BNP 36. * D-dimer 0.73. * Lipase 84. * Triglycerides 69, Cholesterol 115, LDL 69, HDL 32.2. * UDS negative. * Tylenol level less than 2.0. Labs 02/24: * WBC 5.9, Hgb 11.8, Hct 35.7, Plt Count 186. * Na 143, K 4.2, Cl 106, Cr 1.17, BUN 14. * Glucose 83. Imaging: * CXR 02/23: No acute cardiopulmonary process. * CT Angiogram 02/23: No pulmonary embolus identified. Mild hydronephrotic changes of the right kidney. Studies: * EKG: EKG was reviewed by Dr. Caraballo, cardiology, and showed normal sinus rhythm and mild diffuse ST elevation with no reciprocal changes. * ECHO: The left ventricular systolic function is hyperdynamic with an estimated ejection fraction in the range of 65-70%. Normal left ventricular size. Wall thickness is measured at the upper limits of normal. No regional wall motion abnormalities are present. Trace mitral valve regurgitation. Aortic valve sclerosis is present. There is trace tricuspid valve regurgitation. The estimated pulmonary arterial pressure is 27 mmHg. Consults: * Cardiology: Mr. Manley presented with atypical chest discomfort of pleuritic character. He will be monitored on telemetry with serial enzymes and EKGs. I recommend to control his pain with analgesics. We will obtain echocardiogram to evaluate his LV function and also for evidence of pericarditis including pericardial effusion. We will obtain adenosine myocardial perfusion study 02/24 to evaluate for ischemia. I will follow him for Cardiology during his hospitalization. * PT/OT Request for Service. Awaiting recommendations. Orders: * Telemetry. Medications: * Morphine 2mg IV Push q30min PRN Chest Pain. * Nitroglycerin 2% Ointment 0.5in top q6hr PRN Chest Pain. * Zofran 4mg IV q6hr PRN Nausea and Vomiting. (2) DM (diabetes mellitus) ICD Codes: E11.9 - Type 2 diabetes mellitus without complications Status: Chronic Plan: Patient with history of DM Type II. On Metformin 1,000mg PO BIDPC and Lantus 12 units SQ HS at home. Hemoglobin A1c as of 09/14/17: 8.6 On admission: * Glucose: 171. Labs 02/24: * Glucose 83. Medications: * Levemir 12 units SQ HS. * NovoLOG Low Supplemental Scale. (3) Kidney stone on right side ICD Codes: N20.0 - Calculus of kidney Status: Chronic Plan: Patient with kidney stone on right. Recent stent placement and surgery to remove stones scheduled for March 13. Patient without CVA tenderness on admission. Patient denies hematuria on admission. Imaging: * CT Abdomen/Pelvis 02/23: Ureteral stent in place on the right. There are 2 stones evident in the right ureter. The first measures 9 mm. The second is somewhat more distal and measures 3 mm. There are mild hydronephrotic changes in the right kidney. Moderate amount of stool within the colon suggesting possible constipation. (4) Constipation ICD Codes: K59.00 - Constipation, unspecified Status: Chronic Plan: Patient with history of constipation. Imaging: * CT Abdomen/Pelvis 02/23: Ureteral stent in place on the right. There are 2 stones evident in the right ureter. The first measures 9 mm. The second is somewhat more distal and measures 3 mm. There are mild hydronephrotic changes in the right kidney. Moderate amount of stool within the colon suggesting possible constipation. Medications: * Constipation protocol. (5) Anemia ICD Codes: D64.9 - Anemia, unspecified Status: Chronic Plan: Patient with chronic anemia. Stable. On admission: * Hgb 11.5. On chart review, patient anemic since 2017 with baseline hemoglobin between 11- 12. (6) HTN (hypertension) ICD Codes: I10 - Essential (primary) hypertension Status: Chronic Plan: Patient with history of hypertension. Medications: * Continue home lisinopril. (7) Depressive disorder ICD Codes: F32.9 - Major depressive disorder, single episode, unspecified Status: Chronic Plan: Patient with history of depressive disorder. Patient with suicide attempt 8-9 months ago. Patient denies suicidal and homicidal ideations on admission. Medications: * Continue home fluoxetine and trazodone. * Continue home benztropine. * Brexpiprazole is not on hospital formulary. Patient is unable to supply own medication. Pharmacy contacted. Medication too expensive to be supplied by hospital. Half-life of brexpiprazole is 91 hours. May need to switch to alternative if patient remains hospitalized. Will also attempt to contact home for patient's own medication. (8) Diabetic neuropathy ICD Codes: E11.40 - Type 2 diabetes mellitus with diabetic neuropathy, unspecified Status: Chronic Plan: Patient with history of diabetic neuropathy. Medications: * Continue home gabapentin. (9) Fluid, Electrolyte, Nutrition, and Prophylaxis Status: Acute Plan: Fluid: * Tolerates PO. Electrolyte: * Monitor and replete as necessary. Nutrition: * NPO pending adenosine myocardial perfusion study. Prophylaxis: * SCDs. See the residents documentation for details. I saw and evaluated the patient regarding the bahena portions of this evaluation and agree with the residents findings and plans as written. Parts of this note were created using [employer] voice recognition software program. While efforts were made to correct any mistakes made by this software, some mistakes, errors, and omissions may remain in the final note that were not caught when the note was originally created. Plan of care was discussed and agreed upon with the patient as specifically documented in the above note. An opportunity to ask questions with explanation was provided. Patient voiced understanding on all information reviewed and discussed. (Faustino Snider MD) Problem Qualifiers (1) Chest pain: Qualified Codes: R07.9 - Chest pain, unspecified Claudia Vazquez MD R1 Feb 24, 2018 12:54 Faustino Snider MD Feb 25, 2018 14:54
[2018-02-24] MEDS ORDERED: REGADENOSON INJ 0.4 MG/5 ML SYR ONE (13:13)
--- NOTE | 2018-02-24 13:34 | HHI.DCPOC ---
Discharge Care Plan Diagnosis: (1) Chest pain (2) Anemia (3) Kidney stone on right side (4) Depressive disorder (5) Diabetic neuropathy (6) Constipation (7) DM (diabetes mellitus) (8) HTN (hypertension) Goals to Promote Your Health * To prevent worsening of your condition and complications * To maintain your health at the optimal level Directions to Meet Your Goals Take your medications as prescribed Follow your dietary instruction Follow activity as directed Keep your appointments as scheduled Take your immunizations and boosters as scheduled If your symptoms worsen call your PCP, if no PCP go to Urgent Care Center or Emergency Room Smoking is Dangerous to Your Health. Avoid second hand smoke Call the 24-hour hour crisis hotline for domestic abuse at Claudia Vazquez MD R1 Feb 24, 2018 13:34
--- NOTE | 2018-02-24 15:01 | RADRPT ---
EXAM DATE: 02/24/2018 2:54 PM EDT AGE/SEX: 62 years / Male INDICATIONS:Angina. . Chest pain. CLINICAL DATA: This is the patient's initial encounter. Patient reports that signs and symptoms have been present for 1 day and indicates a pain score of 0/10. MEDICAL/SURGICAL HISTORY: Diabetes mellitus type II. Hypertension. Appendectomy. COMPARISON: [facility] [place], MYOCARDIAL PERF PHARM SPECT, 08/26/2017. . No external comparison. DOSE: 8.2 mCi Tc 99m Myoview at rest 26.6 mCi [id number] at stress 0.4 mg Lexiscan STRESS SYMPTOMS: None. EJECTION FRACTION: 53 % TECHNIQUE: The patient underwent pharmacologic stress with infusion of prescribed dose. Continuous ECG tracing was monitored during stress. Gated SPECT imaging was performed after stress and conventi onal SPECT imaging was performed at rest. The examination was performed on a SPECT/CT scanner, both attenuation and non-corrected datasets were reviewed. FINDINGS: Distribution: The maximum perfused segment at stress is in the septal wall. Perfusion Study: The pattern of perfusion at stress is within normal limits with regional variation s perfusion within 25%. The pattern of perfusion at stress and rest is unchanged without evidence of redistribution. The pattern of perfusion on the present exam and in August 2017 is unchanged. The s um stress score is 1. Gated Study: There are intact wall motion and wall thickening without hypokinetic or dyskinetic segm ents. The ejection fraction is calculated at 53%. RISK CATEGORY: Low (<1% Annual Motality Rate) CONCLUSION: 1. No evidence of stress-induced ischemia. 2. Intact wall motion with 53% ejection fraction. Electronically signed by: Rodríguez Sims MD 02/24/2018 2:59 PM EDT
--- NOTE | 2018-02-24 18:15 | PD.CARD.PN ---
Subjective Subjective Remarks No CP or SOB, feels much better Objective Medications Current Medications Medications (Trade) Dose Ordered Sig/Fabi Route Start Time Stop Time Status Last Admin (NS Flush) 2 ml UNSCH PRN IVF 02/23/18 13:30 (Narcan Inj) 0.4 mg UNSCH PRN IV PUSH 02/23/18 16:45 (Heidy-Colace) 1 tab BID PO 02/23/18 21:00 02/24/18 08:56 (Milk Of Magnesia Liq) 30 ml Q12H PRN PO 02/23/18 16:45 (Senokot) 17.2 mg Q12H PRN PO 02/23/18 16:45 (Lipitor) 10 mg HS PO 02/23/18 21:00 02/24/18 00:15 (Cogentin) 1 mg BID PO 02/23/18 21:00 02/24/18 08:56 (PROzac) 40 mg DAILY PO 02/23/18 17:00 02/24/18 08:56 (Neurontin) 400 mg TID PO 02/23/18 18:00 02/24/18 08:56 (Levemir Inj) 12 units HS SQ 02/23/18 21:00 02/24/18 00:15 (Prinivil) 20 mg DAILY PO 02/24/18 09:00 02/24/18 08:56 Patient Own Medication PT OWN MED: (Brexpiprazole (Rexulti... HS PO 02/23/18 21:00 Future Hold (Zofran Inj) 4 mg Q6H PRN IVP 02/23/18 18:45 (Nitroglycerin 2% Oint) 0.5 inch Q6HR PRN TOP 02/23/18 18:45 (Morphine Inj) 2 mg Q30M PRN IV PUSH 02/23/18 18:45 (Tylenol) 650 mg Q6H PRN PO 02/23/18 18:45 (NovoLOG SUPPLEMENTAL SCALE) 1 ACHS SLIDING SCALE SQ 02/23/18 21:00 (D50w (Vial) Inj) 25 ml UNSCH PRN IV PUSH 02/23/18 19:15 (Glucagon Inj) 1 mg UNSCH PRN OTHER 02/23/18 19:15 (Desyrel) 150 mg HS PO 02/23/18 21:00 02/24/18 00:16 Vital Signs / I&O Vital Signs Date Time Temp Pulse Resp B/P (MAP) Pulse Ox O2 Delivery O2 Flow Rate FiO2 02/24/18 16:32 97.6 56 18 163/100 (121) 98 02/24/18 11:45 52 02/24/18 10:05 60 164/93 (116) 95 02/24/18 10:00 52 158/85 (109) 98 02/24/18 09:54 48 160/82 (108) 97 02/24/18 08:01 48 02/24/18 04:27 98.3 51 16 132/84 (100) 100 02/24/18 00:25 97.8 50 16 134/80 (98) 97 02/23/18 19:54 97.9 52 16 133/77 (95) 96 02/23/18 19:47 97 21 I/O 02/23/18 02/23/18 02/23/18 02/24/18 02/24/18 02/24/18 07:00 15:00 23:00 07:00 15:00 23:00 Intake Total 250 ml 240 ml Balance 250 ml 240 ml Intake Oral 240 ml IV Total 250 ml # Voids 1 2 2 Physical Exam GENERAL: In NAD. SKIN: Warm and dry. HEAD: Normocephalic. EYES: No scleral icterus. No injection or drainage. NECK: Supple, trachea midline. No JVD or lymphadenopathy. CARDIOVASCULAR: Regular rate and rhythm without murmurs, gallops, or rubs. RESPIRATORY: Breath sounds equal bilaterally. No accessory muscle use. GASTROINTESTINAL: Abdomen soft, non-tender, nondistended. MUSCULOSKELETAL: No cyanosis, or edema. Laboratory Laboratory Tests Test 02/23/18 18:15 02/23/18 23:14 02/24/18 05:22 Total Creatine Kinase 336 U/L 316 U/L 312 U/L Creatine Kinase MB 5.1 NG/ML 4.6 NG/ML 4.4 NG/ML Creatine Kinase MB % 1.5 % 1.5 % 1.4 % Troponin I LESS THAN 0.02 NG/ML LESS THAN 0.02 NG/ML White Blood Count 5.9 TH/MM3 Red Blood Count 3.90 MIL/MM3 Hemoglobin 11.8 GM/DL Hematocrit 35.7 % Mean Corpuscular Volume 91.5 FL Mean Corpuscular Hemoglobin 30.3 PG Mean Corpuscular Hemoglobin Concent 33.1 % Red Cell Distribution Width 13.3 % Platelet Count 186 TH/MM3 Mean Platelet Volume 8.0 FL Blood Urea Nitrogen 14 MG/DL Creatinine 1.17 MG/DL Random Glucose 83 MG/DL Total Protein 7.3 GM/DL Albumin 3.3 GM/DL Calcium Level 8.5 MG/DL Alkaline Phosphatase 58 U/L Aspartate Amino Transf (AST/SGOT) 11 U/L Alanine Aminotransferase (ALT/SGPT) 18 U/L Total Bilirubin 0.4 MG/DL Sodium Level 143 MEQ/L Potassium Level 4.2 MEQ/L Chloride Level 106 MEQ/L Carbon Dioxide Level 29.8 MEQ/L Anion Gap 7 MEQ/L Estimat Glomerular Filtration Rate 76 ML/MIN Triglycerides Level 69 MG/DL Cholesterol Level 115 MG/DL LDL Cholesterol 69 MG/DL HDL Cholesterol 32.2 MG/DL Cholesterol/HDL Ratio 3.57 RATIO Imaging Last 24 hours Impressions Myocardial Perfusion Scan Nuc Med 02/24/18 0800 Signed Impressions: CONCLUSION: 1. No evidence of stress-induced ischemia. 2. Intact wall motion with 53% ejection fraction. Assessment and Plan Problem List: (1) Chest pain ICD Codes: R07.9 - Chest pain, unspecified Status: Acute (2) DM (diabetes mellitus) ICD Codes: E11.9 - Type 2 diabetes mellitus without complications Status: Chronic (3) HTN (hypertension) ICD Codes: I10 - Essential (primary) hypertension Status: Chronic (4) Depressive disorder ICD Codes: F32.9 - Major depressive disorder, single episode, unspecified Status: Chronic (5) Suicidal ideations ICD Codes: R45.851 - Suicidal ideations Status: Acute (6) Diabetic neuropathy ICD Codes: E11.40 - Type 2 diabetes mellitus with diabetic neuropathy, unspecified Status: Chronic Assessment and Plan No recurrent CP. Echo with nl LV systolic fx. Nuclear stress test with no evidence of ischemia. OK to discharge home from cardiac standpoint. Problem Qualifiers (1) Chest pain: Qualified Codes: R07.9 - Chest pain, unspecified Alissa Caraballo MD Feb 24, 2018 18:15
--- NOTE | 2018-02-24 18:29 | EKG ---
Date Performed: 02/23/2018 Time Performed: 13:28:04 PTAGE: 62 years EKG: Sinus rhythm WITH OCCASIONAL SUPRAVENTRICULAR PREMATURE COMPLEXES POSSIBLE ANTERIOR MYOCARDIAL INFARCTION ABNORMA L ECG PREVIOUS TRACING : 02/23/2018 13.21 When compared to prior EKG,patient is no longer tachycardic DOCTOR: Joan Martin Interpretating Date/Time 02/24/2018 18:28:34
--- NOTE | 2018-02-24 18:30 | EKG ---
Date Performed: 02/23/2018 Time Performed: 14:02:45 PTAGE: 62 years EKG: Sinus rhythm NORMAL ECG PREVIOUS TRACING : 02/23/2018 13.28 Since the previous tracing, no significant change noted DOCTOR: Joan Martin Interpretating Date/Time 02/24/2018 18:28:53
--- NOTE | 2018-02-24 18:30 | EKG ---
Date Performed: 02/23/2018 Time Performed: 17:47:41 PTAGE: 62 years EKG: SINUS BRADYCARDIA BORDERLINE ECG PREVIOUS TRACING :02/23/2018 @14.02 When compared to prior EKG,patient is now bradycardic DOCTOR: Joan Martin Interpretating Date/Time 02/24/2018 19:39:12
--- NOTE | 2018-02-24 18:31 | EKG ---
Date Performed: 02/23/2018 Time Performed: 23:22:00 PTAGE: 62 years EKG: SINUS BRADYCARDIA BORDERLINE ECG PREVIOUS TRACING : 02/23/2018 17.47 Since the previous tracing, no significant change noted DOCTOR: Joan Martin Interpretating Date/Time 02/24/2018 18:30:20
== END 2018-02-24 19:09 | disposition home or self-care (01) ==
LOC: NEPE 12:57 → NEDA 16:19 → NEPFCDU 17:24
PROVIDERS: ADMIT Family Medicine; ATTEND Family Medicine
DX: R07.89 Other chest pain (principal); R42 Dizziness and giddiness; E11.40 Type 2 diabetes mellitus with diabetic neuropathy, unspecified; N20.0 Calculus of kidney; K59.00 Constipation, unspecified; I35.0 Nonrheumatic aortic (valve) stenosis; E83.42 Hypomagnesemia; R00.1 Bradycardia, unspecified; I49.3 Ventricular premature depolarization; D64.9 Anemia, unspecified; I10 Essential (primary) hypertension; F31.9 Bipolar disorder, unspecified; R45.851 Suicidal ideations; M54.5 Low back pain; G89.29 Other chronic pain; F41.9 Anxiety disorder, unspecified; F14.10 Cocaine abuse, uncomplicated; Z79.899 Other long term (current) drug therapy; Z79.82 Long term (current) use of aspirin; Z79.84 Long term (current) use of oral hypoglycemic drugs
CPT/HCPCS: 71045; 71275; 74176; 78452; 80053; 80061; 80307; 81001; 82550; 82552; 82948; 83690; 83735; 83880; 84484; 85025; 85027; 85379; 85610; 85730; 93005; 93017; 93306; 96361; 96365; 96372; 96375; 96376; 97163; 97167; 99285; A9502; G0378; G8987; G8988; J2270; J2785; J3475; J7050; Q9967

== ENCOUNTER 2018-03-16 11:03 | Observation (INO) ==
--- NOTE | 2018-03-16 11:47 | ED ---
HPI General Chief complaint: Chest Pain Stated complaint: Chest pain/Sob x this am Time Seen by Provider: 03/16/18 11:16 History of Present Illness HPI narrative: A 62-year-old male with history of hypertension, diabetes, dyslipidemia here for evaluation of chest pain. Pain is pleuritic, sharp, comes and goes, located in the mid chest, stabbing like, worse, no radiation. He has no shortness of breath no lightheadedness, no sweating or dizziness or palpitations or orthopnea or leg swelling. Patient had cystoscopy with stent placement done on February 12 as an outpatient procedure and did not have any pain at that time. Patient was here on February 23 for evaluation of chest pain and had echo as well as a stress test that were reasonably within normal limits and his EF 53%. Patient says that the pain started yesterday and seems to be getting worse. He has no fever or chills, he has no cough, no recent travel or sick contacts. He has insulin dependent diabetes and is compliant with his medications. Related Data Home Medications Medication Instructions Recorded Confirmed aspirin [Aspirin Low Dose] 81 mg PO DAILY 03/14/18 03/16/18 atorvastatin [Lipitor] 10 mg PO DAILY 03/14/18 03/16/18 benztropine 1 mg PO BID 03/14/18 03/16/18 brexpiprazole [Rexulti] 2 mg PO DAILY 03/14/18 03/16/18 fluoxetine 40 mg PO BID 03/14/18 03/16/18 gabapentin 400 mg PO TID 03/14/18 03/16/18 insulin glargine [Lantus U-100 12 unit SUB-Q DAILY 03/14/18 03/16/18 Insulin] lisinopril 20 mg PO DAILY 03/14/18 03/16/18 metformin 1,000 mg PO BID 03/14/18 03/16/18 trazodone 150 mg PO HS 03/16/18 03/16/18 Previous Rx's Medication Instructions Recorded oxycodone-acetaminophen [Percocet] 1 tab PO Q4-6H PRN #20 tab 03/14/18 Allergies Allergy/AdvReac Type Severity Reaction Status Date / Time No Known Allergies Allergy Unverified 03/14/18 08:04 Review of Systems Except as stated in HPI: all other systems reviewed are negative [facility] Social History Social History Substance History: No History of Abuse Second Hand Smoke Exposure: No Smoking Status: Never smoker How Often Do You Have a Drink Containing Alcohol: Never Recent Travel in [facility] within the Last 8 Weeks: No Recent Out of Country Travel within the Last 8 Weeks: No Exam Narrative Exam Narrative: GENERAL: Alert oriented 3 no acute distress. SKIN: Focused skin assessment warm/dry. HEAD: Atraumatic. Normocephalic. EYES: Pupils equal and round. No scleral icterus. No injection or drainage. ENT: No nasal bleeding or discharge. Mucous membranes pink and moist. NECK: Trachea midline. No JVD. CARDIOVASCULAR: Regular rate and rhythm. No murmur appreciated. RESPIRATORY: No accessory muscle use. Clear to auscultation. Breath sounds equal bilaterally. GASTROINTESTINAL: Abdomen soft, non-tender, nondistended. Hepatic and splenic margins not palpable. MUSCULOSKELETAL: No obvious deformities. No clubbing. No cyanosis. No edema. NEUROLOGICAL: Awake and alert. No obvious cranial nerve deficits. Motor grossly within normal limits. Normal speech. PSYCHIATRIC: Appropriate mood and affect; insight and judgment normal. Course Initial Documented Vital Signs Temperature 98.5 F 03/16/18 11:25 Pulse Rate 60 03/16/18 11:25 Respiratory Rate 20 03/16/18 11:25 Blood Pressure 108/68 03/16/18 11:25 Pulse Oximetry 96 03/16/18 11:25 Last Documented Vital Signs Temperature 98.5 F 03/16/18 11:25 Pulse Rate 60 03/16/18 11:25 Respiratory Rate 20 03/16/18 11:25 Blood Pressure 108/68 03/16/18 11:25 Pulse Oximetry 96 03/16/18 11:25 Medical Decision Making [facility] Narrative Medical decision making narrative: 62-year-old male history of hypertension diabetes and dyslipidemia here for evaluation of chest pain that is atypical in presentation, first EKG shows T-wave inversion V2, V3 he always no ST segment elevation or depression or burgada pattern, troponin is negative labs are normal limits. Elevated BUN and creatinine from baseline back in February 23. Bladder scan shows 580 and the bladder and patient is able to urinate with no problems. Patient may benefit from ultrasound of the kidneys to rule out hydronephrosis since the patient had stent placed in February 12. Currently patient has no abdominal pain to warrant for a CAT scan of the abdomen, I discussed the case in detail with who accepted the patient. Lab Data Result diagrams: 03/16/18 11:30 03/16/18 11:30 Lab Results 03/16/18 03/16/18 03/16/18 Range/Units :18 11:30 11:30 CBC w Diff Auto diff final WBC 6.9 (4.0-11.0) th/mm3 RBC 3.71 L (4.50-5.90) mil/mm3 Hgb 11.2 L (13.0-17.0) gm/dL Hct 34.9 L (39.0-51.0) % MCV 94.1 (80.0-100.0) fL MCH 30.3 (27.0-34.0) pg MCHC 32.2 (32.0-36.0) % RDW 12.2 (11.6-17.2) % Plt Count 260 (150-450) th/mm3 MPV 7.6 (7.0-11.0) fL Neut % (Auto) 57.1 (16.0-70.0) % Lymph % (Auto) 31.7 (9.0-44.0) % [place] % (Auto) 7.8 (0.0-8.0) % Eos % (Auto) 1.7 (0.0-4.0) % Baso % (Auto) 1.7 (0.0-2.0) % Neut # (Auto) 4.0 (1.8-7.7) th/mm3 Lymph # (Auto) 2.2 (1.0-4.8) th/mm3 [place] # (Auto) 0.5 (0.0-0.9) th/mm3 Eos # (Auto) 0.1 (0.0-0.4) th/mm3 Baso # (Auto) 0.1 (0.0-0.2) th/mm3 WBC Differential . Differential Comment . PT 10.9 (9.8-11.6) sec INR 1.1 Ratio APTT 25.2 (24.3-30.1) sec D-Dimer Quant (PE/DVT) 0.62 H (0.00-0.50) mg/L FEU Sodium (136-145) meq/L Potassium (3.5-5.1) meq/L Chloride (98-107) meq/L Carbon Dioxide (21.0-32.0) meq/L Anion Gap (5-15) meq/L BUN (7-18) mg/dL Creatinine (0.60-1.30) mg/dL Estimated GFR (>89) mL/min POC Glucose 76 (68-110) mg/dl Random Glucose (74-106) mg/dL Calcium (8.5-10.1) mg/dL Magnesium (1.5-2.5) mg/dL Total Bilirubin (0.2-1.0) mg/dL AST (15-37) U/L ALT (12-78) U/L Alkaline Phosphatase (45-117) U/L Total Creatine Kinase (39-308) U/L CK-MB (CK-2) (0.5-3.6) ng/mL Troponin I (0.02-0.05) ng/mL B-Natriuretic Peptide (0-100) pg/mL Total Protein (6.4-8.2) g/dL Albumin (3.4-5.0) g/dL Lipase (73-393) U/L Serum Alcohol (0-5) mg/dL 03/16/18 03/16/18 03/16/18 Range/Units 11:30 11:30 11:30 CBC w Diff WBC (4.0-11.0) th/mm3 RBC (4.50-5.90) mil/mm3 Hgb (13.0-17.0) gm/dL Hct (39.0-51.0) % MCV (80.0-100.0) fL MCH (27.0-34.0) pg MCHC (32.0-36.0) % RDW (11.6-17.2) % Plt Count (150-450) th/mm3 MPV (7.0-11.0) fL Neut % (Auto) (16.0-70.0) % Lymph % (Auto) (9.0-44.0) % [place] % (Auto) (0.0-8.0) % Eos % (Auto) (0.0-4.0) % Baso % (Auto) (0.0-2.0) % Neut # (Auto) (1.8-7.7) th/mm3 Lymph # (Auto) (1.0-4.8) th/mm3 [place] # (Auto) (0.0-0.9) th/mm3 Eos # (Auto) (0.0-0.4) th/mm3 Baso # (Auto) (0.0-0.2) th/mm3 WBC Differential Differential Comment PT (9.8-11.6) sec INR Ratio APTT (24.3-30.1) sec D-Dimer Quant (PE/DVT) (0.00-0.50) mg/L FEU Sodium 142 (136-145) meq/L Potassium 4.5 (3.5-5.1) meq/L Chloride 107 (98-107) meq/L Carbon Dioxide 26.1 (21.0-32.0) meq/L Anion Gap 9 (5-15) meq/L BUN 28 H (7-18) mg/dL Creatinine 2.10 H (0.60-1.30) mg/dL Estimated GFR 39 L (>89) mL/min POC Glucose (68-110) mg/dl Random Glucose 68 L (74-106) mg/dL Calcium 8.4 L (8.5-10.1) mg/dL Magnesium 1.1 L (1.5-2.5) mg/dL Total Bilirubin 0.4 (0.2-1.0) mg/dL AST 15 (15-37) U/L ALT 16 (12-78) U/L Alkaline Phosphatase 61 (45-117) U/L Total Creatine Kinase 261 (39-308) U/L CK-MB (CK-2) 4.4 H (0.5-3.6) ng/mL Troponin I Less than 0.02 L (0.02-0.05) ng/mL B-Natriuretic Peptide 23 (0-100) pg/mL Total Protein 8.2 (6.4-8.2) g/dL Albumin 3.5 (3.4-5.0) g/dL Lipase 95 (73-393) U/L Serum Alcohol Less than 3 (0-5) mg/dL Imaging Data Radiologist's impression: ITS Impressions Chest X-Ray 03/16/18 11:29 CONCLUSION: No acute cardiopulmonary disease. Discharge Plan Discharge Disposition Patient Disposition: 30 Still Patient Discharge Condition Condition: Stable Physicians Team ED Provider: Miguel Angel Donnelly Primary Care Provider: Ana Middleton Attending Provider: Kinza Osman ED Status: Admitted Observation Patient
[2018-03-16 11:53] LABS: Baso # (Auto) 0.1 th/mm3 (0.0-0.2); Baso % (Auto) 1.7 % (0.0-2.0); Eos # (Auto) 0.1 th/mm3 (0.0-0.4); Eos % (Auto) 1.7 % (0.0-4.0); Hematocrit 34.9 % (39.0-51.0); Hemoglobin 11.2 gm/dL (13.0-17.0); Lymph # (Auto) 2.2 th/mm3 (1.0-4.8); Lymph % (Auto) 31.7 % (9.0-44.0); Mean Corpuscular HGB Conc 32.2 % (32.0-36.0); Mean Corpuscular Hemoglobin 30.3 pg (27.0-34.0); Mean Corpuscular Volume 94.1 fL (80.0-100.0); Mean Platelet Volume 7.6 fL (7.0-11.0); Mono # (Auto) 0.5 th/mm3 (0.0-0.9); Mono % (Auto) 7.8 % (0.0-8.0); Neut % (Auto) 57.1 % (16.0-70.0); Platelet Count 260 th/mm3 (150-450); Red Blood Count 3.71 mil/mm3 (4.50-5.90); Red Cell Distribution Width 12.2 % (11.6-17.2); White Blood Count 6.9 th/mm3 (4.0-11.0)
[2018-03-16 12:05] LABS: Chloride 107 meq/L (98-107); Potassium 4.5 meq/L (3.5-5.1); Sodium 142 meq/L (136-145)
[2018-03-16 12:09] LABS: Magnesium 1.1 mg/dL (1.5-2.5)
[2018-03-16 12:10] LABS: Lipase 95 U/L (73-393)
[2018-03-16 12:11] LABS: Activated Partial Thrombo Time 25.2 sec (24.3-30.1); Albumin 3.5 g/dL (3.4-5.0); Anion Gap 9 meq/L (5-15); Calcium 8.4 mg/dL (8.5-10.1); Carbon Dioxide 26.1 meq/L (21.0-32.0); Glucose,Random 68 mg/dL (74-106); INR 1.1 Ratio; Prothrombin Time 10.9 sec (9.8-11.6)
[2018-03-16 12:12] LABS: D-Dimer 0.62 mg/L FEU (0.00-0.50)
[2018-03-16 12:13] LABS: Blood Urea Nitrogen 28 mg/dL (7-18)
[2018-03-16 12:15] LABS: Alanine Aminotransferase 16 U/L (12-78); Aspartate Aminotransferase 15 U/L (15-37); Glomerular Filtration Rate 39 mL/min (>89)
[2018-03-16 12:16] LABS: Creatine Kinase 261 U/L (39-308); Total Protein 8.2 g/dL (6.4-8.2)
[2018-03-16 12:17] LABS: Alkaline Phosphatase 61 U/L (45-117)
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
[2018-03-16 12:28] LABS: Creatine Kinase MB 4.4 ng/mL (0.5-3.6)
[2018-03-16] MEDS ORDERED: Temazepam 15 MG Capsule PO PRN (12:36)
[2018-03-16] MEDS ORDERED: Acetaminophen 325 MG Tablet PO PRN (12:36)
[2018-03-16] MEDS ORDERED: Bisacodyl 10 MG Supp RECTAL PRN (12:36)
[2018-03-16 12:58] LABS: Bilirubin,Urine Negative (Negative); Clarity,Urine Clear (Clear); Color,Urine Yellow (Yellw/Straw); Glucose,Urine (UA) Negative (Negative); Leukocyte Esterase,Urine Small (Negative); Nitrite,Urine Negative (Negative); Specific Gravity,Urine 1.025 (1.002-1.035); Urobilinogen,Urine 0.2 mg/dL (Less than 2)
[2018-03-16 13:02] LABS: Bacteria,Urine Occasional /hpf; RBC,Urine 51-189 /hpf (0-3)
[2018-03-16] MEDS: Sod Chloride 0.9% Inj 1,000 ML IV.CONT SCH ×2 (13:12→23:24)
[2018-03-16] MEDS: Heparin - SQ 10,000 UNITS/ML Vial SQ SCH (13:12)
--- NOTE | 2018-03-16 14:06 | ECG ---
Date Performed: 03/16/2018 Time Performed: 11:11:53 PTAGE: 62 years EKG: Sinus rhythm NORMAL ECG No significant change from prior electrocardiogram. PREVIOUS TRACING : 02/23/2018 23.22 DOCTOR: Mariano Garcia Interpretating Date/Time 03/16/2018 14:04:14
--- NOTE | 2018-03-16 14:13 | US ---
EXAM DATE: 03/16/2018 2:01 PM EDT AGE/SEX: 62 years / Male INDICATIONS: Hydronephrosis. CLINICAL DATA: This is the patient's initial encounter. Patient reports that signs and symptoms have been present for 1 month and indicates a pain score of 2/10. MEDICAL/SURGICAL HISTORY: . Hypertension. Diabetes. Appendectomy. COMPARISON: [facility] – [place], CT ABDOMEN & PELVIS W/O CONTRAST, 02/23/2018. . MEASUREMENTS: Right Kidney:__11.6 x 5.8 x 6.1 cm Left Kidney:__10.6 x 4.7 x 6.0 cm FINDINGS: Right Kidney: Moderate to severe hydronephrosis remains evident within the right kidney. There is a c ollection of calculi in the lower pole with the largest stone measuring 1.6 cm. Internal ureteral joann nt identified on recent CT could not be visualized. Left Kidney: Small calculus measuring 4 mm is identified in the left kidney. Is no evidence of hydron ephrosis. Bladder: Within normal limits given the degree of distension. Other: None. CONCLUSION: 1. Moderate to severe right hydronephrosis 2. Large right renal calculi 3. Small left renal stone 4. Otherwise unremarkable left kidney. Electronically signed by: Kishore Arias MD 03/16/2018 2:12 PM EDT
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
[2018-03-16] MEDS ORDERED: Dextrose 50% in Water 50 ML Vial IV.PUSH PRN (14:19)
[2018-03-16] MEDS: Mag Sulf 1 gm/100 ml Premix 100 ML IV.SIG SCH ×2 (15:16→16:34)
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
[2018-03-16] MEDS: Insulin NovoLOG Aspart Correctional Sugar Inj SQ SCH ×2 (18:03→21:41)
[2018-03-16 18:56] LABS: Creatine Kinase 245 U/L (39-308)
[2018-03-16] MEDS: Senna/Docusate Sodium 8.6/50 MG Tablet PO SCH (20:28)
[2018-03-16] MEDS ORDERED: traZODone 100 MG Tablet PO SCH (21:00)
[2018-03-16] MEDS: FLUoxetine 20 MG Capsule PO SCH (21:40)
[2018-03-16 22:40] LABS: Creatine Kinase 249 U/L (39-308)
[2018-03-17] MEDS: Heparin - SQ 10,000 UNITS/ML Vial SQ SCH (02:03)
[2018-03-17 06:44] LABS: Baso % (Auto) 0.5 % (0.0-2.0); Eos # (Auto) 0.1 th/mm3 (0.0-0.4); Eos % (Auto) 1.4 % (0.0-4.0); Hematocrit 30.7 % (39.0-51.0); Hemoglobin 10.7 gm/dL (13.0-17.0); Lymph % (Auto) 27.6 % (9.0-44.0); Mean Corpuscular Hemoglobin 31.8 pg (27.0-34.0); Mean Corpuscular Volume 90.9 fL (80.0-100.0); Mean Platelet Volume 8.2 fL (7.0-11.0); Mono # (Auto) 0.7 th/mm3 (0.0-0.9); Mono % (Auto) 9.2 % (0.0-8.0); Neut # (Auto) 4.5 th/mm3 (1.8-7.7); Neut % (Auto) 61.3 % (16.0-70.0); Platelet Count 244 th/mm3 (150-450); Red Blood Count 3.38 mil/mm3 (4.50-5.90); Red Cell Distribution Width 12.4 % (11.6-17.2); White Blood Count 7.3 th/mm3 (4.0-11.0)
[2018-03-17 06:49] LABS: Potassium 4.3 meq/L (3.5-5.1)
[2018-03-17 06:52] LABS: Calcium 8.2 mg/dL (8.5-10.1)
[2018-03-17 06:53] LABS: Carbon Dioxide 25.7 meq/L (21.0-32.0); Magnesium 1.3 mg/dL (1.5-2.5)
[2018-03-17] MEDS ORDERED: Insulin Detemir Inj 1,000 UNIT/10 ML Vial SQ SCH (09:00)
[2018-03-17] MEDS ORDERED: BREXPIPRAZOLE 2 MG PO SCH (09:00)
--- NOTE | 2018-03-17 09:06 | MB ---
cc: aSlomon Arreguin DO DATE: 03/17/2018 HISTORY OF PRESENT ILLNESS: Mr. Manley is a pleasant 62-year-old male who presented to the [place] emergency room with substernal chest pain last night. He also had some diaphoresis with some shortness of breath. Approximately 1 month ago, he underwent cystoscopy with right double-J stent insertion for a 1 cm proximal right ureteral calculus. He had an ultrasound in the emergency room at [place] which showed moderate to severe right-sided hydronephrosis. He presently denies any right-sided flank pain at present. He does note some gross hematuria at times. PAST MEDICAL HISTORY: Includes anxiety, depression, diabetes, hypercholesterolemia, hypertension, retained ureteral stent on the right, neuropathy. PAST SURGICAL HISTORY: Appendectomy. FAMILY HISTORY: Denies a history of stones. SOCIAL HISTORY: Denies smoking, drinking or using drugs. REVIEW OF SYSTEMS: Noted substernal chest pain on admission, that has since resolved. Denies shortness of breath at present. Denies abdominal pain. Denies flank pain. Denies nausea or vomiting, fever or chills. Denies gait disturbance, bleeding disorder, or skin lesions. Remaining review of systems were reviewed and are negative. PHYSICAL EXAMINATION: VITAL SIGNS: 99.3 temperature, heart rate 54, respiratory rate 20, 138/77 blood pressure, 97% on room air. GENERAL: He is a well-developed, well-nourished, 62-year-old male in no acute distress. HEENT: Normocephalic, atraumatic. Pupils equal, round, regular and reactive to light. Extraocular movements intact. NECK: Supple. HEART: Regular rate and rhythm. LUNGS: Clear. ABDOMEN: Soft, nontender, nondistended. There is no CVA tenderness today. GENITOURINARY: Normal phallus. Testes are descended. EXTREMITIES: Show no evidence of cyanosis, clubbing, or edema. LABORATORY DATA: White count 7.3, hemoglobin 10.7, hematocrit 30.7, platelet count of 244. Sodium 141, potassium 4.3, chloride 107, CO2 25.7, BUN of 21, creatinine 1.4. Urinalysis shows large blood, 9-20 white cells, 51-189 red cells. Urine culture is presently pending. Again, imaging studies show moderate to severe right-sided hydronephrosis with a large right renal calculus, small left renal stone. ASSESSMENT AND PLAN: This is a 62-year-old male with recent cystoscopy, right double-J stent for a large right proximal ureteral stone with hydronephrosis noted on the ultrasound. The patient is presently asymptomatic and denies any flank pain. Hydronephrosis is common with a stent insertion. Would just continue with conservative measures, as he is not symptomatic or having any pain on the right side. Recommend followup in the office with Dr. Laboy to schedule right extracorporeal shockwave lithotripsy in the near future. Thank you for the consult and allowing me to participate in the care of this patient. DO JENNIFER Sanford/REBEKA , 08:50 AM , 09:04 AM
[2018-03-17] MEDS: Insulin NovoLOG Aspart Correctional Sugar Inj SQ SCH ×2 (09:11→12:28)
[2018-03-17] MEDS: FLUoxetine 20 MG Capsule PO SCH (09:18)
[2018-03-17] MEDS: Senna/Docusate Sodium 8.6/50 MG Tablet PO SCH (09:19)
--- NOTE | 2018-03-17 11:39 | P.PNIM ---
Subjective Interval history: Follow-up acute kidney injury and moderate hydronephrosis. Patient seen and examined, lying in bed comfortably in no apparent distress. No acute events overnight. Creatinine improving. Patient seen by urologist, will follow up outpatient. ACS ruled out. CP resolved. No shortness of breath. Hypoxia improved. Physical Exam Vital signs: Vital Signs 03/16/18 13:17 03/16/18 20:00 03/17/18 02:49 Temperature 98.8 F 97.0 F L Pulse Rate 46 L 60 58 L Respiratory Rate 20 18 18 Blood Pressure 115/74 111/77 124/65 Pulse Oximetry 97 96 03/17/18 08:06 03/17/18 11:28 Temperature 99.3 F 96.9 F L Pulse Rate 54 L 56 L Respiratory Rate 20 20 Blood Pressure 138/77 113/75 Pulse Oximetry 96 97 Intake & Output 03/16/18 03/17/18 03/17/18 18:59 06:59 18:59 Intake Total 300 / 300 1000 / 1000 Output Total 150 / 150 Balance 150 / 150 1000 / 1000 Weight 90.7 kg Intake: IV 300 / 300 1000 / 1000 NS Inj 1,000 ML @ 100 mls/hr IV 1000 / 1000 .CONT .Q10H SWETHA Rx#:[id number] Magnesium Sulfate 1 gm/D5W 100 200 / 200 ml Premix 100 ML @ 100 mls/hr IV.SIG Q1H SWETHA Rx#:[id number] Rocephin Inj 1,000 MG In NS Inj 100 / 100 100 ML @ 200 mls/hr IV.SIG Q24H SWETHA Rx#:[id number] Output: Urine 150 / 150 Other: Weight On Admission 90.7 kg Narrative: GENERAL: Well-developed, well-nourished patient in [facility]. SKIN: Warm and dry. No rash. HEAD: Normocephalic. Atraumatic. EYES: Pupils equal and round. No scleral icterus. No injection or drainage. ENT: No nasal bleeding or discharge. Mucous membranes pink and moist. NECK: Supple. Trachea midline. CARDIOVASCULAR: Regular rate and rhythm. S1, S2 noted. No murmur appreciated. RESPIRATORY: No accessory muscle use. Clear to auscultation. Breath sounds equal bilaterally. GASTROINTESTINAL: Abdomen soft, non-tender, nondistended. Normoactive bowel sounds x4. MUSCULOSKELETAL: No obvious deformities. Extremities without clubbing, cyanosis , or edema. NEUROLOGICAL: Awake and alert. No obvious cranial nerve deficits. Motor grossly within normal limits. 5/5 muscle strength in bilateral upper and lower extremities. Normal speech. PSYCHIATRIC: Appropriate mood and affect; insight and judgment normal. Results - Labs CBC & Chem 7: 03/17/18 05:40 03/17/18 05:40 Laboratory Results - last 24 hr 03/16/18 03/16/18 03/16/18 11:30 11:30 11:30 CBC w Diff Auto diff final WBC 6.9 RBC 3.71 L Hgb 11.2 L Hct 34.9 L MCV 94.1 MCH 30.3 MCHC 32.2 RDW 12.2 Plt Count 260 MPV 7.6 Neut % (Auto) 57.1 Lymph % (Auto) 31.7 [place] % (Auto) 7.8 Eos % (Auto) 1.7 Baso % (Auto) 1.7 Neut # (Auto) 4.0 Lymph # (Auto) 2.2 [place] # (Auto) 0.5 Eos # (Auto) 0.1 Baso # (Auto) 0.1 WBC Differential . Differential Comment . PT 10.9 INR 1.1 APTT 25.2 D-Dimer Quant (PE/DVT) 0.62 H Sodium Potassium Chloride Carbon Dioxide Anion Gap BUN Creatinine Estimated GFR POC Glucose Random Glucose Calcium Magnesium 1.1 L Total Bilirubin AST ALT Alkaline Phosphatase Total Creatine Kinase 261 CK-MB (CK-2) 4.4 H Troponin I Less than 0.02 L B-Natriuretic Peptide Total Protein Albumin Lipase 95 Ur Collection Type Urine Color Urine Clarity Urine pH Ur Specific [place] Urine Protein Urine Glucose (UA) Urine Ketones Urine Occult Blood Urine Nitrate Urine Bilirubin Urine Urobilinogen Ur Leukocyte Esterase Urine RBC Urine WBC Ur Squamous Epith Cells Urine Bacteria Micro UA Comment Urine Culture Comments Serum Alcohol Less than 3 03/16/18 03/16/18 03/16/18 11:30 11:30 12:50 CBC w Diff WBC RBC Hgb Hct MCV MCH MCHC RDW Plt Count MPV Neut % (Auto) Lymph % (Auto) [place] % (Auto) Eos % (Auto) Baso % (Auto) Neut # (Auto) Lymph # (Auto) [place] # (Auto) Eos # (Auto) Baso # (Auto) WBC Differential Differential Comment PT INR APTT D-Dimer Quant (PE/DVT) Sodium 142 Potassium 4.5 Chloride 107 Carbon Dioxide 26.1 Anion Gap 9 BUN 28 H Creatinine 2.10 H Estimated GFR 39 L POC Glucose Random Glucose 68 L Calcium 8.4 L Magnesium Total Bilirubin 0.4 AST 15 ALT 16 Alkaline Phosphatase 61 Total Creatine Kinase CK-MB (CK-2) Troponin I B-Natriuretic Peptide 23 Total Protein 8.2 Albumin 3.5 Lipase Ur Collection Type Clean catch Urine Color Yellow Urine Clarity Clear Urine pH 6.0 Ur Specific [place] 1.025 Urine Protein 100 H Urine Glucose (UA) Negative Urine Ketones Negative Urine Occult Blood Large H Urine Nitrate Negative Urine Bilirubin Negative Urine Urobilinogen 0.2 Ur Leukocyte Esterase Small H Urine RBC 51-189 H Urine WBC 9-20 H Ur Squamous Epith Cells 6-10 H Urine Bacteria Occasional H Micro UA Comment Culture indicated Urine Culture Comments Culture indicated Serum Alcohol 03/16/18 03/16/18 03/16/18 15:25 17:08 17:39 CBC w Diff WBC RBC Hgb Hct MCV MCH MCHC RDW Plt Count MPV Neut % (Auto) Lymph % (Auto) [place] % (Auto) Eos % (Auto) Baso % (Auto) Neut # (Auto) Lymph # (Auto) [place] # (Auto) Eos # (Auto) Baso # (Auto) WBC Differential Differential Comment PT INR APTT D-Dimer Quant (PE/DVT) Sodium Potassium Chloride Carbon Dioxide Anion Gap BUN Creatinine Estimated GFR POC Glucose 83 104 Random Glucose Calcium Magnesium Total Bilirubin AST ALT Alkaline Phosphatase Total Creatine Kinase 245 CK-MB (CK-2) Troponin I Less than 0.02 L B-Natriuretic Peptide Total Protein Albumin Lipase Ur Collection Type Urine Color Urine Clarity Urine pH Ur Specific [place] Urine Protein Urine Glucose (UA) Urine Ketones Urine Occult Blood Urine Nitrate Urine Bilirubin Urine Urobilinogen Ur Leukocyte Esterase Urine RBC Urine WBC Ur Squamous Epith Cells Urine Bacteria Micro UA Comment Urine Culture Comments Serum Alcohol 03/16/18 03/16/18 03/17/18 21:39 22:15 05:40 CBC w Diff Auto diff final WBC 7.3 RBC 3.38 L Hgb 10.7 L Hct 30.7 L MCV 90.9 MCH 31.8 MCHC 35.0 RDW 12.4 Plt Count 244 MPV 8.2 Neut % (Auto) 61.3 Lymph % (Auto) 27.6 [place] % (Auto) 9.2 H Eos % (Auto) 1.4 Baso % (Auto) 0.5 Neut # (Auto) 4.5 Lymph # (Auto) 2.0 [place] # (Auto) 0.7 Eos # (Auto) 0.1 Baso # (Auto) 0.0 WBC Differential . Differential Comment . PT INR APTT D-Dimer Quant (PE/DVT) Sodium Potassium Chloride Carbon Dioxide Anion Gap BUN Creatinine Estimated GFR POC Glucose 138 H Random Glucose Calcium Magnesium Total Bilirubin AST ALT Alkaline Phosphatase Total Creatine Kinase 249 CK-MB (CK-2) Troponin I Less than 0.02 L B-Natriuretic Peptide Total Protein Albumin Lipase Ur Collection Type Urine Color Urine Clarity Urine pH Ur Specific [place] Urine Protein Urine Glucose (UA) Urine Ketones Urine Occult Blood Urine Nitrate Urine Bilirubin Urine Urobilinogen Ur Leukocyte Esterase Urine RBC Urine WBC Ur Squamous Epith Cells Urine Bacteria Micro UA Comment Urine Culture Comments Serum Alcohol 03/17/18 03/17/18 05:40 07:44 CBC w Diff WBC RBC Hgb Hct MCV MCH MCHC RDW Plt Count MPV Neut % (Auto) Lymph % (Auto) [place] % (Auto) Eos % (Auto) Baso % (Auto) Neut # (Auto) Lymph # (Auto) [place] # (Auto) Eos # (Auto) Baso # (Auto) WBC Differential Differential Comment PT INR APTT D-Dimer Quant (PE/DVT) Sodium 141 Potassium 4.3 Chloride 107 Carbon Dioxide 25.7 Anion Gap 8 BUN 21 H Creatinine 1.40 H Estimated GFR 62 L POC Glucose 74 Random Glucose 76 Calcium 8.2 L Magnesium 1.3 L Total Bilirubin AST ALT Alkaline Phosphatase Total Creatine Kinase CK-MB (CK-2) Troponin I B-Natriuretic Peptide Total Protein Albumin Lipase Ur Collection Type Urine Color Urine Clarity Urine pH Ur Specific [place] Urine Protein Urine Glucose (UA) Urine Ketones Urine Occult Blood Urine Nitrate Urine Bilirubin Urine Urobilinogen Ur Leukocyte Esterase Urine RBC Urine WBC Ur Squamous Epith Cells Urine Bacteria Micro UA Comment Urine Culture Comments Serum Alcohol - Imaging Impressions Abdomen/Bladder Ultrasound 03/16/18 00:00 CONCLUSION: 1. Moderate to severe right hydronephrosis 2. Large right renal calculi 3. Small left renal stone 4. Otherwise unremarkable left kidney. Chest CTA 03/16/18 00:00 CONCLUSION: No evidence of pulmonary embolism. Chest X-Ray 03/16/18 11:29 CONCLUSION: No acute cardiopulmonary disease. Assessment and Plan - Assessment (1) Chest pain Code(s): R07.9 - Chest pain, unspecified Status: Acute Plan: Serial EKGs and serial troponins have been ordered for ruling out ACS purposes. Troponin trend flat. EKG reviewed showing some T-wave inversion, no ST elevation or depression. Chest pain has resolved when assessed. No arrhythmias overnight. Patient underwent cardiac stress test on February 23, 2018 as well as an echocardiogram was done which was reportedly negative and unremarkable. Supportive care. Continue to monitor. Chest x-ray reviewed showing no acute cardiopulmonary disease. Supplemental O2 as needed to keep sats greater than 92%. Comfortable on room air. Denies any further chest pain. (2) Acute kidney injury Code(s): N17.9 - Acute kidney failure, unspecified Status: Acute Plan: Creatinine 2.1 on presentation. Improved to 1.4 today, likely dehydration. Was given IVF. History of cystoscopy with stent placement on February [address] Laboy. UA obtained, showing presence of white blood cells and leukocyte esterase. Monitor urine culture. Started on prophylactic IV antibiotics. Follow culture. Will given ABX on discharge. Ultrasound of the kidneys ordered and showing moderate to be severe right hydronephrosis. Large right renal calculi. Small left renal stone. Consult placed to urologist, appreciate input recommendations. Hydronephrosis normal after stent. Since patient is asymptomatic at this time, patient can follow-up in office with Dr. Laboy upon discharge. Eating well and drinking well. No n/v/d. Denies any pain. Monitor BMP. (3) Hypomagnesemia Code(s): E83.42 - Hypomagnesemia Status: Acute Plan: Magnesium 1.1 on presentation. Status post replacement. 1.3 today. Will replace with additional magnesium today. (4) Elevated d-dimer Code(s): R79.89 - Other specified abnormal findings of blood chemistry Status : Acute Plan: D-dimer elevated in ED. CTA pulm ordered. Ruled out PE. Unremarkable. Hypoxia improved. On RA. Breathing comfortably. - Plan DVT prophylaxis: SCDs. Heparin. Discharge Planning: Plan to DC home, follow up with PCP and urology. All symptoms have improved. Labwork improving. Patient is stable at this time and agreeable to the plan.
[2018-03-17] MEDS ORDERED: Magnesium Oxide 400 MG Tablet PO ONE (12:00)
--- NOTE | 2018-03-17 13:26 | ECG ---
Date Performed: 03/16/2018 Time Performed: 16:04:58 PTAGE: 62 years EKG: SINUS BRADYCARDIA BORDERLINE ECG Since the PREVIOUS TRACING , no significant change noted PREVIOUS TRACIN03/16/2018 11.11 DOCTOR: Jayson Rogers Interpretating Date/Time 03/17/2018 13:19:41
== END 2018-03-17 13:15 | disposition home or self-care (01) ==
LOC: PH3 11:03 → PHEDA 11:03 → PHED 11:03 → PH3 16:15
PROVIDERS: ADMIT Hospitalist; ATTEND Hospitalist

== ENCOUNTER 2018-03-28 16:30 | Inpatient (IN) ==
[2018-03-28] MEDS ORDERED: Sodium Chlor 0.9% Inj 500 ML IV.SIG ONE ×2 (17:38→19:43)
--- NOTE | 2018-03-28 18:23 | XR ---
EXAM DATE: 03/28/2018 6:15 PM EDT AGE/SEX: 62 years / Male INDICATIONS: Fall. Right upper arm pain. Good motion. CLINICAL DATA: This is the patient's initial encounter. Patient reports that signs and symptoms have been present for 1 day and indicates a pain score of 5/10. MEDICAL/SURGICAL HISTORY: None. None. COMPARISON: [facility] – [place], SHOULDER RIGHT COMPLETE (>2VWS), 09/13/2017. . FINDINGS: No fracture is seen. The glenohumeral and acromioclavicular joints are normally aligned. There is gino e bony density seen around the superior lateral aspect of the humeral head thought likely related to hypertrophic change. Donor sites are not seen to suggest fractures. There are some hypertrophic davis e seen superior to the acromioclavicular joint. CONCLUSION: Hypertrophic change. Electronically signed by: Esteban Lazaro MD 03/28/2018 6:21 PM EDT
--- NOTE | 2018-03-28 18:24 | XR ---
EXAM DATE: 03/28/2018 6:16 PM EDT AGE/SEX: 62 years / Male INDICATIONS: Fall. Right pelvis and hip pain. CLINICAL DATA: This is the patient's initial encounter. Patient reports that signs and symptoms have been present for 1 day and indicates a pain score of 6/10. MEDICAL/SURGICAL HISTORY: None. None. COMPARISON: No prior exams available for comparison. FINDINGS: Examination of the pelvis demonstrates no evidence of fracture or dislocation. Bony mineralization i s normal. There is no widening of the sacroiliac joints. No foreign body is identified. There is de generative changes in the lower lumbar spine.There is hypertrophic change at the anterior superior il iac crest regions. The hip joints are normally aligned. CONCLUSION: No acute abnormality is seen. Electronically signed by: Esteban Lazaro MD 03/28/2018 6:23 PM EDT
--- NOTE | 2018-03-28 18:24 | XR ---
EXAM DATE: 03/28/2018 6:13 PM EDT AGE/SEX: 62 years / Male INDICATIONS: Fall. Right hip pain. CLINICAL DATA: This is the patient's initial encounter. Patient reports that signs and symptoms have been present for 1 day and indicates a pain score of 6/10. MEDICAL/SURGICAL HISTORY: None. None. COMPARISON: [facility] [place] PELVIS AP 1V, 03/28/2018. . FINDINGS: Bony structures are intact and in normal alignment. Joints are intact without dislocation or signifi cant arthropathy. Osseous density is normal. Soft tissues are unremarkable. No radiopaque foreign bodies seen. CONCLUSION: No acute abnormality seen. Electronically signed by: Esteban Lazaro MD 03/28/2018 6:23 PM EDT
--- NOTE | 2018-03-28 18:54 | ED ---
HPI General Chief complaint: Fall Stated complaint: / Fall Time Seen by Provider: 03/28/18 17:36 History of Present Illness HPI narrative: This is a 62-year-old male with a history of hypertension, recent kidney stone with acute kidney injury, UTI, who presents today with complaints of fall. Patient states he was walking out of his house down the steps when he tripped on the stairs. He reports falling on his right hip and right shoulder. Patient also gives history that his urine has not cleared despite being on Bactrim. He denies any fevers, chills. Family member states that he has had a steady decline since he has had his health status since then. There is no nausea vomiting. Patient is a poor historian. Related Data Home Medications Medication Instructions Recorded Confirmed aspirin [Aspirin Low Dose] 81 mg PO DAILY 03/14/18 03/28/18 atorvastatin [Lipitor] 10 mg PO DAILY 03/14/18 03/28/18 benztropine 1 mg PO BID 03/14/18 03/28/18 fluoxetine 40 mg PO BID 03/14/18 03/28/18 insulin glargine [Lantus U-100 12 unit SUB-Q DAILY 03/14/18 03/28/18 Insulin] lisinopril 20 mg PO DAILY 03/14/18 03/28/18 metformin 1,000 mg PO BID 03/14/18 03/28/18 gabapentin 400 mg PO BID 03/16/18 03/28/18 trazodone 150 mg PO HS 03/16/18 03/28/18 Allergies Allergy/AdvReac Type Severity Reaction Status Date / Time No Known Allergies Allergy Verified 03/28/18 17:21 Review of Systems Except as stated in HPI: all other systems reviewed are negative Constitutional Denies chills and Denies fever(s) Eyes Reports system reviewed and no additional complaints, except as docu ENT Reports system reviewed and no additional complaints, except as docu Cardiovascular Reports system reviewed and no additional complaints, except as docu Respiratory Denies chest congestion and Denies cough Gastrointestinal Denies diarrhea, Denies nausea and Denies vomiting Genitourinary Denies difficulty urinating, Denies dysuria and Reports other (Darker urine than normal. No dysuria.) Musculoskeletal Denies deformity, Denies neck pain and Reports tingling (Right hip and right humerus pain) Integumentary/Breasts Reports other (No abrasions or skin tears) Neurologic Denies confusion, Denies dizziness, Denies syncope and Denies headache(s) PMFSH Family History Family History Other No significant family history Social History Social History Substance History: No History of Abuse Second Hand Smoke Exposure: No Smoking Status: Former smoker How Often Do You Have a Drink Containing Alcohol: Monthly or less Recent Travel in [facility] within the Last 8 Weeks: No Recent Out of Country Travel within the Last 8 Weeks: No Immunization History Tetanus Immunization: Unsure Hx Influenza Vaccine This Season: No Exam Narrative Exam Narrative: GENERAL: Well-developed well-nourished male in no acute respiratory distress. SKIN: Focused skin assessment warm/dry. HEAD: Atraumatic. Normocephalic. EYES: No scleral icterus. No injection or drainage. ENT: No nasal bleeding or discharge. Mucous membranes pink and moist. NECK: Trachea midline. Supple. No posterior spinous process tenderness on palpation. CARDIOVASCULAR: Regular rate and rhythm. No murmur appreciated. RESPIRATORY: No accessory muscle use. Clear to auscultation. Breath sounds equal bilaterally. GASTROINTESTINAL: Abdomen soft, non-tender, nondistended. Hepatic and splenic margins not palpable. MUSCULOSKELETAL: No obvious deformities. The patient has subjective pain to his right hip. He is able to flex and extend without difficulty. Patient also has tenderness in his mid humerus. No deformity. Cap refill is less than 3 seconds. He had palpable radial pulse. NEUROLOGICAL: Awake and alert. No obvious cranial nerve deficits. Motor grossly within normal limits. Normal speech. PSYCHIATRIC: Appropriate mood and affect; insight and judgment normal. Course Initial Documented Vital Signs Temperature 97.5 F L 03/28/18 17:17 Pulse Rate 63 03/28/18 17:17 Respiratory Rate 20 03/28/18 17:17 Blood Pressure 121/67 03/28/18 17:17 Pulse Oximetry 100 03/28/18 17:17 Last Documented Vital Signs Temperature 97.5 F L 03/28/18 17:24 Pulse Rate 63 03/28/18 19:13 Respiratory Rate 18 03/28/18 19:13 Blood Pressure 133/76 03/28/18 19:13 Pulse Oximetry 99 03/28/18 19:13 Sign Out Sign Out Data: Patient Sign Out occurred on 03/28/18 at 19:06. Patient's care was discussed, and care was transferred from Raajn Solares MD to Macy Atkins MD. Sign Out Comment: Patient presents here after having a mechanical fall while walking down the stairs at his house. Family member states he has been progressively weak since being treated for kidney stone. Labs including urinalysis are pending at this time. He will be signed out to Dr. Atkins at change of shift. Disposition will be per her. Last updated by Rajan Solares MD at 03/28/18 18:55 Post-Handoff Eval: The patient's case was checked out to me by Dr. Solares. During the course of the patient's emergency department visit, the patient's history, examination, and differential diagnosis were reviewed with the patient. The patient was placed on a library monitor with oximetry and frequent blood pressure monitoring. The patient had IV access obtained and blood work sent for analysis. The patient was initially provided normal saline 500 mL bolus 1. , Chemistry is remarkable for glucose of 55Laboratory studies are remarkable for a white count of 6.4, monocytosis of 9.7, platelets 205 with a hemoglobin of 12.1 which will be repeated at the bedside for validity, potassium 5.5, GFR 16, creatinine is 4.57 compared to his last hemoglobin creatinine of 1.4 consistent with acute kidney injury, renal failure, calcium 8.3, BUN 58. Imaging studies are remarkable for a pelvis x-ray that shows no acute abnormality, humerus x-ray the right shows hypertrophic changes,, no other acute abnormality right hip x-ray reveals no acute abnormality. The patient will be admitted for acute renal failure. Given the patient's mild hyperkalemia and EKG will be done to further assess for any EKG changes. Patient's blood sugar was confirmed to be 53. The patient will be given orange juice, peanut butter and crackers. The patient's blood sugar will be monitored closely per hypoglycemic protocol. The patient will be provided an amp of D50 if his blood sugar is maintained below 70 in spite of eating. The patient's EKG reveals sinus rhythm heart rate is 61, QRS duration 90 ms, QTC 432 ms. The patient has no evidence of ST segment elevation T waves, no T- wave inversions are noted. The patient's case including history, pertinent physical examination findings, and laboratory studies were discussed with Dr. Norwood. It was agreed that the patient would be admitted to the hospitalist service. The patient's results were discussed with the patient, including the plan of care. I explained that further testing and/ or monitoring is indicated based on the patient's history, examination, and/ or laboratory findings. Therefore, I recommended admission for additional evaluation. The patient expressed understanding and was agreeable with this plan. The patient was admitted to the hospital in stable condition and sent to a bed under the care of service. Medical Decision Making Lab Data Lab results reviewed: Yes I reviewed the patient's lab results. Result diagrams: 03/28/18 18:43 03/28/18 17:45 Lab Results 03/28/18 03/28/18 03/28/18 Range/Units 17:45 18:43 19:56 WBC 6.4 (4.0-11.0) th/mm3 RBC 3.85 L (4.50-5.90) mil/mm3 Hgb 12.1 L (13.0-17.0) gm/dL Hct 35.7 L (39.0-51.0) % MCV 92.5 (80.0-100.0) fL MCH 31.4 (27.0-34.0) pg MCHC 33.9 (32.0-36.0) % RDW 13.6 (11.6-17.2) % Plt Count 205 (150-450) th/mm3 MPV 8.4 (7.0-11.0) fL Neut % (Auto) 64.6 (16.0-70.0) % Lymph % (Auto) 24.8 (9.0-44.0) % [place] % (Auto) 9.7 H (0.0-8.0) % Eos % (Auto) 0.4 (0.0-4.0) % Baso % (Auto) 0.5 (0.0-2.0) % Neut # (Auto) 4.1 (1.8-7.7) th/mm3 Lymph # (Auto) 1.6 (1.0-4.8) th/mm3 [place] # (Auto) 0.6 (0.0-0.9) th/mm3 Eos # (Auto) 0.0 (0.0-0.4) th/mm3 Baso # (Auto) 0.0 (0.0-0.2) th/mm3 WBC Differential . Differential Comment Auto diff final Sodium 138 (136-145) meq/L Potassium 5.5 H (3.5-5.1) meq/L Chloride 106 (98-107) meq/L Carbon Dioxide 21.5 (21.0-32.0) meq/L Anion Gap 11 (5-15) meq/L BUN 58 H (7-18) mg/dL Creatinine 4.57 H (0.60-1.30) mg/dL Estimated GFR 16 L (>89) mL/min POC Glucose 53 L (68-110) mg/dl Random Glucose 55 L (74-106) mg/dL Calcium 8.3 L (8.5-10.1) mg/dL Imaging Data Radiologist's impression: Hip X-Ray 03/28/18 17:36 CONCLUSION: No acute abnormality seen. Humerus X-Ray 03/28/18 17:36 CONCLUSION: Hypertrophic change. Pelvis X-Ray 03/28/18 17:36 CONCLUSION: No acute abnormality is seen. Discharge Plan Discharge Disposition Patient Disposition: 30 Still Patient Discharge Details Diagnosis: Acute kidney injury, Acute hyperkalemia, Hypoglycemia Physicians Team ED Provider: Macy Atkins Primary Care Provider: Ana Middleton Rxs /Orders / Referrals /Forms Prescriptions: No Action fluoxetine 40 mg Capsule 40 mg PO BID RF: 0 benztropine 0.5 mg Tablet 1 mg PO BID RF: 0 insulin glargine [Lantus U-100 Insulin] 100 unit/mL Solution 12 unit SUB-Q DAILY RF: 0 atorvastatin [Lipitor] 10 mg Tablet 10 mg PO DAILY RF: 0 lisinopril 20 mg Tablet 20 mg PO DAILY RF: 0 aspirin [Aspirin Low Dose] 81 mg Tablet,Delayed Release (Dr/Ec) 81 mg PO DAILY RF: 0 metformin 1,000 mg Tablet 1,000 mg PO BID RF: 0 trazodone 150 mg Tablet 150 mg PO HS RF: 0 gabapentin 400 mg Capsule 400 mg PO BID RF: 0 Discharge Interventions Interventions: Vital Signs Last Done: 03/28/18 19:13 Status ED Status: With Doctor
[2018-03-28 19:00] LABS: Baso % (Auto) 0.5 % (0.0-2.0); Eos % (Auto) 0.4 % (0.0-4.0); Hematocrit 35.7 % (39.0-51.0); Hemoglobin 12.1 gm/dL (13.0-17.0); Lymph # (Auto) 1.6 th/mm3 (1.0-4.8); Lymph % (Auto) 24.8 % (9.0-44.0); Mean Corpuscular HGB Conc 33.9 % (32.0-36.0); Mean Corpuscular Hemoglobin 31.4 pg (27.0-34.0); Mean Corpuscular Volume 92.5 fL (80.0-100.0); Mean Platelet Volume 8.4 fL (7.0-11.0); Mono # (Auto) 0.6 th/mm3 (0.0-0.9); Mono % (Auto) 9.7 % (0.0-8.0); Neut # (Auto) 4.1 th/mm3 (1.8-7.7); Neut % (Auto) 64.6 % (16.0-70.0); Platelet Count 205 th/mm3 (150-450); Red Blood Count 3.85 mil/mm3 (4.50-5.90); Red Cell Distribution Width 13.6 % (11.6-17.2); White Blood Count 6.4 th/mm3 (4.0-11.0)
[2018-03-28 19:18] LABS: Calcium 8.3 mg/dL (8.5-10.1); Carbon Dioxide 21.5 meq/L (21.0-32.0); Potassium 5.5 meq/L (3.5-5.1)
[2018-03-28] MEDS ORDERED: Dextrose 50% in Water 50 ML Vial IV.PUSH PRN (20:00)
[2018-03-28 20:29] LABS: Amorphous Sediment,Urine Rare /hpf; Bacteria,Urine Moderate /hpf; Bilirubin,Urine Negative (Negative); Clarity,Urine Hazy (Clear); Color,Urine Yellow (Yellw/Straw); Glucose,Urine (UA) Negative (Negative); Hyaline Casts,Urine 36 /lpf (0-3); Leukocyte Esterase,Urine Trace (Negative); Mucus,Urine Few /lpf (Occasional); Nitrite,Urine Negative (Negative); Specific Gravity,Urine 1.018 (1.002-1.035); Squamous Epithelial Cell,Urine 2 /hpf (0-5)
[2018-03-28] MEDS ORDERED: Acetaminophen 325 MG Tablet PO PRN (21:42)
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
[2018-03-28] MEDS: Heparin - SQ 10,000 UNITS/ML Vial SQ SCH (23:32)
[2018-03-28] MEDS: Sod Chloride 0.9% Inj 1,000 ML IV.CONT SCH (23:49)
[2018-03-29 01:23] LABS: Calcium 7.9 mg/dL (8.5-10.1); Carbon Dioxide 23.1 meq/L (21.0-32.0); Potassium 4.9 meq/L (3.5-5.1)
--- NOTE | 2018-03-29 09:08 | P.PN ---
Subjective Interval history: Follow up for fall, acute renal failure, UTI. The patient reports feeling only slightly better today, however he is a poor historian. He reports lower abdominal soreness today. Denies fevers/chills. Denies nausea/vomiting. He cannot recall his last BM. He states he is still urinating a lot. Denies any other medical complaints at this time. Physical Exam Vital signs: Vital Signs 03/28/18 17:17 03/28/18 17:24 03/28/18 19:13 Temperature 97.5 F L 97.5 F L Pulse Rate 63 62 63 Respiratory Rate 20 20 18 Blood Pressure 121/67 121/67 133/76 Pulse Oximetry 100 97 99 03/28/18 23:43 03/29/18 04:00 03/29/18 08:00 Temperature 98.5 F 98.3 F 98.5 F Pulse Rate 66 70 55 L Respiratory Rate 17 17 14 Blood Pressure 110/68 112/89 103/65 Pulse Oximetry 96 95 97 Intake & Output 03/28/18 03/29/18 03/29/18 18:59 06:59 18:59 Intake Total 100 / 100 Balance 100 / 100 Weight 86.636 kg Intake: IV 100 / 100 Rocephin Inj 1,000 MG In NS Inj 100 / 100 100 ML @ 200 mls/hr IV.SIG Q24H SWETHA Rx#:[id number] Other: # Voids 2 Date of Last Bowel Movement 03/29/18 # Bowel Movements 1 Narrative: GENERAL: Well-nourished, well-developed male patient in [place]. SKIN: Warm and dry. No rash. HEENT: Normocephalic. Atraumatic. Pupils equal and round. Mucous membranes pink and moist. CARDIOVASCULAR: Regular rate and rhythm. No murmur appreciated. RESPIRATORY: No accessory muscle use. Clear to auscultation. Breath sounds equal bilaterally. GASTROINTESTINAL: Abdomen soft, nondistended, mild lower abdominal tenderness to palpation. Normoactive bowel sounds x4. MUSCULOSKELETAL: No obvious deformities. Extremities without clubbing, cyanosis , or edema. NEUROLOGICAL: Awake and alert. No obvious cranial nerve deficits. Motor grossly within normal limits. Moving all extremities spontaneously. Normal speech. PSYCHIATRIC: Appropriate mood and affect; insight and judgment fair to limited. Results - Labs CBC & Chem 7: 03/29/18 09:30 03/29/18 09:30 Laboratory Results - last 24 hr 03/28/18 03/28/18 03/28/18 17:45 18:43 19:30 WBC 6.4 RBC 3.85 L Hgb 12.1 L Hct 35.7 L MCV 92.5 MCH 31.4 MCHC 33.9 RDW 13.6 Plt Count 205 MPV 8.4 Neut % (Auto) 64.6 Lymph % (Auto) 24.8 [place] % (Auto) 9.7 H Eos % (Auto) 0.4 Baso % (Auto) 0.5 Neut # (Auto) 4.1 Lymph # (Auto) 1.6 [place] # (Auto) 0.6 Eos # (Auto) 0.0 Baso # (Auto) 0.0 WBC Differential . Differential Comment Auto diff final Sodium 138 Potassium 5.5 H Chloride 106 Carbon Dioxide 21.5 Anion Gap 11 BUN 58 H Creatinine 4.57 H Estimated GFR 16 L POC Glucose Random Glucose 55 L Calcium 8.3 L Urine Color Yellow Urine Clarity Hazy H Urine pH 5.0 Ur Specific [place] 1.018 Urine Protein 100 H Urine Glucose (UA) Negative Urine Ketones Negative Urine Occult Blood Small H Urine Nitrate Negative Urine Bilirubin Negative Urine Urobilinogen Less than 2 Ur Leukocyte Esterase Trace H Urine RBC 28 H Urine WBC 12 H Ur Squamous Epith Cells 2 Amorphous Sediment Rare H Urine Bacteria Moderate H Hyaline Casts 36 Urine Mucus Few H Micro UA Comment Culture indicated Urine Culture Comments Culture indicated 03/28/18 03/28/18 03/28/18 19:56 20:33 23:42 WBC RBC Hgb Hct MCV MCH MCHC RDW Plt Count MPV Neut % (Auto) Lymph % (Auto) [place] % (Auto) Eos % (Auto) Baso % (Auto) Neut # (Auto) Lymph # (Auto) [place] # (Auto) Eos # (Auto) Baso # (Auto) WBC Differential Differential Comment Sodium Potassium Chloride Carbon Dioxide Anion Gap BUN Creatinine Estimated GFR POC Glucose 53 L 80 77 Random Glucose Calcium Urine Color Urine Clarity Urine pH Ur Specific Line [place] Urine Protein Urine Glucose (UA) Urine Ketones Urine Occult Blood Urine Nitrate Urine Bilirubin Urine Urobilinogen Ur Leukocyte Esterase Urine RBC Urine WBC Ur Squamous Epith Cells Amorphous Sediment Urine Bacteria Hyaline Casts Urine Mucus Micro UA Comment Urine Culture Comments 03/29/18 03/29/18 00:59 06:36 WBC RBC Hgb Hct MCV MCH MCHC RDW Plt Count MPV Neut % (Auto) Lymph % (Auto) [place] % (Auto) Eos % (Auto) Baso % (Auto) Neut # (Auto) Lymph # (Auto) [place] # (Auto) Eos # (Auto) Baso # (Auto) WBC Differential Differential Comment Sodium 139 Potassium 4.9 Chloride 109 H Carbon Dioxide 23.1 Anion Gap 7 BUN 51 H Creatinine 3.93 H Estimated GFR 19 L POC Glucose 84 Random Glucose 87 Calcium 7.9 L Urine Color Urine Clarity Urine pH Ur Specific Line [place] Urine Protein Urine Glucose (UA) Urine Ketones Urine Occult Blood Urine Nitrate Urine Bilirubin Urine Urobilinogen Ur Leukocyte Esterase Urine RBC Urine WBC Ur Squamous Epith Cells Amorphous Sediment Urine Bacteria Hyaline Casts Urine Mucus Micro UA Comment Urine Culture Comments - Imaging Impressions Hip X-Ray 03/28/18 17:36 CONCLUSION: No acute abnormality seen. Humerus X-Ray 03/28/18 17:36 CONCLUSION: Hypertrophic change. Pelvis X-Ray 03/28/18 17:36 CONCLUSION: No acute abnormality is seen. Assessment and Plan - Plan 62-year-old female with hx of type 2 diabetes mellitus, hypertension, neuropathy and depression presents to the ED for evaluation of a fall. The patient reports that he was walking out of his house down the steps when he tripped on the stairs. He reports falling on his right hip and right shoulder. He has recently been treated for a UTI and is on Bactrim. Fall: mechanical slip and fall -Hip x-ray, humerus x-ray and pelvic x-ray negative for acute process -Patient reports his pain has improved -Consult PT Acute renal failure: Creatinine 4.5 upon arrival, previously Cr 1.4 on 03/17/18 -Renal ultrasound reviewed, showed right kidney does not appear significantly changed in appearance with moderate hydronephrosis and stent catheter in place with calculi are again noted; left kidney again demonstrates a small nonobstructing calculus -Continue IVF with 1/2NS at 75 cc/hr -Nephrology consulted, appreciate recommendations Diabetes mellitus/hyperglycemia: Patient's blood glucose 53 on arrival to the emergency department -Holding patient's home long-acting insulin (on Lantus 12u sq hs) and metformin -Monitor Accu-checks and cover with SSI Hypertension/hyperlipidemia: chronic -Holding patient's lisinopril with acute renal failure as above -Continue patient's statin Depression/anxiety: chronic -Continue home medications including fluoxetine, benztropine, trazodone DVT Prophylaxis: Heparin sq Discharge Planning: Discharge pending further clinical improvement and clearance from nephrology.
[2018-03-29 10:01] LABS: Baso % (Auto) 0.4 % (0.0-2.0); Eos % (Auto) 0.7 % (0.0-4.0); Hematocrit 30.9 % (39.0-51.0); Hemoglobin 10.4 gm/dL (13.0-17.0); Lymph # (Auto) 1.9 th/mm3 (1.0-4.8); Lymph % (Auto) 33.4 % (9.0-44.0); Mean Corpuscular HGB Conc 33.5 % (32.0-36.0); Mean Corpuscular Hemoglobin 30.6 pg (27.0-34.0); Mean Corpuscular Volume 91.4 fL (80.0-100.0); Mean Platelet Volume 7.8 fL (7.0-11.0); Mono # (Auto) 0.5 th/mm3 (0.0-0.9); Mono % (Auto) 9.1 % (0.0-8.0); Neut # (Auto) 3.2 th/mm3 (1.8-7.7); Neut % (Auto) 56.4 % (16.0-70.0); Platelet Count 191 th/mm3 (150-450); Red Blood Count 3.38 mil/mm3 (4.50-5.90); Red Cell Distribution Width 13.5 % (11.6-17.2); White Blood Count 5.7 th/mm3 (4.0-11.0)
--- NOTE | 2018-03-29 10:09 | ECG ---
Date Performed: 03/28/2018 Time Performed: 20:01:57 PTAGE: 62 years EKG: Sinus rhythm NORMAL ECG PREVIOUS TRACING : 03/16/2018 16.04 DOCTOR: Marlo Willard Interpretating Date/Time 03/29/2018 10:07:28
[2018-03-29 10:33] LABS: Calcium 7.7 mg/dL (8.5-10.1); Carbon Dioxide 22.4 meq/L (21.0-32.0); Potassium 5.3 meq/L (3.5-5.1)
--- NOTE | 2018-03-29 10:49 | US ---
EXAM DATE: 03/29/2018 10:22 AM EDT AGE/SEX: 62 years / Male INDICATIONS: Increased BUN/Creat nine. CLINICAL DATA: This is the patient's subsequent encounter. Patient reports that signs and symptoms h ave been present for 2 weeks and indicates a pain score of 5/10. MEDICAL/SURGICAL HISTORY: . Hypertension. Diabetes. Appendectomy. COMPARISON: [facility], US KIDNEY/RENAL/BLADDER, 03/16/2018. . MEASUREMENTS: Right Kidney:__11.6 x 7.0 x 7.1 cm Left Kidney:__11.3 x 5.5 x 6.7 cm FINDINGS: Right Kidney: The right kidney remains normal in size and shape. There is increased echogenicity of t he cortex which is equal to that of adjacent liver. Moderate hydronephrosis is again noted which does not appear significant changed. The stent catheters partially visualized. There are multiple calculi measuring 1.6 x 1.6 x 1.6 cm in the lower pole with an adjacent 1.2 x 0.8 x 1 cm calculus as well. Left Kidney: The left kidney is normal in size and shape with a 3 x 3 x 2 mm nonobstructing stone in the central kidney. There is no hydronephrosis. Bladder: Within normal limits given the degree of distension. Other: None. CONCLUSION: 1. The right kidney does not appear significantly changed in appearance with moderate hydronephrosis and stent catheter in place. Calculi are again noted. 2. The left kidney again demonstrates a small nonobstructing calculus. Electronically signed by: Luis Daniel Cameron MD 03/29/2018 10:48 AM EDT
[2018-03-29] MEDS: Sod Chloride 0.9% Inj 1,000 ML IV.CONT SCH (11:02)
[2018-03-29] MEDS: Heparin - SQ 10,000 UNITS/ML Vial SQ SCH ×2 (11:03→21:44)
[2018-03-29] MEDS: Gabapentin 400 MG Capsule PO SCH ×2 (11:04→21:44)
[2018-03-29] MEDS: FLUoxetine 20 MG Capsule PO SCH ×2 (11:05→21:44)
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
[2018-03-29] MEDS: Sodium Chloride 0.45 % Inj 1,000 ML IV.CONT SCH ×2 (16:37→16:43)
[2018-03-29 19:26] LABS: CKMB Percent 1.9 % (0.0-4.0); Creatine Kinase MB 13.5 ng/mL (0.5-3.6)
[2018-03-29] MEDS: traZODone 100 MG Tablet PO SCH (21:43)
[2018-03-30] MEDS: Sodium Chloride 0.45 % Inj 1,000 ML IV.CONT SCH ×2 (02:51→13:00)
[2018-03-30] MEDS: Gabapentin 400 MG Capsule PO SCH ×2 (09:05→20:22)
[2018-03-30] MEDS: FLUoxetine 20 MG Capsule PO SCH ×2 (09:05→20:22)
[2018-03-30 09:16] LABS: Baso % (Auto) 0.4 % (0.0-2.0); Eos # (Auto) 0.1 th/mm3 (0.0-0.4); Eos % (Auto) 1.3 % (0.0-4.0); Hematocrit 32.5 % (39.0-51.0); Hemoglobin 10.5 gm/dL (13.0-17.0); Lymph % (Auto) 47.2 % (9.0-44.0); Mean Corpuscular HGB Conc 32.3 % (32.0-36.0); Mean Corpuscular Hemoglobin 29.9 pg (27.0-34.0); Mean Corpuscular Volume 92.6 fL (80.0-100.0); Mean Platelet Volume 7.8 fL (7.0-11.0); Mono # (Auto) 0.5 th/mm3 (0.0-0.9); Mono % (Auto) 11.7 % (0.0-8.0); Neut # (Auto) 1.7 th/mm3 (1.8-7.7); Neut % (Auto) 39.4 % (16.0-70.0); Platelet Count 172 th/mm3 (150-450); Red Blood Count 3.51 mil/mm3 (4.50-5.90); Red Cell Distribution Width 13.1 % (11.6-17.2); White Blood Count 4.2 th/mm3 (4.0-11.0)
[2018-03-30 09:19] LABS: Carbon Dioxide 21.8 meq/L (21.0-32.0); Potassium 4.6 meq/L (3.5-5.1)
[2018-03-30] MEDS: Heparin - SQ 10,000 UNITS/ML Vial SQ SCH ×2 (10:05→21:47)
--- NOTE | 2018-03-30 11:29 | P.PN ---
Subjective Interval history: Follow up for fall, acute renal failure. The patient is seen with his friend and metal sorter at bedside. The patient states he feels "alright" today. PT and RN reported an episode of near syncope upon standing today. Orthostatic vitals were positive. The patient admits to feeling lightheaded, worse upon standing. He also reports he hasn't been eating well lately but he does not know why. He denies any other medical complaints including no chest pain, palpitations, shortness of breath, abdominal pain, nausea/vomiting, or diarrhea. Physical Exam Vital signs: Vital Signs 03/29/18 12:00 03/29/18 14:31 03/29/18 16:00 Temperature 97.3 F L 97.7 F 97.7 F Pulse Rate 57 L 53 L 53 L Respiratory Rate 16 20 16 Blood Pressure 97/52 L 101/59 L 101/59 L Pulse Oximetry 97 97 97 03/29/18 20:00 03/30/18 00:00 03/30/18 04:00 Temperature 98.8 F 98.4 F 98.6 F Pulse Rate 58 L 66 61 Respiratory Rate 16 16 17 Blood Pressure 118/56 L 109/64 104/62 Pulse Oximetry 95 97 95 03/30/18 08:00 Temperature 98.4 F Pulse Rate 48 L Respiratory Rate 18 Blood Pressure 116/72 Pulse Oximetry 98 Intake & Output 03/29/18 03/30/18 03/30/18 18:59 06:59 18:59 Intake Total 1000 / 1000 1100 / 1100 1500 / 1500 Balance 1000 / 1000 1100 / 1100 1500 / 1500 Intake: IV 1000 / 1000 1100 / 1100 1500 / 1500 NS Inj 1,000 ML @ 100 mls/hr IV 1000 / 1000 .CONT .Q10H [facility] Rx#:[id number] 1/2 Normal Saline Inj 1,000 ML 1000 / 1000 @ 75 mls/hr IV.CONT .[id number] [facility] Rx#:[id number] Rocephin Inj 1,000 MG In NS Inj 100 / 100 100 ML @ 200 mls/hr IV.SIG Q24H [facility] Rx#:[id number] Other: Date of Last Bowel Movement 03/29/18 Narrative: GENERAL: Well-nourished, well-developed male patient in NAD. SKIN: Warm and dry. No rash. HEENT: Normocephalic. Atraumatic. Pupils equal and round. Mucous membranes pink and moist. CARDIOVASCULAR: Regular rate and rhythm. No murmur appreciated. RESPIRATORY: No accessory muscle use. Clear to auscultation. Breath sounds equal bilaterally. GASTROINTESTINAL: Abdomen soft, nondistended, mild lower abdominal tenderness to palpation. Normoactive bowel sounds x4. MUSCULOSKELETAL: No obvious deformities. Extremities without clubbing, cyanosis , or edema. NEUROLOGICAL: Awake and alert. No obvious cranial nerve deficits. Motor grossly within normal limits. Moving all extremities spontaneously. Normal speech. PSYCHIATRIC: Appropriate mood and affect; insight and judgment fair to limited. Results - Labs CBC & Chem 7: 03/30/18 07:52 03/30/18 07:52 Laboratory Results - last 24 hr 03/29/18 03/29/18 03/29/18 14:41 18:08 18:25 WBC RBC Hgb Hct MCV MCH MCHC RDW Plt Count MPV Neut % (Auto) Lymph % (Auto) Otero % (Auto) Eos % (Auto) Baso % (Auto) Neut # (Auto) Lymph # (Auto) Otero # (Auto) Eos # (Auto) Baso # (Auto) WBC Differential Differential Comment Sodium Potassium Chloride Carbon Dioxide Anion Gap BUN Creatinine Estimated GFR POC Glucose 98 78 Random Glucose Calcium Total Creatine Kinase 729 H CK-MB (CK-2) 13.5 H CK-MB (CK-2) % 1.9 03/29/18 03/30/18 03/30/18 21:26 07:52 07:52 WBC 4.2 RBC 3.51 L Hgb 10.5 L Hct 32.5 L MCV 92.6 MCH 29.9 MCHC 32.3 RDW 13.1 Plt Count 172 MPV 7.8 Neut % (Auto) 39.4 Lymph % (Auto) 47.2 H Otero % (Auto) 11.7 H Eos % (Auto) 1.3 Baso % (Auto) 0.4 Neut # (Auto) 1.7 L Lymph # (Auto) 2.0 Otero # (Auto) 0.5 Eos # (Auto) 0.1 Baso # (Auto) 0.0 WBC Differential . Differential Comment Auto diff final Sodium 140 Potassium 4.6 Chloride 110 H Carbon Dioxide 21.8 Anion Gap 8 BUN 27 H Creatinine 2.01 H Estimated GFR 41 L POC Glucose 77 Random Glucose 70 L Calcium 8.0 L Total Creatine Kinase CK-MB (CK-2) CK-MB (CK-2) % 03/30/18 10:10 WBC RBC Hgb Hct MCV MCH MCHC RDW Plt Count MPV Neut % (Auto) Lymph % (Auto) Otero % (Auto) Eos % (Auto) Baso % (Auto) Neut # (Auto) Lymph # (Auto) Otero # (Auto) Eos # (Auto) Baso # (Auto) WBC Differential Differential Comment Sodium Potassium Chloride Carbon Dioxide Anion Gap BUN Creatinine Estimated GFR POC Glucose 82 Random Glucose Calcium Total Creatine Kinase CK-MB (CK-2) CK-MB (CK-2) % Microbiology 03/28/18 19:30 Random Urine Urine Culture - Final 50-100,000 cfu/mL mixed gram positive rachel (probable contaminants) Assessment and Plan - Plan 62-year-old female with hx of type 2 diabetes mellitus, hypertension, neuropathy and depression presents to the ED for evaluation of a fall. The patient reports that he was walking out of his house down the steps when he tripped on the stairs. He reports falling on his right hip and right shoulder. He has recently been treated for a UTI and is on Bactrim. Fall: mechanical slip and fall -Hip x-ray, humerus x-ray and pelvic x-ray negative for acute process -Patient reports his pain has improved -Consult PT, recommending PT at rehab Acute renal failure: Creatinine 4.5 upon arrival, previously Cr 1.4 on 03/17/18 -Renal ultrasound reviewed, showed right kidney does not appear significantly changed in appearance with moderate hydronephrosis and stent catheter in place with calculi are again noted; left kidney again demonstrates a small nonobstructing calculus -Continue IVF with 1/2NS at 75 cc/hr -Nephrology consulted, appreciate recommendations, discussed with nephrology , ok to d/c from their standpoint -Renal function much improved, Cr 2.01 today Orthostatic Hypotension: patient experiencing lightheadedness and near syncope upon standing -orthostatic vital signs positive, BP drops from 118/67 supine to 96/63 upon standing -apply compression hose -counseled on slow transitions -continue PT Diabetes mellitus/hypoglycemia: Patient's blood glucose 53 on arrival to the emergency department -Holding patient's home long-acting insulin (on Lantus 12u sq hs) and metformin -Monitor Accu-checks and cover with SSI -Check HgbA1c Hypertension/hyperlipidemia: chronic -Holding patient's lisinopril with acute renal failure as above -Continue patient's statin Depression/anxiety: chronic -Continue home medications including fluoxetine, benztropine, trazodone Poor Appetite: unclear etiology -consult ST for swallow eval -add Glucerna shakes to each meal -monitor % of meal intake Abnormal UA: initial UA consistent with UTI -urine culture with mixed gram positive, probable contaminants -discontinued IV Rocephin DVT Prophylaxis: Heparin sq Discharge Planning: Discharge pending further clinical improvement. PT recommending rehab. Case management consulted to assist with discharge planning.
--- NOTE | 2018-03-30 11:35 | P.PNNP ---
Subjective Interval history: Renal function is better. No new concerns. IVF infusing. <KseniaAngelica ozunaBc - Last Filed: 03/30/18 11:31> Physical Exam Vital signs: Vital Signs 03/29/18 12:00 03/29/18 14:31 03/29/18 16:00 Temperature 97.3 F L 97.7 F 97.7 F Pulse Rate 57 L 53 L 53 L Respiratory Rate 16 20 16 Blood Pressure 97/52 L 101/59 L 101/59 L Pulse Oximetry 97 97 97 03/29/18 20:00 03/30/18 00:00 03/30/18 04:00 Temperature 98.8 F 98.4 F 98.6 F Pulse Rate 58 L 66 61 Respiratory Rate 16 16 17 Blood Pressure 118/56 L 109/64 104/62 Pulse Oximetry 95 97 95 03/30/18 08:00 Temperature 98.4 F Pulse Rate 48 L Respiratory Rate 18 Blood Pressure 116/72 Pulse Oximetry 98 Intake & Output 03/29/18 03/30/18 03/30/18 18:59 06:59 18:59 Intake Total 1000 / 1000 1100 / 1100 1500 / 1500 Balance 1000 / 1000 1100 / 1100 1500 / 1500 Intake: IV 1000 / 1000 1100 / 1100 1500 / 1500 NS Inj 1,000 ML @ 100 mls/hr IV 1000 / 1000 .CONT .Q10H [facility] Rx#:[id number] 1/2 Normal Saline Inj 1,000 ML 1000 / 1000 @ 75 mls/hr IV.CONT .[id number] [facility] Rx#:[id number] Rocephin Inj 1,000 MG In NS Inj 100 / 100 100 ML @ 200 mls/hr IV.SIG Q24H [facility] Rx#:[id number] Other: Date of Last Bowel Movement 03/29/18 - Constitutional no acute distress, cachectic, chronically ill appearing - Routine HEENT Exam Head: Present: normocephalic Comments: missing teeth, no dentures - Routine Neck Exam Present: supple, full ROM - Routine Respiratory Exam Present: CTA bilaterally. Absent: accessory muscle use - Routine Cardiovascular Exam Present: RRR, S1, S2 - Routine Abdominal Exam Present: soft, normoactive bowel sounds - Routine Extremities Exam Present: full ROM, pulses intact. Absent: cyanosis, edema - Routine Skin Exam Present: intact, warm - Routine Neurological Exam Present: alert, oriented X3, CN II-XII intact, moving all extremities - Detailed Neurological Exam: Coma Scale Eye Opening: Spontaneous Verbal Response: Oriented Motor Response: Obey commands Lena Coma Scale Total: 15 - Routine Psychiatric Exam Present: normal affect, normal thought process <Angelica Mccormack - Last Filed: 03/30/18 11:31> Vital signs: Vital Signs 03/29/18 20:00 03/30/18 00:00 03/30/18 04:00 Temperature 98.8 F 98.4 F 98.6 F Pulse Rate 58 L 66 61 Respiratory Rate 16 16 17 Blood Pressure 118/56 L 109/64 104/62 Pulse Oximetry 95 97 95 03/30/18 08:00 03/30/18 12:00 03/30/18 13:18 Temperature 98.4 F 97.6 F Pulse Rate 48 L 60 Respiratory Rate 18 18 Blood Pressure 116/72 116/68 118/67 Pulse Oximetry 98 97 03/30/18 13:20 03/30/18 16:00 03/30/18 17:33 Temperature 98.3 F Pulse Rate 53 L 52 L Respiratory Rate 18 Blood Pressure 96/63 L 117/72 Pulse Oximetry 98 03/30/18 17:38 03/30/18 17:39 03/30/18 17:43 Temperature 98.6 F Pulse Rate 53 L Respiratory Rate 18 Blood Pressure 107/73 99/64 L 107/73 Pulse Oximetry 98 Intake & Output 03/30/18 03/30/18 03/31/18 06:59 18:59 06:59 Intake Total 1100 / 1100 2500 / 2500 Output Total 1050 / 1050 Balance 1100 / 1100 1450 / 1450 Intake: IV 1100 / 1100 2500 / 2500 1/2 Normal Saline Inj 1,000 ML 1000 / 1000 1000 / 1000 @ 75 mls/hr IV.CONT .[id number] [facility] Rx#:[id number] Rocephin Inj 1,000 MG In NS Inj 100 / 100 100 ML @ 200 mls/hr IV.SIG Q24H [facility] Rx#:[id number] Output: Urine 1050 / 1050 Other: Date of Last Bowel Movement 03/29/18 <Andry Velasquez - Last Filed: 03/30/18 19:41> Assessment and Plan - Assessment (1) Acute kidney injury Code(s): N17.9 - Acute kidney failure, unspecified Status: Acute Plan: In February his Creatinine was 1.1 ESTELA due to UTI; also with recent and resolving hydronephrosis s/p right ureteral stent In addition he was on Bactrim that causes elevation of serum creatinine. 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 His renal function improving tolerating oral fluids, taper off IVF Potassium improved Non oliguric Cleared for discharge from renal perspective. We will sign off at this time. (2) Acute hyperkalemia Code(s): E87.5 - Hyperkalemia Status: Acute Plan: Due to reduction in GFR and Bactrim use. Improved Follow BMP Low K diet (3) UTI (urinary tract infection) Code(s): N39.0 - Urinary tract infection, site not specified Status: Acute Qualifiers: Urinary tract infection type: acute cystitis Hematuria presence: without hematuria Qualified Code(s): N30.00 - Acute cystitis without hematuria Plan: On Rocephin Culture in progress Avoid giving Bactrim, see above. (4) HTN (hypertension) Code(s): I10 - Essential (primary) hypertension Status: Acute Plan: BP better, resume antihypertensives as needed (5) DM II (diabetes mellitus, type II), controlled Code(s): E11.9 - Type 2 diabetes mellitus without complications Status: Chronic Qualifiers: Diabetes mellitus fdc insulin use: with [employer] use Plan: Maintain glucose 140-180mg/dL while hospitalized <Angelica Mccormack - Last Filed: 03/30/18 11:31> - Assessment (1) Acute kidney injury Code(s): N17.9 - Acute kidney failure, unspecified Status: Acute (2) Acute hyperkalemia Code(s): E87.5 - Hyperkalemia Status: Acute (3) UTI (urinary tract infection) Code(s): N39.0 - Urinary tract infection, site not specified Status: Acute Qualifiers: Urinary tract infection type: acute cystitis Hematuria presence: without hematuria Qualified Code(s): N30.00 - Acute cystitis without hematuria (4) HTN (hypertension) Code(s): I10 - Essential (primary) hypertension Status: Acute (5) DM II (diabetes mellitus, type II), controlled Code(s): E11.9 - Type 2 diabetes mellitus without complications Status: Chronic Qualifiers: Diabetes mellitus fdc insulin use: with [employer] use - Attending Attestation patient was seen and examined. Agree with above assessment and plan. Renal function has improved. He can be discharged from renal standpoint. <Andry Velasquez - Last Filed: 03/30/18 19:41>
[2018-03-30] MEDS: traZODone 100 MG Tablet PO SCH (20:22)
[2018-03-31] MEDS: Sodium Chloride 0.45 % Inj 1,000 ML IV.CONT SCH ×2 (03:35→16:04)
[2018-03-31] MEDS: Gabapentin 400 MG Capsule PO SCH ×2 (09:21→22:18)
[2018-03-31] MEDS: FLUoxetine 20 MG Capsule PO SCH ×2 (09:22→22:18)
[2018-03-31] MEDS: Heparin - SQ 10,000 UNITS/ML Vial SQ SCH ×2 (09:22→22:21)
--- NOTE | 2018-03-31 09:31 | P.PNIM ---
Subjective Interval history: Patient reports he has a mild headache. No dizziness. Physical Exam Vital signs: Vital Signs 03/30/18 12:00 03/30/18 13:18 03/30/18 13:20 Temperature 97.6 F Pulse Rate 60 Respiratory Rate 18 Blood Pressure 116/68 118/67 96/63 L Pulse Oximetry 97 03/30/18 16:00 03/30/18 17:33 03/30/18 17:38 Temperature 98.3 F Pulse Rate 53 L 52 L Respiratory Rate 18 Blood Pressure 117/72 107/73 Pulse Oximetry 98 03/30/18 17:39 03/30/18 17:43 03/30/18 19:43 Temperature 98.6 F 98.7 F Pulse Rate 53 L 63 Respiratory Rate 18 15 Blood Pressure 99/64 L 107/73 128/75 Pulse Oximetry 98 98 03/30/18 20:00 03/31/18 00:00 03/31/18 04:00 Temperature 97.2 F L 97.2 F L 97.4 F L Pulse Rate 57 L 49 L 54 L Respiratory Rate 18 16 16 Blood Pressure 130/73 133/71 123/78 Pulse Oximetry 99 99 97 Intake & Output 03/30/18 03/31/18 03/31/18 18:59 06:59 18:59 Intake Total 2500 / 2500 1120 / 1120 Output Total 1050 / 1050 800 / 800 Balance 1450 / 1450 320 / 320 Weight 88 kg Intake: IV 2500 / 2500 1000 / 1000 1/2 Normal Saline Inj 1,000 ML 1000 / 1000 1000 / 1000 @ 75 mls/hr IV.CONT .[id number] [facility] Rx#:[id number] Oral 120 / 120 Output: Urine 1050 / 1050 800 / 800 Other: # Voids 1 Date of Last Bowel Movement 03/29/18 # Bowel Movements 0 Narrative: GENERAL: This is a well-nourished, well-developed patient, in no apparent distress. CARDIOVASCULAR: Regular rate and rhythm RESPIRATORY: Clear to auscultation. Breath sounds equal bilaterally. No wheezes , rales, or rhonchi. GASTROINTESTINAL: Abdomen soft, non-tender, nondistended. Normal active bowel sounds MUSCULOSKELETAL: Extremities without clubbing, cyanosis, or edema. NEURO: Alert & Oriented x2 to person, place. Moves all ext x4 Results - Labs CBC & Chem 7: 03/30/18 07:52 03/30/18 07:52 Laboratory Results - last 24 hr 03/30/18 03/30/18 03/30/18 07:52 07:52 10:10 WBC 4.2 RBC 3.51 L Hgb 10.5 L Hct 32.5 L MCV 92.6 MCH 29.9 MCHC 32.3 RDW 13.1 Plt Count 172 MPV 7.8 Neut % (Auto) 39.4 Lymph % (Auto) 47.2 H [place] % (Auto) 11.7 H Eos % (Auto) 1.3 Baso % (Auto) 0.4 Neut # (Auto) 1.7 L Lymph # (Auto) 2.0 [place] # (Auto) 0.5 Eos # (Auto) 0.1 Baso # (Auto) 0.0 WBC Differential . Differential Comment Auto diff final Sodium 140 Potassium 4.6 Chloride 110 H Carbon Dioxide 21.8 Anion Gap 8 BUN 27 H Creatinine 2.01 H Estimated GFR 41 L POC Glucose 82 Random Glucose 70 L Calcium 8.0 L 03/30/18 03/30/18 03/31/18 13:00 20:16 08:31 WBC RBC Hgb Hct MCV MCH MCHC RDW Plt Count MPV Neut % (Auto) Lymph % (Auto) [place] % (Auto) Eos % (Auto) Baso % (Auto) Neut # (Auto) Lymph # (Auto) [place] # (Auto) Eos # (Auto) Baso # (Auto) WBC Differential Differential Comment Sodium Potassium Chloride Carbon Dioxide Anion Gap BUN Creatinine Estimated GFR POC Glucose 180 H 238 H 83 Random Glucose Calcium Microbiology 03/28/18 19:30 Random Urine Urine Culture - Final 50-100,000 cfu/mL mixed gram positive rachel (probable contaminants) Assessment and Plan - Plan 62-year-old female with hx of type 2 diabetes mellitus, hypertension, neuropathy and depression presents to the ED for evaluation of a fall. The patient reports that he was walking out of his house down the steps when he tripped on the stairs. He reports falling on his right hip and right shoulder. He has recently been treated for a UTI and is on Bactrim. Fall: mechanical slip and fall with poor gait and balance -Hip x-ray, humerus x-ray and pelvic x-ray negative for acute process -Patient reports his pain has improved -Consult PT, recommending PT at rehab Obtain MRI of the brain to rule out any type of acute process. Acute renal failure: Creatinine 4.5 upon arrival, previously Cr 1.4 on 03/17/18 -Renal ultrasound reviewed, showed right kidney does not appear significantly changed in appearance with moderate hydronephrosis and stent catheter in place with calculi are again noted; left kidney again demonstrates a small nonobstructing calculus -Continue IVF with 1/2NS at 75 cc/hr -Nephrology consulted, appreciate recommendations, discussed with nephrology , ok to d/c from their standpoint -Renal function much improved, creatinine currently pending at this time Orthostatic Hypotension: patient experiencing lightheadedness and near syncope upon standing -orthostatic vital signs positive, BP drops from 118/67 supine to 96/63 upon standing -apply compression hose -counseled on slow transitions -continue PT Stop anticholinergic Stop home lisinopril and continue to monitor orthostatic blood pressures Diabetes mellitus/hypoglycemia: Patient's blood glucose 53 on arrival to the emergency department -Holding patient's home long-acting insulin (on Lantus 12u sq hs) and metformin upon admission -Monitor Accu-checks and cover with SSI -Check HgbA1c Labile blood pressure at this time, will restart home Lantus 5 units Stop metformin secondary to acute renal failure Hypertension/hyperlipidemia: chronic -Holding patient's lisinopril with acute renal failure as above -Continue patient's statin Depression/anxiety: chronic -Continue home medications including fluoxetine, benztropine, trazodone Poor Appetite: unclear etiology -consult ST for swallow eval -add Glucerna shakes to each meal -monitor % of meal intake Abnormal UA: initial UA consistent with UTI -urine culture with mixed gram positive, probable contaminants -discontinued IV Rocephin DVT Prophylaxis: Heparin sq Discharge Planning: May need rehab placement per physical therapy pending progression
[2018-03-31 10:26] LABS: Carbon Dioxide 24.6 meq/L (21.0-32.0); Potassium 4.5 meq/L (3.5-5.1)
[2018-03-31] MEDS ORDERED: Insulin Detemir Inj 1,000 UNIT/10 ML Vial SQ SCH (21:00)
--- NOTE | 2018-03-31 21:15 | CT ---
EXAM DATE: 03/31/2018 8:54 PM EDT AGE/SEX: 62 years / Male INDICATIONS: Cephalgia; dizziness. CLINICAL DATA: This is the patient's initial encounter. Patient reports that signs and symptoms have been present for 1 day and indicates a pain score of 4/10. MEDICAL/SURGICAL HISTORY: Hypertension. Diabetes. None. RADIATION DOSE: 42.43 CTDI (mGy) COMPARISON: No prior exams available for comparison. TECHNIQUE: CT of the head without contrast. Using automated exposure control and adjustment of the mA and/or kV according to patient size, radiation dose was kept as low as reasonably achievable to ob tain optimal diagnostic quality images. DICOM format image data is available electronically for revi ew and comparison. FINDINGS: Cerebrum: The ventricles are normal for age. No evidence of midline shift, mass lesion, hemorrhage or acute infarction. No extraaxial fluid collections are seen. Posterior Fossa: The cerebellum and brainstem are intact. The 4th ventricle is midline. The cerebe llopontine angle is unremarkable. Extracranial: The visualized portion of the orbits is intact. Skull: The calvaria is intact. No evidence of skull fracture. No intracranial abnormality is seen. . Electronically signed by: Esteban Lazaro MD 03/31/2018 9:14 PM EDT
[2018-03-31] MEDS: traZODone 100 MG Tablet PO SCH (22:18)
[2018-03-31] MEDS: Insulin Detemir Inj 1,000 UNIT/10 ML Vial SQ SCH (22:20)
[2018-04-01] MEDS: FLUoxetine 20 MG Capsule PO SCH ×2 (08:03→20:29)
[2018-04-01] MEDS: Gabapentin 400 MG Capsule PO SCH ×2 (08:04→20:29)
[2018-04-01 08:24] LABS: Calcium 8.2 mg/dL (8.5-10.1); Carbon Dioxide 25.6 meq/L (21.0-32.0); Potassium 4.1 meq/L (3.5-5.1)
--- NOTE | 2018-04-01 09:46 | P.DS ---
Date of admission: 03/28/18 20:05 Primary care physician: Ana Middleton MD Anticipated date of discharge: 04/01/18 Brief History from admission: 62-year-old female with a past medical history significant for type 2 diabetes mellitus, hypertension, neuropathy and depression presents to the emergency department for evaluation of a fall. The patient reports that he was walking out of his house down the steps when he tripped on the stairs. He reports falling on his right hip and right shoulder. He has recently been treated for a UTI and is on Bactrim. He has history of a previous kidney stone with acute kidney injury. The patient is an extremely poor historian. He denies any pain at this time. No chest pain or shortness of breath. No abdominal pain. No nausea/vomiting/diarrhea. No lateralizing signs/symptoms. No fevers/chills. DS: Diagnosis - Discharge Diagnosis (1) Acute kidney injury Status: Resolved Diagnosis: Secondary (2) Dizziness Status: Acute Diagnosis: Principal (3) Orthostatic hypotension Status: Resolved Diagnosis: Secondary (4) CKD (chronic kidney disease) stage 3, GFR 30-59 ml/min Status: Chronic Diagnosis: Secondary DS: Summary Hospital Course: 62-year-old male with hx of type 2 diabetes mellitus, hypertension, neuropathy and depression presents to the ED for evaluation of a fall. The patient reports that he was walking out of his house down the steps when he tripped on the stairs. He reports falling on his right hip and right shoulder. He has recently been treated for a UTI and is on Bactrim. Fall: mechanical slip and fall with poor gait and balance -Hip x-ray, humerus x-ray and pelvic x-ray negative for acute process -Patient reports his pain has improved -Consult PT, recommending PT at rehab Obtain MRI of the brain to rule out any type of acute process. Acute renal failure superimposed on chronic kidney disease stage III: Creatinine 4.5 upon arrival, previously Cr 1.4 on 03/17/18 -Renal ultrasound reviewed, showed right kidney does not appear significantly changed in appearance with moderate hydronephrosis and stent catheter in place with calculi are again noted; left kidney again demonstrates a small nonobstructing calculus -Continue IVF with 1/2NS at 75 cc/hr -Nephrology consulted, appreciate recommendations, discussed with nephrology , ok to d/c from their standpoint -Renal function much improved, creatinine currently pending at this time Orthostatic Hypotension: patient experiencing lightheadedness and near syncope upon standing -orthostatic vital signs positive, BP drops from 118/67 supine to 96/63 upon standing -apply compression hose -counseled on slow transitions -continue PT Stop anticholinergic Stop home lisinopril and continue to monitor orthostatic blood pressures Diabetes mellitus/hypoglycemia: Patient's blood glucose 53 on arrival to the emergency department -Holding patient's home long-acting insulin (on Lantus 12u sq hs) and metformin upon admission -Monitor Accu-checks and cover with SSI -Check HgbA1c Labile blood pressure at this time, will restart home Lantus 5 units to prevent hyperglycemia Stop metformin secondary to acute renal failure Hypertension/hyperlipidemia: chronic -Holding patient's lisinopril with acute renal failure as above -Continue patient's statin Depression/anxiety: chronic -Continue home medications including fluoxetine, benztropine, trazodone Poor Appetite: unclear etiology -consult ST for swallow eval -add Glucerna shakes to each meal -monitor % of meal intake Abnormal UA: initial UA consistent with UTI -urine culture with mixed gram positive, probable contaminants -discontinued IV Rocephin dizzinessCT of the brain negative will start meclizine to rule out vertigo, orthostatic hypotension resolved after discontinuing home lisinopril and continue with IV fluid hydration DVT Prophylaxis: Heparin sq Discharge Planning: - Time Spent with Patient Total time spent providing and/or coordinating discharge services: Less than 30 minutes - Quality: VTE Deep Vein Thrombosis/Pulmonary Embolism Present on Admission: No Exam Vital signs: Vital Signs 03/31/18 12:00 03/31/18 16:00 03/31/18 20:00 Temperature 98.0 F 97.2 F L 98.4 F Pulse Rate 54 L 58 L 54 L Respiratory Rate 18 18 18 Blood Pressure 124/74 123/85 117/68 Pulse Oximetry 99 99 98 04/01/18 00:00 04/01/18 04:00 04/01/18 08:00 Temperature 98.7 F 97.4 F L 97.9 F Pulse Rate 53 L 51 L 47 L Respiratory Rate 18 18 17 Blood Pressure 110/68 129/78 138/66 Pulse Oximetry 98 98 100 Intake & Output 03/31/18 04/01/18 04/01/18 18:59 06:59 18:59 Intake Total 1720 / 1720 240 / 240 Output Total 1225 / 1225 Balance 495 / 495 240 / 240 Weight 87.8 kg Intake: IV 1000 / 1000 1/2 Normal Saline Inj 1,000 ML 1000 / 1000 @ 75 mls/hr IV.CONT .[id number] [facility] Rx#:[id number] Oral 720 / 720 240 / 240 Output: Urine 1225 / 1225 Other: # Voids 2 # Bowel Movements 0 Narrative: GENERAL: This is a well-nourished, well-developed patient, in no apparent distress. CARDIOVASCULAR: Regular rate and rhythm without murmurs, gallops, or rubs. RESPIRATORY: Clear to auscultation. Breath sounds equal bilaterally. No wheezes , rales, or rhonchi. GASTROINTESTINAL: Abdomen soft, non-tender, nondistended. Normal active bowel sounds MUSCULOSKELETAL: Extremities without clubbing, cyanosis, or edema. NEURO: Alert & Oriented x4 to person, place, time, situation. Moves all ext x4 Results Procedures completed during hospitalization: none Labs on day of discharge: Labs from last 24 hours 04/01/18 03/31/18 03/31/18 05:47 20:58 17:31 Sodium 142 Potassium 4.1 Chloride 110 H Carbon Dioxide 25.6 Anion Gap 6 BUN 11 Creatinine 1.51 H Estimated GFR 57 L POC Glucose 117 H 86 Random Glucose 121 H Hemoglobin A1c Calcium 8.2 L 03/31/18 03/31/18 03/30/18 12:39 08:32 07:52 Sodium 142 Potassium 4.5 Chloride 111 H Carbon Dioxide 24.6 Anion Gap 6 BUN 16 Creatinine 1.58 H Estimated GFR 54 L POC Glucose 98 Random Glucose 81 Hemoglobin A1c 6.0 Calcium 8.0 L - Impressions ITS Impressions Hip X-Ray 03/28/18 17:36 CONCLUSION: No acute abnormality seen. Humerus X-Ray 03/28/18 17:36 CONCLUSION: Hypertrophic change. Pelvis X-Ray 03/28/18 17:36 CONCLUSION: No acute abnormality is seen. Abdomen/Bladder Ultrasound 03/29/18 00:00 CONCLUSION: 1. The right kidney does not appear significantly changed in appearance with moderate hydronephrosis and stent catheter in place. Calculi are again noted. 2. The left kidney again demonstrates a small nonobstructing calculus. Head CT 03/31/18 00:00 CONCLUSION: Discharge Plan - Discharge Disposition Patient Disposition: 03 Discharge to SNF - Discharge Condition Condition: Good - Discharge Order Discharge Orders: Discharge Order (Routine); Ordered 04/01/18 Ordered By: Ghada Engle - Discharge Details Anticipated Discharge Date: 03/31/18 - Physicians Team Primary Care Provider: Ana Middleton Attending Provider: Ghada Engle Other Providers: Andry Velasquez MD
[2018-04-01] MEDS: Heparin - SQ 10,000 UNITS/ML Vial SQ SCH ×2 (10:43→23:36)
[2018-04-01] MEDS: Sodium Chloride 0.45 % Inj 1,000 ML IV.CONT SCH ×2 (20:02→20:26)
[2018-04-01] MEDS: traZODone 100 MG Tablet PO SCH (20:29)
[2018-04-01] MEDS: Insulin Detemir Inj 1,000 UNIT/10 ML Vial SQ SCH (20:30)
[2018-04-02 04:25] VITALS: RESP 18
[2018-04-02 09:38] VITALS: BP 122/73; TEMP 97.8; O2SAT 97
[2018-04-02] MEDS: Gabapentin 400 MG Capsule PO SCH (09:50)
[2018-04-02] MEDS: FLUoxetine 20 MG Capsule PO SCH (09:50)
[2018-04-02] MEDS: Heparin - SQ 10,000 UNITS/ML Vial SQ SCH (09:51)
[2018-04-02] MEDS: Sodium Chloride 0.45 % Inj 1,000 ML IV.CONT SCH (09:51)
--- NOTE | 2018-04-02 12:55 | P.PNFP ---
Subjective Interval history: Pt seen and examined for f/u of ESTELA, recent fall, DM. He is refusing SNF/rehab. He is agreeable to outpatient PT. He denies any current complaints and reports he is feeling well and ready for discharge. Denies CP, SOB, abdominal pain, SOB. He is tolerating PO. Having good UOP. Results - Labs Result diagrams: 03/30/18 07:52 04/01/18 05:47 Abnormal lab results 04/01/18 Range/Units 20:28 POC Glucose 122 H (68-110) mg/dl Physical Exam Vital signs: Vital Signs 04/01/18 16:00 04/01/18 20:00 04/02/18 00:00 Temperature 97.4 F L 98.4 F 98.7 F Pulse Rate 52 L 57 L 54 L Respiratory Rate 17 15 15 Blood Pressure 137/73 137/70 142/78 H Pulse Oximetry 100 97 94 L 04/02/18 04:00 04/02/18 08:00 Temperature 98 F 97.8 F Pulse Rate 67 52 L Respiratory Rate 18 18 Blood Pressure 135/90 122/73 Pulse Oximetry 100 97 Intake & Output 04/01/18 04/02/18 04/02/18 18:59 06:59 18:59 Intake Total 600 / 600 140 / 140 1000 / 1000 Output Total 950 / 950 700 / 700 Balance -350 / -350 -560 / -560 1000 / 1000 Weight 86.7 kg Intake: IV 1000 / 1000 1/2 Normal Saline Inj 1,000 ML 1000 / 1000 @ 75 mls/hr IV.CONT .[id number] [facility] Rx#:[id number] Oral 600 / 600 140 / 140 Output: Urine 950 / 950 700 / 700 Other: Date of Last Bowel Movement 03/29/18 03/29/18 # Bowel Movements 0 1 Narrative: GENERAL: WN, WD AA sitting up in bed eating. SKIN: Warm and dry. NECK: Supple no tender LAD or JVD. HEART: RRR no m/r/g. LUNGS: CTAB without wheezes or crackles. ABDOMEN: +BS, soft, NT, ND. EXTREMITIES: No LE edema. 2+ pedal pulses. NEURO: Awake and alert. Nonfocal. PSYCH: Appropriate mood and affect. Assessment and Plan - Assessment (1) Acute kidney injury Code(s): N17.9 - Acute kidney failure, unspecified Status: Resolved (2) Dizziness Code(s): R42 - Dizziness and giddiness Status: Acute (3) Orthostatic hypotension Code(s): I95.1 - Orthostatic hypotension Status: Resolved (4) CKD (chronic kidney disease) stage 3, GFR 30-59 ml/min Code(s): N18.3 - Chronic kidney disease, stage 3 (moderate) Status: Chronic - Assessment and Plan 62-year-old male with hx of type 2 diabetes mellitus, hypertension, neuropathy, and depression admitted on 03/28 for a mechanical fall. He sustained no fractures but was found to be in acute renal failure. 1. Mechanical fall secondary to poor gait and balance - Hip x-ray, humerus x-ray and pelvic x-ray negative for acute process - CT head negative - PT recommending rehab but pt refusing - Order for outpatient PT 2. ESTELA superimposed on CKD - Creatinine 4.5 upon arrival, previously Cr 1.4 on 03/17/18 - Renal ultrasound showed right moderate hydronephrosis unchanged from prior and stent catheter in place with calculi again noted; left kidney again demonstrates a small nonobstructing calculus - Renal function improved with IV hydration - Nephrology consulted, felt ESTELA was secondary to resolving UTI with hydronephrosis and Bactrim - Avoid nephrotoxic agents - Metformin and Lisinopril were discontinued 3. Orthostatic hypotension - Recommend compression hose and adequate hydration - Counseled to rise from supine/sitting to standing slowly - Stop any offending agents 4. Diabetes mellitus - Metformin D/C'd secondary to ARF - A1c 6.0 - Home long-acting insulin decreased secondary to hypoglycemia 5. HTN - BPs stable off of Lisinopril which was held secondary to ARF - To be followed as outpatient 6. HLD - Continue home statin 7. Depression/anxiety - Continue home medications including fluoxetine, benztropine, trazodone Discharge Planning: D/C home today, patient refusing SNF or home health. Will provide Rx for outpatient PT
[2018-04-02 14:30] VITALS: PULSE 56
== END 2018-04-02 14:18 | disposition home or self-care (01) ==
LOC: NEPE 16:30 → NEDA 20:05 → NEPGCP 23:23 → N04 03-30 20:03
PROVIDERS: ADMIT Family Medicine; ATTEND Family Medicine

== ENCOUNTER 2018-04-24 09:45 | Observation (INO) ==
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
[2018-04-24 10:40] LABS: Baso # (Auto) 0.2 th/mm3 (0.0-0.2); Baso % (Auto) 3.2 % (0.0-2.0); Eos # (Auto) 0.2 th/mm3 (0.0-0.4); Hematocrit 34.3 % (39.0-51.0); Hemoglobin 11.4 gm/dL (13.0-17.0); Lymph # (Auto) 1.8 th/mm3 (1.0-4.8); Lymph % (Auto) 23.7 % (9.0-44.0); Mean Corpuscular HGB Conc 33.2 % (32.0-36.0); Mean Corpuscular Volume 93.2 fL (80.0-100.0); Mean Platelet Volume 8.4 fL (7.0-11.0); Mono # (Auto) 0.6 th/mm3 (0.0-0.9); Mono % (Auto) 7.7 % (0.0-8.0); Neut # (Auto) 4.7 th/mm3 (1.8-7.7); Neut % (Auto) 62.4 % (16.0-70.0); Platelet Count 212 th/mm3 (150-450); Red Blood Count 3.68 mil/mm3 (4.50-5.90); Red Cell Distribution Width 12.8 % (11.6-17.2); White Blood Count 7.5 th/mm3 (4.0-11.0)
[2018-04-24 10:51] LABS: INR 1.1 Ratio; Prothrombin Time 10.9 sec (9.8-11.6)
[2018-04-24 11:23] LABS: Bilirubin,Urine Negative (Negative); Clarity,Urine Clear (Clear); Color,Urine Yellow (Yellw/Straw); Glucose,Urine (UA) Negative (Negative); Leukocyte Esterase,Urine Negative (Negative); Nitrite,Urine Negative (Negative); PH,Urine 5.5 (5.0-8.5); Specific Gravity,Urine 1.015 (1.002-1.035); Urobilinogen,Urine 0.2 mg/dL (Less than 2)
[2018-04-24 11:32] LABS: RBC,Urine 0-3 /hpf (0-3); Squamous Epithelial Cell,Urine 0-5 /hpf (0-5); WBC,Urine 0-5 /hpf (0-5)
[2018-04-24 11:37] LABS: Chloride 105 meq/L (98-107); Sodium 139 meq/L (136-145)
[2018-04-24 11:40] LABS: Albumin 3.5 g/dL (3.4-5.0); Anion Gap 8 meq/L (5-15); Calcium 8.6 mg/dL (8.5-10.1); Carbon Dioxide 26.2 meq/L (21.0-32.0); Glucose,Random 91 mg/dL (74-106); Magnesium 1.1 mg/dL (1.5-2.5)
[2018-04-24 11:41] LABS: Blood Urea Nitrogen 44 mg/dL (7-18)
[2018-04-24 11:43] LABS: Alanine Aminotransferase 13 U/L (12-78)
[2018-04-24 11:44] LABS: Aspartate Aminotransferase 19 U/L (15-37); Glomerular Filtration Rate 30 mL/min (>89)
[2018-04-24 11:45] LABS: Total Protein 7.8 g/dL (6.4-8.2)
[2018-04-24 11:46] LABS: Alkaline Phosphatase 58 U/L (45-117); Creatine Kinase 240 U/L (39-308)
[2018-04-24 11:54] LABS: Potassium 5.7 meq/L (3.5-5.1)
[2018-04-24] MEDS ORDERED: Sodium Chlor 0.9% Inj 500 ML IV.SIG ONE (12:03)
[2018-04-24] MEDS ORDERED: Acetaminophen 325 MG Tablet PO PRN (12:18)
[2018-04-24] MEDS ORDERED: Dextrose 50% in Water 50 ML Vial IV.PUSH PRN (12:22)
[2018-04-24] MEDS ORDERED: Gabapentin 400 MG Capsule PO SCH ×3 (13:00→13:15)
[2018-04-24] MEDS ORDERED: Enoxaparin Inj 40 MG/0.4 ML Syringe SQ SCH (14:00)
[2018-04-24] MEDS: Gabapentin 300 MG Capsule PO SCH ×2 (14:08→17:08)
[2018-04-24] MEDS: Sod Chloride 0.9% Inj 1,000 ML IV.CONT SCH (14:08)
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
--- NOTE | 2018-04-24 16:18 | ECG ---
Date Performed: 04/24/2018 Time Performed: 10:17:42 PTAGE: 62 years EKG: Sinus rhythm NORMAL ECG Since PREVIOUS TRACING , no significant change noted PREVIOUS TRACIN03/28/2018 20.01 DOCTOR: Ru Naidu Interpretating Date/Time 04/24/2018 16:17:42
[2018-04-24 16:34] LABS: Potassium 5.4 meq/L (3.5-5.1)
[2018-04-24 16:37] LABS: Calcium 8.6 mg/dL (8.5-10.1); Carbon Dioxide 28.4 meq/L (21.0-32.0)
--- NOTE | 2018-04-24 16:39 | XR ---
EXAM DATE: 04/24/2018 4:34 PM EDT AGE/SEX: 62 years / Male INDICATIONS: Fall, left knee pain CLINICAL DATA: This is the patient's subsequent encounter. Patient reports that signs and symptoms h ave been present for 1 day and indicates a pain score of 10/10. MEDICAL/SURGICAL HISTORY: . Hypertension. Diabetes None. COMPARISON: No prior exams available for comparison. FINDINGS: Bony structures are intact and in normal alignment. Joints are intact without dislocation or signifi cant arthropathy. Osseous density is normal. Soft tissues are unremarkable. No radiopaque foreign bodies seen. CONCLUSION: 1. No acute fracture or dislocation. Electronically signed by: Kendall Olivo MD 04/24/2018 4:38 PM EDT
[2018-04-24] MEDS: Insulin NovoLOG Aspart Correctional Sugar Inj SQ SCH ×2 (16:56→21:30)
[2018-04-25] MEDS: Sod Chloride 0.9% Inj 1,000 ML IV.CONT SCH ×2 (01:00→08:50)
[2018-04-25] MEDS: Gabapentin 300 MG Capsule PO SCH (08:49)
[2018-04-25] MEDS: Insulin NovoLOG Aspart Correctional Sugar Inj SQ SCH (08:50)
[2018-04-25] MEDS ORDERED: REXULTI 2 MG PO SCH (09:00)
--- NOTE | 2018-04-25 14:36 | P.PN ---
Subjective Interval history: Follow-up dehydration. Patient states he is fine no voiding issues Physical Exam Vital signs: Vital Signs 04/24/18 16:00 04/24/18 20:00 04/25/18 00:00 Temperature 96.8 F L 97.7 F 96.9 F L Pulse Rate 70 74 76 Respiratory Rate 18 20 20 Blood Pressure 122/62 108/67 121/81 Pulse Oximetry 95 98 96 04/25/18 08:00 04/25/18 12:00 Temperature 97.0 F L 97.7 F Pulse Rate 69 58 L Respiratory Rate 18 18 Blood Pressure 138/86 103/63 Pulse Oximetry 97 100 Intake & Output 04/24/18 04/25/18 04/25/18 18:59 06:59 18:59 Intake Total 1120 / 1120 1060 / 1060 1000 / 1000 Output Total 400 / 400 600 / 600 Balance 720 / 720 460 / 460 1000 / 1000 Weight 86.183 kg 86.6 kg Intake: IV 500 / 500 1000 / 1000 1000 / 1000 NS Inj 1,000 ML @ 100 mls/hr IV 1000 / 1000 1000 / 1000 .CONT .Q10H SWETHA Rx#:[id number] NS Inj 500 ML @ Wide Open IV. 500 / 500 SIG BOLUS ONE Rx#:[id number] Oral 620 / 620 60 / 60 Output: Urine 400 / 400 600 / 600 Other: # Voids 2 # Bowel Movements 0 Narrative: GENERAL: AAOx1, no acute distress, adequate nutrition SKIN: Warm and dry, no rashes. CARDIOVASCULAR: Regular rate and rhythm. No murmur, no gallops, no rubs. RESPIRATORY: Clear and equal to auscultation bilaterally. No crackles, no wheezes. No accessory muscle use. GASTROINTESTINAL: Abdomen soft, non-tender, nondistended, normal active bowel sounds. MUSCULOSKELETAL: Exquisite tenderness to palpation of left medial knee .extremities without clubbing or cyanosis. No obvious deformities. No edema. NEUROLOGICAL: Awake and alert. No obvious cranial nerve deficits. Motor grossly within normal limits. No focal deficits. Five out of 5 muscle strength in the arms and legs. Normal speech. No hallucinations Results - Labs CBC & Chem 7: 04/24/18 10:20 04/24/18 16:10 Laboratory Results - last 24 hr 04/24/18 04/24/18 04/24/18 16:10 16:55 21:30 Sodium 141 Potassium 5.4 H Chloride 106 Carbon Dioxide 28.4 Anion Gap 7 BUN 40 H Creatinine 2.40 H Estimated GFR 33 L POC Glucose 89 140 H Random Glucose 86 Calcium 8.6 04/25/18 04/25/18 07:20 11:41 Sodium Potassium Chloride Carbon Dioxide Anion Gap BUN Creatinine Estimated GFR POC Glucose 76 96 Random Glucose Calcium - Imaging ITS Impressions Knee X-Ray 04/24/18 00:00 CONCLUSION: 1. No acute fracture or dislocation. Chest X-Ray 04/24/18 09:53 CONCLUSION: No acute cardiopulmonary abnormality is identified. - Procedures none Assessment and Plan - Plan Acute kidney injury secondary to dehydration. History of hydronephrosis with kidney stones Elevation of BUN and creatinine. Labs pending Hydrate with IV fluids and recheck with a.m. labs Consider nephrology consult and repeating imaging studies. Avoid nephrotoxins. Falls with left knee pain Left knee is exquisitely tender, patient fell twice this week Unremarkable x-ray of left knee PT eval Type 2 diabetes Accu-Cheks with sliding scale insulin coverage Diabetic diet Hypertension Continue home meds Dyslipidemia Continue home meds Psychiatric history Patient has major depressive disorder, bipolar, possible mental deficits Seroquel held for possible role in falls otherwise continue home meds DVT Prophylaxis Lovenox Discharge Planning: Not ready for discharge requiring IV hydration secondary to acute kidney injury
[2018-04-25 15:47] LABS: Calcium 8.4 mg/dL (8.5-10.1); Carbon Dioxide 28.3 meq/L (21.0-32.0); Potassium 4.6 meq/L (3.5-5.1)
--- NOTE | 2018-04-25 16:36 | P.DCO ---
- Physical Therapy Order: Evaluate and treat, Improve ambulation, Strength and gait training - Home Health Nursing Order: Medical education, Nursing assessment with vital signs - Certification I have seen patient Jose Luis Manley on 04/25/18. My clinical findings support the need for the requested home health care services because: Deconditioned with increased weakness I certify that my clinical findings support that this patient is homebound because: Need for psychosocial assistance
[2018-04-25] MEDS ORDERED: Gabapentin 300 MG Capsule PO SCH (21:00)
[2018-04-25] MEDS ORDERED: QUEtiapine 100 MG Tablet PO SCH (21:00)
[2018-04-26] MEDS ORDERED: traZODone 100 MG Tablet PO SCH (09:00)
== END 2018-04-25 18:18 | disposition home health service (06) ==
LOC: PHED 09:45 → PH3 09:45 → PHEDA 09:45 → PH3 13:00 → UNDODISOB 13:06 → PH3 13:07
PROVIDERS: ADMIT Internal Medicine; ATTEND Internal Medicine
DX: R53.1 Weakness; N40.0 Benign prostatic hyperplasia without lower urinary tract symptoms; E78.5 Hyperlipidemia, unspecified; Z79.82 Long term (current) use of aspirin; E11.42 Type 2 diabetes mellitus with diabetic polyneuropathy; M25.562 Pain in left knee; F31.9 Bipolar disorder, unspecified; Z79.899 Other long term (current) drug therapy; E78.00 Pure hypercholesterolemia, unspecified; I10 Essential (primary) hypertension; F41.9 Anxiety disorder, unspecified; E11.649 Type 2 diabetes mellitus with hypoglycemia without coma; W19.XXXA Unspecified fall, initial encounter; E86.0 Dehydration; E87.5 Hyperkalemia; Z87.891 Personal history of nicotine dependence; N17.9 Acute kidney failure, unspecified